=== PATIENT | male | born 1935 | race Caucasian/White ===

== ENCOUNTER → 2017-01-12 | Outpatient (CLI) | payer MEDICARE ==
[~2017-01-12] MED LIST: ALN10T; ASP81TEC PO; AZIT-21 PO; CEFD300C3 PO; CEPH250T; CFP200T PO; DCS100C PO; ENXP80I.8 SC; LNS30CCR PO; MTP50T PO; MTX2.5T; PANT20TA2 PO; PANT40TA PO; PNT40TEC PO; PRD10T; PRD1T PO; VITAMIN D PO; WARF10TA PO; WARF1TAB PO; WARF3TAB PO; WARF5TAB PO; WARF6TAB PO; WARF7.5T PO; WRF5T PO
--- OUTSIDE RECORDS SUMMARY | 2017-01-12 11:38 | XMS REPORT | Continuity of Care Document ---
Author Author [facility] Organization [facility] Address Unknown Phone Unavailable Care Team Providers Care Associate Professor Of Musicology Name Role Phone Unverified, Unverified PCP Unavailable Source Comments Some departments are not documenting in the electronic medical record. If you do not see the information that you expected, contact Release of Information in the Health Information Management department at [phone] for further assistance in locating additional records.[facility] Active Allergies and Adverse Reactions Not on File Current Medications Prescription Sig. Disp. Refills Start End Date Status Date lansoprazole DR Take 30 mg by mouth Active (PREVACID) 30 mg PO daily. capsule Aspirin 81 mg PO Tab Take 1 Tab by mouth Active daily. predniSONE (DELTASONE) 1 Take 1 mg by mouth daily. Active mg PO tablet warfarin (COUMADIN) 7.5 Take 7.5 mg by mouth Active mg PO tablet daily. Cholecalciferol (Vitamin Take 1 Tab by mouth Active D3) (VITAMIN D-3) 1,000 daily. unit PO Chew docusate (STOOL SOFTENER) Take 100 mg by mouth Active 100 mg PO capsule three times daily. Active Problems Problem Noted Date Ascending aortic aneurysm (HCC) 01/25/2011 Overview: 01/21 [facility]ters [facility] for [facility] opinion with history of Ascendiong aortic span 4.[address]s of March 2008, June 2010 and December 2010 and a recent recommendation from Dr. Rosenbaum surgeon at [facility] to have aortic repair L ast Assessment & Plan: CT from December 2010 [address] Alexis. The reported maximum aortic span of 4.8 cm is confirmed. In absence of evidence of dissection or significant expansion, this patient should be managed with CT scans annually. A recent recommendation for a followup scan in [address] Hammonds, the patient's principle career development specialist may have been influenced by the recommendation to proceed with aortic repair. I would defer to Dr. Hammonds regarding the necessity for a scan is 6 months but I suspect that it will be found to be stable in 6 months. No change in medications were recommended. Symptoms to watch for were outlined to the patient and his family. Mechanical heart valve 01/25/2011 Overview: 1984 placement of Kelly Shiley Valve at [facility] as treatment for stenotic bicuspid aortic valve 04/07/09 JENNA to evaluate TIA Dr. Nuno [facility]: EF 55% normal appearance Mechanical AO Valve, no abscess or clot, normal seating LA appendage without clot , No shunt with Agitated saline 04/02/09 TTE: similar to JENNA, trivial AI Aortic root 2.1 12/1010 Echo-Doppler EF 55% normal LV dimensionas Normal MV andTV, Mecnacial aoartic valve mean gradient 8, peak 16, Transient ischemic attack (TIA) 01/25/2011 Overview: Symptoms attributes to emboli from mechanical valve, as of 01/21 evaluation MAC increase in anticoagulant effect with INR targe range 3.5 to 4.5 has been adopted with baseline antiplatelet therapy continued with aspirin 81 mg/day alone L ast Assessment & Plan: If patient has further TIAS with INR in 3.5 to 4.5 range, reduction in INR range and additon of Plavis to aspirirn may be best approach but acute heparinaztion may be required. Patient instsurcted to reprot any further TIAs immediately due to treatment issues related to managing futher TIAs. Syncope 01/25/2011 Overview: Episode when at a social event without alcohol involvement 2010 L ast Assessment & Plan: Caution with antihypertensives and diuretics seems advisable with this history. Carotid artery disease (HCC) 01/25/2011 Overview: 04/08/09,study after TIA: mild to moderate disease JENNA: 12/30/10 After Syncope: Milt to moderate disease. 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 Carcinoma of colon (HCC) 01/25/2011 Overview: August 2009 Sigmoid colectomy for carcinoma Social History Tobacco Use Types Packs/Day Years Used Date Never Assessed Last Filed Vital Signs Vital Sign Reading Time Taken Blood Pressure 160/80 01/24/2011 12:43 PM CDT Pulse - - Temperature - - Respiratory Rate - - Height 1.753 m (5' 9") 01/24/2011 12:43 PM CDT Weight 72.938 kg (160 lb 12.8 01/24/2011 12:43 PM CDT oz) Body Mass Index 23.74 01/24/2011 12:43 PM CDT Oxygen Saturation - - Plan of Care Health Maintenance Due Date Last Done Comments Physical (Comprehensive) 1943 Exam Pertussis Vaccine 1947 Tetanus Vaccine 1953 Shingles Vaccine 1996 Prevnar/Pneumovax (#1) 2001 Influenza Vaccine 07/14/2015 Results from Last 3 Months Not on file
--- NOTE | 2017-01-12 16:14 | Diagnostic Imaging Report ---
EXAMINATION: PA and lateral views of the chest. INDICATION: Cough and fever. FINDINGS: The lungs are clear of focal consolidation. There is hyperinflation and slight thickening in the interstitium lung bases. The heart size is normal. No effusion or pneumothorax. The mediastinum and mejia appear unremarkable. There is an aortic valve replacement and sternotomy wires are seen. IMPRESSION: No acute process. Dictated by: Dictated on workstation # [id number]
== END ==
LOC: RAD 10:50
PROVIDERS: ATTEND Internal Medicine
DX: R05 Cough (principal); R50.9 Fever, unspecified
CPT/HCPCS: 71020

== ENCOUNTER 2017-01-14 02:44 | Emergency (ER) | payer MEDICARE ==
[~2017-01-14] VITALS: Ht 175.3 cm; Wt 69.9 kg
[~2017-01-14 02:44] MED LIST changes: -CEFD300C3 PO
--- OUTSIDE RECORDS SUMMARY | 2017-01-14 02:51 | XMS REPORT | Continuity of Care Document ---
Author Author [facility] Organization [facility] Address Unknown Phone Unavailable Care Team Providers Care Hydrodynamicist Name Role Phone Unverified, Unverified PCP Unavailable Source Comments Some departments are not documenting in the electronic medical record. If you do not see the information that you expected, contact Release of Information in the Health Information Management department at [phone] for further assistance in locating additional records.[facility] Active Allergies and Adverse Reactions Not [...] recent recommendation from Dr. Rosenbaum surgeon at [facility] to have aortic repair L ast Assessment [...] made by Dr. Hammonds, the patient's principle technology engineer may have been influenced by the recommendation [...] 1984 placement of Kelly Shiley Valve at [facility] as treatment for stenotic bicuspid aortic valve 04/07/09 JENNA to evaluate TIA Dr. Nuno [facility]: EF 55% normal appearance Mechanical AO [...]
[2017-01-14] MEDS ORDERED: RT-ALBUTEROL/IPRATROPIUM 3 ML (DUONEB) VIAL INH ONE (03:45)
[2017-01-14] MEDS ORDERED: RT-ALBUTEROL SULF 2.5 MG/3 ML PRE-MIX VIAL INH STA (04:22)
[2017-01-14] MEDS ORDERED: DEXAMETHASONE PF 10 MG/ML (DECADRON) VIAL IM STA (04:22)
[2017-01-14] MEDS ORDERED: RX-ALBUTEROL INHALER (PROAIR) 8 GM IH PRN (04:30)
[2017-01-14] MEDS ORDERED: CEFDINIR 300 MG (OMNICEF) CAP PO ONE (04:30)
--- NOTE | 2017-01-14 04:34 | ED Respiratory ---
General Chief Complaint: Cough/Cold/Flu Symptoms Stated Complaint: SOB Nursing Triage Note: PT TO ED 4 W/ C/O COUGH X3-4 DAYS, WORSE TONIGHT. REPORTS COUGH WAS PRODUCTIVE UNTIL THIS EVENING. NO OTHER C/O VOICED Source: patient Exam Limitations: no limitations History of Present Illness Time seen by provider: 03:35 Initial Comments Here with report of cough over the last 3-4 days. He had chest x-ray 2 days ago with his doctor which did not show anything significant. Tonight he comes in feeling like he has a crackling sensation in his chest and/or wheezing and feels tight as well as short of breath. His is in the hospital currently with pneumonia. Patient has a long-term heart valve replacement and is on Coumadin for that. Denies fever or chills. Denies nausea or vomiting. Does report upper respiratory congestion. Timing/Duration: getting worse, other (several days) Severity: moderate Prior Episodes/Possible Cause: no prior episodes Modifying Factors: Worse With Coughing, Improves With Rest Associated Symptoms: coughNo fever/chills (social), nasal congestion shortness of breath wheezing Allergies and Home Medications Allergies Coded Allergies: NSAIDS (Non-Steroidal Anti-Inflamma (Unverified Allergy, Unknown, 06/11/14) Uncoded Allergies: vitamin K (Allergy, Unknown, 06/11/14) Home Medications Aspirin 81 Mg Tabec 81 MG PO DAILY (Reported) Docusate Sodium 100 Mg Cap 200 MG PO DAILY (Reported) TAKES 2 (100MG) CAPSULES Metoprolol Tartrate 50 Mg Tablet 25 MG PO BID (Reported) TAKES 1/2 (50MG) TABLET Pantoprazole Sodium 40 Mg Tablet.dr 40 MG PO DAILY (Reported) Warfarin Sodium 1 Mg Tablet 3 MG PO ODD DAY @ HS (Reported) TAKE 3 (1MG)+ 5MG = 8MG ON ODD DAYS Warfarin Sodium 1 Mg Tablet 2 MG PO EVEN DAY @ HS (Reported) TAKE 2 (1MG) + 5MG = 7MG ON EVEN DAYS Warfarin Sodium 5 Mg Tablet 5 MG PO HS (Reported) TAKES WITH 1MG -2 TAB ON EVEN DAYS - 3 TAB ON ODD DAYS Constitutional: see HPINo chills, No fever EENTM: nose congestion see HPI Respiratory: see HPI short of breath wheezing Cardiovascular: no symptoms reportedNo chest pain, No edema Gastrointestinal: no symptoms reportedNo abdominal pain, No nausea, No vomiting Genitourinary: no symptoms reported Musculoskeletal: no symptoms reported Skin: no symptoms reported All Other Systems Reviewed Negative Unless Noted: Yes Past Kodzwtg-Grrgqe-Fblqgm Hx Patient Social History Alcohol Use: Occasionally Uses Recreational Drug Use: No Smoking Status: Former Smoker Recent Foreign Travel: No Contact w/Someone Who Travel: No Recent Infectious Disease Expo: No Recent Hopitalizations: Yes (TIA, GI BLEED) Immunizations Up To Date Date of Pneumonia Vaccine: Nov 18, 2010 Date of Influenza Vaccine: Aug 13, 2014 Seasonal Allergies Seasonal Allergies: No Surgeries HX Surgeries: Yes (TONSILECTOMY, GI SURGERY, APPENDECTOMY, HEART SURGERY) Respiratory Hx Respiratory Disorders: No Cardiovascular Hx Cardiac Disorders: Yes (AORTIC VALVE REPLACEMENT) Neurological Hx Neurological Disorders: Yes (BELLS PALSY, RIGHT FACIAL DROOP) Reproductive System Hx Reproductive Disorders: No Genitourinary Hx Genitourinary Disorders: No Gastrointestinal Hx Gastrointestinal Disorders: Yes (Colon CA) Musculoskeletal Hx Musculoskeletal Disorders: Yes Endocrine Hx Endocrine Disorders: No HEENT HX ENT Disorders: Yes (cataract surgery) HEENT Disorders: Cataract Loss of Vision: Denies Hearing Impairment: Denies Cancer Hx Cancer: Yes Cancer: Colon Psychosocial Hx Psychiatric Problems: No Integumentary HX Skin/Integumentary Disorder: No Blood Transfusions Hx Blood Disorders: No Reviewed Nursing Assessment Reviewed/Agree w Nursing PMH: Yes Family Medical History Significant Family History: No Pertinent Family Hx Physical Exam Vital Signs Vital Sign - Last 12Hours 01/14/17 02:48 Temp 97.8 Pulse 89 Resp 20 B/P 171/107 Pulse Ox 94 O2 Delivery Room Air Capillary Refill : Less Than 3 Seconds General Appearance: WD/WN no apparent distress HEENT: PERRL/EOMI pharynx normal Neck: full range of motion supple Respiratory: no accessory muscle use wheezing expiration Cardiovascular: regular rate, rhythm no murmur Gastrointestinal: non tender soft Extremities: non-tender normal inspection Neurologic/Psychiatric: alert oriented x 3 Skin: normal color warm/dry Progress/Results/Core Measures Results/Orders My Orders Orders-DENI SOW MD Chest Pa/Lat (2 View) (01/14/17 02:54) Albuterol/Ipra Inhalation Soln (Duoneb I (01/14/17 03:45) Rt Request For Service (01/14/17 03:32) Svn Sm Volume Nebulizer Rt-Rfs (01/14/17 03:32) Dexamethasone Pf Injection (Decadron Pf (01/14/17 04:22) Albuterol Pre-Mix Nebs (Rt) (Proventil P (01/14/17 04:22) Svn Sm Volume Nebulizer Rt-Rfs (01/14/17 04:22) Rx-Albuterol Inhaler (Rx-Proair) (01/14/17 04:30) Cefdinir Capsule (Omnicef Capsule) (01/14/17 04:30) Medications Given in ED Current Medications Medications Dose Ordered Sig/Italia Route Start Time Stop Time Status Last Admin Dose Admin Albuterol/ Ipratropium 3 ml ONCE ONCE INH 01/14/17 03:45 01/14/17 03:46 DC 01/14/17 03:41 3 ML Vital Signs/I&O Vital Sign - Last 12Hours 01/14/17 01/14/17 01/14/17 01/14/17 02:48 02:48 03:41 04:37 Temp 97.8 Pulse 89 Resp 20 B/P 171/107 Pulse Ox 94 95 90 O2 Delivery Room Air Blood Pressure Mean: 128 Progress Note : Progress Note Seen and evaluated. Chest x-ray ordered. No acute findings. Duo neb ordered and this did improve his breathing. Decadron 10 mg IM ordered. Repeat albuterol now. Omnicef 300 mg by mouth given. Albuterol MDI teaching done and albuterol MDI given. Discharged home with return precautions. Patient's verbalize understanding of instructions and agreement with plan. Departure Impression Impression: Primary Impression: Bronchitis Disposition: 01 HOME, SELF-CARE Condition: Improved Departure-Patient Inst. Decision time for Depature: 04:41 Referrals: SHASHI CURRAN MD (PCP/Family) Primary Care Physician Patient Instructions: Acute Bronchitis, Adult (DC) Add. Discharge Instructions: All discharge instructions reviewed with patient and/or family. Voiced understanding. Take medications as directed. Follow-up with your DrErnesto on Monday for recheck and further evaluation. Return for worse pain, fever, vomiting, weakness, rhythm problems other concerns as needed. Scripts Cefdinir 300 Mg [id number] Mg PO BID #14 CAP Prov:DENI SOW MD 01/14/17 DENI SOW MD Jan 14, 2017 04:34
[2017-01-14] MEDS ORDERED: CEFD300C3 PO (04:45)
[2017-01-14 05:19] VITALS: BP 148/78
--- NOTE | 2017-01-14 07:10 | Diagnostic Imaging Report ---
EXAMINATION: CHEST (PA AND LATERAL) CLINICAL INDICATION: 81-year-old male, shortness of breath and cough. COMPARISON: January 12, 2017. FINDINGS: There are median sternotomy wires. There is valvular hardware. Stable overall appearance of the cardiomediastinal silhouette. There is no identified pneumothorax. There is no pleural effusion. There is no identified interval focal airspace consolidation. Radiographic appearance is essentially unchanged dating back to November 09, 2014. IMPRESSION: No identified acute cardiopulmonary abnormality. Dictated by: Dictated on workstation # [id number]
== END 2017-01-14 05:19 | disposition home or self-care (01) ==
LOC: EDUNIT# 02:44 → ER 02:46
DX: J40 Bronchitis, not specified as acute or chronic (principal); Z79.01 Long term (current) use of anticoagulants; Z79.82 Long term (current) use of aspirin; Z79.899 Other long term (current) drug therapy; Z95.2 Presence of prosthetic heart valve
CPT/HCPCS: 71020; 94640; 96372; 99282

== ENCOUNTER 2017-01-18 10:58 | Outpatient (RCR) | payer MEDICARE ==
[~2017-01-18 10:58] MED LIST changes: +CEFD300C3 PO
--- OUTSIDE RECORDS SUMMARY | 2017-01-18 11:01 | XMS REPORT | Continuity of Care Document ---
Author Author [facility] Organization [facility] Address Unknown Phone Unavailable Care Team Providers Care Director Dermatology Name Role Phone Unverified, Unverified PCP Unavailable Source Comments Some departments are not documenting in the electronic medical record. If you do not see the information that you expected, contact Release of Information in the Health Information Management department at [phone] for further assistance in locating additional records.[facility] Active Allergies and Adverse Reactions Not [...] recent recommendation from Dr. Rosenbaum surgeon at [facility] to have aortic repair L ast [...] made by Dr. Hammonds, the patient's principle electron beam machine welder setter may have been influenced by the recommendation [...] 1984 placement of Kelly Shiley Valve at [facility] as treatment for stenotic bicuspid aortic valve 04/07/09 JENNA to evaluate TIA Dr. Nuno [facility]: EF 55% normal appearance Mechanical AO [...]
== END 2017-04-18 | disposition home or self-care (01) ==
LOC: ONC 10:58
PROVIDERS: ATTEND Internal Medicine Hematology & Oncology
DX: Z08 Encounter for follow-up examination after completed treatment for malignant neoplasm (principal); Z85.038 Personal history of other malignant neoplasm of large intestine; D50.9 Iron deficiency anemia, unspecified; J44.9 Chronic obstructive pulmonary disease, unspecified; Z95.2 Presence of prosthetic heart valve; Z79.01 Long term (current) use of anticoagulants; Z86.73 Personal history of transient ischemic attack (TIA), and cerebral infarction without residual deficits
CPT/HCPCS: 99213

== ENCOUNTER 2017-05-30 07:55 | Emergency (ER) | payer MEDICARE ==
[~2017-05-30] VITALS: Ht 172.7 cm; Wt 67.1 kg
[2017-05-30 08:14] LABS: BASOPHILS % (AUTO) 0 % (0-10); EOSINOPHILS # (AUTO) 0.2 10^3/uL (0.0-0.3); EOSINOPHILS % (AUTO) 2 % (0-10); LYMPHOCYTES # (AUTO) 2.9 X 10^3 (1.0-4.0); LYMPHOCYTES % (AUTO) 38 % (12-44); MEAN CORPUSCULAR HEMOGLOBIN 31 PG (25-34); MEAN CORPUSCULAR HGB CONC 33 G/DL (32-36); MEAN CORPUSCULAR VOLUME 92 FL (80-99); MEAN PLATELET VOLUME 9.8 FL (7.4-10.4); MONOCYTES # (AUTO) 1.1 X 10^3 (0.0-1.0); MONOCYTES % (AUTO) 15 % (0-12); NEUTROPHILS # (AUTO) 3.5 X 10^3 (1.8-7.8); NEUTROPHILS % (AUTO) 46 % (42-75); PLATELET COUNT 207 10^3/uL (130-400); RED BLOOD COUNT 4.86 10^6/uL (4.35-5.85); RED CELL DISTRIBUTION WIDTH 12.6 % (10.0-14.5); WHITE BLOOD COUNT 7.8 10^3/uL (4.3-11.0)
[2017-05-30 08:24] LABS: INR 2.6 (0.8-1.4); PROTHROMBIN TIME PATIENT 27.6 SEC (12.2-14.7)
--- NOTE | 2017-05-30 08:24 | ED General ---
General Chief Complaint: Respiratory Problems Stated Complaint: DIZZY,SOB Nursing Triage Note: PT STATES HE GOT UP TO USE THE RESTROOM AT APPROX 0300 AND STARTED FEELING SOA AND LIKE HE WAS "BOUNCING OFF THE WALL." FEELS LIKE HIS EQUALIBRIUM WAS OFF. FSBS AT HOME 137. HX: TIA, DENTAL SX LAST MONDAY THEREFORE OFF COUMADIN X 3 DAYS PRIOR. Nursing Sepsis Screen: No Definite Risk Source of Information: Patient (LIMITED HISTORIAN ), Spouse (GIVES MOST INFORMATION) History of Present Illness Time Seen by Provider: 08:05 Initial Comments PT ARRIVES VIA POV FROM HOME PT STATES HE GOT UP TO GO TO THE BATHROOM AT 0300 THIS AM AND HAD A "LACK OF BALANCE" --STATES IT WAS NOT A SPINNING SENSATION, JUST A BALANCE PROBLEM HAD SWEATS AT 0600 WHEN HE GOT UP TO GET READY FOR WORK, AND FELT VERY "OFF- BALANCE"--PT STILL WORKS AT [employer] FEELS SLIGHTLY SHORT OF BREATH NO CHEST PAIN NO PALPITATIONS NO NEW PARESTHESIAS OR MOTOR DEFICITS--PT STATES HIS FEET ALWAYS TINGLE, AND HAS A CHRONIC RIGHT FACIAL DROOP NO NAUSEA/VOMITING NO SWELLING IN LEGS/FEET OR PAIN IN CALVES NO KNOWN FEVER, AND NO RECENT ILLNESS NO VISION CHANGES NO HEADACHE PT HAS A MECHANICAL AORTIC VALVE AND NORMALLY TAKES COUMADIN, BUT HAD A TOOTH EXTRACTED LAST Monday05/25/17 AND WAS OFF COUMADIN FOR 3 DAYS PRIOR TO EXTRACTION. INR WAS 1.4 ON MONDAY PRIOR TO EXTRACTION COUMADIN WAS RESTARTED THAT DAY 05/25/17 NO PROBLEMS WITH EXCESSIVE BLEEDING FROM EXTRACTION SITE. Allergies and Home Medications Allergies Coded Allergies: NSAIDS (Non-Steroidal Anti-Inflamma (Unverified Allergy, Unknown, 06/11/14) Uncoded Allergies: vitamin K (Allergy, Unknown, 06/11/14) Home Medications Aspirin 81 Mg Tabec, 81 MG PO DAILY, (Reported) Cefdinir 300 Mg Capsule, 300 MG PO BID, #14 Prescribed by: DENI SOW on 01/14/17 7879 Docusate Sodium 100 Mg Cap, 200 MG PO DAILY, (Reported) TAKES 2 (100MG) CAPSULES Metoprolol Tartrate 50 Mg Tablet, 25 MG PO BID, (Reported) TAKES 1/2 (50MG) TABLET Pantoprazole Sodium 40 Mg Tablet.dr, 40 MG PO DAILY, (Reported) Warfarin Sodium 1 Mg Tablet, 3 MG PO ODD DAY @ HS, (Reported) TAKE 3 (1MG)+ 5MG = 8MG ON ODD DAYS Warfarin Sodium 1 Mg Tablet, 2 MG PO EVEN DAY @ HS, (Reported) TAKE 2 (1MG) + 5MG = 7MG ON EVEN DAYS Warfarin Sodium 5 Mg Tablet, 5 MG PO HS, (Reported) TAKES WITH 1MG -2 TAB ON EVEN DAYS - 3 TAB ON ODD DAYS Constitutional: see HPI, diaphoresis EENTM: no symptoms reported Respiratory: see HPI, short of breath Cardiovascular: no symptoms reported, No chest pain, No edema, No palpitations , No syncope Gastrointestinal: no symptoms reported, No nausea, No vomiting Genitourinary: no symptoms reported Musculoskeletal: no symptoms reported Skin: no symptoms reported Psychiatric/Neurological: See HPI, Denies Headache Hematologic/Lymphatic: See HPI Immunological/Allergic: no symptoms reported Past Krqvbok-Ygixzw-Hxovqu Hx Patient Social History Alcohol Use: Occasionally Uses Recreational Drug Use: No Smoking Status: Former Smoker (2 PPD, QUIT 1998) Type Used: Cigarettes 2nd Hand Smoke Exposure: No Recent Foreign Travel: No Contact w/Someone Who Travel: No Recent Infectious Disease Expo: No Recent Hopitalizations: No Immunizations Up To Date Tetanus Booster (TDap): More than 5yrs Date of Pneumonia Vaccine: Nov 18, 2010 Date of Influenza Vaccine: Aug 13, 2014 Seasonal Allergies Seasonal Allergies: No Surgeries HX Surgeries: Yes (TONSILECTOMY, WHIPPLE PROCEDURE FOR DUODENAL CA; SIGMOID COLON RESECTION FOR COLON CA; ENDOSCOPIES; HERNIA REPAIR; CARDIAC CATHS; AORTIC VALVE REPLACEMENT; CATARACTS) Surgeries: Abdominal, Appendectomy, Bowel Surgery, Cardiac, Eye Surgery, Valve Replacement Respiratory Hx Respiratory Disorders: Yes Respiratory Disorders: COPD Cardiovascular Hx Cardiac Disorders: Yes (AORTIC VALVE REPLACEMENT; 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) Cardiac Disorders: Aneurysm, Rheumatic Fever, Valvular Heart Disease Neurological Hx Neurological Disorders: Yes (BELLS PALSY-PERMANENT RIGHT FACIAL DROOP 1979' ; MEMORY IMPAIRMENT; TIA'S X 2; NEUROPATHY --FEET) Neurological Disorders: Neuropathy, TIA Reproductive System Hx Reproductive Disorders: No Genitourinary Hx Genitourinary Disorders: Yes Genitourinary Disorders: Kidney Stones Gastrointestinal Hx Gastrointestinal Disorders: Yes (DUODENAL CANCER AND SIGMOID COLON CANCER) Gastrointestinal Disorders: Gastrointestinal Bleed Musculoskeletal Hx Musculoskeletal Disorders: Yes (SJOGREN'S SYNDROME; POLYMYALGIA RHEUMATICA) Endocrine Hx Endocrine Disorders: Yes Endocrine Disorders: Diabetes, Non-Insulin dep HEENT HX ENT Disorders: Yes (cataract surgery) HEENT Disorders: Cataract Loss of Vision: Denies Hearing Impairment: Denies Cancer Hx Cancer: Yes (DUODENAL CA-S/P SURGERY ONLY 1997; 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, Colon Psychosocial Hx Psychiatric Problems: No Integumentary HX Skin/Integumentary Disorder: No Blood Transfusions Hx Blood Disorders: No Physical Exam Vital Signs Vital Sign - Last 12Hours 05/30/17 07:58 Temp 95.3 Pulse 64 Resp 18 B/P (MAP) 173/88 Pulse Ox 96 O2 Delivery Room Air Capillary Refill : Less Than 3 Seconds General Appearance: No Apparent Distress, WD/WN HEENT: PERRL/EOMI, Other (MILD RIGHT FACIAL DROOP--NORMAL FOR PT) Neck: Full Range of Motion, Normal Inspection, Non Tender, Supple Respiratory: Normal Breath Sounds, No Accessory Muscle Use, No Respiratory Distress Cardiovascular: Regular Rate, Rhythm, Other (OCCASIONAL ECTOPY--C/W PVC'S ON MONITOR; MECHANICAL VALVULAR CLICK) Gastrointestinal: Normal Bowel Sounds, No Organomegaly, No Pulsatile Mass, Non Tender, Soft Back: Normal Inspection, No CVA Tenderness, No Vertebral Tenderness Extremity: Normal Capillary Refill, Normal Inspection, Normal Range of Motion, Non Tender, No Calf Tenderness, No Pedal Edema Neurologic/Psychiatric: Alert, Oriented x3 (MILD MEMORY IMPAIRMENT), Normal Mood/Affect, Abnormal Cerebellar Tests (GAIT [id number]), Abnormal Gait, No Aphasia, Facial Droop, Other (MILD RIGHT FACIAL DROOP--NORMAL FOR PT; SUBJECTIVE TINGLING IN FEET, BUT DOES HAVE SENSATION ) Reflexes: 2+ Bicep (R), 2+ Bicep (L), 2+ Knee (R), 2+ Knee (L) Skin: Normal Color, Warm/Dry Focused Exam Lactic Acid Level Laboratory Tests Test 05/30/17 08:30 Lactic Acid Level 1.40 MMOL/L (0.50-2.00) Progress/Results/Core Measures Results/Orders Lab Results Laboratory Tests Test 05/30/17 08:00 05/30/17 08:30 05/30/17 09:29 Range/Units White Blood Count 7.8 4.3-11.0 10^3/uL Red Blood Count 4.86 4.35-5.85 10^6/uL Hemoglobin 14.9 13.3-17.7 G/DL Hematocrit 45 40-54 % Mean Corpuscular Volume 92 80-99 FL Mean Corpuscular Hemoglobin 31 25-34 PG Mean Corpuscular Hemoglobin Concent 33 32-36 G/DL Red Cell Distribution Width 12.6 10.0-14.5 % Platelet Count 207 130-400 10^3/uL Mean Platelet Volume 9.8 7.4-10.4 FL Neutrophils (%) (Auto) 46 42-75 % Lymphocytes (%) (Auto) 38 12-44 % Monocytes (%) (Auto) 15 H 0-12 % Eosinophils (%) (Auto) 2 0-10 % Basophils (%) (Auto) 0 0-10 % Neutrophils # (Auto) 3.5 1.8-7.8 X 10^3 Lymphocytes # (Auto) 2.9 1.0-4.0 X 10^3 Monocytes # (Auto) 1.1 H 0.0-1.0 X 10^3 Eosinophils # (Auto) 0.2 0.0-0.3 10^3/uL Basophils # (Auto) 0.0 0.0-0.1 10^3/uL Prothrombin Time 27.6 H 12.2-14.7 SEC INR Comment 2.6 H 0.8-1.4 Activated Partial Thromboplast Time 32 24-35 SEC Sodium Level 137 135-145 MMOL/L Potassium Level 4.2 3.6-5.0 MMOL/L Chloride Level 101 98-107 MMOL/L Carbon Dioxide Level 28 21-32 MMOL/L Anion Gap 8 5-14 MMOL/L Blood Urea Nitrogen 12 7-18 MG/DL Creatinine 0.82 0.60-1.30 MG/DL Estimat Glomerular Filtration Rate > 60 BUN/Creatinine Ratio 15 Glucose Level 164 H 70-105 MG/DL Calcium Level 9.4 8.5-10.1 MG/DL Magnesium Level 2.0 1.8-2.4 MG/DL Total Bilirubin 0.4 0.1-1.0 MG/DL Aspartate Amino Transf (AST/SGOT) 15 5-34 U/L Alanine Aminotransferase (ALT/SGPT) 17 0-55 U/L Alkaline Phosphatase 75 40-136 U/L Total Creatine Kinase 27 L 30-200 U/L Creatine Kinase MB 1.0 <6.6 NG/ML Troponin I < 0.30 <0.30 NG/ML B-Type Natriuretic Peptide 204.0 H <100.0 PG/ML Total Protein 7.1 6.4-8.2 GM/DL Albumin 4.0 3.2-4.5 GM/DL Lactic Acid Level 1.40 0.50-2.00 MMOL/L Urine Color YELLOW Urine Clarity CLEAR Urine pH 7 5-9 Urine Specific [place] 1.010 L 1.016-1.022 Urine Protein NEGATIVE NEGATIVE Urine Glucose (UA) NEGATIVE NEGATIVE Urine Ketones NEGATIVE NEGATIVE Urine Nitrite NEGATIVE NEGATIVE Urine Bilirubin NEGATIVE NEGATIVE Urine Urobilinogen NORMAL NORMAL MG/DL Urine Leukocyte Esterase NEGATIVE NEGATIVE Urine RBC (Auto) NEGATIVE NEGATIVE Urine RBC NONE /HPF Urine WBC NONE /HPF Urine Squamous Epithelial Cells RARE /HPF Urine Crystals NONE /LPF Urine Bacteria NEGATIVE /HPF Urine Casts NONE /LPF Urine Mucus NEGATIVE /LPF Urine Culture Indicated NO My Orders Orders - BECKY GOULD DO Saline Lock/Iv-Start (05/30/17 08:06) Orthostatic Vital Signs (05/30/17 08:06) Ekg Tracing (05/30/17 08:06) O2 (05/30/17 08:06) Monitor-Rhythm Ecg Trace Only (05/30/17 08:06) Ct Head Wo (05/30/17 08:06) BNP (05/30/17 08:06) Cbc With Automated Diff (05/30/17 08:06) Comprehensive Metabolic Panel (05/30/17 08:06) Creatine Kinase (05/30/17 08:06) Creatine Kinase Mb (05/30/17 08:06) Magnesium (05/30/17 08:06) Protime With Inr (05/30/17 08:06) Partial Thromboplastin Time (05/30/17 08:06) Troponin I (05/30/17 08:06) Ua Culture If Indicated (05/30/17 08:06) Chest 1 View, Ap/Pa Only (05/30/17 08:06) Lactic Acid Analyzer (05/30/17 08:17) Blood Culture (05/30/17 08:17) Scopolamine Patch (Transderm-Scop Patch) (05/30/17 08:45) Meclizine Tablet (Antivert Tablet) (05/30/17 08:45) Ct Angio Chest W (05/30/17 08:57) Iohexol Injection (Omnipaque 350 Mg/Ml 1 (05/30/17 09:15) Ns (Ivpb) (Sodium Chloride 0.9% Ivpb Bag (05/30/17 09:15) Meclizine Tablet (Antivert Tablet) (05/30/17 10:00) Medications Given in ED Current Medications Medications Dose Ordered Sig/[place] Route Start Time Stop Time Status Last Admin Dose Admin Iohexol 125 ml ONCE ONCE IV 05/30/17 09:15 05/30/17 09:16 DC 05/30/17 09:09 125 ML Meclizine HCl 25 mg ONCE ONCE PO 05/30/17 08:45 05/30/17 08:46 DC 05/30/17 08:47 25 MG Scopolamine 1.5 mg ONCE ONCE TD 05/30/17 08:45 05/30/17 08:46 DC 05/30/17 08:47 1.5 MG Sodium Chloride 100 ml ONCE ONCE IV 05/30/17 09:15 05/30/17 09:16 DC 05/30/17 09:09 80 ML Vital Signs/I&O Vital Sign - Last 12Hours 05/30/17 05/30/17 07:58 08:20 Temp 95.3 Pulse 64 64 61 72 Resp 18 B/P (MAP) 173/88 Pulse Ox 96 O2 Delivery Room Air Blood Pressure Mean: 116 ECG Initial ECG Impression Time: 08:03 Initial ECG Rate: 64 Initial ECG Rhythm: Normal Sinus (WITH OCCASIONAL PVC'S) Initial ECG Comparisson: Unchanged (EXCEPT FOR PVC'S) Diagnostic Imaging Comments CT HEAD--NO ACUTE PROCESS, PER RADIOLOGIST REPORT @ 0947 CXR--NO ACUTE PROCESS, PER RADIOLOGIST REPORT @ 0947 CT CHEST ANGIOGRAM--NO ACUTE PROCESS, STABLE THORACIC AORTIC ANEURYSM, COPD CHANGES, HILAR LYMPH NODE--PER RADIOLOGIST REPORT @ 1014 Reviewed: Reviewed by Me Departure Impression Impression: Primary Impression: Vertigo Disposition: 01 HOME, SELF-CARE Condition: Stable Departure-Patient Inst. Referrals: SHASHI CURRAN MD (PCP/Family) Primary Care Physician Patient Instructions: VERTIGO, Vertigo (a Type of Dizziness) (DC) Add. Discharge Instructions: HOME, REST SLOW POSITION CHANGES USE WALKER AT ALL TIMES CONTINUE YOUR REGULAR MEDICATIONS PRESCRIBED FOLLOW UP WITH YOUR DR THIS WEEK FOR FOLLOW UP, RETURN TO ER IF WORSE All discharge instructions reviewed with patient and/or family. Voiced understanding. Scripts Scopolamine (Transderm-Scop) 1 Each Patch.td72 1 EACH TD Q72 HOURS for Dizziness, #3 PATCH Prov: BECKY GOULD DO 05/30/17 Meclizine HCl (Meclizine HCl) 25 Mg Tablet 25-50 MG PO Q6H for Dizziness, #30 TAB Prov: BECKY GOULD DO 05/30/17 BECKY GOULD DO May 30, 2017 08:24
[2017-05-30 08:40] LABS: ALANINE AMINOTRANSFERASE 17 U/L (0-55); ANION GAP 8 MMOL/L (5-14); ASPARTATE AMINO TRANSFERASE 15 U/L (5-34); BILIRUBIN,TOTAL 0.4 MG/DL (0.1-1.0); BLOOD UREA NITROGEN 12 MG/DL (7-18); BUN/CREATININE RATIO 15; CALCIUM 9.4 MG/DL (8.5-10.1); CARBON DIOXIDE 28 MMOL/L (21-32); CHLORIDE 101 MMOL/L (98-107); CREATINE KINASE 27 U/L (30-200); CREATININE SERUM 0.82 MG/DL (0.60-1.30); GFR ESTIMATED > 60; GLUCOSE 164 MG/DL (70-105); POTASSIUM 4.2 MMOL/L (3.6-5.0); SODIUM 137 MMOL/L (135-145); TOTAL PROTEIN 7.1 GM/DL (6.4-8.2)
[2017-05-30] MEDS ORDERED: SCOPOLAMINE 1.5 MG (TRANSDERM-SCOP) PATCH TD ONE (08:45)
[2017-05-30] MEDS ORDERED: MECLIZINE 25 MG (ANTIVERT) TAB PO ONE ×2 (08:45→10:00)
[2017-05-30 08:46] LABS: TROPONIN I < 0.30 NG/ML (<0.30)
--- NOTE | 2017-05-30 08:53 | Diagnostic Imaging Report ---
INDICATION: Dizziness and shortness of breath. TECHNIQUE: A PA chest was obtained at 0842 hours. COMPARISON: 01/14/2017. FINDINGS: There is cardiomegaly and post sternotomy change with a prosthetic aortic valve. There is no focal infiltrate, pneumothorax, or pleural fluid. There is a nodular density overlying the right base which may be a nipple shadow, suggest followup as clinically warranted. IMPRESSION: Cardiomegaly and post sternotomy change with a prosthetic aortic valve. A nodular density is seen overlying the right base which may be a nipple shadow, consider followup with nipple markers as clinically warranted. Dictated by: Dictated on workstation # [id number]
--- NOTE | 2017-05-30 09:08 | Diagnostic Imaging Report ---
PROCEDURE: CT head without contrast. TECHNIQUE: Multiple contiguous axial images were obtained through the brain without the use of intravenous contrast. INDICATION: Dizziness, imbalance. FINDINGS: There is no intracranial hemorrhage. 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 The findings are somewhat similar to 11/09/2014. No ventriculomegaly. No extra-axial fluid collection is seen. The calvarium, the paranasal sinuses, and the orbits appear grossly unremarkable. IMPRESSION: No intracranial hemorrhage. Dictated by: Dictated on workstation # [id number]
[2017-05-30] MEDS ORDERED: IOHEXOL 350 MG/ML 150 ML (OMNIPAQUE 350) VIAL IV ONE (09:15)
[2017-05-30] MEDS ORDERED: NS 100 ML (IVPB) BAG IV ONE (09:15)
[2017-05-30 09:34] LABS: BILIRUBIN,URINE NEGATIVE (NEGATIVE); KETONES,URINE NEGATIVE (NEGATIVE); LEUKOCYTE ESTERASE ,URINE NEGATIVE (NEGATIVE); NITRITE,URINE NEGATIVE (NEGATIVE); PH,URINE 7 (5-9); PROTEIN,URINE NEGATIVE (NEGATIVE); UROBILINOGEN,URINE NORMAL (NORMAL)
[2017-05-30 09:44] LABS: SQUAMOUS EPITHELIAL CELL,UR RARE /HPF
--- NOTE | 2017-05-30 09:48 | Diagnostic Imaging Report ---
PROCEDURE: CT angiography of the chest with contrast. TECHNIQUE: Multiple contiguous axial images were obtained through the chest after uneventful bolus administration of intravenous contrast. Reconstructed CTA MIP acquisitions were also performed. INDICATION: Shortness of breath. History of aortic valve replacement. 125 mL Omnipaque 350 is administered intravenously. FINDINGS: The pulmonary arteries are well opacified with no filling defects to suggest pulmonary embolism. There is an ascending aortic aneurysm measuring 4.8 cm in size similar to comparison exam of 03/26/2015. There is beam hardening artifact from aortic valve replacement seen. The proximal aspect of the aortic arch is ectatic with transition to normal diameter in the distal arch and the descending aorta. The heart size is normal. No pericardial or pleural effusion. There is no mediastinal mass. There is paraseptal emphysema with prominent bullae in the lung apices more on the right side up to 4.2 cm in size. Also centrilobular emphysema in the lungs in general is seen. There are additional bullae also seen in the left lung base. There is no significant consolidation, mass, or suspicious nodule seen. There is a 1.1-cm right hilar nodule, nonspecific. No mediastinal or axillary lymphadenopathy. There is a healed sternotomy with sternotomy wires still in place. There is biliary air seen in the left hepatic lobe slightly more prominent compared to 2014 exam, may relate to prior sphincterotomy. IMPRESSION: 1. Stable mid ascending aortic aneurysm measuring 4.8 cm. 2. Advanced emphysema. 3. Nonspecific 1.1-cm right hilar lymph node. Dictated by: Dictated on workstation # [id number]
[2017-05-30] MEDS ORDERED: MECL-106 PO (10:25)
[2017-05-30] MEDS ORDERED: SCOP1PAT TD (10:25)
[2017-05-30] MEDS ORDERED: WALK1EAC23 MC (10:42)
[2017-05-30 10:44] VITALS: BP 119/67
== END 2017-05-30 10:44 | disposition home or self-care (01) ==
LOC: EDUNIT# 07:55 → ER 07:57
DX: R42 Dizziness and giddiness (principal); J44.9 Chronic obstructive pulmonary disease, unspecified; E11.40 Type 2 diabetes mellitus with diabetic neuropathy, unspecified; Z86.73 Personal history of transient ischemic attack (TIA), and cerebral infarction without residual deficits; Z87.442 Personal history of urinary calculi; Z86.79 Personal history of other diseases of the circulatory system; Z85.038 Personal history of other malignant neoplasm of large intestine; Z90.49 Acquired absence of other specified parts of digestive tract; Z79.82 Long term (current) use of aspirin; Z87.891 Personal history of nicotine dependence; Z95.2 Presence of prosthetic heart valve; Z79.01 Long term (current) use of anticoagulants
CPT/HCPCS: 36415; 70450; 71010; 71275; 80053; 81000; 82550; 82553; 83605; 83735; 83880; 84484; 85025; 85610; 85730; 87040; 93005; 93041

== ENCOUNTER 2018-01-18 12:50 | Outpatient (RCR) | payer MEDICARE ==
[~2018-01-18 12:50] MED LIST changes: +MECL-106 PO; +SCOP1PAT11 TD; +WALK1EAC23 MC
[2018-01-18 13:02] LABS: BASOPHILS % (AUTO) 0 % (0-10); EOSINOPHILS # (AUTO) 0.1 10^3/uL (0.0-0.3); EOSINOPHILS % (AUTO) 1 % (0-10); HEMATOCRIT 44 % (40-54); HEMOGLOBIN 15.1 G/DL (13.3-17.7); LYMPHOCYTES # (AUTO) 2.2 X 10^3 (1.0-4.0); LYMPHOCYTES % (AUTO) 27 % (12-44); MEAN CORPUSCULAR HEMOGLOBIN 30 PG (25-34); MEAN CORPUSCULAR HGB CONC 34 G/DL (32-36); MEAN CORPUSCULAR VOLUME 89 FL (80-99); MEAN PLATELET VOLUME 10.1 FL (7.4-10.4); MONOCYTES % (AUTO) 12 % (0-12); NEUTROPHILS # (AUTO) 4.7 X 10^3 (1.8-7.8); NEUTROPHILS % (AUTO) 59 % (42-75); PLATELET COUNT 232 10^3/uL (130-400); RED BLOOD COUNT 4.97 10^6/uL (4.35-5.85)
[2018-01-18 13:20] LABS: ALANINE AMINOTRANSFERASE 15 U/L (0-55); ALKALINE PHOSPHATASE 79 U/L (40-136); BILIRUBIN,TOTAL 0.9 MG/DL (0.1-1.0); BUN/CREATININE RATIO 13; CARBON DIOXIDE 28 MMOL/L (21-32); CHLORIDE 99 MMOL/L (98-107); GFR ESTIMATED > 60; GLUCOSE 243 MG/DL (70-105); SODIUM 135 MMOL/L (135-145); TOTAL PROTEIN 7.2 GM/DL (6.4-8.2)
== END 2018-04-18 | disposition home or self-care (01) ==
LOC: ONC 12:50
PROVIDERS: ATTEND Internal Medicine Hematology & Oncology
DX: Z08 Encounter for follow-up examination after completed treatment for malignant neoplasm (principal); Z85.038 Personal history of other malignant neoplasm of large intestine; D50.9 Iron deficiency anemia, unspecified; J44.9 Chronic obstructive pulmonary disease, unspecified; Z95.2 Presence of prosthetic heart valve; Z79.01 Long term (current) use of anticoagulants; Z86.73 Personal history of transient ischemic attack (TIA), and cerebral infarction without residual deficits
CPT/HCPCS: 80053; 82378; 82728; 85025; 99213

== ENCOUNTER → 2018-01-26 | Outpatient (CLI) | payer MEDICARE ==
--- NOTE | 2018-01-26 14:06 | Diagnostic Imaging Report ---
CLINICAL INDICATION: Evaluate carotid arteries. Patient with history of carotid artery disease and TIA. COMPARISON: Ultrasound of the carotid arteries dated 12/30/2010. EXAM: Real-time carotid Doppler duplex imaging is performed bilaterally. Peak systolic velocity, ICA/CCA peak systolic ratio, spectral analysis, and vascular morphology are studied. FINDINGS: ARTERY VELOCITY Right Left CCA 0.62 m/s 0.76 m/s ICA 0.73 m/s 0.76 m/s ECA 1.44 m/s 1.03 m/s ICA/CCA 1.2 1.1 VERT.ART Antegrade Antegrade There is mild bilateral carotid artery atherosclerotic disease which is most pronounced in the left cervical ICA bulb. There is less than 50% stenosis seen on grayscale imaging. IMPRESSION: There is no grayscale or Doppler evidence of significant vascular stenosis. Dictated by: Dictated on workstation # [id number]
== END ==
LOC: RAD 11:58
PROVIDERS: ATTEND Internal Medicine
DX: Z86.73 Personal history of transient ischemic attack (TIA), and cerebral infarction without residual deficits (principal); Z86.79 Personal history of other diseases of the circulatory system
CPT/HCPCS: 93880

== ENCOUNTER 2018-06-11 14:18 | Outpatient (RCR) | payer MEDICARE | END 2018-08-06 14:01 | disposition home or self-care (01) | PROVIDERS: ATTEND Internal Medicine | DX: I69.322 Dysarthria following cerebral infarction (principal) ==

== ENCOUNTER → 2018-06-12 | Outpatient (RCR) | payer MEDICARE ==
[2018-06-12 13:48] LABS: BASOPHILS % (AUTO) 0 % (0-10); EOSINOPHILS # (AUTO) 0.2 10^3/uL (0.0-0.3); EOSINOPHILS % (AUTO) 2 % (0-10); HEMATOCRIT 41 % (40-54); HEMOGLOBIN 13.9 G/DL (13.3-17.7); LYMPHOCYTES # (AUTO) 2.3 X 10^3 (1.0-4.0); LYMPHOCYTES % (AUTO) 33 % (12-44); MEAN CORPUSCULAR HEMOGLOBIN 30 PG (25-34); MEAN CORPUSCULAR HGB CONC 34 G/DL (32-36); MEAN CORPUSCULAR VOLUME 90 FL (80-99); MONOCYTES # (AUTO) 0.8 X 10^3 (0.0-1.0); MONOCYTES % (AUTO) 12 % (0-12); NEUTROPHILS # (AUTO) 3.6 X 10^3 (1.8-7.8); NEUTROPHILS % (AUTO) 52 % (42-75); PLATELET COUNT 232 10^3/uL (130-400); RED BLOOD COUNT 4.57 10^6/uL (4.35-5.85); RED CELL DISTRIBUTION WIDTH 13.4 % (10.0-14.5); WHITE BLOOD COUNT 6.9 10^3/uL (4.3-11.0)
[2018-06-12 15:00] LABS: BUN/CREATININE RATIO 13; CALCIUM 9.3 MG/DL (8.5-10.1); CARBON DIOXIDE 26 MMOL/L (21-32); CHLORIDE 103 MMOL/L (98-107); CREATININE SERUM 0.82 MG/DL (0.60-1.30); GFR ESTIMATED > 60; GLUCOSE 197 MG/DL (70-105); POTASSIUM 4.1 MMOL/L (3.6-5.0); SODIUM 137 MMOL/L (135-145)
== END | disposition home or self-care (01) ==
LOC: ONC 13:38
PROVIDERS: ATTEND Internal Medicine Hematology & Oncology
DX: Z08 Encounter for follow-up examination after completed treatment for malignant neoplasm (principal); Z85.038 Personal history of other malignant neoplasm of large intestine; D50.9 Iron deficiency anemia, unspecified; J44.9 Chronic obstructive pulmonary disease, unspecified; Z95.2 Presence of prosthetic heart valve; Z79.01 Long term (current) use of anticoagulants; Z86.73 Personal history of transient ischemic attack (TIA), and cerebral infarction without residual deficits
CPT/HCPCS: 36415; 80048; 82728; 85025; 99213

== ENCOUNTER → 2018-06-18 | Outpatient (CLI) | payer MEDICARE ==
[~2018-06-18] MED LIST changes: +BARIUM SUSPENSION 2.1% (VANILLA SILQ) 450 ML PO ONE; +CATHETER FLUSH 10 ML SYR IV PRN; +IOHEXOL 350 MG/ML 100 ML (OMNIPAQUE 350) VIAL IV ONE; +NS 100 ML (IVPB) BAG IV ONE
--- NOTE | 2018-06-18 12:38 | Diagnostic Imaging Report ---
PROCEDURE: CT chest, abdomen, and pelvis with contrast. TECHNIQUE: Multiple contiguous axial images were obtained through the chest, abdomen, and pelvis after the administration of intravenous contrast. INDICATION: Colon carcinoma. COMPARISON: Comparison is made with prior CT of the chest from 05/30/[address] abdomen and pelvis from 07/05/2010. CT CHEST: No axillary lymphadenopathy is detected. No definite hilar or mediastinal lymphadenopathy is seen. Ascending thoracic aorta remains prominent at 5.0 cm in AP diameter compared with 4.9 cm on prior study. The aortic arch and descending thoracic aorta are normal in caliber. No dissection is seen. No pericardial or pleural fluid is identified. Emphysematous changes in both lungs are again noted. No parenchymal mass, nodule, or infiltrate is identified. IMPRESSION: Stable CT of the chest when compared with exam from one year earlier. There is mild aneurysmal dilatation of the ascending thoracic aorta. No thoracic lymphadenopathy or evidence of metastatic disease is identified. CT ABDOMEN AND PELVIS: No discrete liver mass is identified. The gallbladder is not well visualized. There does appear to be a small amount of pneumobilia present in the left lobe of the liver, which was present on the study from 2009 and not significantly changed. This is likely owing to biliary-enteric anastomosis from prior surgery. The visualized pancreatic body and tail are unremarkable. The spleen is unremarkable. No adrenal mass is detected. Kidneys are unremarkable. Aorta is nonaneurysmal. No central retroperitoneal or mesenteric lymphadenopathy is seen. There is moderate stool throughout the colon. No bowel obstruction is seen. There is no free air. There is artifact in the pelvis from patient's right hip prosthesis. Bony structures are not acute. There are pars defects at the L5-S1 level. No pelvic lymphadenopathy is seen. IMPRESSION: Overall stable CT of the abdomen and pelvis when compared with prior CT from 07/05/2010. No abdominal or pelvic lymphadenopathy or evidence of metastatic disease is identified. Dictated by: Dictated on workstation # [id number]
== END ==
LOC: RAD 11:24
PROVIDERS: ATTEND Internal Medicine Hematology & Oncology
DX: C18.7 Malignant neoplasm of sigmoid colon (principal); I71.2 Thoracic aortic aneurysm, without rupture
CPT/HCPCS: 71260; 74177

== ENCOUNTER → 2019-01-17 | Outpatient (CLI) | payer MEDICARE ==
[~2019-01-17] MED LIST changes: -BARIUM SUSPENSION 2.1% (VANILLA SILQ) 450 ML PO ONE; -CATHETER FLUSH 10 ML SYR IV PRN; -IOHEXOL 350 MG/ML 100 ML (OMNIPAQUE 350) VIAL IV ONE; -NS 100 ML (IVPB) BAG IV ONE
== END ==
LOC: ONC 12:34 → EDSTATUS 15:43
PROVIDERS: ATTEND Internal Medicine Hematology & Oncology
DX: Z08 Encounter for follow-up examination after completed treatment for malignant neoplasm (principal); Z85.038 Personal history of other malignant neoplasm of large intestine; J44.9 Chronic obstructive pulmonary disease, unspecified; Z95.2 Presence of prosthetic heart valve; Z79.01 Long term (current) use of anticoagulants; Z86.73 Personal history of transient ischemic attack (TIA), and cerebral infarction without residual deficits
CPT/HCPCS: 99213

== ENCOUNTER → 2020-01-14 | Outpatient (CLI) | payer MEDICARE ==
[~2020-01-14] MED LIST changes: +FERRIC CARBOXYMALTOSE (CANCER) 750 MG in NS (IVPB) CANCER CENTER 250 ML IV SCH; -MECL-106 PO; +MECL-149 PO
== END ==
LOC: ONC 13:14
PROVIDERS: ATTEND Internal Medicine Hematology & Oncology
DX: Z51.11 Encounter for antineoplastic chemotherapy (principal); C18.7 Malignant neoplasm of sigmoid colon; D50.9 Iron deficiency anemia, unspecified; I69.828 Other speech and language deficits following other cerebrovascular disease; Z90.49 Acquired absence of other specified parts of digestive tract; Z79.899 Other long term (current) drug therapy; Z95.2 Presence of prosthetic heart valve; Z86.79 Personal history of other diseases of the circulatory system
CPT/HCPCS: 96365; 99213

== ENCOUNTER 2020-01-21 13:33 | Outpatient (RCR) | payer MEDICARE ==
[~2020-01-21 13:33] MED LIST changes: -FERRIC CARBOXYMALTOSE (CANCER) 750 MG in NS (IVPB) CANCER CENTER 250 ML IV SCH
[2020-01-21] MEDS ORDERED: FERRIC CARBOXYMALTOSE (CANCER) 750 MG in NS (IVPB) CANCER CENTER 250 ML IV SCH (14:30)
== END 2020-04-20 | disposition home or self-care (01) ==
LOC: ONC 13:33
PROVIDERS: ATTEND Internal Medicine Hematology & Oncology
DX: E61.1 Iron deficiency (principal); K90.9 Intestinal malabsorption, unspecified; C80.1 Malignant (primary) neoplasm, unspecified; Z85.038 Personal history of other malignant neoplasm of large intestine
CPT/HCPCS: 96365

== ENCOUNTER → 2020-04-17 | Outpatient (CLI) | payer MEDICARE ==
--- NOTE | 2020-04-17 10:55 | Diagnostic Imaging Report ---
INDICATION: Back pain. COMPARISON: Exam interpreted in correlation with abdominal pelvic CT 06/18/2018. That study includes sagittal and coronal reconstructions. FINDINGS: Chronic L5 spondylolysis defects are again noted with mild increased grade 1 anterolisthesis of L5 on S1. Now the posterior cortices are off about 12 mm, previously about 7 mm. Remaining levels are aligned normally. There is very slight anterior wedging with superior endplate stature loss at the L2 level about 10% down. This is new from the prior but is of uncertain acuity. Correlate with any new injury or new upper lumbar back pain. There is hypertrophic facet arthrosis throughout the lumbar spine most severe at the L4-L5 and L5-S1 levels. The malalignment and degenerative hypertrophy with likely resultant substantial degrees of canal and foraminal stenoses at those levels. If there is radiculopathy, lumbar MRI would be recommended. IMPRESSION: Increased anterolisthesis of L5 on S1 in a patient with chronic bilateral L5 spondylolysis defects, progressive severe lower lumbar spondylosis and facet arthrosis, likely resulting in underlying stenoses. Mild superior endplate stature loss at L2 as a new finding from the comparison study; however, is of uncertain precise acuity. If MRI is performed, that would also be useful to see if there is marrow edema in this vertebral body to more confidently stage its acuity. Dictated by: Dictated on workstation # [id number]
== END ==
LOC: RAD 08:11
PROVIDERS: ATTEND Internal Medicine
DX: M43.17 Spondylolisthesis, lumbosacral region (principal); M47.816 Spondylosis without myelopathy or radiculopathy, lumbar region; M53.86 Other specified dorsopathies, lumbar region
CPT/HCPCS: 72100

== ENCOUNTER → 2020-04-28 | Outpatient (CLI) | payer MEDICARE ==
--- NOTE | 2020-04-28 14:55 | Diagnostic Imaging Report ---
PROCEDURE: CT lumbar spine without contrast. TECHNIQUE: Multiple contiguous axial images were obtained through the lumbar spine without the use of intravenous contrast. Sagittal and coronal reformations were then performed. Auto Exposure Controls were utilized during the CT exam to meet ALARA standards for radiation dose reduction. INDICATION: Low back pain. COMPARISON: Lumbar spine radiographs from 04/17/2020. FINDINGS: There are five lumbar-type vertebral bodies. Grade 2 anterolisthesis of L5 on S1 with chronic L5 pars defects. Fgzhjxuw-qw-svsiip degenerative endplate changes at L5-S1 greater than L4-L5. Superior endplate compression deformity of L2 results in approximately 10% height loss, spares the posterior elements, and results in no retropulsion. There are acute-appearing fracture lines within this fracture. Vertebral body heights are otherwise preserved. No high-grade spinal canal stenosis is evident on soft tissue windows. There is uoqsswis-mz-fjlhyb bilateral neuroforaminal narrowing at L5-S1, moderate at L4-L5. Moderate atherosclerotic calcifications including a normal-caliber abdominal aorta. Pneumobilia is partially visualized. No acute findings in the visualized pelvis. IMPRESSION: 1. Compression fracture of L2 resulting in approximately 10% height loss is likely acute. No retropulsion or involvement of the posterior elements. 2. Grade 2 anterolisthesis of L5 on S1 with bilateral L5 pars defects. 3. Spondylotic changes also contribute to bistlvjl-dt-olpmav bilateral neuroforaminal narrowing at L5-S1, moderate at L4-L5. No high-grade spinal canal stenosis is evident. 4. Pneumobilia is partially visualized. Please correlate with history. Dictated by: Dictated on workstation # [id number]
== END ==
LOC: RAD 13:50
PROVIDERS: ATTEND Nurse Practitioner Family
DX: M48.56XA Collapsed vertebra, not elsewhere classified, lumbar region, initial encounter for fracture (principal); M47.897 Other spondylosis, lumbosacral region
CPT/HCPCS: 72131

== ENCOUNTER → 2020-05-19 | Outpatient (CLI) | payer MEDICARE ==
--- NOTE | 2020-05-19 14:25 | Diagnostic Imaging Report ---
INDICATION: 84-year-old male, fracture history concerning for osteoporosis. COMPARISON: None. FINDINGS: AP Spine L1-L4: [BMD (g/cm2): 1.061] [T-Score: -1.5] [Z-Score: -0.4] [BMD Previous: na] [BMD % Change: na] LT Hip Neck: [BMD (g/cm2): 0.786] [T-Score: -2.2] [Z-Score: -0.3] LT Hip Total: [BMD (g/cm2):0.980] [T-Score:-0.8] [Z-Score: 0.6] [BMD Previous: na] [BMD % Change: na] RT Hip Neck: [BMD (g/cm2):na] [T-Score:na] [Z-Score:na] RT Hip Total: [BMD (g/cm2):na] [T-score:na] [Z-Score:na] [BMD Previous:na] [BMD % Change:na] *Indicates significant change from prior examination based on 95% confidence level. World Health Organization criteria for BMD interpretation classify patients as Normal (T-score at or above -1.0), Osteopenic (T-score between -1.0 and -2.5) or Osteoporotic (T-score at or below -2.5). LIMITATIONS AND MODIFICATION: None. FRACTURE RISK (FRAX SCORE): The ten year probability of (%): Major Osteoporotic Fracture: [11.6] Hip Fracture: [5.7] IMPRESSION: 1. Osteopenia (Low bone mass). 2. Baseline examination. 3. See below National Osteoporosis Foundation guidelines on when to potentially initiate pharmacologic therapy. Based on the National Osteoporosis Foundation Guidelines, pharmacologic treatment should be initiated in any of the following, unless clinical conditions suggest otherwise: * Any patient with prior fragility fracture of the hip or vertebrae. A spine fracture indicates 5X risk for subsequent spine fracture and 2X risk for subsequent hip fracture. * Osteoporosis (T-score <-2.5). * Postmenopausal women and men age 50 and older with low bone mass/osteopenia (T-score between -1.0 and -2.5) by DXA and 10-year major osteoporotic fracture greater than 20% or a 10-year probability of hip fracture greater than 3%. These fracture risks are supplied above in the FRAX score, if applicable. * Clinician judgement and/or patient preferences may indicate treatment for people with 10-year fracture probabilities above or below these levels. Dictated by: Dictated on workstation # [id number]
== END ==
LOC: RAD 08:43
PROVIDERS: ATTEND Internal Medicine
DX: M80.08XA Age-related osteoporosis with current pathological fracture, vertebra(e), initial encounter for fracture (principal); M85.89 Other specified disorders of bone density and structure, multiple sites
CPT/HCPCS: 77080

== ENCOUNTER 2020-08-19 09:42 | Inpatient (IN) | payer MEDICARE ==
[~2020-08-19] VITALS: Ht 172 cm; Wt 63.5 kg
[2020-08-19 11:24] LABS: BASOPHILS % (AUTO) 0 % (0-10); EOSINOPHILS % (AUTO) 0 % (0-10); HEMATOCRIT 48 % (40-54); HEMOGLOBIN 16.1 g/dL (13.3-17.7); LYMPHOCYTES # (AUTO) 0.9 10^3/uL (1.0-4.0); LYMPHOCYTES % (AUTO) 13 % (12-44); MEAN CORPUSCULAR HEMOGLOBIN 31 pg (25-34); MEAN CORPUSCULAR HGB CONC 33 g/dL (32-36); MEAN CORPUSCULAR VOLUME 94 fL (80-99); MEAN PLATELET VOLUME 10.4 fL (9.0-12.2); MONOCYTES # (AUTO) 0.8 10^3/uL (0.0-1.0); MONOCYTES % (AUTO) 11 % (0-12); NEUTROPHILS # (AUTO) 5.2 10^3/uL (1.8-7.8); NEUTROPHILS % (AUTO) 75 % (42-75); PLATELET COUNT 148 10^3/uL (130-400)
[2020-08-19 11:26] LABS: ALBUMIN 3.9 GM/DL (3.2-4.5); CHLORIDE 99 MMOL/L (98-107); POTASSIUM 4.2 MMOL/L (3.6-5.0); SODIUM 134 MMOL/L (135-145)
[2020-08-19 11:27] LABS: CALCIUM 8.7 MG/DL (8.5-10.1)
[2020-08-19 11:28] LABS: GLUCOSE 112 MG/DL (70-105); TOTAL PROTEIN 7.3 GM/DL (6.4-8.2)
[2020-08-19 11:29] LABS: CARBON DIOXIDE 24 MMOL/L (21-32)
[2020-08-19 11:30] LABS: BILIRUBIN,TOTAL 0.6 MG/DL (0.1-1.0)
[2020-08-19 11:32] LABS: ALKALINE PHOSPHATASE 90 U/L (40-136); CREATININE SERUM 0.95 MG/DL (0.60-1.30); GFR ESTIMATED > 60
[2020-08-19 11:33] LABS: BUN/CREATININE RATIO 20
[2020-08-19 11:35] LABS: ALANINE AMINOTRANSFERASE 17 U/L (0-55)
[2020-08-19 11:57] LABS: INR 6.2 (0.8-1.4); PROTHROMBIN TIME PATIENT 54.8 SEC (12.2-14.7)
--- NOTE | 2020-08-19 12:14 | Diagnostic Imaging Report ---
INDICATION: Not feeling well. COMPARISON: Exam compared to 05/30/2017. FINDINGS: Lungs are clear. The heart size is within normal limits. No vascular congestion. No edema, pneumonia, effusion, or pneumothorax. IMPRESSION: No acute-appearing abnormality. Dictated by: Dictated on workstation # [id number]
--- NOTE | 2020-08-19 13:00 | NUR ---
pt udated about admission status at this time. pt denies any current needs at this time.
--- NOTE | 2020-08-19 13:04 | ED General ---
General Chief Complaint: Fever-Adult/Adol Stated Complaint: FEVER Nursing Triage Note: PT PRESENTS TO ED VIA POV ACCOMPANIED BY DAUGHTER FROM HOME WITH COMPLAINTS OF NOT FEELING WELL X 1 WEEK. PT REPORTS HE HAS NO APPETITE, GENERALIZED WEAKNESS, LETHARGY, COUGH, FEVER, AND CHILLS. PT DAUGHTER REPORTS PT HAS BEEN TESTED FOR COVID 08/13 AND IT CAME BACK NEGATIVE. Nursing Sepsis Screen: No Definite Risk Source of Information: Patient, Family Exam Limitations: No Limitations History of Present Illness Date Seen by Provider: Aug 19, 2020 Time Seen by Provider: 11:00 Initial Comments This 84-year-old gentleman is brought to the emergency room by private vehicle with concerns about weakness, cough, fever, and chills. He has not felt well for about a week. He was tested one week ago for henderson virus and the results were negative. Patient lives alone and has some support from his family in town. Oxygen saturation is running about 92 percent on room air. Allergies and Home Medications Allergies Coded Allergies: NSAIDS (Non-Steroidal Anti-Inflamma (Unverified Allergy, Unknown, 06/11/14) Uncoded Allergies: vitamin K (Allergy, Unknown, 06/11/14) Home Medications Aspirin 81 Mg Tabec, 81 MG PO DAILY, (Reported) Cefdinir 300 Mg Capsule, 300 MG PO BID Prescribed by: DENI SOW on 01/14/17 0445 Docusate Sodium 100 Mg Cap, 200 MG PO DAILY, (Reported) TAKES 2 (100MG) CAPSULES Meclizine HCl 25 Mg Tablet, 25-50 MG PO Q6H Prescribed by: BECKY GOULD on 05/30/17 1025 Metoprolol Tartrate 50 Mg Tablet, 25 MG PO BID, (Reported) TAKES 1/2 (50MG) TABLET Pantoprazole Sodium 40 Mg Tablet.dr, 40 MG PO DAILY, (Reported) Scopolamine 1 Each Patch.td72, 1 EACH TD Q72 HOURS Prescribed by: BECKY GOULD on 05/30/17 1025 Warfarin Sodium 1 Mg Tablet, 3 MG PO ODD DAY @ HS, (Reported) TAKE 3 (1MG)+ 5MG = 8MG ON ODD DAYS Warfarin Sodium 1 Mg Tablet, 2 MG PO EVEN DAY @ HS, (Reported) TAKE 2 (1MG) + 5MG = 7MG ON EVEN DAYS Warfarin Sodium 5 Mg Tablet, 5 MG PO HS, (Reported) TAKES WITH 1MG -2 TAB ON EVEN DAYS - 3 TAB ON ODD DAYS Patient Home Medication List Home Medication List Reviewed: Yes Review of Systems Review of Systems Constitutional: see HPI, fever, weakness EENTM: no symptoms reported Respiratory: see HPI Cardiovascular: no symptoms reported Gastrointestinal: no symptoms reported Genitourinary: no symptoms reported Musculoskeletal: no symptoms reported Skin: no symptoms reported Psychiatric/Neurological: No Symptoms Reported Hematologic/Lymphatic: No Symptoms Reported Immunological/Allergic: no symptoms reported Past Yzfwpyj-Kuyfip-Tlpquz Hx Past Med/Social Hx: Reviewed Nursing Past Med/Soc Hx Patient Social History Alcohol Use: Denies Use Recreational Drug Use: No Smoking Status: Former Smoker Type Used: Cigarettes Former Smoker, Quit: Jan 13, 1987 2nd Hand Smoke Exposure: No Recent Foreign Travel: No Contact w/Someone Who Travel: No Recent Infectious Disease Expo: No Recent Hopitalizations: No Physical Abuse: No Sexual Abuse: No Mistreated: No Fear: No Immunizations Up To Date Tetanus Booster (TDap): More than 5yrs Date of Pneumonia Vaccine: Nov 18, 2010 Date of Influenza Vaccine: Aug 13, 2014 Seasonal Allergies Seasonal Allergies: No Past Medical History Surgeries: Yes (TONSILECTOMY, GI SURGERY, APPENDECTOMY, HEART SURGERY) Abdominal, Appendectomy, Bowel Surgery, Cardiac, Eye Surgery, Valve Replacement Respiratory: Yes COPD Cardiac: Yes (AORTIC VALVE REPLACEMENT) Aneurysm, Rheumatic Fever, 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, RIGHT FACIAL DROOP, 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) Neuropathy, Stroke, TIA Reproductive Disorders: No Genitourinary: Yes Kidney Stones Gastrointestinal: Yes (Colon CA) Gastrointestinal Bleed Musculoskeletal: Yes Endocrine: Yes Diabetes, Non-Insulin dep Cataract Loss of Vision: Denies Hearing Impairment: Denies Cancer: Yes Small Bowel, Colon Psychosocial: No Integumentary: No Blood Disorders: No Physical Exam Vital Signs Vital Signs - First Documented 08/19/20 08/19/20 10:10 10:20 Temp 37.3 Pulse 80 Resp 20 B/P (MAP) 134/71 (92) Pulse Ox 93 O2 Delivery Room Air O2 Flow Rate 2.00 Capillary Refill : Less Than 3 Seconds Height, Weight, BMI Height: 5'8.00" Weight: 148lbs. oz. 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) Neck: Normal Inspection; No JVD Respiratory: Lungs Clear, Normal Breath Sounds, No Accessory Muscle Use, No Respiratory Distress Cardiovascular: Regular Rate, Rhythm, No Edema, No Murmur Gastrointestinal: Normal Bowel Sounds, Non Tender, Soft Extremity: Normal Inspection, No Pedal Edema Neurologic/Psychiatric: Alert, Oriented x3, No Motor/Sensory Deficits, Normal Mood/Affect, Other (facial droop on the right from prior Felipe's palsy/stroke) Skin: Normal Color, Warm/Dry Focused Exam Lactate Level 08/19/20 10:50: Lactic Acid Level 1.60 Lactic Acid Level Progress/Results/Core Measures Suspected Sepsis Recent Fever Within 48 Hours: Yes Infection Criteria Present: Suspected New Infection New/Unexplained Altered Menta: No Sepsis Screen: No Definite Risk SIRS Temperature: Pulse: 80 Respiratory Rate: 20 Laboratory Tests 08/19/20 10:50: White Blood Count 7.0 Blood Pressure 134 /71 Mean: 92 08/19/20 10:50: Lactic Acid Level 1.60 Laboratory Tests 08/19/20 10:50: Creatinine 0.95, INR Comment 6.2*H, Platelet Count 148, Total Bilirubin 0.6 Results/Orders Lab Results Laboratory Tests Test 08/19/20 10:50 08/19/20 11:13 Range/Units White Blood Count 7.0 4.3-11.0 10^3/uL Red Blood Count 5.17 4.30-5.52 10^6/uL Hemoglobin 16.1 13.3-17.7 g/dL Hematocrit 48 40-54 % Mean Corpuscular Volume 94 80-99 fL Mean Corpuscular Hemoglobin 31 25-34 pg Mean Corpuscular Hemoglobin Concent 33 32-36 g/dL Red Cell Distribution Width 12.0 10.0-14.5 % Platelet Count 148 130-400 10^3/uL Mean Platelet Volume 10.4 9.0-12.2 fL Immature Granulocyte % (Auto) 1 % Neutrophils (%) (Auto) 75 42-75 % Lymphocytes (%) (Auto) 13 12-44 % Monocytes (%) (Auto) 11 0-12 % Eosinophils (%) (Auto) 0 0-10 % Basophils (%) (Auto) 0 0-10 % Neutrophils # (Auto) 5.2 1.8-7.8 10^3/uL Lymphocytes # (Auto) 0.9 L 1.0-4.0 10^3/uL Monocytes # (Auto) 0.8 0.0-1.0 10^3/uL Eosinophils # (Auto) 0.0 0.0-0.3 10^3/uL Basophils # (Auto) 0.0 0.0-0.1 10^3/uL Immature Granulocyte # (Auto) 0.1 0.0-0.1 10^3/uL Prothrombin Time 54.8 *H 12.2-14.7 SEC INR Comment 6.2 *H 0.8-1.4 Activated Partial Thromboplast Time 89 H 24-35 SEC Sodium Level 134 L 135-145 MMOL/L Potassium Level 4.2 3.6-5.0 MMOL/L Chloride Level 99 98-107 MMOL/L Carbon Dioxide Level 24 21-32 MMOL/L Anion Gap 11 5-14 MMOL/L Blood Urea Nitrogen 19 H 7-18 MG/DL Creatinine 0.95 0.60-1.30 MG/DL Estimat Glomerular Filtration Rate > 60 BUN/Creatinine Ratio 20 Glucose Level 112 H 70-105 MG/DL Lactic Acid Level 1.60 0.50-2.00 MMOL/L Calcium Level 8.7 8.5-10.1 MG/DL Corrected Calcium 8.8 8.5-10.1 MG/DL Total Bilirubin 0.6 0.1-1.0 MG/DL Aspartate Amino Transf (AST/SGOT) 29 5-34 U/L Alanine Aminotransferase (ALT/SGPT) 17 0-55 U/L Alkaline Phosphatase 90 40-136 U/L Lactate Dehydrogenase 348 H 125-220 U/L C-Reactive Protein High Sensitivity 7.89 H 0.00-0.50 MG/DL Total Protein 7.3 6.4-8.2 GM/DL Albumin 3.9 3.2-4.5 GM/DL Procalcitonin 0.08 <0.10 NG/ML Coronavirus 2019 (LEONARDA) Positive H Negative Micro Results Microbiology 08/19/20 Influenza Types A,B Antigen (KELVIN) - Final, Complete My Orders Orders - EKTA MAIER MD Cbc With Automated Diff (08/19/20 11:09) Comprehensive Metabolic Panel (08/19/20 11:09) Blood Culture (08/19/20 11:09) Sputum Culture (08/19/20 11:09) Urinalysis (08/19/20 11:09) Urine Culture (08/19/20 11:09) Protime With Inr (08/19/20 11:09) Partial Thromboplastin Time (08/19/20 11:09) Chest 1 View, Ap/Pa Only (08/19/20 11:09) Ed Iv/Invasive Line Start (08/19/20 11:09) Ed Iv/Invasive Line Start (08/19/20 11:09) Vital Signs Adult Sepsis Patie Q15M (08/19/20 11:09) O2 (08/19/20 11:09) Remove Rings In Anticipation O (08/19/20 11:09) Lactic Acid Analyzer (08/19/20 11:09) Hs C Reactive Protein (08/19/20 11:09) Influenza A And B Antigens (08/19/20 11:09) Procalcitonin (Pct) (08/19/20 11:09) LDH (08/19/20 11:09) Covid 19 Inhouse Test (08/19/20 11:09) Dexamethasone Injection (Decadron Inje (08/19/20 12:45) Medications Given in ED Current Medications Medications Dose Ordered Sig/Italia Route Start Time Stop Time Status Last Admin Dose Admin Dexamethasone Sodium Phosphate 6 mg ONCE ONCE IV 08/19/20 12:45 08/19/20 12:46 DC 08/19/20 12:50 6 MG Vital Signs/I&O 08/19/20 08/19/20 08/19/20 08/19/20 10:10 10:20 14:28 14:41 Temp 37.3 36.1 Pulse 80 76 89 Resp 20 18 18 B/P (MAP) 134/71 (92) 119/87 134/79 Pulse Ox 93 93 93 93 O2 Delivery Room Air Nasal Cannula Nasal Cannula Nasal Cannula O2 Flow Rate 2.00 2.00 1.00 08/19/20 08/19/20 08/19/20 15:35 16:03 19:13 Temp 37.1 36.9 Pulse 77 78 Resp 20 20 B/P (MAP) 116/58 (77) 125/58 (80) Pulse Ox 93 92 O2 Delivery Room Air Nasal Cannula Nasal Cannula O2 Flow Rate 1.00 1.00 1.00 Capillary Refill : Less Than 3 Seconds Blood Pressure Mean: 92 Progress Note : Time: 12:58 Progress Note Patient is stable at this time. His rapid COVID-19 test was positive. There is some serious concern about his ability to function at home. He lives alone in a two-story house where his bedroom is upstairs. Family could not support him full-time. He is generally weak and also supratherapeutic with his INR. INR cannot be reversed due to his artificial heart valve. His weakness and supratherapeutic INR place him at high risk for trauma in his home. He is therefore being admitted for observation and COVID treatment. He does wish to be a full code at this time. Case was reviewed with Dr. Jackson. I discussed experimental treatments of Remdesivir and convalescent plasma. He consents to both of these. He would like us to do whatever is in our best judgment to improve his condition. Diagnostic Imaging Diagonstic Imaging: Xray Plain Films/CT/US/NM/MRI: chest Comments NAME: CASS BAPTISTE [facility] REC#: [id number] PT STATUS: ADM [place] : 1935 PHYSICIAN: EKTA MAIER MD ADMIT DATE: 08/19/20 Signed Date of Exam:08/19/20 CHEST 1 VIEW, AP/PA ONLY INDICATION: Not feeling well. COMPARISON: Exam compared to 05/30/2017. FINDINGS: Lungs are clear. The heart size is within normal limits. No vascular congestion. No edema, pneumonia, effusion, or pneumothorax. IMPRESSION: No acute-appearing abnormality. Dictated by: Dictated on workstation # [id number] Dict: 08/19/20 1211 Trans: 08/19/20 1633 AS6 [id number] Interpreted by: LEOBARDO DA SILVA Electronically signed by: LEOBARDO DA SILVA 08/19/20 1635 Departure Communication (Admissions) Time/Spoke to Admitting Phy: 12:40 Dr. Jackson Impression Primary Impression: COVID-19 Additional Impressions: Generalized weakness Supratherapeutic INR Disposition: ADMITTED INPATIENT Condition: Stable Admissions Decision to Admit Reason: Admit from ER (General) Decision to Admit/Date: Aug 19, 2020 Time/Decision to Admit Time: 12:30 Departure-Patient Inst. Referrals: SHASHI CURRAN MD (PCP/Family) Primary Care Physician EKTA MAIER MD Aug 19, 2020 13:03
[2020-08-19 14:41] VITALS: BP 134/79
--- NOTE | 2020-08-19 14:50 | NUR ---
CASS BAPTISTE admitted to room 428-1, with an admitting diagnosis of HYPOXIA, on 08/19/20 from [place] via ED, accompanied by .CASS BAPTISTE introduced to surroundings, call light, bed controls, phone, TV, temperature control, lights, meal times, smoking policy, visitor policy, side rail policy, bathrooms and showers. Patient Rights given to patient in the handbook.CASS BAPTISTE verbalizes understanding that [facility] is not responsible for the loss or damage to any personal effects or valuables that are kept in the patients posession during their hospitalization. CASS BAPTISTE verbalizes understanding of Interdisciplinary Patient Education. Patient and/or family were informed about the Rapid Response Team and its purpose.
[2020-08-19] MEDS ORDERED: CATHETER FLUSH 10 ML SYR IV PRN (15:30)
[2020-08-19] MEDS ORDERED: ACETAMINOPHEN 500 MG TAB (TYLENOL) PO PRN (15:30)
[2020-08-19] MEDS ORDERED: ONDANSETRON 4 MG/2 ML (SDV) Z0FRAN IV PRN (15:30)
[2020-08-19] MEDS ORDERED: FLU QUAD HIGH DOSE 240 MCG/0.7 ML 2020-21 (FLUZONE) IM ONE (15:45)
--- NOTE | 2020-08-19 15:51 | NUR ---
Pt is Rastafarian. spoke with his Dtr Dawn. She has been visiting with him by phone. She also knows Fr Grider who has been designated ANUPAM nealest and will come if pt requires it..
[2020-08-19 16:03] VITALS: BP 116/58
[2020-08-19] MEDS: LACTATED RINGERS 1,000 ML IV SCH (16:15)
[2020-08-19] MEDS ORDERED: NS IV 500 ML 500 ML IV SCH (16:17)
--- NOTE | 2020-08-19 16:32 | History & Physical-Hospitalist ---
History of Present Illness HPI/Chief Complaint patient is an 84-year-old male with a past medical history of CVA, hypertension, aortic valve replacement who presented to the emergency department due to weakness. he reports he has been sick for 9 days. He was tested for COVID on August 13 and was negative. Since that time he has continued to have no appetite with generalized weakness, cough, fever. rapid COVID testing was done in the emergency room and found to be positive. He was admitted due to worsening status at home. Source: patient Date Seen 08/19/20 Time Seen by a Provider: 16:15 Attending Physician Rona Jackson MD PCP Juan Antonio Cruz MD Referring Physician Date of Admission Aug 19, 2020 at 13:31 Home Medications & Allergies Home Medications Reviewed patient Home Medication Reconciliation performed by pharmacy medication reconciliations oil refinery process technician and/or nursing. Patients Allergies have been reviewed. Allergies Allergies Coded Allergies NSAIDS (Non-Steroidal Anti-Inflamma (Unverified Allergy, Unknown, 06/11/14) Uncoded Allergies vitamin K ( Allergy, Unknown, 06/11/14) Past Ryclera-Uwmsfr-Dncpjo Hx Past Med/Social Hx: Reviewed Nursing Past Med/Soc Hx Patient Social History Marrital Status: Employed/Student: retired Alcohol Use: Denies Use Recreational Drug Use: No Smoking Status: Former Smoker Former Smoker, Quit: Jan 13, 1987 Type Used: Cigarettes 2nd Hand Smoke Exposure: No Recent Foreign Travel: No Contact w/other who traveled: No Recent Hopitalizations: No Recent Infectious Disease Expo: No Immunizations Up To Date Tetanus Booster (TDap): More than 5yrs Date of Pneumonia Vaccine: Nov 18, 2010 Date of Influenza Vaccine: Aug 13, 2014 Seasonal Allergies Seasonal Allergies: No Past Medical History Surgeries: Abdominal, Appendectomy, Bowel Surgery, Cardiac, Eye Surgery, Valve Replacement Cardiac: Aneurysm, Rheumatic Fever, Valvular Heart Disease Neurological: Neuropathy, TIA Reproductive: No Genitourinary: Kidney Stones Gastrointestinal: Gastrointestinal Bleed Endocrine: Diabetes, Non-Insulin dep HEENT: Cataract Loss of Vision: Denies Hearing Impairment: Denies Cancer: Small Bowel, Colon History of Blood Disorders: No Family History Reviewed Nursing Family Hx No Pertinent Family Hx Review of Systems Constitutional: chills, fever, malaise, weakness EENTM: no symptoms reported Respiratory: cough, phlegm Gastrointestinal: No abdominal pain, No constipation, No diarrhea; nausea Genitourinary: no symptoms reported Musculoskeletal: muscle weakness Skin: no symptoms reported Psychiatric/Neurological: Weakness Physical Exam Physical Exam Vital Signs Vital Signs - First Documented 08/19/20 08/19/20 10:10 10:20 Temp 37.3 Pulse 80 Resp 20 B/P (MAP) 134/71 (92) Pulse Ox 93 O2 Delivery Room Air O2 Flow Rate 2.00 Capillary Refill : Less Than 3 Seconds Height, Weight, BMI Height: 5'8.00" Weight: 148lbs. oz. 67.315212sj; 21.46 BMI Method:Stated General Appearance: No Apparent Distress, WD/WN HEENT: PERRL/EOMI, Moist Mucous Membranes Neck: Normal Inspection, Supple Respiratory: Lungs Clear, No Accessory Muscle Use; No Crackles, No Rhonci Cardiovascular: Regular Rate, Rhythm, No JVD, No Murmur Gastrointestinal: Normal Bowel Sounds, Non Tender, Soft Extremity: Normal Capillary Refill, No Calf Tenderness, No Pedal Edema Neurologic/Psychiatric: Alert, Oriented x3, Normal Mood/Affect Skin: Normal Color, Warm/Dry Results Results/Procedures Labs Laboratory Tests 08/19/20 10:50 Patient resulted labs reviewed. Imaging: Reviewed Imaging Report Imaging [facility] [place] [place] NAME: CASS BAPTISTE [facility] REC#: [id number] PT STATUS: REG ER : 1935 PHYSICIAN: EKTA MAIER MD ADMIT DATE: 08/19/20/ER Draft Date of Exam:08/19/20 CHEST 1 VIEW, AP/PA ONLY INDICATION: Not feeling well. COMPARISON: Exam compared to 05/30/2017. FINDINGS: Lungs are clear. The heart size is within normal limits. No vascular congestion. No edema, pneumonia, effusion, or pneumothorax. IMPRESSION: No acute-appearing abnormality. Dictated on workstation # [id number] Dict: 08/19/20 1211 Trans: 08/19/20 1214 AS6 [id number] Interpreted by: LEOBARDO DA SILVA Electronically signed by: Assessment/Plan Admission Diagnosis COVID19 Admission Status: Observation Assessment and Plan COVID19 Debility Decadron ordered Convalescent plasma ordered, Discussed EUA status with patient and he is agreeable Not truly hypoxic so will defer Remdesivir today but monitor as still within window for treatment tomorrow IS Mat protocol PT/OT Aortic valve replacement Supratherapeutic INR Monitor INR daily Hold warfarin for now Anticipate it will improve with convalescent plasma so will watch closely and if overcorrects will bridge with Lovenox HTN Continue home meds DVT ppx: Warfarin and INR of 6.2 Clinical Quality Measures DVT/VTE Risk/Contraindication: Risk Factor Score Per Nursin RFS Level Per Nursing on Admit: 4+=Very High RONA JACKSON MD Aug 19, 2020 16:32
[2020-08-19 19:13] VITALS: BP 125/58
[2020-08-20] VITALS (9 sets, daily range): BP systolic 131–177; BP diastolic 63–86
[2020-08-20] MEDS: LACTATED RINGERS 1,000 ML IV SCH ×2 (04:32→12:04)
[2020-08-20] MEDS ORDERED: DOCU100C37 PO (10:31)
[2020-08-20] MEDS ORDERED: PRD1T PO (10:31)
[2020-08-20] MEDS ORDERED: METF-865 PO (10:31)
[2020-08-20] MEDS ORDERED: METO50TA15 PO (10:31)
[2020-08-20] MEDS ORDERED: WRF1T PO (10:31)
[2020-08-20] MEDS ORDERED: ASPI-1238 PO (10:31)
[2020-08-20] MEDS ORDERED: WRF5T PO (10:31)
[2020-08-20] MEDS ORDERED: GLIM2TAB4 PO (10:31)
[2020-08-20] MEDS ORDERED: PANT40TA52 PO (10:31)
--- NOTE | 2020-08-20 10:32 | NUR ---
SPOKE WITH THE PT (I CALLED HIS ROOM PHONE) HE WAS UNSURE OF HIS MEDICATIONS AND WANTED ME TO CONTACT HIS DAUGHTER BECKY. I CALLED BECKY AND WENT THRU THE EXT MED HISTORY TO COMPLETE THE MED REC METOPROLOL TART 50MG- DIRECTIONS SHOW 1 TAB BID HOWEVER ACCORDING TO BECKY PT IS TAKING 25MG (1/2 OF A 50MG) TAB BID PT MENTIONED HE WAS TAPERING OFF PREDNISONE 1MG BUT WHEN I SPOKE WITH HIS DAUGHTER SHE LET ME KNOW HE HAS FINISHED THAT THERAPY AND IS NO LONGER TAKING WARFARIN- PT IS TAKING A 5MG AND TWO 1 MG TABS TO EQUAL 7MG HS OTC MEDS: ASPIRIN 81 DOCUSATE
[2020-08-20] MEDS ORDERED: FLU QUAD HIGH DOSE 240 MCG/0.7 ML 2020-21 (FLUZONE) IM ONE (12:00)
--- NOTE | 2020-08-20 12:45 | Progress Note - Hospitalist ---
Subjective HPI/CC On Admission Date Seen by Provider: Aug 20, 2020 Time Seen by Provider: 12:39 patient is an 84-year-old male with a past medical history of CVA, hypertension, aortic valve replacement who presented to the emergency department due to weakness. he reports he has been sick for 9 days. He was tested for COVID on August 13 and was negative. Since that time he has continued to have no appetite with generalized weakness, cough, fever. rapid COVID testing was done in the emergency room and found to be positive. He was admitted due to worsening status at home. Subjective/Events-last exam Pt reports doing well today. Did well with PT. Would like to get up to chair for lunch but otherwise not complaints. Focused Exam Lactate Level 08/19/20 10:50: Lactic Acid Level 1.60 Objective Exam Vital Signs Vital Signs Date Time Temp Pulse Resp B/P (MAP) Pulse Ox O2 Delivery O2 Flow Rate FiO2 08/20/20 08:00 96 Nasal Cannula 1.00 08/20/20 08:00 36.6 83 18 177/86 (116) Capillary Refill : Less Than 3 Seconds General Appearance: No Apparent Distress, Chronically ill Cardiovascular: Regular Rate, Rhythm, Systolic Murmur Neurologic/Psychiatric: Alert, Oriented x3 Results/Procedures Lab Patient resulted labs reviewed. Imaging: Reviewed Imaging Report Assessment/Plan Assessment and Plan Assess & Plan/Chief Complaint COVID19 Debility Decadron ordered Convalescent plasma ordered, Discussed EUA status with patient and he is agreeable Not truly hypoxic (96% on 1 lpm) still so will defer Remdesivir today but monitor as still within window for treatment tomorrow - Asked nurse to wean off oxygen to assess whether he is truly hypoxia IS MAT protocol PT/OT Aortic valve replacement Supratherapeutic INR Monitor INR daily Hold warfarin for now Anticipate it will improve with convalescent plasma so will watch closely and if overcorrects will bridge with Lovenox Awaiting plasma HTN Continue home meds DVT ppx: Warfarin and INR of 6.2 Clinical Quality Measures DVT/VTE Risk/Contraindication: Risk Factor Score Per Nursin RFS Level Per Nursing on Admit: 4+=Very High RONA INIGUEZ MD Aug 20, 2020 12:45
[2020-08-20 12:58] LABS: HEMOGLOBIN 14.6 g/dL (13.3-17.7); MEAN PLATELET VOLUME 10.2 fL (9.0-12.2); WHITE BLOOD COUNT 9.9 10^3/uL (4.3-11.0)
[2020-08-20 13:16] LABS: ALANINE AMINOTRANSFERASE 22 U/L (0-55); ALBUMIN 3.5 GM/DL (3.2-4.5); ALKALINE PHOSPHATASE 76 U/L (40-136); BILIRUBIN,TOTAL 0.5 MG/DL (0.1-1.0); BUN/CREATININE RATIO 22; CALCIUM 8.4 MG/DL (8.5-10.1); CARBON DIOXIDE 21 MMOL/L (21-32); CHLORIDE 98 MMOL/L (98-107); CREATININE SERUM 0.72 MG/DL (0.60-1.30); GFR ESTIMATED > 60; GLUCOSE 198 MG/DL (70-105); POTASSIUM 4.6 MMOL/L (3.6-5.0); SODIUM 131 MMOL/L (135-145); TOTAL PROTEIN 6.3 GM/DL (6.4-8.2)
[2020-08-20 13:25] LABS: INR 7.5 (0.8-1.4); PROTHROMBIN TIME PATIENT 63.4 SEC (12.2-14.7)
--- NOTE | 2020-08-20 14:07 | NUR ---
PATIENT CHANGED TO ROOM AIR AT THIS TIME. THIS RN WILL RECHECK OXYGEN SATURATIONS TO MAKE SURE HE CONTINUES TO MAINTAIN OXYGEN LEVELS OFF THE OXYGEN. THIS RN WILL CONTINUE TO MONITOR THIS PATIENT THROUGHOUT THE REMAINDER OF THIS SHIFT.
[2020-08-20] MEDS ORDERED: NS IV 500 ML 500 ML IV SCH (16:15)
[2020-08-20 16:22] LABS: BILIRUBIN,URINE NEGATIVE (NEGATIVE); CLARITY,URINE CLEAR; COLOR,URINE YELLOW; GLUCOSE, URINE (UA) 3+ (NEGATIVE); KETONES,URINE TRACE (NEGATIVE); LEUKOCYTE ESTERASE ,URINE NEGATIVE (NEGATIVE); NITRITE,URINE NEGATIVE (NEGATIVE); PROTEIN,URINE NEGATIVE (NEGATIVE)
[2020-08-20 16:35] LABS: BACTERIA,URINE NEGATIVE /HPF; RBC,URINE 0-2 /HPF
--- NOTE | 2020-08-20 22:05 | NUR ---
This RN called Dr. Mayers ( Hospitalist ) at 2142, who is on for Dr. Jackson, in regards to restarting some of the pt's home medications. This Pt's daughter, Sally, called this RN at 2138 in regards to her wanting her dad to be restarted on Glimeperide 2mg PO daily, Metformin 500mg PO daily, Pantoprazole 40mg PO daily, and Metoprolol [address] Mayers verified via telephone to order Glimeperide 2mg PO daily, Pantoprazole 40mg PO daily, and Metoprolol [address] Mayers wanted to hold off/not restart on the metformin just in case this pt has any CT with contrast, as the contrast slows the kidneys down, which could increase the effect of metformin, as it is excreted by the kidneys. PT's blood sugar this afternoon was 198, and is receiving dexamethasone daily at 0900. PT's blood pressure has been running 140-150's systolic. Patients daughter Sally was notified after contacting Dr. Mayers that these medications were restarted, and why metformin was being held. Will continue to assess pt and provide care as ordered.
[2020-08-21] VITALS: BP 160/69
[2020-08-21 04:00] VITALS: BP 117/58
[2020-08-21] MEDS: LACTATED RINGERS 1,000 ML IV SCH ×2 (04:20→08:34)
[2020-08-21] MEDS: GLIMEPIRIDE 1 MG (AMARYL) TAB PO SCH (06:26)
[2020-08-21 06:27] LABS: HEMOGLOBIN 13.2 g/dL (13.3-17.7); MEAN PLATELET VOLUME 10.5 fL (9.0-12.2)
[2020-08-21 06:43] LABS: PROTHROMBIN TIME PATIENT 38.9 SEC (12.2-14.7)
[2020-08-21 06:57] LABS: ALBUMIN 3.3 GM/DL (3.2-4.5)
[2020-08-21 06:58] LABS: CHLORIDE 101 MMOL/L (98-107); POTASSIUM 4.1 MMOL/L (3.6-5.0); SODIUM 134 MMOL/L (135-145)
[2020-08-21 06:59] LABS: CALCIUM 8.2 MG/DL (8.5-10.1)
[2020-08-21 07:00] LABS: GLUCOSE 167 MG/DL (70-105)
[2020-08-21 07:01] LABS: CARBON DIOXIDE 25 MMOL/L (21-32)
[2020-08-21 07:02] LABS: BILIRUBIN,TOTAL 0.6 MG/DL (0.1-1.0)
[2020-08-21 07:03] LABS: ALKALINE PHOSPHATASE 66 U/L (40-136)
[2020-08-21 07:04] LABS: CREATININE SERUM 0.71 MG/DL (0.60-1.30); GFR ESTIMATED > 60
[2020-08-21 07:05] LABS: BUN/CREATININE RATIO 21
[2020-08-21 07:07] LABS: ALANINE AMINOTRANSFERASE 25 U/L (0-55)
[2020-08-21 08:00] VITALS: BP 132/65
[2020-08-21] MEDS: meTOprolol TARTRATE 25 MG (LOPRESSOR) TABLET PO SCH ×2 (08:49→21:02)
[2020-08-21] MEDS: PANTOPRAZOLE 40 MG (PROTONIX) TAB PO SCH (08:49)
[2020-08-21 12:00] VITALS: BP 108/51
--- NOTE | 2020-08-21 12:00 | Progress Note - Hospitalist ---
Subjective HPI/CC On Admission Date Seen by Provider: Aug 21, 2020 Time Seen by Provider: 11:57 patient is an 84-year-old male with a past medical history of CVA, hypertension, aortic valve replacement who presented to the emergency department due to weakness. he reports he has been sick for 9 days. He was tested for COVI D on August 13 and was negative. Since that time he has continued to have no appetite with generalized weakness, cough, fever. rapid COVID testing was done in the emergency room and found to be positive. He was admitted due to worsening status at home. Subjective/Events-last exam Pt reports doing better today but still weak. Focused Exam Lactate Level 08/19/20 10:50: Lactic Acid Level 1.60 Objective Exam Vital Signs Vital Signs Date Time Temp Pulse Resp B/P (MAP) Pulse Ox O2 Delivery O2 Flow Rate FiO2 08/21/20 19:29 36.4 51 20 150/67 (94) 95 Nasal Cannula 5.00 Capillary Refill : Less Than 3 Seconds General Appearance: No Apparent Distress, Chronically ill Respiratory: Lungs Clear, No Accessory Muscle Use, Other (on 4lpm NC) Cardiovascular: Regular Rate, Rhythm, Systolic Murmur Gastrointestinal: Normal Bowel Sounds, Non Tender, Soft Neurologic/Psychiatric: Alert, Oriented x3 Results/Procedures Lab Laboratory Tests 08/21/20 05:55 Patient resulted labs reviewed. Imaging: Reviewed Imaging Report Assessment/Plan Assessment and Plan Assess & Plan/Chief Complaint COVID19 Debility Decadron Convalescent plasma ordered, Discussed EUA status with patient and he is agreeable, s/p 1 unit Now has developed true hypoxia, will discuss Remdesivir treatment with him IS MAT protocol PT/OT Aortic valve replacement Supratherapeutic INR Monitor INR daily, INR 4.0 Resume warfarin today HTN Continue home meds DVT ppx: Warfarin and INR of 4.0 Diagnosis/Problems Diagnosis/Problems (1) COVID-19 Status: Acute (2) Supratherapeutic INR Status: Acute (3) Generalized weakness Status: Acute Clinical Quality Measures DVT/VTE Risk/Contraindication: Risk Factor Score Per Nursin RFS Level Per Nursing on Admit: 4+=Very High RONA INIGUEZ MD Aug 21, 2020 12:00
--- NOTE | 2020-08-21 13:12 | NUR ---
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 He is a and lives alone in the two story family home.Two of his five children Dawn and Mariah live locally and are actively involved his his care intermittently.Will be glad to follow for any continued care needs.
--- NOTE | 2020-08-21 13:40 | NUR ---
"RD ASSESSMENT PMHx: DM; TIA; CVA; HTN PT INTERACTION: Note pt is COVID-19 positive, per chart review. Note all information for nutrition assessment is per chart review. Note avg PO intake 95% x1d. Note last BM was 08/20, and pt not currently on bowel regimen. Note unable to determine recent wt hx. Note unable to current level of DM management, and note unable to determine recent HbA1c. ABNORMAL NUTRITION-RELATED LAB VALUES LOW: Na 134; Ca 8.3; Pro 6.0 HIGH: glu 163 Est. kcal needs: 1600 kcal | 25 kcal/kg Est. Pro needs: 76 g Pro | 1.2 g Pro/kg PES STATEMENT: Given current PO intake, no nutrition diagnosis at this time (NO-1.1) INTERVENTION: Continue with current diet order of CHO 60g/m 3snack diet. Did not offer diet education on DM management at this time, due to COVID-19 isolation restrictions. Will continue to follow and reassess as pt needs, intake, and status change. Dayanna Monterroso, MS RD LD"
--- NOTE | 2020-08-21 14:11 | Physical Therapy Evaluation ---
PT Evaluation-General Medical Diagnosis Admission Date Aug 19, 2020 at 13:31 Medical Diagnosis: covid 19, weakness Onset Date: Aug 19, 2020 Therapy Diagnosis Therapy Diagnosis: impaired mobility, strength, endurance Height/Weight Height (Feet): 5 Height (Inches): 8.00 Weight (Pounds): 148 Precautions Precautions/Isolations: Airborne Isolation, Contact Isolation, Droplet Isolation Referral Physician: Renetta Reason for Referral: Evaluation/Treatment Medical History Additional Medical History Past Medical History Surgeries: Abdominal, Appendectomy, Bowel Surgery, Cardiac, Eye Surgery, Valve Replacement Cardiac: Aneurysm, Rheumatic Fever, Valvular Heart Disease Neurological: Neuropathy, TIA Reproductive: No Genitourinary: Kidney Stones Gastrointestinal: Gastrointestinal Bleed Endocrine: Diabetes, Non-Insulin dep HEENT: Cataract Loss of Vision: Denies Hearing Impairment: Denies Cancer: Small Bowel, Colon Reviewed History: Yes Social History Home: Multilevel Entry Into Home: Stairs With Railing PT Steps Into Home: 5 Patient states he lives upstairs, unclear if he lives along or with somebody. Prior Prior Level of Function SCALE: Activities may be completed with or without assistive devices. 8-Zngfbgxnyz-qoqcqej completes the activity by him/herself with no assistance from a helper. 5-Set-up or Clean-up Assistance-helper sets up or cleans up; patient completes activity. [place] assists only prior to or following the activity. 4-Supervision or Touching Assistance-helper provides verbal cues and/or touching/steadying and/or contact guard assistance as patient completes acti vity. Assistance may be provided throughout the activity or intermittently. 3-Partial/Moderate Assistance-helper does LESS THAN HALF the effort. [place] lifts, holds or supports trunk or limbs, but provides less than half the effort. 2-Substantial/Maximal Assistance-helper does MORE THAN HALF the effort. [place] lifts or holds trunk or limbs and provides more than half the effort. 0-Apncnbupe-wkzuie does ALL the effort. Patient does none of the effort to complete the activity. Or, the assistance of 2 or more helpers is required for the patient to complete the activity. If activity was not attempted, code reason: 7-Patient Refused. 9-Not Applicable-not attempted and the patient did not perform the activity before the current illness, exacerbation or injury. 10-Not Attempted due to Environmental Limitations-(lack of equipment, weather restraints, etc.). 88-Not Attempted due to Medical Conditions or Safety Concerns. Bed Mobility: 6 Transfers (B,C,W/C): 6 Gait: 6 Stairs: 6 Indoor Mobility (Ambulation): Independent Stairs: Independent PT Evaluation-Current Subjective Patient in recliner pre tx, agrees to PT, has no complaints of pain. Proper PPE donned before entering room. Pt/Family Goals to be independent at home Objective Patient Orientation: Person, Confused, Situation, Mumbles ROM/Strength ROM Lower Extremities WNL Strength Lower Extremities 5/5 gross BLE except for hip flexion which is 3+5 bilaterally Sensory Hearing: Functional Sensation Right Lower Extremit: Intact Sensation Left Lower Extremity: Intact Transfers Sit to Stand (QC): 6 Patient is able to stand for about 5 min and perform marching, no LOB Balance Sitting Static: Normal Sitting Dynamic: Normal Standing Static: Normal Standing Dynamic: Normal Treatment standing marching x20, seated LAQ and ankle pumps x20 Assessment/Needs Patient has impaired mobility, strength, endurance. He gets a little SOB with activity but recovers quickly with rest. Rehab Potential: Fair PT Electromedical Equipment Repairer Goals Fdc Goals PT Electromedical Equipment Repairer Goals Time Frame: Aug 28, 2020 Roll Left & Right (QC): 6 Sit to Lying (QC): 6 Lying-Sitting on Side/Bed(QC): 6 Sit to Stand (QC): 6 Chair/Kig-lx-Rroef Xfer(QC): 6 Walk 10 feet (QC): 6 Walk 50ft with 2 Turns (QC): 6 PT Plan Problem List Problem List: Activity Tolerance, Functional Strength, Safety, Balance, Gait, Transfer, Bed Mobility Treatment/Plan Treatment Plan: Continue Plan of Care Treatment Plan: Bed Mobility, Education, Functional Activity Anali, Functional Strength, Gait, Safety, Therapeutic Exercise, Transfers Treatment Duration: Aug 28, 2020 Frequency: 6 times per week Estimated Hrs Per Day: .25 hour per day Patient and/or Family Agrees t: Yes Safety Risks/Education Patient Education: Transfer Techniques, Correct Positioning, Safety Issues Teaching Recipient: Patient Teaching Methods: Demonstration, Discussion Response to Teaching: Reinforcement Needed Discharge Recommendations Plan Patient will perform bed mobility and transfer training, balance and endurance training, functional strengthening, stair training, gait training, and education, to improve functional mobility and independence at home. Therapy Discharge Recommendati: Scheduled Assistance, Home & Family Time/GCodes Time In: 1345 Time Out: 1356 Total Billed Treatment Time: 11 Total Billed Treatment 1 visit QUE BERNABE PT Aug 21, 2020 14:11
--- NOTE | 2020-08-21 14:19 | Occupational Therapy Eval ---
OT Evaluation-General/PLF Medical Diagnosis Admission Date Aug 19, 2020 at 13:31 Medical Diagnosis: covid 19, weakness Onset Date: Aug 19, 2020 Therapy Diagnosis Therapy Diagnosis: Decreased ADL status Height/Weight Height (Feet): 5 Height (Inches): 8.00 Weight (Pounds): 148 Precautions Precautions/Isolations: Airborne Isolation, Contact Isolation, Droplet Isolation Referral Physician: Renetta Referral Reason: Activity Tolerance, Self Care, Evaluation/Treatment, Strengthening/ROM Medical History Current History COVID + admission Reviewed History: Yes Social History Home: [facility] Current Living Status: Alone Entry Into Home: Stairs With Railing Steps Into Home: 5 ADL-Prior Level of Function SCALE: Activities may be completed with or without assistive devices. 2-Zebpwqgfuf-qswalgn completes the activity by him/herself with no assistance from a helper. 5-Set-up or Clean-up Assistance-helper sets up or cleans up; patient completes activity. [place] assists only prior to or following the activity. 4-Supervision or Touching Assistance-helper provides verbal cues and/or touching/steadying and/or contact guard assistance as patient completes activity. Assistance may be provided throughout the activity or intermittently. 3-Partial/Moderate Assistance-helper does LESS THAN HALF the effort. [place] lifts, holds or supports trunk or limbs, but provides less than half the effort. 2-Substantial/Maximal Assistance-helper does MORE THAN HALF the effort. [place] lifts or holds trunk or limbs and provides more than half the effort. 7-Legqyzufa-qgwauq does ALL the effort. Patient does none of the effort to complete the activity. Or, the assistance of 2 or more helpers is required for the patient to complete the activity. If activity was not attempted, code reason: 7-Patient Refused. 9-Not Applicable-not attempted and the patient did not perform the activity before the current illness, exacerbation or injury. 10-Not Attempted due to Environmental Limitations-(lack of equipment, weather restraints, etc.). 88-Not Attempted due to Medical Conditions or Safety Concerns. ADL PLOF Comments Pt IND with I/ADL tasks wihtout AD, pt has daughters who live in the area. 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 Pt states food unappetizing. Pt agrees to tx. Pt denies pain/ SOB. Mental Status/Objective Patient Orientation: Normal For Age Current Dentures/Partials: Yes Hand Dominance: Right Upper Extremity ROM WFL BUE slight R side weakness (prior CVA) Upper Extremity Coordination WFL BUE Upper Extremity Sensation WFL BUE Upper Extremity Strength WFL BUE ADL-Treatment Eating (QC): 6 Oral Hygiene (QC): 6 Upper Body Dressing (QC): 6 Other Treatments Pt completes supine-sit with SBA, sit to stand CGA and ambulates to chair with CGA with assist with lines. Pt sits in chair, completes MMT/ ROM with noted slurring / weakness R side of mouth. Pt states previous CVA. Pt requests sponge bath, completes with s/u and SBA in stance. Pt completes oral care in sit with IND. Pt able to complete with IND. Pt states desire to continue strengthening. OT to brain picker pt for 1-2 days/ week to address strengthening tasks. Pt left in recliner with all needs met, call light in reach. Education OT Patient Education: Correct positioning, Purpose of tx/functional activities, Safety issues Teaching Recipient: Patient Teaching Methods: Demonstration, Discussion Response to Teaching: Verbalize Understanding, Return Demonstration OT Intermediate Goals Plasma Table Operator Goals Time Frame: Aug 28, 2020 Shower/Bathe Self (QC): 6 Lower Body Dressing (QC): 6 On/Off Footwear (QC): 6 Pt is SBA-IND with all tasks that were observed on evaluation; pt to increase fx strength and confidence of UE/ balance during stay. OT to address these issues 1-2x per week. Additional Goals: 2-Verbalize Understanding, 3-ImproveStrength/Anali 1=Demonstrate adherence to instructed precautions during ADL tasks. 2=Patient will verbalize/demonstrate understanding of assistive devices/modifications for ADL. 3=Patient will improve strength/tolerance for activity to enable patient to perform ADL's. OT Education/Plan Problem List/Assessment Assessment: Decreased Activ Tolerance, Decreased UE Strength, Dependent Transfers, Impaired Funct Balance, Impaired I ADL's, Impaired Self-Care Skills Discharge Recommendations Plan/Recommendations: Continue POC Therapy Discharge Recommendati: Home & Family Treatment Plan/Plan of Care Treatment,Training & Education: Yes Patient would benefit from OT for education, treatment and training to promote independence in ADL's, mobility, safety and/or upper extremity function for ADL's. Plan of Care: ADL Retraining, UE Funct Exercise/Act Treatment Duration: Aug 28, 2020 Frequency: 2 times per week Estimated Hrs Per Day: .25 hour per day Agreement: Yes Rehab Potential: Fair Time/GCodes Start Time: 13:00 Stop Time: 13:23 Total Time Billed (hr/min): 23 Billed Treatment Time 1, EVM (10), ADL (13)= 26 SERA CAT OTR Aug 21, 2020 14:19
[2020-08-21 16:34] VITALS: BP 143/67
[2020-08-21 19:29] VITALS: BP 150/67
[2020-08-21] MEDS: warFARin 2 MG (COUMADIN) TAB PO SCH (21:02)
[2020-08-21] MEDS: warFARin 5 MG (COUMADIN) TAB PO SCH (21:02)
[2020-08-22] VITALS (7 sets, daily range): BP systolic 125–148; BP diastolic 61–70
[2020-08-22] MEDS: GLIMEPIRIDE 1 MG (AMARYL) TAB PO SCH (06:00)
[2020-08-22 06:29] LABS: HEMOGLOBIN 13.6 g/dL (13.3-17.7); MEAN PLATELET VOLUME 10.7 fL (9.0-12.2)
[2020-08-22 06:46] LABS: ALBUMIN 3.5 GM/DL (3.2-4.5); CHLORIDE 101 MMOL/L (98-107); POTASSIUM 4.1 MMOL/L (3.6-5.0); SODIUM 136 MMOL/L (135-145)
[2020-08-22 06:47] LABS: CALCIUM 8.5 MG/DL (8.5-10.1)
[2020-08-22 06:48] LABS: GLUCOSE 190 MG/DL (70-105)
[2020-08-22 06:49] LABS: PROTHROMBIN TIME PATIENT 46.2 SEC (12.2-14.7); TOTAL PROTEIN 6.5 GM/DL (6.4-8.2)
[2020-08-22 06:50] LABS: BILIRUBIN,TOTAL 0.7 MG/DL (0.1-1.0); CARBON DIOXIDE 24 MMOL/L (21-32)
[2020-08-22 06:52] LABS: ALKALINE PHOSPHATASE 77 U/L (40-136); CREATININE SERUM 0.74 MG/DL (0.60-1.30); GFR ESTIMATED > 60
[2020-08-22 06:53] LABS: BUN/CREATININE RATIO 19
[2020-08-22 06:55] LABS: ALANINE AMINOTRANSFERASE 30 U/L (0-55)
--- NOTE | 2020-08-22 07:05 | NUR ---
NOTIFIED DR INIGUEZ OF CRITICAL PT VALUE 46.2. NEW ORDER RECEIVED TO HOLD HS COUMADIN.
[2020-08-22] MEDS: warFARin 2 MG (COUMADIN) TAB PO SCH (07:10)
[2020-08-22] MEDS: warFARin 5 MG (COUMADIN) TAB PO SCH (07:10)
[2020-08-22] MEDS: meTOprolol TARTRATE 25 MG (LOPRESSOR) TABLET PO SCH ×2 (08:08→20:50)
[2020-08-22] MEDS: PANTOPRAZOLE 40 MG (PROTONIX) TAB PO SCH (08:37)
[2020-08-22] MEDS ORDERED: REMDESIVIR INJ (NON-FORMULARY) 200 MG in NS (IVPB) 210 ML IV NR (12:30)
--- NOTE | 2020-08-22 12:37 | Physical Therapy Daily Note ---
PT Daily Note-Current Subjective Agrees to PT. Reports he feels "fine." Transfers SCALE: Activities may be completed with or without assistive devices. 9-Iwdywejcpu-rxkainc completes the activity by him/herself with no assistance from a helper. 5-Set-up or Clean-up Assistance-helper sets up or cleans up; patient completes activity. [place] assists only prior to or following the activity. 4-Supervision or Touching Assistance-helper provides verbal cues and/or touching/steadying and/or contact guard assistance as patient completes activity. Assistance may be provided throughout the activity or intermittently. 3-Partial/Moderate Assistance-helper does LESS THAN HALF the effort. [place] lifts, holds or supports trunk or limbs, but provides less than half the effort. 2-Substantial/Maximal Assistance-helper does MORE THAN HALF the effort. [place] lifts or holds trunk or limbs and provides more than half the effort. 4-Oxguoamtm-ryjyfw does ALL the effort. Patient does none of the effort to complete the activity. Or, the assistance of 2 or more helpers is required for the patient to complete the activity. If activity was not attempted, code reason: 7-Patient Refused. 9-Not Applicable-not attempted and the patient did not perform the activity before the current illness, exacerbation or injury. 10-Not Attempted due to Environmental Limitations-(lack of equipment, weather restraints, etc.). 88-Not Attempted due to Medical Conditions or Safety Concerns. Sit to Stand (QC): 5 Gait Training Pt walked in room 150 ft x 2 with FWW with supervision and assist to manage with oxygen tubing with supervision only for gait. Safe turns and use of FWW. Exercises Standing ther ex x 15 reps for calf raises, mini squats, marching; seated for AP, LAQ and hip flexion. Treatments pt in chair with needs met and oxygen in situ post treatment. Assessment Current Status: Good Progress Progressing well. Functional mobility progressing as is functional activity tolerance. Pt is motivated and compliant. PT Penitentiary Goals Substation Operator Conversion Goals PT Penitentiary Goals Time Frame: Aug 28, 2020 Roll Left & Right (QC): 6 Sit to Lying (QC): 6 Lying-Sitting on Side/Bed(QC): 6 Sit to Stand (QC): 6 Chair/Aen-lp-Ormjk Xfer(QC): 6 Walk 10 feet (QC): 6 Walk 50ft with 2 Turns (QC): 6 PT Plan Problem List Problem List: Activity Tolerance, Functional Strength, Safety, Balance, Gait, Transfer Treatment/Plan Treatment Plan: Continue Plan of Care Treatment Plan: Bed Mobility, Education, Functional Activity Anali, Functional Strength, Gait, Safety, Therapeutic Exercise, Transfers Treatment Duration: Aug 28, 2020 Frequency: 6 times per week Estimated Hrs Per Day: .25 hour per day Patient and/or Family Agrees t: Yes Safety Risks/Education Patient Education: Safety Issues Teaching Recipient: Patient Teaching Methods: Discussion Response to Teaching: Verbalize Understanding Time/GCodes Time In: 1100 Time Out: 1125 Total Billed Treatment Time: 25 Total Billed Treatment visit GT 15 EX 10 DURGA OLIVA PT Aug 22, 2020 12:37
--- NOTE | 2020-08-22 13:22 | Progress Note - Hospitalist ---
Subjective HPI/CC On Admission Date Seen by Provider: Aug 22, 2020 Time Seen by Provider: 13:19 patient is an 84-year-old male with a past medical history of CVA, hypertension, aortic valve replacement who presented to the emergency department due to weakness. he reports he has been sick for 9 days. He was tested for COV ID on August 13 and was negative. Since that time he has continued to have no appetite with generalized weakness, cough, fever. rapid COVID testing was done in the emergency room and found to be positive. He was admitted due to worsening status at home. Subjective/Events-last exam Pt reports feeling well today. Had increasing oxygen requirement yesterday. Discussed use of IS with him and also remdesivir. He agrees. Called and spoke with his daughter as well. She requests SSI, and albuterol prn too. Objective Exam Vital Signs Vital Signs Date Time Temp Pulse Resp B/P (MAP) Pulse Ox O2 Delivery O2 Flow Rate FiO2 08/22/20 12:00 35.9 54 24 140/61 (87) 95 Nasal Cannula 2.00 Capillary Refill : Less Than 3 SecondsLess Than 3 Seconds General Appearance: No Apparent Distress, Chronically ill Respiratory: Lungs Clear; No Rhonci, No Wheezing; Other (on 3lpm NC) Cardiovascular: Regular Rate, Rhythm, No Murmur Gastrointestinal: Normal Bowel Sounds, Non Tender, Soft Neurologic/Psychiatric: Alert, Oriented x3, Normal Mood/Affect Results/Procedures Lab Laboratory Tests 08/22/20 05:55 Patient resulted labs reviewed. Imaging: Reviewed Imaging Report Assessment/Plan Assessment and Plan Assess & Plan/Chief Complaint COVID19 Debility Decadron Convalescent plasma ordered, Discussed EUA status with patient and he is agreeable, s/p 1 unit Discussed Remdesivir with pt and daughter and EUA status, they expressed understanding and agree, ordered IS MAT protocol PT/OT albuterol prn Aortic valve replacement Supratherapeutic INR Monitor INR daily, INR up to 5 this morning Hold Warfarin tonight HTN Continue home meds hyperglycemia SSI DVT ppx: Warfarin and INR of 4.0 Diagnosis/Problems Diagnosis/Problems (1) COVID-19 Status: Acute (2) Supratherapeutic INR Status: Acute (3) Generalized weakness Status: Acute (4) Hypoxia Clinical Quality Measures DVT/VTE Risk/Contraindication: Risk Factor Score Per Nursin RFS Level Per Nursing on Admit: 4+=Very High RONA INIGUEZ MD Aug 22, 2020 13:22
--- NOTE | 2020-08-22 16:33 | NUR ---
Dr Jackson notified of BS of 402 per protocol, awaiting orders.
[2020-08-22] MEDS: inSUlin ASPART (NovoLOG) 1 UNIT/0.01 ML (CHARGE PER UNIT) SC SCH ×2 (16:43→20:51)
[2020-08-23 04:31] VITALS: BP 144/62
[2020-08-23 05:10] LABS: HEMOGLOBIN 12.9 g/dL (13.3-17.7); MEAN PLATELET VOLUME 10.8 fL (9.0-12.2); WHITE BLOOD COUNT 10.7 10^3/uL (4.3-11.0)
[2020-08-23 05:20] LABS: ALBUMIN 3.4 GM/DL (3.2-4.5); CHLORIDE 101 MMOL/L (98-107); POTASSIUM 3.7 MMOL/L (3.6-5.0); SODIUM 135 MMOL/L (135-145)
[2020-08-23 05:21] LABS: CALCIUM 8.5 MG/DL (8.5-10.1)
[2020-08-23 05:22] LABS: GLUCOSE 133 MG/DL (70-105); TOTAL PROTEIN 6.2 GM/DL (6.4-8.2)
[2020-08-23 05:23] LABS: CARBON DIOXIDE 24 MMOL/L (21-32)
[2020-08-23 05:24] LABS: BILIRUBIN,TOTAL 0.5 MG/DL (0.1-1.0)
[2020-08-23] MEDS: inSUlin ASPART (NovoLOG) 1 UNIT/0.01 ML (CHARGE PER UNIT) SC SCH ×4 (05:24→21:09)
[2020-08-23 05:26] LABS: ALKALINE PHOSPHATASE 71 U/L (40-136); CREATININE SERUM 0.67 MG/DL (0.60-1.30); GFR ESTIMATED > 60
[2020-08-23 05:27] LABS: BUN/CREATININE RATIO 25
[2020-08-23 05:29] LABS: ALANINE AMINOTRANSFERASE 35 U/L (0-55)
[2020-08-23 05:33] LABS: PROTHROMBIN TIME PATIENT 58.4 SEC (12.2-14.7)
[2020-08-23 05:37] LABS: INR 6.8 (0.8-1.4)
[2020-08-23] MEDS: GLIMEPIRIDE 1 MG (AMARYL) TAB PO SCH (06:59)
[2020-08-23 08:00] VITALS: BP 142/65
[2020-08-23] MEDS: PANTOPRAZOLE 40 MG (PROTONIX) TAB PO SCH (08:45)
[2020-08-23] MEDS: meTOprolol TARTRATE 25 MG (LOPRESSOR) TABLET PO SCH ×2 (08:49→19:42)
[2020-08-23] MEDS: RT-ALBUTEROL INHALER HFA (VENTOLIN HFA) 18 GM IH PRN ×2 (09:45→15:14)
--- NOTE | 2020-08-23 10:19 | Progress Note - Hospitalist ---
Subjective HPI/CC On Admission Date Seen by Provider: Aug 23, 2020 Time Seen by Provider: 10:17 patient is an 84-year-old male with a past medical history of CVA, hypertension, aortic valve replacement who presented to the emergency department due to weakness. he reports he has been sick for 9 days. He was tested for COV ID on August 13 and was negative. Since that time he has continued to have no appetite with generalized weakness, cough, fever. rapid COVID testing was done in the emergency room and found to be positive. He was admitted due to worsening status at home. Subjective/Events-last exam Pt reports doing well. Has cough but otherwise no complaints. Plans to get out of the bed to the chair soon. Objective Exam Vital Signs Vital Signs Date Time Temp Pulse Resp B/P (MAP) Pulse Ox O2 Delivery O2 Flow Rate FiO2 08/23/20 09:43 93 High Flow N/C 3.00 08/23/20 08:00 36.5 52 16 142/65 (90) Capillary Refill : Less Than 3 SecondsLess Than 3 Seconds General Appearance: No Apparent Distress, Chronically ill Respiratory: No Rhonci, No Wheezing; Other (on 3lpm) Cardiovascular: Regular Rate, Rhythm, Systolic Murmur Gastrointestinal: Normal Bowel Sounds, Non Tender, Soft Neurologic/Psychiatric: Alert, Oriented x3 Results/Procedures Lab Laboratory Tests 08/23/20 04:35 Patient resulted labs reviewed. Imaging: Reviewed Imaging Report Assessment/Plan Assessment and Plan Assess & Plan/Chief Complaint COVID19 Debility Decadron s/p convalescent plasma Continue Remdesivir IS MAT protocol PT/OT albuterol prn Aortic valve replacement Supratherapeutic INR Monitor INR daily, INR up further to 6.8 this morning, trend Continue to hold warfarin, no correction needs yet as not over 10 and no e vidence of bleeding Discussed with patient plan to monitor closely HTN Continue home meds hyperglycemia SSI DVT ppx: supratherapeutic INR Diagnosis/Problems Diagnosis/Problems (1) COVID-19 Status: Acute (2) Supratherapeutic INR Status: Acute (3) Generalized weakness Status: Acute (4) Hypoxia Clinical Quality Measures DVT/VTE Risk/Contraindication: Risk Factor Score Per Nursin RFS Level Per Nursing on Admit: 4+=Very High RONA INIGUEZ MD Aug 23, 2020 10:19 am
[2020-08-23] MEDS: REMDESIVIR INJ (NON-FORMULARY) 100 MG in NS (IVPB) 230 ML IV SCH (11:45)
[2020-08-23 12:00] VITALS: BP 114/57
[2020-08-23 15:30] VITALS: BP 114/55
--- NOTE | 2020-08-23 19:38 | NUR ---
NOTIFIED DR INIGUEZ OF CONSISTENT PATTERN OF PT PULSE DROPPING TO 45 AT HS AND SBP REMAINING IN THE 140S. NEW ORDER TO HOLD LOPRESSOR.
[2020-08-23 20:23] VITALS: BP 165/74
[2020-08-23 23:40] VITALS: BP 155/72
[2020-08-24 04:06] VITALS: BP 172/81
[2020-08-24 06:25] LABS: HEMOGLOBIN 13.3 g/dL (13.3-17.7); MEAN PLATELET VOLUME 10.5 fL (9.0-12.2); WHITE BLOOD COUNT 10.5 10^3/uL (4.3-11.0)
[2020-08-24 06:34] LABS: ALBUMIN 3.4 GM/DL (3.2-4.5)
[2020-08-24 06:35] LABS: CHLORIDE 101 MMOL/L (98-107); POTASSIUM 4.1 MMOL/L (3.6-5.0); SODIUM 136 MMOL/L (135-145)
[2020-08-24 06:36] LABS: CALCIUM 8.7 MG/DL (8.5-10.1)
[2020-08-24 06:37] LABS: GLUCOSE 153 MG/DL (70-105); TOTAL PROTEIN 6.4 GM/DL (6.4-8.2)
[2020-08-24 06:38] LABS: CARBON DIOXIDE 25 MMOL/L (21-32)
[2020-08-24 06:39] LABS: BILIRUBIN,TOTAL 0.8 MG/DL (0.1-1.0)
[2020-08-24 06:40] LABS: ALKALINE PHOSPHATASE 76 U/L (40-136)
[2020-08-24 06:41] LABS: CREATININE SERUM 0.71 MG/DL (0.60-1.30); GFR ESTIMATED > 60
[2020-08-24 06:42] LABS: BUN/CREATININE RATIO 18
[2020-08-24 06:44] LABS: ALANINE AMINOTRANSFERASE 32 U/L (0-55)
[2020-08-24] MEDS: GLIMEPIRIDE 1 MG (AMARYL) TAB PO SCH (07:12)
[2020-08-24] MEDS: inSUlin ASPART (NovoLOG) 1 UNIT/0.01 ML (CHARGE PER UNIT) SC SCH ×4 (07:28→20:33)
[2020-08-24 07:37] LABS: INR 5.4 (0.8-1.4); PROTHROMBIN TIME PATIENT 49.4 SEC (12.2-14.7)
[2020-08-24] MEDS: PANTOPRAZOLE 40 MG (PROTONIX) TAB PO SCH (08:42)
[2020-08-24] MEDS: meTOprolol TARTRATE 25 MG (LOPRESSOR) TABLET PO SCH ×2 (08:42→20:33)
[2020-08-24 08:44] VITALS: BP 147/67
--- NOTE | 2020-08-24 10:29 | Progress Note - Hospitalist ---
Subjective HPI/CC On Admission Date Seen by Provider: Aug 24, 2020 Time Seen by Provider: 09:55 patient is an 84-year-old male with a past medical history of CVA, hypertension, aortic valve replacement who presented to the emergency department due to weakness. he reports he has been sick for 9 days. He was tested for COV ID on August 13 and was negative. Since that time he has continued to have no appetite with generalized weakness, cough, fever. rapid COVID testing was done in the emergency room and found to be positive. He was admitted due to worsening status at home. Subjective/Events-last exam He says he feels about the same. He is still short of breath. He still has a cough. He has been eating and drinking. He has been up moving around. Objective Exam Vital Signs Vital Signs Date Time Temp Pulse Resp B/P (MAP) Pulse Ox O2 Delivery O2 Flow Rate FiO2 08/24/20 08:48 93 Nasal Cannula 4.00 08/24/20 08:44 36.6 83 18 147/67 (93) Capillary Refill : Less Than 3 SecondsLess Than 3 Seconds General Appearance: No Apparent Distress, Chronically ill Respiratory: Lungs Clear, Normal Breath Sounds, No Respiratory Distress Cardiovascular: Regular Rate, Rhythm, No Edema, Other (mechanical heart sounds) Gastrointestinal: Normal Bowel Sounds, Non Tender, Soft Extremity: Normal Inspection, Non Tender, No Pedal Edema Neurologic/Psychiatric: Alert, Oriented x3, No Motor/Sensory Deficits, Normal Mood/Affect Skin: Normal Color, Warm/Dry Results/Procedures Lab Laboratory Tests 08/24/20 04:56 Patient resulted labs reviewed. Imaging: Reviewed Imaging Report Assessment/Plan Assessment and Plan Assess & Plan/Chief Complaint COVID19 Debility Decadron s/p convalescent plasma Remdesivir day 3 IS MAT protocol PT/OT albuterol prn Aortic valve replacement, mechanical Supratherapeutic INR Monitor INR daily, INR improving 5.4 this morning, trend Continue to hold warfarin, no correction needs yet as not over 10 and no evidence of bleeding Discussed with patient plan to monitor closely HTN Continue home meds Hydralazine as needed Steroid induced hyperglycemia SSI DVT ppx: supratherapeutic INR Diagnosis/Problems Diagnosis/Problems (1) Acute respiratory failure due to COVID-19 Status: Acute (2) Steroid-induced hyperglycemia Status: Acute (3) Supratherapeutic INR Status: Acute (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
[2020-08-24] MEDS: REMDESIVIR INJ (NON-FORMULARY) 100 MG in NS (IVPB) 230 ML IV SCH (12:33)
[2020-08-24 12:37] VITALS: BP 123/63
--- NOTE | 2020-08-24 13:09 | Physical Therapy Daily Note ---
PT Daily Note-Current Subjective Reports he has not been out of bed today. Agrees to PT. Reports he does not like the food here. Reports he feels he is progressing. Pain Numeric Pain Scale: 0-No Pain Location: No Pain Reported Mental Status Patient Orientation: Person, Place, Time, Situation Attachments: Oxygen (in situ during and post treatment) Transfers SCALE: Activities may be completed with or without assistive devices. 5-Apddudvqwx-jueklqk completes the activity by him/herself with no assistance from a helper. 5-Set-up or Clean-up Assistance-helper sets up or cleans up; patient completes activity. [place] assists only prior to or following the activity. 4-Supervision or Touching Assistance-helper provides verbal cues and/or touching/steadying and/or contact guard assistance as patient completes activity . Assistance may be provided throughout the activity or intermittently. 3-Partial/Moderate Assistance-helper does LESS THAN HALF the effort. [place] lifts, holds or supports trunk or limbs, but provides less than half the effort. 2-Substantial/Maximal Assistance-helper does MORE THAN HALF the effort. [place] lifts or holds trunk or limbs and provides more than half the effort. 8-Winmggovt-yhhaym does ALL the effort. Patient does none of the effort to complete the activity. Or, the assistance of 2 or more helpers is required for the patient to complete the activity. If activity was not attempted, code reason: 7-Patient Refused. 9-Not Applicable-not attempted and the patient did not perform the activity before the current illness, exacerbation or injury. 10-Not Attempted due to Environmental Limitations-(lack of equipment, weather restraints, etc.). 88-Not Attempted due to Medical Conditions or Safety Concerns. Roll Left & Right (QC): 5 Sit to Lying (QC): 5 Lying to Sitting/Side of Bed(Q: 5 Sit to Stand (QC): 4 (CGA initially secondary to being unsteady with initial standing; SBA subsequent transfers. ) Chair/Adl-ag-Dgxmm Xfer(QC): 4 Gait Training Walk 150 ft (QC): 4 (SBA for safety and oxygen managment; several turns as this was done in his room only.) Gait Assistive Device: FWW Gait in his room with multiple turns; into the bathroom. Exercises Seated Therapy Exercises: Ankle pumps, Sit to stand, Long arc quads, Hip flexion Seated Reps: 15 Standing: Heel/toe raises, Marching, Mini squats Standing Reps: 15 Treatments Pt stood at toilet to urinate; stood at sink to wash his hands, all with SBA for safety. Pt stood for 5 minutes without sitting. Assessment Current Status: Good Progress Steady initially today. But once he began moving, balance and mobility improved. Pt is motivated. Improved standing tolerance this date. Progressing. 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 Home Furnishings Sales Representative Goals PT [facility] Goals Time Frame: Aug 28, 2020 Roll Left & Right (QC): 6 Sit to Lying (QC): 6 Lying-Sitting on Side/Bed(QC): 6 Sit to Stand (QC): 6 Chair/Jec-nu-Fiomn Xfer(QC): 6 Walk 10 feet (QC): 6 Walk 50ft with 2 Turns (QC): 6 PT Plan Problem List Problem List: Activity Tolerance, Functional Strength, Safety Treatment/Plan Treatment Plan: Continue Plan of Care Treatment Plan: Bed Mobility, Education, Functional Activity Anali, Functional Strength, Gait, Safety, Therapeutic Exercise, Transfers Treatment Duration: Aug 28, 2020 Frequency: 6 times per week Estimated Hrs Per Day: .25 hour per day Patient and/or Family Agrees t: Yes Safety Risks/Education Patient Education: Safety Issues Teaching Recipient: Patient Teaching Methods: Discussion Response to Teaching: Verbalize Understanding Discharge Recommendations Therapy Discharge Recommendati: Post Acute PT Time/GCodes Time In: 1100 Time Out: 1130 Total Billed Treatment Time: 30 Total Billed Treatment visit EX 15 GT 15 DURGA OLIVA PT Aug 24, 2020 13:09
--- NOTE | 2020-08-24 13:28 | Occupational Ther Daily Note ---
OT Current Status-Daily Note Subjective Pt seen upright in chair, denies pain. Alert/ oriented. Pt agrees to OT tx session, food in front of pt/ eating with IND. Mental Status/Objective Patient Orientation: Normal For Age Attachments: IV, Oxygen ADL-Treatment Therapy Code Descriptions/Definitions Functional [place] Measure: 0=Not Assessed/NA 4=Minimal Assistance 1=Total Assistance 5=Supervision or Setup 2=Maximal Assistance 6=Modified [place] 3=Moderate Assistance 7=Complete IndependenceSCALE: Activities may be completed with or without assistive devices. 9-Nrnrtwnshj-wijygut completes the activity by him/herself with no assistance from a helper. 5-Set-up or Clean-up Assistance-helper sets up or cleans up; patient completes activity. [place] assists only prior to or following the activity. 4-Supervision or Touching Assistance-helper provides verbal cues and/or touching/steadying and/or contact guard assistance as patient completes activity. Assistance may be provided throughout the activity or intermittently. 3-Partial/Moderate Assistance-helper does LESS THAN HALF the effort. [place] lifts, holds or supports trunk or limbs, but provides less than half the effort. 2-Substantial/Maximal Assistance-helper does MORE THAN HALF the effort. [place] lifts or holds trunk or limbs and provides more than half the effort. 9-Rtkjhowen-aycwbj does ALL the effort. Patient does none of the effort to complete the activity. Or, the assistance of 2 or more helpers is required for the patient to complete the activity. If activity was not attempted, code reason: 7-Patient Refused. 9-Not Applicable-not attempted and the patient did not perform the activity before the current illness, exacerbation or injury. 10-Not Attempted due to Environmental Limitations-(lack of equipment, weather restraints, etc.). 88-Not Attempted due to Medical Conditions or Safety Concerns. Eating (QC): 6 Shower/Bathe Self (QC): 4 (SUP: pt completes bottom/ clarence hygiene with SUP, all other tasks with IND.) Upper Body Dressing (QC): 5 (s/u due to tubing.) Toileting Hygiene (QC): 4 (SUP) Other Treatment Pt in recliner. Completes sponge bath in recliner with IND-SUP. Pt stands to complete UE theraband ex. Pt completes 15 reps bilaterally of 2/2 exercises in stance: shoulder flexion, bicep curls. Pt states, "That's pointless." Pt questioned reasoning, then given cues to increase tension of theraband through doubling up. Pt completes 5 reps bilaterally of tricep extensions. Pt states be tter. No SOB/ LOB in stance during BUE ex. Pt educated on 3 additional exercises: triceps, scaption, back flies. Pt educated to complete multiple times a day in recliner. Pt laughs, stating he will not complete on own. Pt educated on ability to complete ADLs with SUP/ IND and that OT to continue strengthening only if pt will benefit/ continue to complete on own. Pt states, "No, I will do them. " Continued OT. Pt educated to complete 10-15 for strengthening (doubled up) and 20-30 for endurance training (single strand). Pt's IV bleeding from sides (moderately), nursing immediately notified. Pt nods, left in recliner with all needs met, call light in reach. 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 OT to address these issues 1-2x per week. Additional Goals: 2-Verbalize Understanding, 3-ImproveStrength/Anali 1=Demonstrate adherence to instructed precautions during ADL tasks. 2=Patient will verbalize/demonstrate understanding of assistive devices/modifications for ADL. 3=Patient will improve strength/tolerance for activity to enable patient to perform ADL's. OT Education/Plan Problem List/Assessment Assessment: Decreased Activ Tolerance, Decreased UE Strength, Dependent Transf ers, Impaired I ADL's, Impaired Self-Care Skills Discharge Recommendations Plan/Recommendations: Continue POC Therapy Discharge Recommendati: Home & Family Treatment Plan/Plan of Care Treatment,Training & Education: Yes Patient would benefit from OT for education, treatment and training to promote independence in ADL's, mobility, safety and/or upper extremity function for ADL's. Plan of Care: ADL Retraining, UE Funct Exercise/Act Treatment Duration: Aug 28, 2020 Frequency: 2 times per week Estimated Hrs Per Day: .25 hour per day Agreement: Yes Rehab Potential: Fair Time/GCodes Start Time: 12:55 Stop Time: 13:15 Total Time Billed (hr/min): 20 Billed Treatment Time 1, EX (20) SERA CAT OTR Aug 24, 2020 13:28
[2020-08-24 16:33] VITALS: BP 147/71
[2020-08-24 20:01] VITALS: BP 118/68
[2020-08-24 23:58] VITALS: BP 157/74
[2020-08-25 03:23] VITALS: BP 162/72
[2020-08-25 06:36] LABS: HEMOGLOBIN 13.8 g/dL (13.3-17.7); MEAN PLATELET VOLUME 10.3 fL (9.0-12.2); WHITE BLOOD COUNT 11.9 10^3/uL (4.3-11.0)
[2020-08-25 06:41] LABS: INR 4.1 (0.8-1.4)
[2020-08-25] MEDS: GLIMEPIRIDE 1 MG (AMARYL) TAB PO SCH (06:47)
[2020-08-25] MEDS: inSUlin ASPART (NovoLOG) 1 UNIT/0.01 ML (CHARGE PER UNIT) SC SCH ×4 (06:47→21:48)
[2020-08-25 06:48] LABS: ALBUMIN 3.3 GM/DL (3.2-4.5); CHLORIDE 100 MMOL/L (98-107); POTASSIUM 4.5 MMOL/L (3.6-5.0); SODIUM 136 MMOL/L (135-145)
[2020-08-25 06:49] LABS: CALCIUM 8.5 MG/DL (8.5-10.1)
[2020-08-25 06:50] LABS: GLUCOSE 129 MG/DL (70-105); TOTAL PROTEIN 6.3 GM/DL (6.4-8.2)
[2020-08-25 06:51] LABS: CARBON DIOXIDE 27 MMOL/L (21-32)
[2020-08-25 06:54] LABS: ALKALINE PHOSPHATASE 76 U/L (40-136); CREATININE SERUM 0.71 MG/DL (0.60-1.30); GFR ESTIMATED > 60
[2020-08-25 06:55] LABS: BUN/CREATININE RATIO 24
[2020-08-25 06:57] LABS: ALANINE AMINOTRANSFERASE 29 U/L (0-55)
[2020-08-25 08:10] VITALS: BP 153/75
[2020-08-25] MEDS: PANTOPRAZOLE 40 MG (PROTONIX) TAB PO SCH (08:12)
[2020-08-25] MEDS: meTOprolol TARTRATE 25 MG (LOPRESSOR) TABLET PO SCH ×2 (08:13→21:48)
[2020-08-25] MEDS: lisINopril 20 MG (PRINIVIL) TABLET PO SCH (08:15)
[2020-08-25] MEDS ORDERED: lisINopril 40 MG (PRINIVIL) TABLET PO SCH (09:00)
--- NOTE | 2020-08-25 10:15 | Progress Note - Hospitalist ---
Subjective HPI/CC On Admission Date Seen by Provider: Aug 25, 2020 Time Seen by Provider: 09:50 patient is an 84-year-old male with a past medical history of CVA, hypertension, aortic valve replacement who presented to the emergency department due to weakness. he reports he has been sick for 9 days. He was tested for COV ID on August 13 and was negative. Since that time he has continued to have no appetite with generalized weakness, cough, fever. rapid COVID testing was done in the emergency room and found to be positive. He was admitted due to worsening status at home. Subjective/Events-last exam He is feeling well. He denies shortness of breath. He still has a cough. He has been eating and drinking but his taste buds are off. He wants to get out of the hospital. Objective Exam Vital Signs Vital Signs Date Time Temp Pulse Resp B/P (MAP) Pulse Ox O2 Delivery O2 Flow Rate FiO2 08/25/20 08:10 36.3 68 20 153/75 (101) High Flow N/C 3.50 08/25/20 03:23 92 Capillary Refill : Less Than 3 SecondsLess Than 3 Seconds General Appearance: No Apparent Distress, WD/WN Respiratory: Lungs Clear, Normal Breath Sounds, No Respiratory Distress Cardiovascular: Regular Rate, Rhythm, Other (mechanical heart sounds) Gastrointestinal: Normal Bowel Sounds, Non Tender, Soft Extremity: Normal Inspection, Non Tender, No Pedal Edema Neurologic/Psychiatric: Alert, Oriented x3, No Motor/Sensory Deficits, Normal Mood/Affect Skin: Normal Color, Warm/Dry Results/Procedures Lab Laboratory Tests 08/25/20 06:20 Patient resulted labs reviewed. Imaging: Reviewed Imaging Report Assessment/Plan Assessment and Plan Assess & Plan/Chief Complaint COVID19 Debility Decadron s/p convalescent plasma Remdesivir day 4/ IS MAT protocol PT/OT albuterol prn Aortic valve replacement, mechanical Supratherapeutic INR Monitor INR daily, INR improving 4.1 this morning, trend Resume warfarin HTN Continue home meds Hydralazine as needed Steroid induced hyperglycemia SSI DVT ppx: supratherapeutic INR Diagnosis/Problems Diagnosis/Problems (1) Acute respiratory failure due to COVID-19 Status: Acute (2) Steroid-induced hyperglycemia Status: Acute (3) Supratherapeutic INR Status: Acute (4) Mechanical heart valve present Status: Chronic Clinical Quality Measures DVT/VTE Risk/Contraindication: Risk Factor Score Per Nursin RFS Level Per Nursing on Admit: 4+=Very High JANY MAXWELL MD Aug 25, 2020 10:15
--- NOTE | 2020-08-25 12:11 | Physical Therapy Daily Note ---
PT Daily Note-Current Subjective Patient agrees to therapy . OT cotreat Mental Status Patient Orientation: Normal For Age Attachments: Oxygen Transfers SCALE: Activities may be completed with or without assistive devices. 8-Qtjobpqxjz-ndkfcof completes the activity by him/herself with no assistance from a helper. 5-Set-up or Clean-up Assistance-helper sets up or cleans up; patient completes activity. [place] assists only prior to or following the activity. 4-Supervision or Touching Assistance-helper provides verbal cues and/or touching/steadying and/or contact guard assistance as patient completes activity. Assistance may be provided throughout the activity or intermittently. 3-Partial/Moderate Assistance-helper does LESS THAN HALF the effort. [place] lifts, holds or supports trunk or limbs, but provides less than half the effort. 2-Substantial/Maximal Assistance-helper does MORE THAN HALF the effort. [place] lifts or holds trunk or limbs and provides more than half the effort. 0-Rooldxzvy-nsozre does ALL the effort. Patient does none of the effort to complete the activity. Or, the assistance of 2 or more helpers is required for the patient to complete the activity. If activity was not attempted, code reason: 7-Patient Refused. 9-Not Applicable-not attempted and the patient did not perform the activity before the current illness, exacerbation or injury. 10-Not Attempted due to Environmental Limitations-(lack of equipment, weather restraints, etc.). 88-Not Attempted due to Medical Conditions or Safety Concerns. Lying to Sitting/Side of Bed(Q: 6 Sit to Stand (QC): 6 Gait Training Does the Patient Walk?: Yes Distance: 200' Walk 10 feet (QC): 6 Walk 50 ft with 2 Turns(QC): 6 Walk 150 ft (QC): 6 Gait Assistive Device: FWW In room ambulation with FWW due to airborne precautions Assessment OT remained in room to assist with ADL's. Patient much improved and plans dismissal this week. 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 Time Frame: Aug 28, 2020 Roll Left & Right (QC): 6 Sit to Lying (QC): 6 Lying-Sitting on Side/Bed(QC): 6 Sit to Stand (QC): 6 Chair/Fns-mw-Tkjuo Xfer(QC): 6 Walk 10 feet (QC): 6 Walk 50ft with 2 Turns (QC): 6 PT Plan Treatment/Plan Treatment Plan: Continue Plan of Care Treatment Plan: Bed Mobility, Education, Functional Activity Anali, Functional Strength, Gait, Safety, Therapeutic Exercise, Transfers Treatment Duration: Aug 28, 2020 Frequency: 6 times per week Estimated Hrs Per Day: .25 hour per day Patient and/or Family Agrees t: Yes Time/GCodes Time In: 1115 Time Out: 1124 Total Billed Treatment Time: 9 Total Billed Treatment 1 visit FA 9 min RAMY SALAZAR PT Aug 25, 2020 12:11
[2020-08-25 12:33] VITALS: BP 93/52
[2020-08-25] MEDS: REMDESIVIR INJ (NON-FORMULARY) 100 MG in NS (IVPB) 230 ML IV SCH (12:33)
--- NOTE | 2020-08-25 12:45 | Occupational Ther Daily Note ---
OT Current Status-Daily Note Subjective Pt alert, lying in bed. Pt agrees to therapy. No c/o pain at this time. Mental Status/Objective Patient Orientation: Person, Place, Time, Situation Attachments: IV, Oxygen ADL-Treatment Pt able to go from supine to EOB by self, assist to manipulate tubing. Pt ambulated with PT throughout room with FWW. Pt then ambulated to bathroom and complete oral care with supervision while standing at sink. Co-treat with PT due to pt's respiratory issues and low activity tolerance. After therapy, pt sitting in recliner with call light/phone in reach. All needs met in room. Therapy Code Descriptions/Definitions Functional [place] Measure: 0=Not Assessed/NA 4=Minimal Assistance 1=Total Assistance 5=Supervision or Setup 2=Maximal Assistance 6=Modified [place] 3=Moderate Assistance 7=Complete IndependenceSCALE: Activities may be completed with or without assistive devices. 2-Sbycsnmnda-nqmhlkx completes the activity by him/herself with no assistance from a helper. 5-Set-up or Clean-up Assistance-helper sets up or cleans up; patient completes activity. [place] assists only prior to or following the activity. 4-Supervision or Touching Assistance-helper provides verbal cues and/or touching/steadying and/or contact guard assistance as patient completes activity. Assistance may be provided throughout the activity or intermittently. 3-Partial/Moderate Assistance-helper does LESS THAN HALF the effort. [place] lifts, holds or supports trunk or limbs, but provides less than half the effort. 2-Substantial/Maximal Assistance-helper does MORE THAN HALF the effort. [place] lifts or holds trunk or limbs and provides more than half the effort. 3-Yembnplps-owhvbc does ALL the effort. Patient does none of the effort to complete the activity. Or, the assistance of 2 or more helpers is required for the patient to complete the activity. If activity was not attempted, code reason: 7-Patient Refused. 9-Not Applicable-not attempted and the patient did not perform the activity before the current illness, exacerbation or injury. 10-Not Attempted due to Environmental Limitations-(lack of equipment, weather restraints, etc.). 88-Not Attempted due to Medical Conditions or Safety Concerns. Oral Hygiene (QC): 4 Co-treat with PT for part of session. OT Staffing Executive Goals Detention Goals Time Frame: Aug 28, 2020 Shower/Bathe Self (QC): 6 Lower Body Dressing (QC): 6 On/Off Footwear (QC): 6 Pt is SBA-IND with all tasks that were observed on evaluation; pt to increase fx strength and confidence of UE/ balance during stay. OT to address these issues 1-2x per week. Additional Goals: 2-Verbalize Understanding, 3-ImproveStrength/Anali 1=Demonstrate adherence to instructed precautions during ADL tasks. 2=Patient will verbalize/demonstrate understanding of assistive isabel lexie/modifications for ADL. 3=Patient will improve strength/tolerance for activity to enable patient to perform ADL's. OT Education/Plan Problem List/Assessment Assessment: Decreased Activ Tolerance, Impaired Self-Care Skills Discharge Recommendations Plan/Recommendations: Continue POC Treatment Plan/Plan of Care Patient would benefit from OT for education, treatment and training to promote independence in ADL's, mobility, safety and/or upper extremity function for ADL's. Plan of Care: ADL Retraining, UE Funct Exercise/Act Treatment Duration: Aug 28, 2020 Frequency: 2 times per week Estimated Hrs Per Day: .25 hour per day Agreement: Yes Rehab Potential: Fair Time/GCodes Start Time: 11:15 Stop Time: 11:30 Total Time Billed (hr/min): 15 Billed Treatment Time 1 visit-FA 1 (15 min) DURGA NUNES Aug 25, 2020 12:45
--- NOTE | 2020-08-25 13:12 | NUR ---
Pt has uncoded allergy to Vitamin K. Spoke with Jose MCKEON about allergy. This RD stated it was odd to be allergic to an essential nutrient. RN stated they put it as an allergy to limit their Vitamin K intake, as the pt is currently on Coumadin. Discussed with RN about removal of allergy as it is not an allergy. This RD suggested that in the future if they have a pt on an anti-coagulant, then to note that in the comments of the diet order. SErnesto Monterroso, MS RD LD
[2020-08-25] MEDS ORDERED: hydrALAZINE (APRESOLINE) 25 MG TAB PO PRN (14:30)
--- NOTE | 2020-08-25 14:33 | NUR ---
Pt anointed by Fr. Grider 08/24.
[2020-08-25 16:36] VITALS: BP 108/64
[2020-08-25 20:40] VITALS: BP 128/74
[2020-08-25] MEDS: warFARin 2 MG (COUMADIN) TAB PO SCH (21:48)
[2020-08-25] MEDS: warFARin 5 MG (COUMADIN) TAB PO SCH (21:48)
[2020-08-25 23:35] VITALS: BP 118/70
[2020-08-26 05:59] LABS: HEMOGLOBIN 13.3 g/dL (13.3-17.7); MEAN PLATELET VOLUME 10.5 fL (9.0-12.2); WHITE BLOOD COUNT 15.5 10^3/uL (4.3-11.0)
[2020-08-26] MEDS: GLIMEPIRIDE 1 MG (AMARYL) TAB PO SCH (06:19)
[2020-08-26 06:20] LABS: INR 3.2 (0.8-1.4); PROTHROMBIN TIME PATIENT 33.1 SEC (12.2-14.7)
[2020-08-26 06:31] LABS: ALANINE AMINOTRANSFERASE 25 U/L (0-55); ALBUMIN 3.1 GM/DL (3.2-4.5); ALKALINE PHOSPHATASE 75 U/L (40-136); BILIRUBIN,TOTAL 0.8 MG/DL (0.1-1.0); BUN/CREATININE RATIO 26; CALCIUM 8.4 MG/DL (8.5-10.1); CARBON DIOXIDE 26 MMOL/L (21-32); CHLORIDE 101 MMOL/L (98-107); GFR ESTIMATED > 60; GLUCOSE 109 MG/DL (70-105); SODIUM 134 MMOL/L (135-145); TOTAL PROTEIN 6.1 GM/DL (6.4-8.2)
[2020-08-26] MEDS: inSUlin ASPART (NovoLOG) 1 UNIT/0.01 ML (CHARGE PER UNIT) SC SCH ×2 (06:32→11:41)
[2020-08-26 08:00] VITALS: BP 159/74
[2020-08-26] MEDS: meTOprolol TARTRATE 25 MG (LOPRESSOR) TABLET PO SCH (09:38)
[2020-08-26] MEDS: lisINopril 20 MG (PRINIVIL) TABLET PO SCH (09:38)
[2020-08-26] MEDS: PANTOPRAZOLE 40 MG (PROTONIX) TAB PO SCH (09:38)
--- NOTE | 2020-08-26 11:27 | Physical Therapy Daily Note ---
PT Daily Note-Current Subjective Agrees to PT. Hopes to go home later today. Would like to shower today. Mental Status Patient Orientation: Person, Place, Time, Situation Nurse removed oxygen during treatment session for an oxygen study. Transfers SCALE: Activities may be completed with or without assistive devices. 9-Etdybibvbi-dwlipni completes the activity by him/herself with no assistance from a helper. 5-Set-up or Clean-up Assistance-helper sets up or cleans up; patient completes activity. [place] assists only prior to or following the activity. 4-Supervision or Touching Assistance-helper provides verbal cues and/or touching/steadying and/or contact guard assistance as patient completes activity. Assistance may be provided throughout the activity or intermittently. 3-Partial/Moderate Assistance-helper does LESS THAN HALF the effort. [place] lifts, holds or supports trunk or limbs, but provides less than half the effort. 2-Substantial/Maximal Assistance-helper does MORE THAN HALF the effort. [place] lifts or holds trunk or limbs and provides more than half the effort. 8-Qphvpmbko-tkryck does ALL the effort. Patient does none of the effort to com plete the activity. Or, the assistance of 2 or more helpers is required for the patient to complete the activity. If activity was not attempted, code reason: 7-Patient Refused. 9-Not Applicable-not attempted and the patient did not perform the activity before the current illness, exacerbation or injury. 10-Not Attempted due to Environmental Limitations-(lack of equipment, weather restraints, etc.). 88-Not Attempted due to Medical Conditions or Safety Concerns. Roll Left & Right (QC): 6 Sit to Lying (QC): 6 Lying to Sitting/Side of Bed(Q: 6 Sit to Stand (QC): 6 Chair/Rcr-bv-Xubgk Xfer(QC): 6 Gait Training Does the Patient Walk?: Yes Walk 50 ft with 2 Turns(QC): 5 Gait Assistive Device: FWW Gait in room with Supervision; unsteady at times but no malaika LOB episodes. Treatments Co treat with OT; pt wanted to shower. OT addressed showering tasks and skills as PT addressed mobility to/from the bathroom standing static and dynamic balance as he completed the shower and dressing. Skill of 2 clinicians indicated to monitor safety and assist pt effectively with all needs. Pt completed a full shower that included sit to stand transfers, balance and gait. Pt in chair with needs met post treatment. Assessment Current Status: Excellent Progress Tolerated treatment well. Progressing with mobility and activity tolerance. 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 Dust Control Engineer Goals PT [facility] Goals Time Frame: Aug 28, 2020 Roll Left & Right (QC): 6 Sit to Lying (QC): 6 Lying-Sitting on Side/Bed(QC): 6 Sit to Stand (QC): 6 Chair/Vjy-if-Nsvly Xfer(QC): 6 Walk 10 feet (QC): 6 Walk 50ft with 2 Turns (QC): 6 PT Plan Problem List Problem List: Activity Tolerance, Functional Strength, Safety Treatment/Plan Treatment Plan: Continue Plan of Care (vs dc) Treatment Plan: Bed Mobility, Education, Functional Activity Anali, Functional Strength, Gait, Safety, Therapeutic Exercise, Transfers Treatment Duration: Aug 28, 2020 Frequency: 6 times per week Estimated Hrs Per Day: .25 hour per day Patient and/or Family Agrees t: Yes Safety Risks/Education Patient Education: Safety Issues Teaching Recipient: Patient Teaching Methods: Discussion Response to Teaching: Verbalize Understanding Time/GCodes Time In: 940 Time Out: 1010 Total Billed Treatment Time: 30 Total Billed Treatment visit FA 30 DURGA OLIVA PT Aug 26, 2020 11:27
[2020-08-26 12:12] VITALS: BP 118/60
--- NOTE | 2020-08-26 13:55 | NUR ---
SPO2 89% ON ROOM AIR @ REST. PT WALKED FOR 4 MINUTES IN ROOM SPO2 DROPPED TO 87%. PLACED PT ON O2 @ 3 LPM TO KEEP ABOVE 90% Addendum: 08/26/20 at 1403 by DEZ MACK RT Amended: Links added.
--- NOTE | 2020-08-26 13:58 | Occupational Ther Daily Note ---
OT Current Status-Daily Note Subjective No pain reported. Appearance Pt. in bed. Agrees to work with therapy. Mental Status/Objective Patient Orientation: Person, Place Attachments: Oxygen ADL-Treatment Therapy Code Descriptions/Definitions Functional [place] Measure: 0=Not Assessed/NA 4=Minimal Assistance 1=Total Assistance 5=Supervision or Setup 2=Maximal Assistance 6=Modified Hunt 3=Moderate Assistance 7=Complete IndependenceSCALE: Activities may be completed with or without assistive devices. 8-Zcxrdaokcn-ooifabe completes the activity by him/herself with no assistance from a helper. 5-Set-up or Clean-up Assistance-helper sets up or cleans up; patient completes activity. [place] assists only prior to or following the activity. 4-Supervision or Touching Assistance-helper provides verbal cues and/or touching/steadying and/or contact guard assistance as patient completes activity. Assistance may be provided throughout the activity or intermittently. 3-Partial/Moderate Assistance-helper does LESS THAN HALF the effort. [place] lifts, holds or supports trunk or limbs, but provides less than half the effort. 2-Substantial/Maximal Assistance-helper does MORE THAN HALF the effort. [place] lifts or holds trunk or limbs and provides more than half the effort. 2-Fqdjpilcz-gwmezd does ALL the effort. Patient does none of the effort to complete the activity. Or, the assistance of 2 or more helpers is required for the patient to complete the activity. If activity was not attempted, code reason: 7-Patient Refused. 9-Not Applicable-not attempted and the patient did not perform the activity before the current illness, exacerbation or injury. 10-Not Attempted due to Environmental Limitations-(lack of equipment, weather restraints, etc.). 88-Not Attempted due to Medical Conditions or Safety Concerns. Shower/Bathe Self (QC): 4 (SBA in shower.) Lower Body Dressing (QC): 4 (SBA to don boxer shorts.) On/Off Footwear: 2 (Pt. attempts to don slipper socks after shower, but is fatigued. Requests for therapy to do so.) Pt. agrees to shower. OT/PT co-treated due to level of skilled care needed for safe ADL task. OT facilitated the shower and dressing while PT focused on pt's transfers and mobility. Pt. stood with CGA and walker and ambulated to shower with slow pace. Pt. able to transfer into shower and shower self with SBA for safety. Pt. donned boxer shorts and clean gown, but requests for therapy to don fresh slipper socks, as he is too fatigued to do so. Pt. ambulates to chair in room with CGA and walker. All needs met. Warm blanket placed. Education OT Patient Education: Correct positioning, Modified ADL techniques, Progress toward Goal/Update tx plan, Purpose of tx/functional activities, Reviewed precautions, Rehab process, Transfer techniques Teaching Recipient: Patient Teaching Methods: Demonstration, Discussion Response to Teaching: Verbalize Understanding, Return Demonstration OT Sales Promoter Goals Sales Promoter Goals Time Frame: Aug 28, 2020 Shower/Bathe Self (QC): 6 Lower Body Dressing (QC): 6 On/Off Footwear (QC): 6 Pt is SBA-IND with all tasks that were observed on evaluation; pt to increase fx strength and confidence of UE/ balance during stay. OT to address these issues 1-2x per week. Additional Goals: 2-Verbalize Understanding, 3-ImproveStrength/Anali 1=Demonstrate adherence to instructed precautions during ADL tasks. 2=Patient will verbalize/demonstrate understanding of assistive devices/modifications for ADL. 3=Patient will improve strength/tolerance for activity to enable patient to perform ADL's. OT Education/Plan Problem List/Assessment Assessment: Decreased Activ Tolerance, Impaired I ADL's, Impaired Self-Care Skills Discharge Recommendations Plan/Recommendations: Continue POC Therapy Discharge Recommendati: Home & Family, Post Acute OT Treatment Plan/Plan of Care Treatment,Training & Education: Yes Patient would benefit from OT for education, treatment and training to promote independence in ADL's, mobility, safety and/or upper extremity function for ADL's. Plan of Care: ADL Retraining, Functional Mobility, UE Funct Exercise/Act Treatment Duration: Aug 28, 2020 Frequency: 5 times per week Estimated Hrs Per Day: .25 hour per day Agreement: Yes Rehab Potential: Good Time/GCodes Start Time: 09:40 Stop Time: 10:10 Total Time Billed (hr/min): 30 Billed Treatment Time 1, ADL x 30minutes Co-treatment with PT. Please see above note for designated roles. MYLES GIRON OT Aug 26, 2020 13:58
--- NOTE | 2020-08-26 15:09 | NUR ---
Pt chose [facility] for home oxygen provider. Faxed Dr. Boyer's home oxygen order and Home oxygen study to DME and pt awaiting delivery of Portable Oxygen.will follow
--- NOTE | 2020-08-28 10:23 | Discharge Summary ---
Discharge Summary Hospital Course Was the Problem List Reviewed?: Yes Problems/Dx: (1) Acute respiratory failure due to COVID-19 Status: Acute (2) Steroid-induced hyperglycemia Status: Acute (3) Supratherapeutic INR Status: Resolved (4) Mechanical heart valve present Status: Chronic Hospital Course Date of Admission: Aug 21, 2020 at 16:13 Admission Diagnosis : Acute respiratory failure due to COVID-19 Family Physician/Provider: Shashi Curran MD Date of Discharge: 08/28/20 Discharge Diagnosis: Acute respiratory failure due to COVID-19 Hospital Course: Jose Carlos Cadena is an 84-year-old male who was admitted with acute respiratory failure due to COVID-19. He was treated with IV Decadron and Remdesivir. He received 1 unit of the convalescent plasma. He had been requiring significant amounts of supplemental oxygen but this improved to 3 L at discharge. His course was complicated by a supratherapeutic INR. He takes Coumadin chronically for a mechanical valve replacement. His INR improved and his Coumadin was resumed. He should get a repeat INR on Monday. He should follow-up with his PCP, Dr. Curarn, in 1-2 weeks. He was discharged home in stable condition. 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 81 Mg PO DAILY Glimepiride 2 Mg Tablet 2 Mg PO DAILY Metformin HCl ER (Metformin HCl) 500 Mg Tab.er.24h 500 Mg PO DAILY Pantoprazole Sodium 40 Mg Tablet. 40 Mg PO DAILY Jantoven (Warfarin Sodium) 5 Mg Tablet 5 Mg PO HS TAKES 2 (1MG) TABS AND A 5MG TAB TO EQUAL 7MG Warfarin Sodium 1 Mg Tablet 2 Mg PO HS TAKES 2 (1MG) TABS AND A 5MG TAB TO EQUAL 7MG Metoprolol Tartrate 50 Mg Tablet 25 Mg PO BID TAKES 1/2 OF A 50MG TAB Assessment/Pt Instructions Take medications as prescribed. He will need to get an INR check on Monday. Follow-up with your primary care physician. Return with worsening shortness of breath or if you feel like you're getting worse. Discharge Planning: <30 minutes discharge planning Discharge Instructions Discharge Diet: No Restrictions Activity as Tolerated: Yes Discharge Physical Examination Vital Signs Vital Signs Date Time Temp Pulse Resp B/P (MAP) Pulse Ox O2 Delivery O2 Flow Rate FiO2 08/26/20 17:32 92 Room Air 08/26/20 13:55 3.00 08/26/20 13:55 70 08/26/20 12:12 35.9 20 General Appearance: No Apparent Distress, WD/WN Respiratory: Lungs Clear, Normal Breath Sounds, No Respiratory Distress Cardiovascular: Regular Rate, Rhythm, No Edema, No Murmur Gastrointestinal: Normal Bowel Sounds, Non Tender, Soft Extremity: Normal Inspection, Non Tender, No Pedal Edema Skin: Normal Color, Warm/Dry Neurologic/Psychiatric: Alert, Oriented x3, No Motor/Sensory Deficits, Normal Mood/Affect Allergies: Coded Allergies: NSAIDS (Non-Steroidal Anti-Inflamma (Unverified Allergy, Unknown, 06/11/14) Uncoded Allergies: vitamin K (Allergy, Unknown, 06/11/14) Copy Copies To 1: SHASHI CURRAN MD Discharge Summary Date of Admission Aug 21, 2020 at 16:13 Date of Discharge Aug 26, 2020 at 17:00 Discharge Date: Aug 26, 2020 Discharge Time: 17:00 Admission Diagnosis COVID19 Discharge Diagnosis acute respiratory failure due to COVID-19 (1) Acute respiratory failure due to COVID-19 Status: Acute (2) Steroid-induced hyperglycemia Status: Acute (3) Supratherapeutic INR Status: Resolved (4) Mechanical heart valve present Status: Chronic Clinical Quality Measures DVT/VTE Risk/Contraindication: Risk Factor Score Per Nursin RFS Level Per Nursing on Admit: 4+=Very High JANY MAXWELL MD Aug 28, 2020 10:23
== END 2020-08-26 17:00 | disposition home or self-care (01) | DRG 177 ==
LOC: EDUNIT# 09:42 → ER 09:44 → UNDOADMOB 13:31 → 4TH 13:31 → OBSVTOIN 08-21 16:13
PROVIDERS: ADMIT Family Medicine; ATTEND Internal Medicine
PROC: XW13325 Transfusion of Convalescent Plasma (Nonautologous) into Peripheral Vein, Percutaneous Approach, New Technology Group 5 (ICD-10-PCS; principal; 2020-08-20)
PROC: XW033E5 Introduction of Remdesivir Anti-infective into Peripheral Vein, Percutaneous Approach, New Technology Group 5 (ICD-10-PCS; 2020-08-22)
DX: U07.1 COVID-19 (principal); J96.01 Acute respiratory failure with hypoxia; E11.65 Type 2 diabetes mellitus with hyperglycemia; E11.40 Type 2 diabetes mellitus with diabetic neuropathy, unspecified; T38.0X5A Adverse effect of glucocorticoids and synthetic analogues, initial encounter; J44.9 Chronic obstructive pulmonary disease, unspecified; R41.0 Disorientation, unspecified; G51.0 Bell's palsy; I10 Essential (primary) hypertension; Z79.01 Long term (current) use of anticoagulants; Z95.2 Presence of prosthetic heart valve; Z87.891 Personal history of nicotine dependence; Z85.038 Personal history of other malignant neoplasm of large intestine; Z86.73 Personal history of transient ischemic attack (TIA), and cerebral infarction without residual deficits; Z90.49 Acquired absence of other specified parts of digestive tract; Z90.89 Acquired absence of other organs
CPT/HCPCS: 36415; 71045; 80053; 81000; 82962; 83605; 83615; 84145; 85025; 85027; 85610; 85730; 86141; 86900; 86901; 87040; 87635; 87804; 90662; 94640; 94760; 94761; G0378

== ENCOUNTER → 2020-08-28 | Outpatient (CLI) | payer MEDICARE ==
[~2020-08-28] MED LIST changes: +ASPI-1238 PO; +DOCU100C37 PO; +GLIM2TAB4 PO; +METF-865 PO; +METO50TA15 PO; +PANT40TA52 PO; +WRF1T PO
[2020-08-28 12:06] LABS: INR 4.9 (0.8-1.4)
[2020-08-28 12:16] LABS: PROTHROMBIN TIME PATIENT 45.5 SEC (12.2-14.7)
== END ==
LOC: LAB 11:27
PROVIDERS: ATTEND Internal Medicine
DX: Z95.2 Presence of prosthetic heart valve (principal); Z79.01 Long term (current) use of anticoagulants
CPT/HCPCS: 36415; 85610

== ENCOUNTER → 2021-01-14 | Outpatient (CLI) | payer MEDICARE ==
[2021-01-14 13:33] LABS: BASOPHILS % (AUTO) 0 % (0-10); EOSINOPHILS # (AUTO) 0.3 10^3/uL (0.0-0.3); EOSINOPHILS % (AUTO) 4 % (0-10); HEMATOCRIT 44 % (40-54); HEMOGLOBIN 14.3 g/dL (13.3-17.7); LYMPHOCYTES # (AUTO) 2.4 10^3/uL (1.0-4.0); LYMPHOCYTES % (AUTO) 32 % (12-44); MEAN CORPUSCULAR HEMOGLOBIN 30 pg (25-34); MEAN CORPUSCULAR HGB CONC 33 g/dL (32-36); MEAN CORPUSCULAR VOLUME 91 fL (80-99); MONOCYTES # (AUTO) 0.8 10^3/uL (0.0-1.0); MONOCYTES % (AUTO) 11 % (0-12); NEUTROPHILS # (AUTO) 3.9 10^3/uL (1.8-7.8); NEUTROPHILS % (AUTO) 53 % (42-75); PLATELET COUNT 247 10^3/uL (130-400); WHITE BLOOD COUNT 7.4 10^3/uL (4.3-11.0)
[2021-01-14 14:08] LABS: ALANINE AMINOTRANSFERASE 14 U/L (0-55); ALBUMIN 3.9 GM/DL (3.2-4.5); ALKALINE PHOSPHATASE 96 U/L (40-136); BILIRUBIN,TOTAL 0.3 MG/DL (0.1-1.0); BUN/CREATININE RATIO 19; CARBON DIOXIDE 25 MMOL/L (21-32); CHLORIDE 106 MMOL/L (98-107); CREATININE SERUM 0.89 MG/DL (0.60-1.30); GFR ESTIMATED > 60; GLUCOSE 160 MG/DL (70-105); POTASSIUM 4.2 MMOL/L (3.6-5.0); SODIUM 141 MMOL/L (135-145); TOTAL PROTEIN 7.2 GM/DL (6.4-8.2)
== END ==
LOC: ONC 13:38
PROVIDERS: ATTEND Internal Medicine Hematology & Oncology
DX: C18.7 Malignant neoplasm of sigmoid colon (principal); C24.1 Malignant neoplasm of ampulla of Vater; D64.9 Anemia, unspecified; J43.9 Emphysema, unspecified; I25.10 Atherosclerotic heart disease of native coronary artery without angina pectoris; Z90.49 Acquired absence of other specified parts of digestive tract; Z98.890 Other specified postprocedural states; Z79.01 Long term (current) use of anticoagulants; Z95.2 Presence of prosthetic heart valve; Z86.73 Personal history of transient ischemic attack (TIA), and cerebral infarction without residual deficits; Z86.79 Personal history of other diseases of the circulatory system
CPT/HCPCS: 80053; 82378; 82728; 85025; G0463; 99213

== ENCOUNTER → 2021-02-19 | Outpatient (CLI) | payer MEDICARE ==
[~2021-02-19] MED LIST changes: +CATHETER FLUSH 10 ML SYR IV PRN; +HOLD METFORMIN - RECEIVED CONTRAST 20 ML VIAL IV SCH; +IOHEXOL 350 MG/ML 100 ML (OMNIPAQUE 350) VIAL IV ONE; +NS 100 ML (IVPB) BAG IV ONE
[2021-02-19 11:36] LABS: BASOPHILS % (AUTO) 0 % (0-10); EOSINOPHILS # (AUTO) 0.2 10^3/uL (0.0-0.3); EOSINOPHILS % (AUTO) 2 % (0-10); HEMATOCRIT 44 % (40-54); HEMOGLOBIN 14.4 g/dL (13.3-17.7); LYMPHOCYTES # (AUTO) 1.8 10^3/uL (1.0-4.0); LYMPHOCYTES % (AUTO) 26 % (12-44); MEAN CORPUSCULAR HEMOGLOBIN 30 pg (25-34); MEAN CORPUSCULAR HGB CONC 33 g/dL (32-36); MEAN CORPUSCULAR VOLUME 93 fL (80-99); MONOCYTES # (AUTO) 0.7 10^3/uL (0.0-1.0); MONOCYTES % (AUTO) 11 % (0-12); NEUTROPHILS # (AUTO) 4.2 10^3/uL (1.8-7.8); NEUTROPHILS % (AUTO) 61 % (42-75); PLATELET COUNT 198 10^3/uL (130-400)
[2021-02-19 11:48] LABS: CHLORIDE 104 MMOL/L (98-107); POTASSIUM 4.5 MMOL/L (3.6-5.0)
[2021-02-19 11:49] LABS: SODIUM 136 MMOL/L (135-145)
[2021-02-19 11:50] LABS: CALCIUM 9.2 MG/DL (8.5-10.1)
[2021-02-19 11:51] LABS: GLUCOSE 132 MG/DL (70-105); TOTAL PROTEIN 6.9 GM/DL (6.4-8.2)
[2021-02-19 11:52] LABS: CARBON DIOXIDE 27 MMOL/L (21-32)
[2021-02-19 11:53] LABS: BILIRUBIN,TOTAL 0.6 MG/DL (0.1-1.0)
[2021-02-19 11:54] LABS: ALKALINE PHOSPHATASE 98 U/L (40-136)
[2021-02-19 11:55] LABS: CREATININE SERUM 0.82 MG/DL (0.60-1.30); GFR ESTIMATED > 60
[2021-02-19 11:56] LABS: BUN/CREATININE RATIO 13
[2021-02-19 11:57] LABS: ALANINE AMINOTRANSFERASE 14 U/L (0-55)
--- NOTE | 2021-02-19 13:00 | Diagnostic Imaging Report ---
PROCEDURE: CT angiography of the head and CT angiography of the neck with and without contrast. TECHNIQUE: Contiguous noncontrast images were obtained from the skull base through the vertex. After intravenous contrast administration, helical CT angiography of the neck was performed. Source data was reformatted into 3D MIP projections. Delayed post contrast acquisition was also obtained. Auto Exposure Controls were utilized during the CT exam to meet ALARA standards for radiation dose reduction. INDICATION: Difficulty swallowing. Weakness. History of stroke. Comparison: CT head on 05/30/2017. FINDINGS: CTA Neck: The visualized portions of the aortic arch demonstrate no evidence of aneurysm or dissection. There is conventional branching pattern of the great vessels of the aorta. The brachiocephalic artery is normal in course and caliber. The right and left common carotid origins are unremarkable. The origin of the left subclavian artery is patent. The common carotid arteries and internal carotid arteries demonstrate a tortuous course. There is calcified atherosclerotic plaque in the bilateral carotid bulbs and proximal internal carotid arteries without flow-limiting stenosis. No evidence of dissection in the carotid systems. The external carotid arteries are patent and unremarkable. The vertebral arteries are codominant. The origin of the right vertebral artery is seen and is unremarkable. The origin of the left vertebral artery is seen and is unremarkable. There is no focal stenosis seen within the neck. There is no dissection. The vertebral arteries are well visualized to up to the level of the basilar artery. The osseous structures of the cervical spine are unremarkable. Included views through the lung apices demonstrate centrilobular emphysema. CTA brain: Atherosclerotic plaque is seen in the [place] of the bilateral terminal internal carotid arteries without significant stenosis. No stenosis is seen in the bilateral anterior, middle, and posterior cerebral arteries. No evidence of aneurysm the [place]. In the posterior circulation, both of the vertebral arteries demonstrate normal opacification. The vertebral arteries are codominant. Both the right and left PICA arteries are identified. The basilar artery is normal in course and caliber. The terminal branch vessels including the superior cerebellar arteries unremarkable. CT head: No large acute territorial ischemia, mass, or hemorrhage. No midline shift or mass effect. Old infarcts are again noted in the bilateral anterior frontal lobes and lateral aspect of the left frontoparietal region. Decreased attenuation is seen in the periventricular and subcortical white matter. The ventricles and cortical sulci are prominent. The basilar cisterns are patent and unremarkable. The calvarium is intact. The visualized paranasal sinuses are clear. IMPRESSION: 1. No stenosis or aneurysm in the [place]. No evidence of large vessel occlusion. 2. No stenosis or dissection the bilateral carotid and vertebral arteries. 3. No acute territorial ischemia, mass, or hemorrhage. 4. Reinitiation of older infarcts in the bilateral anterior frontal lobes and lateral aspect of the left frontoparietal region. 5. Generalized parenchymal volume loss with chronic microvascular disease. Dictated by: Dictated on workstation # [id number]
== END ==
LOC: RAD 11:19
PROVIDERS: ATTEND Nurse Practitioner Family
DX: G31.9 Degenerative disease of nervous system, unspecified (principal); R53.1 Weakness; R13.10 Dysphagia, unspecified
CPT/HCPCS: 36415; 70496; 70498; 80053; 85025

== ENCOUNTER 2021-02-25 09:00 | Outpatient (RCR) | payer MEDICARE ==
[~2021-02-25 09:00] MED LIST changes: -CATHETER FLUSH 10 ML SYR IV PRN; -HOLD METFORMIN - RECEIVED CONTRAST 20 ML VIAL IV SCH; -IOHEXOL 350 MG/ML 100 ML (OMNIPAQUE 350) VIAL IV ONE; -NS 100 ML (IVPB) BAG IV ONE
== END 2021-05-26 ==
LOC: CARD 09:00
PROVIDERS: ATTEND Internal Medicine
DX: R53.1 Weakness (principal)

== ENCOUNTER 2021-12-29 18:12 | Observation (INO) | payer MEDICARE ==
[~2021-12-29] VITALS: Ht 172 cm; Wt 66.5 kg
[~2021-12-29 18:12] MED LIST changes: +SCOP1PAT10 TD; -SCOP1PAT11 TD
[2021-12-29] MEDS ORDERED: fentaNYL INJ 100 MCG/2 ML AMP IVP ONE (20:15)
--- NOTE | 2021-12-29 20:15 | ED Lower Extremity ---
General Chief Complaint: Trauma-Non Activation Stated Complaint: FALL Nursing Triage Note: AMB TO ROOM WITH WALKER REPORTS TRIPPED OVER PARKING BLOCK C/O R LEG PAIN Source: patient, family Exam Limitations: no limitations (ROXANE WHITE APRN) History of Present Illness Date Seen by Provider: Dec 29, 2021 Time Seen by Provider: 20:10 Initial Comments to ER by private vehicle accompanied by daughter with reports of right thigh pain. This occurred this morning after he tripped over his walker. His right thigh landed on a pair of earphones. He was initially able to bear weight but as the day progressed had significant pain with bearing weight on the right leg. He is on warfarin for mechanical heart valve. Has a history of a right hip replacement about 25 years ago at [facility]. Primary care is Dr. Cruz. Onset: just prior to arrival Severity: moderate Pain/Injury Location: right thigh Method of Injury: direct blow Modifying Factors: Worse With Movement (ROXANE WHITE APRN) Allergies and Home Medications Allergies Coded Allergies: NSAIDS (Non-Steroidal Anti-Inflamma (Unverified Allergy, Unknown, 06/11/14) Uncoded Allergies: vitamin K (Allergy, Unknown, 06/11/14) Patient Home Medication List Home Medication List Reviewed: Yes (ROXANE WHITE APRN) Aspirin (Aspirin EC) 81 Mg Tablet., 81 MG PO DAILY, (Reported) Entered as Reported by: DEISY DOMINGUEZ on 08/20/20 103 Docusate Sodium (Docusate Sodium) 100 Mg Capsule, 200 MG PO DAILY, (Reported) Entered as Reported by: DEISY DOMINGUEZ on 08/20/20 103 Glimepiride (Glimepiride) 2 Mg Tablet, 2 MG PO DAILY, (Reported) Entered as Reported by: DEISY DOMINGUEZ on 08/20/20 103 Metformin HCl (Metformin HCl ER) 500 Mg Tab.er.24h, 500 MG PO DAILY, (Reported) Entered as Reported by: DEISY DOMINGUEZ on 08/20/20 103 Metoprolol Tartrate (Metoprolol Tartrate) 50 Mg Tablet, 25 MG PO BID, (Reported) Entered as Reported by: DEISY DOMINGUEZ on 08/20/20 103 Pantoprazole Sodium (Pantoprazole Sodium) 40 Mg Tablet., 40 MG PO DAILY, (Reported) Entered as Reported by: DEISY DOMINGUEZ on 08/20/20 1031 Warfarin Sodium (Warfarin Sodium) 1 Mg Tablet, 2 MG PO HS, (Reported) Entered as Reported by: DEISY DOMINGUEZ on 08/20/20 1031 Warfarin Sodium (Jantoven) 5 Mg Tablet, 5 MG PO HS, (Reported) Entered as Reported by: DEISY DOMINGUEZ on 08/20/20 1031 Review of Systems Constitutional: see HPI EENTM: see HPI Respiratory: no symptoms reported Cardiovascular: no symptoms reported Genitourinary: no symptoms reported Musculoskeletal: see HPI Skin: no symptoms reported Psychiatric/Neurological: No Symptoms Reported (ROXANE WHITE APRN) Past Ojdexhb-Tmnvyt-Rmadit Hx Patient Social History Tobacco Use?: No Substance use?: No Alcohol Use?: No (ROXANE WHITE APRN) Immunizations Up To Date Tetanus Booster (TDap): More than 5yrs First/Initial COVID19 Vaccinat: YES UNKNOW DATE. Second COVID19 Vaccination Kalyan: YES UNKNOW DATE COVID19 Vaccine Crust Sorter: TIGRE (ROXANE WHITE APRN) Seasonal Allergies Seasonal Allergies: No (ROXANE WHITE APRN) Past Medical History Surgeries: Yes (TONSILECTOMY, GI SURGERY, APPENDECTOMY, HEART SURGERY) Abdominal, Appendectomy, Bowel Surgery, Cardiac, Eye Surgery, Valve Replacement Respiratory: Yes COPD Cardiac: Yes (AORTIC VALVE REPLACEMENT) Aneurysm, Rheumatic Fever, 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, RIGHT FACIAL DROOP, 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) Neuropathy, Stroke, TIA Reproductive Disorders: No Genitourinary: Yes Kidney Stones Gastrointestinal: Yes (Colon CA) Gastrointestinal Bleed Musculoskeletal: Yes Endocrine: Yes Diabetes, Non-Insulin dep Cataract Loss of Vision: Denies Hearing Impairment: Denies Cancer: Yes Small Bowel, Colon Psychosocial: No Integumentary: No Blood Disorders: No (ROXANE WHITE APRN) Family Medical History No Pertinent Family Hx (ROXANE WHITE APRN) Physical Exam Vital Signs Vital Signs - First Documented 12/29/21 18:17 Temp 35.8 Pulse 73 Resp 18 B/P (MAP) 113/71 (85) Pulse Ox 96 (EKTA MAIER MD) Vital Signs Capillary Refill : Less Than 3 Seconds (ROXANE WHITE APRN) Height, Weight, BMI Height: 5'8.00" Weight: 148lbs. oz. 67.003587hj; 24.00 BMI Method:Stated General Appearance: WD/WN, no apparent distress, other (Alert and oriented very pleasant no distress. Recalls all events did not hit his head) HEENT: PERRL/EOMI Respiratory: no respiratory distress, no accessory muscle use Gastrointestinal: normal bowel sounds, non tender, soft Hips: bilateral hip non-tender, bilateral hip normal inspection, bilateral hip normal range of motion Legs: right leg other (The right thigh is firm no ecchymosis or abrasion.) Knees: bilateral knee non-tender, bilateral knee normal inspection, bilateral knee normal range of motion Ankles: bilateral ankle non-tender, bilateral ankle normal inspection, bilateral ankle normal range of motion Feet: bilateral foot non-tender, bilateral foot normal inspection, bilateral foot normal range of motion Neurologic/Psychiatric: alert, normal mood/affect, oriented x 3 Skin: normal color, warm/dry (ROXANE WHITE APRN) Progress/Results/Core Measures Results/Orders Lab Results Laboratory Tests Test 12/29/21 20:10 Range/Units White Blood Count 11.5 H 4.3-11.0 10^3/uL Red Blood Count 4.37 4.30-5.52 10^6/uL Hemoglobin 13.0 L 13.3-17.7 g/dL Hematocrit 41 40-54 % Mean Corpuscular Volume 93 80-99 fL Mean Corpuscular Hemoglobin 30 25-34 pg Mean Corpuscular Hemoglobin Concent 32 32-36 g/dL Red Cell Distribution Width 12.6 10.0-14.5 % Platelet Count 268 130-400 10^3/uL Mean Platelet Volume 9.9 9.0-12.2 fL Immature Granulocyte % (Auto) 1 % Neutrophils (%) (Auto) 73 42-75 % Lymphocytes (%) (Auto) 17 12-44 % Monocytes (%) (Auto) 9 0-12 % Eosinophils (%) (Auto) 0 0-10 % Basophils (%) (Auto) 0 0-10 % Neutrophils # (Auto) 8.4 H 1.8-7.8 10^3/uL Lymphocytes # (Auto) 2.0 1.0-4.0 10^3/uL Monocytes # (Auto) 1.0 0.0-1.0 10^3/uL Eosinophils # (Auto) 0.1 0.0-0.3 10^3/uL Basophils # (Auto) 0.1 0.0-0.1 10^3/uL Immature Granulocyte # (Auto) 0.1 0.0-0.1 10^3/uL Prothrombin Time 34.8 H 12.2-14.7 SEC INR Comment 3.4 H 0.8-1.4 Sodium Level 137 135-145 MMOL/L Potassium Level 4.0 3.6-5.0 MMOL/L Chloride Level 104 98-107 MMOL/L Carbon Dioxide Level 24 21-32 MMOL/L Anion Gap 9 5-14 MMOL/L Blood Urea Nitrogen 14 7-18 MG/DL Creatinine 0.84 0.60-1.30 MG/DL Estimat Glomerular Filtration Rate 85 BUN/Creatinine Ratio 17 Glucose Level 155 H 70-105 MG/DL Calcium Level 8.8 8.5-10.1 MG/DL Corrected Calcium 9.0 8.5-10.1 MG/DL Total Bilirubin 0.4 0.1-1.0 MG/DL Aspartate Amino Transf (AST/SGOT) 17 5-34 U/L Alanine Aminotransferase (ALT/SGPT) 15 0-55 U/L Alkaline Phosphatase 84 40-136 U/L Total Protein 6.7 6.4-8.2 GM/DL Albumin 3.7 3.2-4.5 GM/DL (EKTA MAIER MD) Medications Given in ED Current Medications Medications Dose Ordered Sig/[place] Route Start Time Stop Time Status Last Admin Dose Admin Fentanyl Citrate 25 mcg ONCE ONCE IVP 12/29/21 20:15 12/29/21 20:16 DC 12/29/21 20:34 25 MCG (EKTA MAIER MD) Vital Signs/I&O 12/29/21 18:17 Temp 35.8 Pulse 73 Resp 18 B/P (MAP) 113/71 (85) Pulse Ox 96 (EKTA MAIER MD) Blood Pressure Mean: 85 Departure Communication (Admissions) 2109-he did have an apparent vasovagal episode with a drop in heart rate down to 48 and blood pressure down to 50s over 30s. He was lethargic and diaphoretic. He was placed in Trendelenburg position with a resultant slow increase in his he art rate back up into the 60s and 70s and then a blood pressure rise back to his baseline. 2142-I did assess the compartment pressures of the right thigh. The anterior compartment I measured twice. The first reading was 34 mmHg the second 1 was 40 mmHg. The posterior compartment measured 15 mmHg and the medial compartment measured 10 mmHg. The leg was elevated at the knee, the Alexey wrap was applied starting at the knee and wrapped proximally. Applied an ice pack as well. His blood pressure at this time is 97/50. Heart rate 61. He rates his pain at 3 out of 10. Denies any numbness or tingling in his legs. He has only had 25 mcg of fentanyl. Spoke with GARY, will admit overnight observation status reevaluation in the morning. I did discuss CODE STATUS with him since he is being admitted. I posed the question if his heart should stop or he should stop breathing unexpectedly should we try to resuscitate him and bring him back or "let you go". He states "let me go". As such we will make him DO NOT RE SUSCITATE status. (ROXANE WHITE APRN) Impression Primary Impression: Contusion of thigh Additional Impression: Anticoagulated on Coumadin Disposition: ADMITTED INPATIENT Condition: Stable Admissions Decision to Admit Reason: Admit from ER (Trauma) Decision to Admit/Date: Dec 29, 2021 Time/Decision to Admit Time: 21:43 (ROXANE WHITE APRN) Departure-Patient Inst. Referrals: SHASHI CRUZ MD (PCP/Family) Primary Care Physician ATTENDING PHYSICIAN NOTE: I was physically present as attending physician in the emergency department during the care of this patient, but I was not directly involved in the decision making or delivery of care for this patient. (EKTA MAIER MD) ROXANE WHITE APRN Dec 29, 2021 20:14 EKTA MAIER MD Dec 30, 2021 01:56
[2021-12-29 20:27] LABS: BASOPHILS # (AUTO) 0.1 10^3/uL (0.0-0.1); BASOPHILS % (AUTO) 0 % (0-10); EOSINOPHILS # (AUTO) 0.1 10^3/uL (0.0-0.3); EOSINOPHILS % (AUTO) 0 % (0-10); HEMATOCRIT 41 % (40-54); LYMPHOCYTES % (AUTO) 17 % (12-44); MEAN CORPUSCULAR HEMOGLOBIN 30 pg (25-34); MEAN CORPUSCULAR HGB CONC 32 g/dL (32-36); MEAN CORPUSCULAR VOLUME 93 fL (80-99); MEAN PLATELET VOLUME 9.9 fL (9.0-12.2); MONOCYTES % (AUTO) 9 % (0-12); NEUTROPHILS # (AUTO) 8.4 10^3/uL (1.8-7.8); NEUTROPHILS % (AUTO) 73 % (42-75); PLATELET COUNT 268 10^3/uL (130-400); WHITE BLOOD COUNT 11.5 10^3/uL (4.3-11.0)
[2021-12-29 20:28] LABS: ALBUMIN 3.7 GM/DL (3.2-4.5)
[2021-12-29 20:29] LABS: CALCIUM 8.8 MG/DL (8.5-10.1)
[2021-12-29 20:30] LABS: TOTAL PROTEIN 6.7 GM/DL (6.4-8.2)
[2021-12-29 20:32] LABS: BILIRUBIN,TOTAL 0.4 MG/DL (0.1-1.0); INR 3.4 (0.8-1.4); PROTHROMBIN TIME PATIENT 34.8 SEC (12.2-14.7)
--- NOTE | 2021-12-29 20:33 | Diagnostic Imaging Report ---
EXAMINATION: Right femur radiograph EXAM DATE: 12/29/2021 COMPARISON: None available. 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 No evidence of prosthetic loosening or adjacent cortical fracture. No other acute fracture, dislocation, or destructive osseous process is seen. The joint spaces are normal. The soft tissues are normal. IMPRESSION: 1. No acute osseous abnormality of the right femur. Dictated by: Dictated on workstation # [id number]
[2021-12-29 20:34] LABS: CREATININE SERUM 0.84 MG/DL (0.60-1.30)
--- NOTE | 2021-12-29 20:34 | Diagnostic Imaging Report ---
EXAMINATION: Pelvis radiograph EXAM DATE: 12/29/2021 COMPARISON: 06/18/2018 HISTORY: Pelvic pain after fall TECHNIQUE: Single views of the pelvis FINDINGS: There is no acute fracture, dislocation, or destructive osseous process. 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 The joint spaces are normal. The soft tissues are normal. IMPRESSION: 1. No acute osseous abnormality of the pelvis. Dictated by: Dictated on workstation # [id number]
[2021-12-29 22:56] VITALS: BP 154/68
[2021-12-29] MEDS ORDERED: fentaNYL INJ 100 MCG/2 ML AMP IV PRN (23:15)
[2021-12-29] MEDS ORDERED: CATHETER FLUSH 10 ML SYR IV PRN (23:15)
[2021-12-29] MEDS ORDERED: ONDANSETRON 4 MG/2 ML (SDV) Z0FRAN IV PRN (23:15)
[2021-12-30] VITALS (7 sets, daily range): BP systolic 109–154; BP diastolic 62–73
[2021-12-30] MEDS: CATHETER FLUSH 10 ML SYR IV SCH ×3 (05:36→23:13)
[2021-12-30 06:24] LABS: BASOPHILS % (AUTO) 0 % (0-10); EOSINOPHILS # (AUTO) 0.1 10^3/uL (0.0-0.3); EOSINOPHILS % (AUTO) 1 % (0-10); HEMATOCRIT 37 % (40-54); HEMOGLOBIN 12.1 g/dL (13.3-17.7); LYMPHOCYTES # (AUTO) 2.7 10^3/uL (1.0-4.0); LYMPHOCYTES % (AUTO) 27 % (12-44); MEAN CORPUSCULAR HEMOGLOBIN 30 pg (25-34); MEAN CORPUSCULAR HGB CONC 33 g/dL (32-36); MEAN CORPUSCULAR VOLUME 91 fL (80-99); MEAN PLATELET VOLUME 10.1 fL (9.0-12.2); MONOCYTES # (AUTO) 0.9 10^3/uL (0.0-1.0); MONOCYTES % (AUTO) 10 % (0-12); NEUTROPHILS % (AUTO) 62 % (42-75); PLATELET COUNT 242 10^3/uL (130-400); WHITE BLOOD COUNT 9.7 10^3/uL (4.3-11.0)
[2021-12-30] MEDS ORDERED: NFIPRATRNS NSEACH (08:58)
--- NOTE | 2021-12-30 15:41 | Discharge Inst-Surgical ---
D/C Lap Instructions-KIDO Reconcile Patient Problems Problems Reviewed?: Yes New, Converted, or Re-Newed RX: RX on Chart Follow Up Appt as needed Activity as tolerated No driving while on pain medications Ambulate Regular Diet Symptoms to Report: Fever over 101 degree F, Nausea/Vomiting Infection Signs and Symptoms to report: Increased redness, Foul odor of wound, Increased drainage Bathing instructions: May shower Operative Area Clean/Dry; Keep incision clean/dry If any problems/questions: Contact your physician or go to Emergency Room RONEL CAROLINA APRN Dec 30, 2021 15:24
[2021-12-30] MEDS ORDERED: NON-FORMULARY MEDICATION 1 EA EA (Ipratropium Bromide 2 SPRAYS) NSEACH PRN (16:15)
--- NOTE | 2021-12-30 16:42 | HISTORY AND PHYSICAL ---
DATE OF SERVICE: ATTENDING PRIMARY CARE PHYSICIAN: Juan Antonio Cruz MD. HISTORY OF PRESENT ILLNESS: The patient is an 86-year-old male, who reports that he was going to help out at a local business, when he reports that he was walking in and tripped over a downspout. He reports that he was initially able to bear weight, but; however, as the day progressed that he did develop significant pain with weightbearing on the right thigh and reports this is where he landed on the downspout when he fell. He is on Coumadin for mechanical heart valve as well as aspirin. He does have a history of a right hip replacement 25 years ago at [facility] in [place]. He reports today that he is doing well. He does report that the right thigh is still really sore; however, denies any numbness or tingling. He does report that he is able to flex and extend his hip; however, he does report that with movement it does hurt. He does have full range of motion of his knee as well as right foot. He also reports a history of a stroke in the past. PAST MEDICAL HISTORY: Stroke, type 2 diabetes, gastroesophageal reflux disease, rheumatic fever, valvular heart disease, Felipe's palsy, neuropathy, renal calculi, history of colon cancer, and GI bleed. PAST SURGICAL HISTORY: Tonsillectomy, appendectomy, aortic valve replacement and what sounds to be some form of colon surgery and eye surgery. ALLERGIES: NSAIDS and HYDROCODONE. SOCIAL HISTORY: Previous for tobacco smoke for 30 pack years and quit 35 years ago. Negative for alcohol. FAMILY HISTORY: Noncontributory. MEDICATIONS: Aspirin 81 mg daily, docusate 200 mg daily, glimepiride 2 mg daily, ipratropium bromide two sprays q.8 hours p.r.n., metformin 500 mg daily, metoprolol half tablet b.i.d., Protonix 40 mg daily, and warfarin 5 mg at bedtime along with the 2 mg. REVIEW OF SYSTEMS: This is a well-nourished male in no acute distress. He is not experiencing any shortness of breath or difficulty breathing. No chest pain, palpitations or diaphoresis. No nausea, vomiting or abdominal pain. No diarrhea or constipation. No red blood per rectum. No dark tarry stools. No fever or chills. No recent inadvertent weight loss. He does report right thigh soreness. All other review of systems negative. PHYSICAL EXAMINATION: VITAL SIGNS: Blood pressure is 114/70, pulse 73, respirations 18, temperature 36.9 degrees Celsius, and pulse ox 95% on room air. CHEST: Clear. Good breath sounds bilaterally. HEART: Regular and no murmurs. EXTREMITIES: Full range of motion of the left lower extremity. He does have full range of motion of the right lower extremity; however, he does report right thigh discomfort with movements. The right thigh is mildly firm to palpation and is sore, but no signs of ecchymosis or abrasions. HEENT: No scleral icterus. NECK: No cervical lymphadenopathy. ABDOMEN: Soft, nontender, and nondistended. SKIN: Warm, dry, and pink. NEUROLOGIC: Awake, alert, and oriented x3. ASSESSMENT AND PLAN: An 86-year-old male, who is status post same level fall one day ago and did suffer a contusion of the right thigh. He is on anticoagulation with Coumadin as well as aspirin for mechanical heart valve. He was admitted for observation to rule out any development of any compartment syndrome of the right thigh. At this time, there is no compartment syndrome identified of the right thigh. We will have him continue to proceed with medical management with Alexey wrap to the right thigh as well as ice packs. Once his pain is under control and he is able to ambulate, he may be discharged home. Job ID: [id number] DocumentID: [id number] Dictated Date: 12/30/2021 15:17:52 Candle Molder Date: 12/30/2021 16:41:55 Dictated By: RONEL CAROLINA APRN
[2021-12-30] MEDS: warFARin 1 MG (COUMADIN) TAB PO SCH (20:00)
[2021-12-30] MEDS: warFARin 5 MG (COUMADIN) TAB PO SCH (20:00)
[2021-12-30] MEDS: meTOprolol TARTRATE 50 MG (LOPRESSOR) TAB PO SCH (20:00)
[2021-12-31 04:00] VITALS: BP 127/72
[2021-12-31] MEDS: GLIMEPIRIDE 2 MG (AMARYL) TAB PO SCH (06:04)
[2021-12-31] MEDS: CATHETER FLUSH 10 ML SYR IV SCH ×3 (06:04→20:46)
[2021-12-31] MEDS: metFORMIN XR 500 MG (GLUCOPHAGE XR) TAB PO SCH (06:04)
[2021-12-31 08:00] VITALS: BP 124/60
[2021-12-31] MEDS ORDERED: HYDROcodone/APAP 7.5 MG/325 MG (LORTAB, LORCET PLUS) TABLET PO PRN (08:45)
[2021-12-31] MEDS ORDERED: APAP 300 MG/CODEINE 30 MG (TYLENOL #3) TAB PO PRN (09:15)
[2021-12-31] MEDS ORDERED: NS IV 1000 ML 1,000 ML IV STA (09:47)
[2021-12-31] MEDS: ASPIRIN E.C. 81 MG (ECOTRIN) TAB PO SCH (10:01)
[2021-12-31] MEDS: PANTOPRAZOLE 40 MG (PROTONIX) TAB PO SCH (10:01)
[2021-12-31] MEDS: meTOprolol TARTRATE 50 MG (LOPRESSOR) TAB PO SCH (10:03)
[2021-12-31] MEDS: DOCUSATE SODIUM 100 MG (COLACE) CAP PO SCH ×2 (10:03→13:13)
[2021-12-31 10:23] LABS: BASOPHILS % (AUTO) 0 % (0-10); EOSINOPHILS % (AUTO) 0 % (0-10); HEMATOCRIT 32 % (40-54); HEMOGLOBIN 10.6 g/dL (13.3-17.7); LYMPHOCYTES # (AUTO) 1.8 10^3/uL (1.0-4.0); LYMPHOCYTES % (AUTO) 15 % (12-44); MEAN CORPUSCULAR HEMOGLOBIN 31 pg (25-34); MEAN CORPUSCULAR HGB CONC 33 g/dL (32-36); MEAN CORPUSCULAR VOLUME 93 fL (80-99); MEAN PLATELET VOLUME 9.7 fL (9.0-12.2); MONOCYTES # (AUTO) 1.2 10^3/uL (0.0-1.0); MONOCYTES % (AUTO) 10 % (0-12); NEUTROPHILS # (AUTO) 8.9 10^3/uL (1.8-7.8); NEUTROPHILS % (AUTO) 74 % (42-75); PLATELET COUNT 250 10^3/uL (130-400)
[2021-12-31 10:27] LABS: POTASSIUM 4.4 MMOL/L (3.6-5.0)
[2021-12-31 10:28] LABS: CALCIUM 8.1 MG/DL (8.5-10.1); INR 3.2 (0.8-1.4); PROTHROMBIN TIME PATIENT 33.3 SEC (12.2-14.7)
[2021-12-31 10:32] LABS: CREATININE SERUM 0.81 MG/DL (0.60-1.30)
--- NOTE | 2021-12-31 11:10 | Progress Note ---
Subjective Date Seen by a Provider: Dec 31, 2021 Time Seen by a Provider: 10:00 Subjective/Events-last exam had vasovagal episode this am while trying to get up. given 1 liter crytalloid and feels much better. no hip/leg pain. hb stable. Objective Exam Vital Signs Date Time Temp Pulse Resp B/P (MAP) Pulse Ox O2 Delivery O2 Flow Rate FiO2 12/31/21 08:00 36.6 73 18 124/60 (81) 93 Room Air 12/31/21 07:48 Room Air 12/31/21 07:00 74 12/31/21 04:00 37.2 67 20 127/72 (90) 95 Room Air 12/31/21 01:00 60 12/30/21 23:55 37.0 61 19 130/71 (90) 95 Room Air 12/30/21 21:49 97 Room Air 12/30/21 20:45 Room Air 12/30/21 20:08 36.0 94 18 123/72 (89) 96 Room Air 12/30/21 19:00 92 12/30/21 16:00 36.6 75 20 119/62 (81) 98 Room Air 12/30/21 12:27 80 12/30/21 11:11 36.9 73 18 114/70 (85) 95 Room Air I & O 12/31/21 06:59 Intake Total 700 ml Output Total 750 ml Balance -50 ml Capillary Refill : Less Than 3 Seconds General Appearance: No Apparent Distress HEENT: PERRL/EOMI Neck: Full Range of Motion Respiratory: Chest Non Tender, Decreased Breath Sounds Cardiovascular: Regular Rate, Rhythm Gastrointestinal: normal bowel sounds, non tender, soft Extremity: Slow Capillary Refill Neurologic/Psychiatric: Alert, Oriented x3 Skin: Normal Color Lymphatic: No Adenopathy Results Lab Laboratory Tests 12/31/21 10:12: White Blood Count 12.0H, Red Blood Count 3.47L, Hemoglobin 10.6L, Hematocrit 32L , Mean Corpuscular Volume 93, Mean Corpuscular Hemoglobin 31, Mean Corpuscular Hemoglobin Concent 33, Red Cell Distribution Width 12.7, Platelet Count 250, Mean Platelet Volume 9.7, Immature Granulocyte % (Auto) 1, Neutrophils (%) (Auto) 74, Lymphocytes (%) (Auto) 15, Monocytes (%) (Auto) 10, Eosinophils (%) (Auto) 0, Basophils (%) (Auto) 0, Neutrophils # (Auto) 8.9H, Lymphocytes # (Auto) 1.8, Monocytes # (Auto) 1.2H, Eosinophils # (Auto) 0.0, Basophils # (Auto) 0.0, Immature Granulocyte # (Auto) 0.1, Prothrombin Time 33.3H, INR Comment 3.2H, Sodium Level 134L, Potassium Level 4.4, Chloride Level 104, Carbon Dioxide Level 21, Anion Gap 9, Blood Urea Nitrogen 18, Creatinine 0.81, Estimat Glomerular Filtration Rate 86, BUN/Creatinine Ratio 22, Glucose Level 198H, Calcium Level 8.1L Assessment/Plan Assessment/Plan Assess & Plan/Chief Complaint s/p same level fall with right lateral thigh hematoma and on coumadin for me chanical aortic valve. cont PT and ambulation. diet as tolerated. resume all home meds. NICOLETTE VEGA MD Dec 31, 2021 11:10
--- NOTE | 2021-12-31 11:19 | Physical Therapy Evaluation ---
PT Evaluation-General Medical Diagnosis Admission Date Dec 29, 2021 at 21:38 Medical Diagnosis: R leg contusion Onset Date: Dec 29, 2021 Therapy Diagnosis Therapy Diagnosis: weakness, debility Height/Weight Height (Feet): 5 Height (Inches): 8.00 Weight (Pounds): 148 Precautions Precautions/Isolations: Fall Prevention, Standard Precautions Referral Physician: Ying Medical History Pertinent Medical History: COPD, DM Additional Medical History Valvular heart disease History of stroke Current History Patient fell in a parking lot and came to the ER via private vehicle. Patient has contusion on R thigh Reviewed History: Yes Social History Home: Single Level Current Living Status: Alone Prior Prior Level of Function SCALE: Activities may be completed with or without assistive devices. 7-Gqxijqklkc-sivnhrc completes the activity by him/herself with no assistance from a helper. 5-Set-up or Clean-up Assistance-helper sets up or cleans up; patient completes activity. [place] assists only prior to or following the activity. 4-Supervision or Touching Assistance-helper provides verbal cues and/or touching/steadying and/or contact guard assistance as patient completes activity. Assistance may be provided throughout the activity or intermittently. 3-Partial/Moderate Assistance-helper does LESS THAN HALF the effort. [place] lifts, holds or supports trunk or limbs, but provides less than half the effort. 2-Substantial/Maximal Assistance-helper does MORE THAN HALF the effort. [place] lifts or holds trunk or limbs and provides more than half the effort. 3-Dvncdixam-ckfivv does ALL the effort. Patient does none of the effort to complete the activity. Or, the assistance of 2 or more helpers is required for the patient to complete the activity. If activity was not attempted, code reason: 7-Patient Refused. 9-Not Applicable-not attempted and the patient did not perform the activity before the current illness, exacerbation or injury. 10-Not Attempted due to Environmental Limitations-(lack of equipment, weather restraints, etc.). 88-Not Attempted due to Medical Conditions or Safety Concerns. Bed Mobility: 6 Transfers (B,C,W/C): 6 Gait: 6 Prior Devices Use: Walker PT Evaluation-Current Subjective Patient presented laying in bed. Patient reports his thigh hurts pretty bad. Objective Patient Orientation: Person, Situation ROM/Strength ROM Lower Extremities WFL Integumentary/Posture Bowel Incontinence: No Bladder Incontinence: No Neuromuscular (Tone, Coordination, Reflexes) grossly intact Sensory Vision: Functional Hearing: Functional Transfers Sit to Lying (QC): 2 Lying to Sitting/Side of Bed(Q: 3 Sit to Stand (QC): 3 Patient required min assist to move from supine to EOB. Gait Does the Patient Walk?: Yes Mode of Locomotion: Walk Anticipated Mode of Locomotion: Walk Walk 10 feet (QC): 88 Walk 50 ft with 2 Turns(QC): 88 Walk 150 ft (QC): 88 Gait Assistive Device: FWW Balance Sitting Static: Normal Sitting Dynamic: Fair Standing Static: Fair Treatment Evaluation started but patient was unable to tolerate therapy. PT will attempt again this afternoon after patient receives fluids and medications. Time spent in patient room this morning [id number], 19 min Assessment/Needs Therapy session was attempted in the a.m. but patient reported that when he was sitting EOB he felt dizzy and was going to pass out. Patient returned to bed and BP was taken in supine as 104/59, patient then returned to sitting and patient BP was 86/54. A second BP was not able to be obtained 2 minutes after sitting due to patient having feeling of dizziness and reporting he might pass out. Patient was returned to bed and BP was 98/52 after he recovered and in trendelenburg position. Therapy was attempted in afternoon and patient orthostatic hypotension was measured. Patient BP was 101/68 in supine, 90/62 in sitting, and 78/51 in standing. Patient was returned to supine position and put in trendelenburg position and BP returned to 121/65. Dr. Cruz was present in the room as therapy occurred and advised no further treatment should be conducted today. T herapy will be attempted again tomorrow if patient's BP is more stable. Rehab Potential: Guarded PT Cell Changer Goals Cell Changer Goals PT Cell Changer Goals Time Frame: Jan 08, 2022 Roll Left & Right (QC): 6 Sit to Lying (QC): 6 Lying-Sitting on Side/Bed(QC): 6 Sit to Stand (QC): 6 Chair/Nwj-fi-Ammoj Xfer(QC): 6 Toilet Transfer (QC): 6 Does the Patient Walk: Yes Walk 10 feet (QC): 6 Walk 50ft with 2 Turns (QC): 6 Walk 150 ft (QC): 6 PT Plan Problem List Problem List: Activity Tolerance, Functional Strength, Safety, Balance, Gait, Transfer, Bed Mobility, ROM Treatment/Plan Treatment Plan: Continue Plan of Care Treatment Plan: Bed Mobility, Education, Functional Activity Anali, Functional Strength, Gait, Safety, Therapeutic Exercise, Transfers Treatment Duration: Jan 08, 2022 Frequency: 6 times per week Estimated Hrs Per Day: .25 hour per day Time/GCodes Time In: 1310 Time Out: 1328 Total Billed Treatment Time: 18 Total Billed Treatment 1 Visit 9:30-9:49 EVMod 19 min Afternoon 1 Visit FA 18 min RAMY SALAZAR PT Dec 31, 2021 11:19
[2021-12-31 12:00] VITALS: BP 140/62
[2021-12-31] MEDS: oxyCODONE/APAP 5/325MG (PERCOCET 5) TABLET PO PRN ×2 (13:13→20:45)
[2021-12-31] MEDS ORDERED: LACTATED RINGERS 1,000 ML IV ONE ×2 (13:30→13:37)
[2021-12-31 16:00] VITALS: BP 118/59
--- NOTE | 2021-12-31 18:12 | Consultation - Hospitalist ---
HPI History of Present Illness: HPI/Chief Complaint Jose Carlos Cadena is an 86 year old male with PMH HTN, T2DM, GERD, mechanical valve replacement on coumadin, history of stroke, who presented after a ground level fall. He was found to have a right thigh hematoma. He was admitted to surgery. The hospitalist service has been consulted for medical comanagement. This morning he was getting up with physical therapy and became lightheaded and dizzy. He nearly passed out. He was found to be orthostatic at that time. He denies chest pain. He denies shortness of breath. He has not been able to eat much. Source: patient, family Exam Limitations: no limitations Date Seen 12/31/21 Attending Physician Lorenzo He MD PCP Juan Antonio Cruz MD Referring Physician Date of Admission Dec 29, 2021 at 21:38 Home Medications & Allergies Home Medications Reviewed patient Home Medication Reconciliation performed by pharmacy medication reconciliations quality lab technician and/or nursing. Patients Allergies have been reviewed. Allergies Allergies Coded Allergies NSAIDS (Non-Steroidal Anti-Inflamma (Unverified Allergy, Unknown, 06/11/14) hydrocodone (Unverified Allergy, Unknown, 12/30/21) LISTED ON HIS MED LIST FROM HOME BUT PT DIDNT KNOW WHAT KIND OF REACTION HE HAD Past Uzuhknl-Tucqjb-Gzlewo Hx Patient Social History Tobacco Use?: No Tobacco type used: Cigarettes Smoking Status: Former Smoker Smokeless Tobacco Frequency: Never a User Use of E-Cig and/or Vaping dev: No Substance use?: No Alcohol Use?: No Pt feels they are or have been: No Immunizations Up To Date Date of Influenza Vaccine: Aug 13, 2014 First/Initial COVID19 Vaccinat: YES UNKNOW DATE. Second COVID19 Vaccination Kalyan: YES UNKNOW DATE Tetanus Booster (TDap): Less Than 5 Years Date of Pneumonia Vaccine: Nov 18, 2010 Seasonal Allergies Seasonal Allergies: No Current Status Advance Directives: No Communicates: Verbally Primary Language: Ivorian Preferred Spoken Language: Ivorian Is interpretation needed?: No Sensory deficits: Vision impairment Implanted or Applied Medical D: None Past Medical History Surgeries: Abdominal, Appendectomy, Bowel Surgery, Cardiac, Eye Surgery, Valve Replacement COPD Aneurysm, Rheumatic Fever, Valvular Heart Disease Neuropathy, Stroke, TIA Kidney Stones Gastrointestinal Bleed Diabetes, Non-Insulin dep Cataract Loss of Vision: Denies Hearing Impairment: Denies Small Bowel, Colon Blood Disorders: No Family Medical History No Pertinent Family Hx Review of Systems Constitutional: dizziness EENTM: no symptoms reported Respiratory: no symptoms reported Cardiovascular: no symptoms reported Gastrointestinal: no symptoms reported Genitourinary: no symptoms reported Musculoskeletal: no symptoms reported Skin: no symptoms reported Psychiatric/Neurological: No Symptoms Reported Physical Exam Physical Exam Vital Signs Vital Signs - First Documented 12/29/21 12/29/21 18:17 22:35 Temp 35.8 Pulse 73 Resp 18 B/P (MAP) 113/71 (85) Pulse Ox 96 O2 Delivery Room Air Capillary Refill : Less Than 3 Seconds Height, Weight, BMI Height: 5'8.00" Weight: 148lbs. oz. 67.599224zt; 22.47 BMI Method:Stated General Appearance: No Apparent Distress, WD/WN HEENT: PERRL/EOMI, Pharynx Normal Neck: Normal Inspection, Supple Respiratory: Lungs Clear, No Respiratory Distress Cardiovascular: Regular Rate, Rhythm, No Edema, No Murmur Gastrointestinal: Normal Bowel Sounds, Non Tender, Soft Extremity: Swelling, Other (right thigh tenderness) Neurologic/Psychiatric: Alert, Oriented x3, Normal Mood/Affect Skin: Normal Color, Warm/Dry Lymphatic: No Adenopathy Results Results/Procedures Labs Laboratory Tests 12/29/21 20:10 12/30/21 05:00 12/31/21 10:12 Patient resulted labs reviewed. Imaging: Reviewed Imaging Report Assessment/Plan Assessment and Plan Assess & Plan/Chief Complaint Right thigh hematoma Surgery primary No surgical intervention required at this time PT/OT Mechanical aortic valve replacement Continue warfarin INR 3.2 Orthostatic hypotenson HTN IV fluids Hold metoprolol Fall precautions Repeat orthostatic vitals tomorrow morning T2DM GERD Continue home meds DVT prophylaxis: already receiving therapeutic anticoagulation Diagnosis/Problems Diagnosis/Problems (1) Traumatic hematoma of right thigh Status: Acute Qualifiers: Encounter type: initial encounter Qualified Codes: S70.11XA - Contusion of right thigh, initial encounter (2) Mechanical heart valve present Status: Chronic (3) Anticoagulated on Coumadin Status: Chronic (4) Orthostatic hypotension Status: Acute JANY MAXWELL MD Dec 31, 2021 18:12
[2021-12-31 20:00] VITALS: BP 115/54
[2021-12-31] MEDS: warFARin 1 MG (COUMADIN) TAB PO SCH (20:44)
[2021-12-31] MEDS: warFARin 5 MG (COUMADIN) TAB PO SCH (20:44)
[2021-12-31] MEDS ORDERED: meTOprolol TARTRATE 50 MG (LOPRESSOR) TAB PO SCH (21:00)
[2021-12-31] MEDS ORDERED: meTOprolol TARTRATE 25 MG (LOPRESSOR) TABLET PO SCH (21:00)
[2022-01-01] VITALS: BP 128/62
[2022-01-01 04:00] VITALS: BP 112/59
[2022-01-01] MEDS: CATHETER FLUSH 10 ML SYR IV SCH ×3 (06:14→21:49)
[2022-01-01] MEDS: metFORMIN XR 500 MG (GLUCOPHAGE XR) TAB PO SCH (06:15)
[2022-01-01] MEDS: GLIMEPIRIDE 2 MG (AMARYL) TAB PO SCH (06:15)
[2022-01-01 07:53] VITALS: BP 124/58
[2022-01-01 08:38] LABS: HEMOGLOBIN 8.9 g/dL (13.3-17.7)
[2022-01-01 08:50] LABS: INR 3.8 (0.8-1.4); PROTHROMBIN TIME PATIENT 37.9 SEC (12.2-14.7)
[2022-01-01] MEDS: ASPIRIN E.C. 81 MG (ECOTRIN) TAB PO SCH (09:40)
[2022-01-01] MEDS: PANTOPRAZOLE 40 MG (PROTONIX) TAB PO SCH (09:41)
[2022-01-01] MEDS: DOCUSATE SODIUM 100 MG (COLACE) CAP PO SCH (09:41)
[2022-01-01 11:04] VITALS: BP 112/58
--- NOTE | 2022-01-01 12:42 | Progress Note ---
Subjective Date Seen by a Provider: Jan 01, 2022 Time Seen by a Provider: 10:30 Subjective/Events-last exam Patient seen with Dr. He. Patient reports doing well. Reports right leg pain is much improved. Denies any other issues. Family at bedside. Objective Exam Vital Signs Date Time Temp Pulse Resp B/P (MAP) Pulse Ox O2 Delivery O2 Flow Rate FiO2 01/01/22 11:04 36.8 84 20 112/58 (76) 94 Room Air 01/01/22 07:53 37.2 77 20 124/58 (80) 94 Room Air 01/01/22 07:50 Room Air 01/01/22 07:00 71 01/01/22 04:00 37.0 75 18 112/59 (76) 95 Room Air 01/01/22 01:00 84 01/01/22 00:00 37.0 76 18 128/62 (84) 95 Room Air 12/31/21 20:25 Room Air 12/31/21 20:00 37.2 82 18 115/54 (74) 95 Room Air 12/31/21 19:00 80 12/31/21 16:00 37.5 73 20 118/59 (78) 93 Room Air 12/31/21 12:46 83 I & O 01/01/22 06:59 Intake Total 3070 ml Output Total 1150 ml Balance 1920 ml Capillary Refill : Less Than 3 Seconds General Appearance: No Apparent Distress, WD/WN Neck: Normal Inspection, Supple Respiratory: No Accessory Muscle Use, No Respiratory Distress Cardiovascular: Regular Rate, Rhythm, No Edema Gastrointestinal: normal bowel sounds, non tender, soft Extremity: Normal Range of Motion, Other (Right leg tenderness and mild swelling of right lower extremity. Right thigh is soft to palpation.) Neurologic/Psychiatric: Alert, Oriented x3 Skin: Normal Color, Warm/Dry Results Lab Laboratory Tests 01/01/22 08:29: Hemoglobin 8.9L, Hematocrit 27L, Prothrombin Time 37.9H, INR Comment 3.8H Assessment/Plan Assessment/Plan Assess & Plan/Chief Complaint s/p same level fall with right lateral thigh hematoma and on coumadin for me chanical aortic valve. cont PT and ambulation. diet as tolerated. resume all home meds. RONEL CAROLINA APRN Jan 01, 2022 12:42
--- NOTE | 2022-01-01 14:08 | Physical Therapy Daily Note ---
PT Daily Note-Current Subjective Patient in bed pre tx, agrees to PT, has no complaints of pain at rest but does have severe pain with mobility. Patient's daughter is in room and says that earlier patient ambulated to the restroom and then to his recliner where he sat for a significant amount of time. When he needed to get back to bed he stood and started ambulating back to the bed but his right leg buckled but daughter was able to prevent a fall and get him back to bed. Daughter states this was just a few minutes ago. Will perform exercises in bed. Appearance Patient in bed post tx with nurse call, phone, tray, all needs met, daughter in room. Mental Status Patient Orientation: Person, Confused Transfers SCALE: Activities may be completed with or without assistive devices. 0-Zoxftnwpgr-xakcxgn completes the activity by him/herself with no assistance from a helper. 5-Set-up or Clean-up Assistance-helper sets up or cleans up; patient completes activity. [place] assists only prior to or following the activity. 4-Supervision or Touching Assistance-helper provides verbal cues and/or touching/steadying and/or contact guard assistance as patient completes activity. Assistance may be provided throughout the activity or intermittently. 3-Partial/Moderate Assistance-helper does LESS THAN HALF the effort. [place] lifts, holds or supports trunk or limbs, but provides less than half the effort. 2-Substantial/Maximal Assistance-helper does MORE THAN HALF the effort. [place] lifts or holds trunk or limbs and provides more than half the effort. 4-Tvhlycrje-zoltwt does ALL the effort. Patient does none of the effort to complete the activity. Or, the assistance of 2 or more helpers is required for the patient to complete the activity. If activity was not attempted, code reason: 7-Patient Refused. 9-Not Applicable-not attempted and the patient did not perform the activity before the current illness, exacerbation or injury. 10-Not Attempted due to Environmental Limitations-(lack of equipment, weather restraints, etc.). 88-Not Attempted due to Medical Conditions or Safety Concerns. Exercises Supine Ex: Ankle pumps, Quad Set, Glut sets, Heel Slides (AAROM), Short Arc Quads (AAROM), Straight leg raise (AAROM), Hip abd/add (AAROM) Supine Reps: 15 Treatments LE strengthening Assessment Current Status: Fair Progress no OOB activity with therapy today but daughter reports he did ambulate to the restroom and back to his chair which is an improvement PT Penitentiary Goals Variety Lathe Operator Goals PT Penitentiary Goals Time Frame: Jan 08, 2022 Roll Left & Right (QC): 6 Sit to Lying (QC): 6 Lying-Sitting on Side/Bed(QC): 6 Sit to Stand (QC): 6 Chair/Nkx-nz-Kiojz Xfer(QC): 6 Toilet Transfer (QC): 6 Does the Patient Walk: Yes Walk 10 feet (QC): 6 Walk 50ft with 2 Turns (QC): 6 Walk 150 ft (QC): 6 PT Plan Problem List Problem List: Activity Tolerance, Functional Strength, Safety, Balance, Gait, Transfer, Bed Mobility, ROM Treatment/Plan Treatment Plan: Continue Plan of Care Treatment Plan: Bed Mobility, Education, Functional Activity Anali, Functional Strength, Gait, Safety, Therapeutic Exercise, Transfers Treatment Duration: Jan 08, 2022 Frequency: 6 times per week Estimated Hrs Per Day: .25 hour per day Safety Risks/Education Patient Education: Correct Positioning, Safety Issues Teaching Recipient: Patient Teaching Methods: Demonstration, Discussion Response to Teaching: Reinforcement Needed Time/GCodes Time In: 1350 Time Out: 1358 Total Billed Treatment Time: 8 Total Billed Treatment 1 visit EX QUE BARRY PT Jan 01, 2022 14:08
[2022-01-01 14:49] LABS: BILIRUBIN,URINE NEGATIVE (NEGATIVE); CLARITY,URINE CLEAR; COLOR,URINE YELLOW; GLUCOSE, URINE (UA) NEGATIVE (NEGATIVE); KETONES,URINE NEGATIVE (NEGATIVE); LEUKOCYTE ESTERASE ,URINE NEGATIVE (NEGATIVE); NITRITE,URINE NEGATIVE (NEGATIVE); PROTEIN,URINE NEGATIVE (NEGATIVE)
[2022-01-01 14:59] LABS: BACTERIA,URINE NEGATIVE /HPF; SQUAMOUS EPITHELIAL CELL,UR RARE /HPF; WBC,URINE RARE /HPF
[2022-01-01 16:00] VITALS: BP 131/63
--- NOTE | 2022-01-01 17:08 | Progress Note - Hospitalist ---
Subjective HPI/CC On Admission Date Seen by Provider: Jan 01, 2022 Time Seen by Provider: 11:05 Jose Carlos Cadena is an 86 year old male with PMH HTN, T2DM, GERD, mechanical valve replacement on coumadin, history of stroke, who presented after a ground level fall. He was found to have a right thigh hematoma. He was admitted to surgery. The hospitalist service has been consulted for medical comanagement. This morning he was getting up with physical therapy and became lightheaded and dizzy. He nearly passed out. He was found to be orthostatic at that time. He denies chest pain. He denies shortness of breath. He has not been able to eat much. Subjective/Events-last exam He is feeling better today. He took a shower this morning. His leg pain is better. Objective Exam Vital Signs Vital Signs Date Time Temp Pulse Resp B/P (MAP) Pulse Ox O2 Delivery O2 Flow Rate FiO2 01/01/22 16:00 37.5 74 20 131/63 (85) 95 Room Air Capillary Refill : Less Than 3 Seconds General Appearance: No Apparent Distress, WD/WN Respiratory: Lungs Clear, No Respiratory Distress Cardiovascular: Regular Rate, Rhythm, No Murmur, Other (mechanical heart sounds) Gastrointestinal: Normal Bowel Sounds, Soft Extremity: Normal Inspection, Non Tender, No Pedal Edema Neurologic/Psychiatric: Alert, Normal Mood/Affect Skin: Normal Color, Warm/Dry Results/Procedures Lab Laboratory Tests 01/01/22 08:29 Patient resulted labs reviewed. Imaging: Reviewed Imaging Report Assessment/Plan Assessment and Plan Assess & Plan/Chief Complaint Right thigh hematoma Surgery primary No surgical intervention required at this time Hgb slightly worsened today Continue to monitor PT/OT Mechanical aortic valve replacement Continue warfarin INR 3.8 (goal 3.5-4) Orthostatic hypotenson HTN IV fluids Hold metoprolol Fall precautions T2DM GERD Continue home meds DVT prophylaxis: already receiving therapeutic anticoagulation Diagnosis/Problems Diagnosis/Problems (1) Traumatic hematoma of right thigh Status: Acute Qualifiers: Encounter type: initial encounter Qualified Codes: S70.11XA - Contusion of right thigh, initial encounter (2) Mechanical heart valve present Status: Chronic (3) Anticoagulated on Coumadin Status: Chronic (4) Orthostatic hypotension Status: Acute JANY MAXWELL MD Jan 01, 2022 17:08
[2022-01-01 19:20] VITALS: BP 118/56
[2022-01-01] MEDS: warFARin 1 MG (COUMADIN) TAB PO SCH (21:49)
[2022-01-01] MEDS: warFARin 5 MG (COUMADIN) TAB PO SCH (21:49)
[2022-01-02] VITALS: BP 120/55
[2022-01-02 04:00] VITALS: BP 109/58
[2022-01-02] MEDS: GLIMEPIRIDE 2 MG (AMARYL) TAB PO SCH (05:34)
[2022-01-02] MEDS: metFORMIN XR 500 MG (GLUCOPHAGE XR) TAB PO SCH (05:34)
[2022-01-02] MEDS: CATHETER FLUSH 10 ML SYR IV SCH ×3 (05:34→21:18)
[2022-01-02 05:42] LABS: BASOPHILS % (AUTO) 1 % (0-10); EOSINOPHILS # (AUTO) 0.2 10^3/uL (0.0-0.3); EOSINOPHILS % (AUTO) 3 % (0-10); HEMATOCRIT 26 % (40-54); HEMOGLOBIN 8.5 g/dL (13.3-17.7); LYMPHOCYTES % (AUTO) 27 % (12-44); MEAN CORPUSCULAR HEMOGLOBIN 30 pg (25-34); MEAN CORPUSCULAR HGB CONC 33 g/dL (32-36); MEAN CORPUSCULAR VOLUME 92 fL (80-99); MEAN PLATELET VOLUME 9.9 fL (9.0-12.2); MONOCYTES % (AUTO) 12 % (0-12); NEUTROPHILS # (AUTO) 4.4 10^3/uL (1.8-7.8); NEUTROPHILS % (AUTO) 57 % (42-75); PLATELET COUNT 204 10^3/uL (130-400); WHITE BLOOD COUNT 7.7 10^3/uL (4.3-11.0)
[2022-01-02 05:49] LABS: ALBUMIN 3.2 GM/DL (3.2-4.5); POTASSIUM 3.8 MMOL/L (3.6-5.0)
[2022-01-02 05:50] LABS: CALCIUM 8.3 MG/DL (8.5-10.1)
[2022-01-02 05:53] LABS: BILIRUBIN,TOTAL 0.8 MG/DL (0.1-1.0)
[2022-01-02 05:55] LABS: CREATININE SERUM 0.7 MG/DL (0.60-1.30)
[2022-01-02 06:28] LABS: INR 3.6 (0.8-1.4); PROTHROMBIN TIME PATIENT 36.6 SEC (12.2-14.7)
[2022-01-02 07:44] VITALS: BP 116/67
[2022-01-02] MEDS: ASPIRIN E.C. 81 MG (ECOTRIN) TAB PO SCH (09:18)
[2022-01-02] MEDS: PANTOPRAZOLE 40 MG (PROTONIX) TAB PO SCH (09:18)
--- NOTE | 2022-01-02 09:59 | Progress Note ---
Subjective Date Seen by a Provider: Jan 02, 2022 Time Seen by a Provider: 09:00 Subjective/Events-last exam doing ok. still has some orthostatic weakness/lightheadedness. no change thigh hematoma. Objective Exam Vital Signs Date Time Temp Pulse Resp B/P (MAP) Pulse Ox O2 Delivery O2 Flow Rate FiO2 01/02/22 07:44 37.2 79 18 116/67 (83) 93 Room Air 01/02/22 07:00 72 01/02/22 04:00 37.3 80 18 109/58 (75) 93 Room Air 01/02/22 01:00 80 01/02/22 00:00 36.6 76 18 120/55 (76) 95 Room Air 01/01/22 20:59 Room Air 01/01/22 19:20 37.4 84 18 118/56 (76) 94 Room Air 01/01/22 19:00 85 01/01/22 16:00 37.5 74 20 131/63 (85) 95 Room Air 01/01/22 13:00 83 01/01/22 11:04 36.8 84 20 112/58 (76) 94 Room Air I & O 01/02/22 07:00 Intake Total 1000 ml Output Total 250 ml Balance 750 ml Capillary Refill : Less Than 3 Seconds General Appearance: No Apparent Distress HEENT: PERRL/EOMI Neck: Full Range of Motion Respiratory: Chest Non Tender, Lungs Clear Cardiovascular: Regular Rate, Rhythm Gastrointestinal: normal bowel sounds, non tender, soft Extremity: Normal Capillary Refill Neurologic/Psychiatric: Alert, Oriented x3 Skin: Normal Color Lymphatic: No Adenopathy Results Lab Laboratory Tests 01/01/22 14:40: Urine Color YELLOW, Urine Clarity CLEAR, Urine pH 6.0, Urine Specific [place] 1 .015L, Urine Protein NEGATIVE, Urine Glucose (UA) NEGATIVE, Urine Ketones NEGATIVE, Urine Nitrite NEGATIVE, Urine Bilirubin NEGATIVE, Urine Urobilinogen 1.0, Urine Leukocyte Esterase NEGATIVE, Urine RBC (Auto) NEGATIVE, Urine RBC NONE, Urine WBC RARE, Urine Squamous Epithelial Cells RARE, Urine Renal Epithelial Cells NONE, Urine Crystals NONE, Urine Bacteria NEGATIVE, Urine Casts NONE, Urine Mucus NEGATIVE, Urine Culture Indicated NO 01/02/22 05:31: White Blood Count 7.7, Red Blood Count 2.81L, Hemoglobin 8.5L, Hematocrit 26L, Mean Corpuscular Volume 92, Mean Corpuscular Hemoglobin 30, Mean Corpuscular Hemoglobin Concent 33, Red Cell Distribution Width 12.9, Platelet Count 204, Mean Platelet Volume 9.9, Immature Granulocyte % (Auto) 1, Neutrophils (%) (Auto) 57, Lymphocytes (%) (Auto) 27, Monocytes (%) (Auto) 12, Eosinophils (%) (Auto) 3, Basophils (%) (Auto) 1, Neutrophils # (Auto) 4.4, Lymphocytes # (Auto) 2.0, Monocytes # (Auto) 1.0, Eosinophils # (Auto) 0.2, Basophils # (Auto) 0.0, Immature Granulocyte # (Auto) 0.1, Prothrombin Time 36.6H, INR Comment 3.6H, Sodium Level 136, Potassium Level 3.8, Chloride Level 105, Carbon Dioxide Level 22, Anion Gap 9, Blood Urea Nitrogen 11, Creatinine 0.70, Estimat Glomerular Filtration Rate 90, BUN/Creatinine Ratio 16, Glucose Level 95, Calcium Level 8.3L, Corrected Calcium 8.9, Total Bilirubin 0.8, Aspartate Amino Transf (AST/SGOT) 22, Alanine Aminotransferase (ALT/SGPT) 12, Alkaline Phosphatase 73, Total Protein 6.0L, Albumin 3.2 Assessment/Plan Assessment/Plan Assess & Plan/Chief Complaint s/p same level fall with right lateral thigh hematoma and on coumadin for mechanical aortic valve. cont PT/OT and ambulation. diet as tolerated. resume all home meds. ARU evaluation NICOLETTE VEGA MD Jan 02, 2022 09:59
[2022-01-02 11:59] VITALS: BP 135/61
[2022-01-02 16:00] VITALS: BP 124/72
[2022-01-02 20:00] VITALS: BP 112/57
[2022-01-02] MEDS: DOCUSATE SODIUM 100 MG (COLACE) CAP PO SCH (20:04)
[2022-01-02] MEDS: warFARin 5 MG (COUMADIN) TAB PO SCH (20:05)
[2022-01-02] MEDS: warFARin 1 MG (COUMADIN) TAB PO SCH (20:05)
[2022-01-03] VITALS (7 sets, daily range): BP systolic 110–140; BP diastolic 55–76
[2022-01-03] MEDS: CATHETER FLUSH 10 ML SYR IV SCH ×3 (05:42→20:14)
[2022-01-03] MEDS: metFORMIN XR 500 MG (GLUCOPHAGE XR) TAB PO SCH (05:43)
[2022-01-03] MEDS: GLIMEPIRIDE 2 MG (AMARYL) TAB PO SCH (05:43)
[2022-01-03 08:46] LABS: HEMOGLOBIN 8.7 g/dL (13.3-17.7)
[2022-01-03] MEDS: DOCUSATE SODIUM 100 MG (COLACE) CAP PO SCH (08:49)
[2022-01-03] MEDS: ASPIRIN E.C. 81 MG (ECOTRIN) TAB PO SCH (08:49)
[2022-01-03] MEDS: PANTOPRAZOLE 40 MG (PROTONIX) TAB PO SCH (08:49)
--- NOTE | 2022-01-03 09:54 | Physical Therapy Daily Note ---
PT Daily Note-Current Subjective Patient presented sitting up in bed and agreed to participate in physical therapy. Mental Status Patient Orientation: Person, Place, Situation Transfers SCALE: Activities may be completed with or without assistive devices. 7-Ltyllkkbkb-qrpkdkx completes the activity by him/herself with no assistance from a helper. 5-Set-up or Clean-up Assistance-helper sets up or cleans up; patient completes activity. [place] assists only prior to or following the activity. 4-Supervision or Touching Assistance-helper provides verbal cues and/or touching/steadying and/or contact guard assistance as patient completes activity. Assistance may be provided throughout the activity or intermittently. 3-Partial/Moderate Assistance-helper does LESS THAN HALF the effort. [place] lifts, holds or supports trunk or limbs, but provides less than half the effort. 2-Substantial/Maximal Assistance-helper does MORE THAN HALF the effort. [place] lifts or holds trunk or limbs and provides more than half the effort. 5-Nnzksjohc-wxomyn does ALL the effort. Patient does none of the effort to complete the activity. Or, the assistance of 2 or more helpers is required for the patient to complete the activity. If activity was not attempted, code reason: 7-Patient Refused. 9-Not Applicable-not attempted and the patient did not perform the activity before the current illness, exacerbation or injury. 10-Not Attempted due to Environmental Limitations-(lack of equipment, weather restraints, etc.). 88-Not Attempted due to Medical Conditions or Safety Concerns. Sit to Lying (QC): 6 Lying to Sitting/Side of Bed(Q: 6 Sit to Stand (QC): 3 Chair/Dvt-nw-Wstjl Xfer(QC): 3 Patient is independent for bed mobility but takes additional time and performs sit to stand and transfers to the bed with min assist for safety due to right leg buckling at times. Gait Training Does the Patient Walk?: Yes Distance: 150' x2 Walk 10 feet (QC): 3 Walk 50 ft with 2 Turns(QC): 3 Walk 150 ft (QC): 3 Gait Assistive Device: FWW Patient ambulated for 150' x2 with FWW and min assist. Stair Training Stair Training: Handrails/: 2 handrails #of Steps: 12 1 Step (curb) (QC): 3 4 Steps (QC): 3 12 Steps (QC): 3 Stairs: Pattern: Step to Patient performed stair training with bilateral hand rails. Patient required min assist for ascending stairs and mod assist for descending stairs. Exercises Supine Ex: Quad Set, Glut sets, Straight leg raise, Hip abd/add Supine Reps: 15 Seated Therapy Exercises: Long arc quads Seated Reps: 15 Assessment Patient ambulated, performed seated and standing exercises and did stair training during therapy session. Patient was independent for bed mobility but requires min assist for all other tasks and mod assist for descending stairs. Patient reports that his bedroom is upstairs and he only has one handrail to get up stairs at home. Patient required rest breaks during therapy session due to fatigue and SOA but patient performed standing rest breaks to catch his breath. PT [employer] Consultant Goals Detention Goals PT [employer] Consultant Goals Time Frame: Jan 08, 2022 Roll Left & Right (QC): 6 Sit to Lying (QC): 6 Lying-Sitting on Side/Bed(QC): 6 Sit to Stand (QC): 6 Chair/Gex-zb-Yvqov Xfer(QC): 6 Toilet Transfer (QC): 6 Does the Patient Walk: Yes Walk 10 feet (QC): 6 Walk 50ft with 2 Turns (QC): 6 Walk 150 ft (QC): 6 PT Plan Problem List Problem List: Activity Tolerance, Functional Strength, Safety, Balance, Gait, Transfer, ROM Treatment/Plan Treatment Plan: Continue Plan of Care Treatment Plan: Bed Mobility, Education, Functional Activity Anali, Functional Strength, Gait, Safety, Therapeutic Exercise, Transfers Treatment Duration: Jan 08, 2022 Frequency: 6 times per week Estimated Hrs Per Day: .25 hour per day Safety Risks/Education Patient Education: Gait Training, Steps, Safety Issues Teaching Recipient: Patient Teaching Methods: Discussion Time/GCodes Time In: 900 Time Out: 919 Total Billed Treatment Time: 19 Total Billed Treatment 1 Visit FA 19 min RAMY SALAZAR PT Jan 03, 2022 09:54
--- NOTE | 2022-01-03 15:20 | Progress Note - Hospitalist ---
Subjective HPI/CC On Admission Date Seen by Provider: Jan 03, 2022 Time Seen by Provider: 09:55 Jose Carlos Cadena is an 86 year old male with PMH HTN, T2DM, GERD, mechanical valve replacement on coumadin, history of stroke, who presented after a ground level fall. He was found to have a right thigh hematoma. He was admitted to surgery. The hospitalist service has been consulted for medical comanagement. This morning he was getting up with physical therapy and became lightheaded and dizzy. He nearly passed out. He was found to be orthostatic at that time. He denies chest pain. He denies shortness of breath. He has not been able to eat much. Subjective/Events-last exam He is feeling better. The pain in his leg is managed with the pain medicine. He has been a bit lightheaded. Objective Exam Vital Signs Vital Signs Date Time Temp Pulse Resp B/P (MAP) Pulse Ox O2 Delivery O2 Flow Rate FiO2 01/03/22 12:19 36.6 87 18 113/61 (78) 96 Room Air Capillary Refill : Less Than 3 Seconds General Appearance: No Apparent Distress, WD/WN Respiratory: Lungs Clear, No Respiratory Distress Cardiovascular: Regular Rate, Rhythm, No Murmur Gastrointestinal: Normal Bowel Sounds, Soft Extremity: Normal Inspection, No Pedal Edema Neurologic/Psychiatric: Alert, Normal Mood/Affect, Motor Weakness Skin: Normal Color, Warm/Dry Results/Procedures Lab Laboratory Tests 01/03/22 08:39 Patient resulted labs reviewed. Imaging: Reviewed Imaging Report Assessment/Plan Assessment and Plan Assess & Plan/Chief Complaint Right thigh hematoma Surgery primary No surgical intervention required at this time Hgb stable Continue to monitor PT/OT Mechanical aortic valve replacement Continue warfarin INR stable (goal 3.5-4) Orthostatic hypotenson HTN Metoprolol held Fall precautions T2DM GERD Continue home meds Debility IRU evaluation DVT prophylaxis: already receiving therapeutic anticoagulation Diagnosis/Problems Diagnosis/Problems (1) Traumatic hematoma of right thigh Status: Acute Qualifiers: Encounter type: initial encounter Qualified Codes: S70.11XA - Contusion of right thigh, initial encounter (2) Mechanical heart valve present Status: Chronic (3) Anticoagulated on Coumadin Status: Chronic (4) Orthostatic hypotension Status: Acute JANY MAXWELL MD Jan 03, 2022 15:20
[2022-01-03] MEDS: warFARin 5 MG (COUMADIN) TAB PO SCH (20:13)
[2022-01-03] MEDS: warFARin 1 MG (COUMADIN) TAB PO SCH (20:13)
[2022-01-04 03:03] VITALS: BP 139/72
[2022-01-04 06:05] LABS: HEMOGLOBIN 8.8 g/dL (13.3-17.7)
[2022-01-04] MEDS: CATHETER FLUSH 10 ML SYR IV SCH (06:06)
[2022-01-04 06:18] LABS: INR 4.1 (0.8-1.4); PROTHROMBIN TIME PATIENT 40.3 SEC (12.2-14.7)
[2022-01-04] MEDS: metFORMIN XR 500 MG (GLUCOPHAGE XR) TAB PO SCH (06:44)
[2022-01-04] MEDS: GLIMEPIRIDE 2 MG (AMARYL) TAB PO SCH (06:44)
[2022-01-04 08:15] VITALS: BP 120/75
[2022-01-04] MEDS: ASPIRIN E.C. 81 MG (ECOTRIN) TAB PO SCH (08:27)
[2022-01-04] MEDS: PANTOPRAZOLE 40 MG (PROTONIX) TAB PO SCH (08:27)
[2022-01-04] MEDS: DOCUSATE SODIUM 100 MG (COLACE) CAP PO SCH (08:27)
--- NOTE | 2022-01-04 10:13 | Progress Note - Hospitalist ---
Subjective HPI/CC On Admission Date Seen by Provider: Jan 04, 2022 Time Seen by Provider: 09:10 Jose Carlos Cadena is an 86 year old male with PMH HTN, T2DM, GERD, mechanical valve replacement on coumadin, history of stroke, who presented after a ground level fall. He was found to have a right thigh hematoma. He was admitted to surgery. The hospitalist service has been consulted for medical comanagement. This morning he was getting up with physical therapy and became lightheaded and dizzy. He nearly passed out. He was found to be orthostatic at that time. He denies chest pain. He denies shortness of breath. He has not been able to eat much. Subjective/Events-last exam He is feeling better. He still has some swelling and pain in his right thigh. He is ready to go to rehab to continue regaining strength. Objective Exam Vital Signs Vital Signs Date Time Temp Pulse Resp B/P (MAP) Pulse Ox O2 Delivery O2 Flow Rate FiO2 01/04/22 08:15 36.4 82 18 120/75 (90) 95 Room Air Capillary Refill : Less Than 3 Seconds General Appearance: No Apparent Distress, WD/WN Respiratory: Lungs Clear, No Respiratory Distress Cardiovascular: Regular Rate, Rhythm, No Murmur, Other (mechanical heart sounds) Gastrointestinal: Normal Bowel Sounds, Soft Extremity: Other (right thigh swelling and tenderness) Neurologic/Psychiatric: Alert, Normal Mood/Affect Skin: Normal Color, Warm/Dry Results/Procedures Lab Laboratory Tests 01/04/22 05:16 Patient resulted labs reviewed. Imaging: Reviewed Imaging Report Assessment/Plan Assessment and Plan Assess & Plan/Chief Complaint Right thigh hematoma Surgery primary No surgical intervention needed Hgb stable PT/OT Mechanical aortic valve replacement Continue warfarin INR 4.1 (goal 3.5-4) Orthostatic hypotenson HTN Metoprolol held Fall precautions T2DM GERD Continue home meds Debility IRU accepted, transferring today DVT prophylaxis: already receiving therapeutic anticoagulation Diagnosis/Problems Diagnosis/Problems (1) Traumatic hematoma of right thigh Status: Acute Qualifiers: Encounter type: initial encounter Qualified Codes: S70.11XA - Contusion of right thigh, initial encounter (2) Mechanical heart valve present Status: Chronic (3) Anticoagulated on Coumadin Status: Chronic (4) Orthostatic hypotension Status: Acute JANY MAXWELL MD Jan 04, 2022 10:13
== END 2022-01-04 10:34 ==
LOC: EDUNIT# 18:12 → ER 18:14 → 4TH 21:38
PROVIDERS: ADMIT Surgery; ATTEND Surgery
DX: S70.11XA Contusion of right thigh, initial encounter (principal); I95.1 Orthostatic hypotension; R53.81 Other malaise; I10 Essential (primary) hypertension; E11.9 Type 2 diabetes mellitus without complications; K21.9 Gastro-esophageal reflux disease without esophagitis; W18.09XA Striking against other object with subsequent fall, initial encounter; Y92.481 Parking lot as the place of occurrence of the external cause; Z79.01 Long term (current) use of anticoagulants; Z96.641 Presence of right artificial hip joint; Z79.82 Long term (current) use of aspirin; Z87.891 Personal history of nicotine dependence; Z95.4 Presence of other heart-valve replacement; Z79.899 Other long term (current) drug therapy; Z79.84 Long term (current) use of oral hypoglycemic drugs
CPT/HCPCS: 36415; 72170; 73552; 80048; 80053; 81000; 85014; 85018; 85025; 85610; 94664; 94760; G0378

== ENCOUNTER 2022-01-04 09:06 | Inpatient (IN) | payer MEDICARE ==
[~2022-01-04] VITALS: Ht 172.7 cm; Wt 66.5 kg
[~2022-01-04 09:06] MED LIST changes: +NFIPRATRNS NSEACH
[2022-01-04] MEDS ORDERED: diphenhydrAMINE 25 MG TAB (BENADRYL) PO PRN (10:15)
[2022-01-04] MEDS ORDERED: FLEET ENEMA ADULT 1 EA BTL PR PRN (10:15)
[2022-01-04] MEDS ORDERED: guaiFENesin/CODEINE (ROBITUSSIN AC) 10ML UDC PO PRN (10:15)
[2022-01-04] MEDS ORDERED: LOPERAMIDE 2 MG (IMODIUM) TABLET PO PRN (10:15)
[2022-01-04] MEDS ORDERED: BISACODYL 10 MG SUPP (DULCOLAX) PR PRN (10:15)
[2022-01-04] MEDS ORDERED: CALCIUM CARBONATE 500 MG (TUMS) TAB.CHEW PO PRN (10:15)
[2022-01-04] MEDS ORDERED: LACTULOSE SYRUP 10GM/15ML (ENULOSE) 30ML UDC PO PRN (10:15)
[2022-01-04] MEDS ORDERED: MELATONIN 3 MG TABLET PO PRN (10:15)
[2022-01-04] MEDS ORDERED: ALPRAZolam 0.25 MG (XANAX) TAB PO PRN (10:15)
[2022-01-04] MEDS ORDERED: ONDANSETRON 4 MG (ZOFRAN) ORAL DISSOLVE TAB PO PRN (10:15)
[2022-01-04] MEDS ORDERED: DOCUSATE SODIUM 100 MG (COLACE) CAP PO PRN (10:15)
--- NOTE | 2022-01-04 11:00 | PM&R Post Admission Assessment ---
PM&R HP Date of Visit: Jan 04, 2022 Time of Visit: 12:00 History of Present Illness CC: Debility following right thigh contusion HPI: This is an 86 yr old clinic pt of Dr. Cruz. Pt has a past medical history of CVA. He was admitted 7 days ago from the ER after suffering a traumatic injury of the right thigh. He was very high on his INR from Coumadin. Surgery was consulted. Pt was deemed stable and did not have to have surgical intervention on the thigh. But his INR remains high at 4.1 so we will be monitoring that closely and will likely hold Coumadin and recheck INR tomorrow. Patient does have a history of stroke and significant residual from that with speech impediment. Patient will be at risk for falls. CC: Ground level fall HPI: Jose Carlos is a 86yo M with a PMH significant for stroke and neuropathy who came to [facility] on 12/29/21. He presented to the ER after falling while using his walker and landing on a downspout. He was diagnosed with a contusion of his right thigh. He developed a hematoma in the right thigh. Was consulted by surgery who determined the hematoma was stable and did not require surgery. Patient had several episodes of orthostatic hypotension in the hospital, specifically when he was trying to work with PT. Patient was weak after the fall and his hospital stay. It was suggested that he be admitted to work with PT more in a rehabilitation program. Reports that his right leg only hurts whenever he is walking on it. He reports no pain at rest. Appears week and is struggling to speak during the interview. Patient has been working with PT to regain strength. Patient's hematoma is stable but he has not returned to his baseline with regards to strength and coordination. He is being discharged to the rehabilitation center at [facility]. PMH: includes stroke, type 2 diabetes, COPD, gastroesophageal reflux disease, rheumatic fever, valvular heart disease, Felipe's palsy, neuropathy, renal calculi, history of colon cancer, and GI bleed Surgical history: hip replacement, tonsillectomy, appendectomy, aortic valve replacement, colon surgery, and eye surgery Allergies: NSAIDS and Hydrocodone Meds: Aspirin 81 mg daily, docusate 200 mg daily, glimepiride 2 mg daily, ip ratropium bromide two sprays q.8 hours p.r.n., metformin 500 mg daily, metoprolol half tablet b.i.d., Protonix 40 mg daily, and warfarin 5 mg at bedtime along with the 2 mg Social history: Previously was a tobacco smoker with a 30 pack year history and quit 35 years ago ROS: Patient denied chest pain, palpitations, shortness of breath, headache, vomiting, nausea, diarrhea, dysuria. Says he has only had one bowel movement since being at the hospital. Admits to feeling weak. Exam: Heart RRR, lung clear to auscultation, bruising seen behind right knee, no pedal edema, patient has full range of motion with extremities, 4/5 muscle strength in upper and lower extremities Vitals: HR-82 RR- 18 BP-120/75 Assessment: Right thigh hematoma Mechanical aortic valve replacement Orthostatic hypotenson HTN T2DM GERD Debility Constipation DVT prophylaxis Plan: Right thigh hematoma - No surgical intervention needed - condition determined to be stable based on Hgb remaining constant - X-ray showed no fractures of femur or pelvis Mechanical aortic valve replacement - Continue warfarin - INR 4.1 (goal 3.5-4.5 due to the patient having a mechanical valve that is older) Orthostatic hypotension - maintain fluid intake - fall precautions in place HTN - continue to hold home medication Metoprolol due to low BP - Fall precautions in place T2DM - restart home medications Glimeperide and Metformin GERD - Continue home medication Pantoprazole Debility - working with PT/OT in rehabilitation center Constipation - senna, docusate, and polyethylene glycol were started DVT prophylaxis - already receiving therapeutic anticoagulation with Warfarin Past Zaxfqwq-Wbpxgy-Eiyyqf Hx Past Med/Social Hx: Reviewed Nursing Past Med/Soc Hx, Reviewed and Corrections made Patient Social History Marrital Status: single Employed/Student: retired Alcohol Use: Denies Use Smoking Status: Former Smoker Former Smoker, Quit: Jan 13, 1987 Type Used: Cigarettes 2nd Hand Smoke Exposure: No Recent Hopitalizations: No Immunizations Up To Date Tetanus Booster (TDap): More than 5yrs Date of Pneumonia Vaccine: Nov 18, 2010 Date of Influenza Vaccine: Aug 13, 2014 Seasonal Allergies Seasonal Allergies: No Past Medical History Surgeries: Abdominal, Appendectomy, Bowel Surgery, Cardiac, Eye Surgery, Valve Replacement Cardiac: Aneurysm, Rheumatic Fever, Valvular Heart Disease Neurological: Neuropathy, Stroke, TIA Reproductive: No Genitourinary: Kidney Stones Gastrointestinal: Gastrointestinal Bleed Endocrine: Diabetes, Non-Insulin dep HEENT: Cataract Loss of Vision: Denies Hearing Impairment: Denies Cancer: Small Bowel, Colon History of Blood Disorders: No Family History No Pertinent Family Hx 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; 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 Allergy/Meds/Data Review Allergies Coded Allergies: NSAIDS (Non-Steroidal Anti-Inflamma (Unverified Allergy, Unknown, 06/11/14) hydrocodone (Unverified Allergy, Unknown, 12/30/21) LISTED ON HIS MED LIST FROM HOME BUT PT DIDNT KNOW WHAT KIND OF REACTION HE HAD Home Medications Scheduled Aspirin (Aspirin EC), 81 MG PO DAILY, (Reported) Docusate Sodium (Docusate Sodium), 200 MG PO DAILY, (Reported) Glimepiride (Glimepiride), 2 MG PO DAILY, (Reported) Metformin HCl (Metformin HCl ER), 500 MG PO DAILY, (Reported) Metoprolol Tartrate (Metoprolol Tartrate), 25 MG PO BID, (Reported) Pantoprazole Sodium (Pantoprazole Sodium), 40 MG PO DAILY, (Reported) Warfarin Sodium (Warfarin Sodium), 2 MG PO HS, (Reported) Warfarin Sodium (Jantoven), 5 MG PO HS, (Reported) Scheduled PRN Ipratropium Waite (Ipratropium Waite), 2 SPRAYS NSEACH Q8H PRN for RUNNY NOSE, (Reported) Current Medications Current Medications Reviewed Review of Systems Constitutional: see HPI, dizziness, weakness EENTM: no symptoms reported Respiratory: dyspnea on exertion Cardiovascular: no symptoms reported Gastrointestinal: constipation Genitourinary: no symptoms reported Musculoskeletal: back pain, joint pain, muscle pain, muscle stiffness, muscle cramps Skin: no symptoms reported Psychiatric/Neurological: Anxiety, Depressed All Other Systems Reviewed Negative Unless Noted: Yes Physical Exam Physical Exam Vital Signs Capillary Refill : Height, Weight, BMI Height: 5'8.00" Weight: 148lbs. oz. [id number]; 22.47 BMI Method:Stated General Appearance: No Apparent Distress, WD/WN, Chronically ill, Thin Eyes: Bilateral Eye Normal Inspection, Bilateral Eye PERRL HEENT: PERRL/EOMI, Normal ENT Inspection, Pharynx Normal Neck: Full Range of Motion, Normal Inspection, Non Tender, Supple, Carotid Bruit Respiratory: Chest Non Tender, Lungs Clear, Normal Breath Sounds, No Accessory Muscle Use, No Respiratory Distress Cardiovascular: Regular Rate, Rhythm, No Edema, No Gallop, No JVD, Normal Peripheral Pulses, Systolic Murmur Gastrointestinal: Normal Bowel Sounds, No Organomegaly, No Pulsatile Mass, Non Tender, Soft Back: Normal Inspection, No CVA Tenderness, No Vertebral Tenderness Extremity: Normal Capillary Refill, Normal Inspection, Normal Range of Motion, Non Tender, No Calf Tenderness, No Pedal Edema Neurologic/Psychiatric: Alert, Oriented x3, 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 and 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 Norm as Tested, Abnormal Gait, Aphasia (Partial), Depressed Affect, Motor Weakness (Generalized) Skin: Normal Color, Warm/Dry Lymphatic: No Adenopathy PM&R Medical Assessment & Plan REHAB/MEDICAL ASSESSMENT AND PLAN: REHAB IMPAIRMENT GROUP: Debility from right thigh contusion ETIOLOGIC DIAGNOSIS: Debility from right thigh contusion The comorbidities that impact the patients function and/or functional outcome by: Previous CVA, fall risk, coagulopathy from warfarin, valvular heart disease REHAB PLAN: The patient is being admitted to our comprehensive inpatient rehabilitation facility and can tolerate the intensity of service consisting of at least: 180 minutes of therapy a day, 5 out of 7 days a week Rehab treatment will consist of: PT and OT will focus on regaining enough function to return back to independent living with the use of assistive devices in addition to monitoring for any other prior stroke residual that could help him maintain his independence The patient/family has a good understanding of our discharge process and will benefit from an interdisciplinary inpatient rehabilitation program. The patient has potential to make improvement and is in need of at least two of the following multidisciplinary therapies including but not limited to physical, occupational, speech, and prosthetics and orthotics. Additionally the patient will need services from respiratory, nutritional services, wound care, psychology, etc. (Customize this to each patient). Given the patients complex condition and risk of further medical complications, rehabilitation services cannot be safely or effectively provided at a lower level of care such as a [facility] facility. BARRIERS TO DISCHARGE: Fall risk lives alone ESTIMATED LOS: 7 days DISPOSITION: Home RELEVANT CHANGES SINCE PREADMISSION SCREENING: I have compared the patients medical and functional status at the time of the preadmission screening and there are: No changes PROGNOSIS: Good REHABILITATION GOALS: 1.PT and OT will focus on regaining enough function to return back to independent living with the use of assistive devices in addition to monitoring for any other prior stroke residual that could help him maintain his independence All the above goals were reviewed with the patient and he/she is in agreement. By signing this document, I acknowledge that I have personally performed a full physical examination on this patient within 24 hours of admission to this inpatient rehabilitation facility and have determined the patient to be able to tolerate the above course of treatment at an intensive level for a reasonable period of time. I will be completing a detailed individualized Plan of Care for this patient by day #4 of the patients stay based upon the Preadmission Screen, the Post-Admission Evaluation, and the therapy evaluations. Admission Dx/Comorbidities: (1) Traumatic hematoma of right thigh Status: Acute ICD Codes: S70.11XA - Contusion of right thigh, initial encounter (2) History of CVA (cerebrovascular accident) ICD Codes: Z86.73 - Personal history of transient ischemic attack (TIA), and cerebral infarction without residual deficits (3) Constipation ICD Codes: K59.00 - Constipation, unspecified (4) Anticoagulated on Coumadin Status: Chronic ICD Codes: Z79.01 - nursing home (current) use of anticoagulants (5) Orthostatic hypotension Status: Acute ICD Codes: I95.1 - Orthostatic hypotension (6) Supratherapeutic INR Status: Resolved ICD Codes: R79.1 - Abnormal coagulation profile (7) Generalized weakness Status: Acute ICD Codes: R53.1 - Weakness (8) Mechanical heart valve present Status: Chronic ICD Codes: Z95.2 - Presence of prosthetic heart valve Assessment/Plan Assessment and Plan Assess & Plan/Chief Complaint Assessment: Debility from right thigh contusion Coagulopathy from warfarin supratherapeutic Valvular heart disease status post aortic valve replacement Prior CVA Dysarthria Hypertension Hyperlipidemia Diabetes Constipation Fall risk Plan: Monitor INR Rehab protocol Checked meds and labs Resolve constipation CLAUDETTE MAHAN DO Jan 04, 2022 11:00
--- NOTE | 2022-01-04 11:06 | Progress Note ---
KEV CARLSON 01/04/22 1106: Progress Note CC: Ground level fall HPI: Jose Carlos is a 86yo M with a PMH significant for stroke and neuropathy who came to [facility] on 12/29/21. He presented to the ER after falling while using his walker and landing on a downspout. He was diagnosed with a contusion of his right thigh. He developed a hematoma in the right thigh. Was consulted by surgery who determined the hematoma was stable and did not require surgery. Patient had several episodes of orthostatic hypotension in the hospital, specifically when he was trying to work with PT. Patient was weak after the fall and his hospital stay. It was suggested that he be admitted to work with PT more in a rehabilitation program. Reports that his right leg only hurts whenever he is walking on it. He reports no pain at rest. Appears week and is struggling to speak during the interview. Patient has been working with PT to regain strength. Patient's hematoma is stable but he has not returned to his baseline with regards to strength and coordination. He is being discharged to the rehabilitation center at [facility]. PMH: includes stroke, type 2 diabetes, COPD, gastroesophageal reflux disease, rheumatic fever, valvular heart disease, Felipe's palsy, neuropathy, renal calculi, history of colon cancer, and GI bleed Surgical history: hip replacement, tonsillectomy, appendectomy, aortic valve replacement, colon surgery, and eye surgery Allergies: NSAIDS and Hydrocodone Meds: Aspirin 81 mg daily, docusate 200 mg daily, glimepiride 2 mg daily, ipratropium bromide two sprays q.8 hours p.r.n., metformin 500 mg daily, metoprolol half tablet b.i.d., Protonix 40 mg daily, and warfarin 5 mg at bedtime along with the 2 mg Social history: Previously was a tobacco smoker with a 30 pack year history and quit 35 years ago ROS: Patient denied chest pain, palpitations, shortness of breath, headache, vomiting, nausea, diarrhea, dysuria. Says he has only had one bowel movement since being at the hospital. Admits to feeling weak. Exam: Heart RRR, lung clear to auscultation, bruising seen behind right knee, no pedal edema, patient has full range of motion with extremities, 4/5 muscle strength in upper and lower extremities Vitals: HR-82 RR- 18 BP-120/75 Assessment: Right thigh hematoma Mechanical aortic valve replacement Orthostatic hypotenson HTN T2DM GERD Debility Constipation DVT prophylaxis Plan: Right thigh hematoma - No surgical intervention needed - condition determined to be stable based on Hgb remaining constant - X-ray showed no fractures of femur or pelvis Mechanical aortic valve replacement - Continue warfarin - INR 4.1 (goal 3.5-4.5 due to the patient having a mechanical valve that is older) Orthostatic hypotension - maintain fluid intake - fall precautions in place HTN - continue to hold home medication Metoprolol due to low BP - Fall precautions in place T2DM - restart home medications Glimeperide and Metformin GERD - Continue home medication Pantoprazole Debility - working with PT/OT in rehabilitation center Constipation - senna, docusate, and polyethylene glycol were started DVT prophylaxis - already receiving therapeutic anticoagulation with Warfarin KITTY MAHAN DO 01/05/22 0547: Supervisory-Addendum Brief Verification & Attestation Participated in pt care: history, MDM, physical Personally performed: exam, history, MDM, supervision of care Care discussed with: Medical Student Procedures: n/a Results interpretation: Verified all documentation Verification and Attestation of Medical Student E/M Service A medical student performed and documented this service in my presence. I reviewed and verified all information documented by the medical student and made modifications to such information, when appropriate. I personally performed the physical exam and medical decision making. Kitty Mahan, Jan 05, 2022,05:47 KEV CARLSON Jan 04, 2022 11:06 KITTY MAHAN DO Jan 05, 2022 05:47
--- NOTE | 2022-01-04 11:19 | Physical Therapy Evaluation ---
PT Evaluation-General Medical Diagnosis Admission Date Jan 04, 2022 at 10:25 Medical Diagnosis: Debility Onset Date: Jan 04, 2022 Therapy Diagnosis Therapy Diagnosis: weakness, debility Height/Weight Height (Feet): 5 Height (Inches): 8.00 Weight (Pounds): 148 Precautions Precautions/Isolations: Fall Prevention, Standard Precautions Weight Bear Status Right Lower Extremity: Right Full Weight Bearing Left Lower Extremity: Left Full Weight Bearing Referral Physician: Brady Reason for Referral: Evaluation/Treatment Medical History Pertinent Medical History: COPD, CVA, DM Additional Medical History Valvular heart disease Current History Patient fell a week ago that caused a right thigh contusion. Reviewed History: Yes Social History Home: Multilevel Current Living Status: Alone Entry Into Home: Stairs With Railing PT Steps Into Home: 5 PT Steps Inside Home: 16 Patient has one handrail going up 16 stairs to his upstairs. His bedroom is upstairs. Prior Prior Level of Function SCALE: Activities may be completed with or without assistive devices. 8-Esiuiuuieg-dsvqxuq completes the activity by him/herself with no assistance from a helper. 5-Set-up or Clean-up Assistance-helper sets up or cleans up; patient completes activity. [place] assists only prior to or following the activity. 4-Supervision or Touching Assistance-helper provides verbal cues and/or touching/steadying and/or contact guard assistance as patient completes activity. Assistance may be provided throughout the activity or intermittently. 3-Partial/Moderate Assistance-helper does LESS THAN HALF the effort. [place] lifts, holds or supports trunk or limbs, but provides less than half the effort. 2-Substantial/Maximal Assistance-helper does MORE THAN HALF the effort. [place] lifts or holds trunk or limbs and provides more than half the effort. 2-Vxgbbxneu-tpotav does ALL the effort. Patient does none of the effort to complete the activity. Or, the assistance of 2 or more helpers is required for the patient to complete the activity. If activity was not attempted, code reason: 7-Patient Refused. 9-Not Applicable-not attempted and the patient did not perform the activity before the current illness, exacerbation or injury. 10-Not Attempted due to Environmental Limitations-(lack of equipment, weather restraints, etc.). 88-Not Attempted due to Medical Conditions or Safety Concerns. Bed Mobility: 6 Transfers (B,C,W/C): 6 Gait: 6 Stairs: 6 Indoor Mobility (Ambulation): Independent Stairs: Independent Prior Devices Use: None Patient has not used an AD before current hospital stay. Patient still drives himself places. PT Evaluation-Current Subjective Patient presented laying in bed and agreed to participate in physical therapy. Objective Patient Orientation: Person, Place, Situation ROM/Strength ROM Lower Extremities WFL Strength Lower Extremities R LE 4/5 strength grossly L LE 3+/5 strength grossly Integumentary/Posture Integumentary Patient R thigh and calf are swollen from his fall Bowel Incontinence: No Bladder Incontinence: No Neuromuscular (Tone, Coordination, Reflexes) grossly intact Sensory Vision: Wears Glasses Hearing: Functional Sensation Right Lower Extremit: Intact Sensation Left Lower Extremity: Intact Transfers Roll Left & Right (QC): 6 Sit to Lying (QC): 6 Lying to Sitting/Side of Bed(Q: 6 Sit to Stand (QC): 4 Chair/Wcy-yg-Ginbh Xfer(QC): 4 Toilet Transfer (QC): 4 Car Transfer (QC): 4 Patient is independent for bed mobility but requires CGA for all other transfers. Gait Does the Patient Walk?: Yes Mode of Locomotion: Walk Anticipated Mode of Locomotion: Walk Walk 10 feet (QC): 4 Walk 50 ft with 2 Turns(QC): 4 Walk 150 ft (QC): 4 Walking 10ft/uneven surface-QC: 4 Distance: 150' x3 Gait Assistive Device: FWW Comments/Gait Description Patient requires CGA for ambulation due to R LE weakness Wheelchair Training Does the Pt Use a Wheelchair?: No Wheel 50 ft with 2 turns (QC): 09 Wheel 150 ft (QC): 09 Stairs #of Steps: 12 1 Step (curb) (QC): 3 4 Steps (QC): 3 12 Steps (QC): 3 Patient climbed 12 steps with 1 hand rail during evaluation. Patient required min assist for safety and stability Balance Sitting Static: Normal Sitting Dynamic: Normal Standing Static: Normal Standing Dynamic: Fair Picking up an Object (QC): 88 (will assess this week) Treatment Ambulation, bed mobility Seated exercises: LAQ and marching x15 ea NuStep 15 min level 3 Assessment/Needs Patient ambulated, performed bed mobility, completed seated exercises, and exercises 15 minutes on the NuStep. Patient reported minimal fatigue with activity. Patient reports that he did not use an AD before this current hospital stay and still drives himself around town. Patient is planning on returning to home after IRF but has 16 stairs he has to climb to get to his bedroom. Patient requires CGA for ambulation and sit to stand transfers, min assist for stair ascent and descent, and is independent for bed mobility. Patient requires s killed therapy services to increase his strength and endurance to return home safely and to return to his PLOF. Rehab Potential: Good PT Foreign Law Consultant Goals Foreign Law Consultant Goals PT Foreign Law Consultant Goals Time Frame: Feb 01, 2022 Roll Left & Right (QC): 6 Sit to Lying (QC): 6 Lying-Sitting on Side/Bed(QC): 6 Sit to Stand (QC): 6 Chair/Pwf-lv-Czhsb Xfer(QC): 6 Toilet Transfer (QC): 6 Car Transfer (QC): 6 Does the Patient Walk: Yes Walk 10 feet (QC): 6 Walk 50ft with 2 Turns (QC): 6 Walk 150 ft (QC): 6 Walking 10ft on Uneven Surface: 6 1 Step (curb) (QC): 6 4 Steps (QC): 6 12 Steps (QC): 6 Picking up an Object (QC): 6 Does the Pt use WC or Scooter?: No Wheel 50 feet with 2 turns (QC: 09 Type: N/A Wheel 150 feet: 09 Type: N/A PT Plan Problem List Problem List: Activity Tolerance, Functional Strength, Safety, Balance, Gait, Transfer, ROM Treatment/Plan Treatment Plan: Continue Plan of Care Treatment Plan: Bed Mobility, Concurrent Therapy, Education, Functional Activity Anali, Functional Strength, Group Therapy, Gait, Safety, Therapeutic Exercise, Transfers Treatment Duration: Feb 01, 2022 Frequency: At least 5 of 7 days/Wk (IRF) Estimated Hrs Per Day: 1.5 hours per day Patient and/or Family Agrees t: Yes Safety Risks/Education Patient Education: Gait Training, Steps, Safety Issues Teaching Recipient: Patient Teaching Methods: Demonstration Time/GCodes Time In: 1025 Time Out: 1115 Total Billed Treatment Time: 50 Total Billed Treatment 1 Visit EVM 20 min FA 10 min EX 20 min RAMY SALAZAR PT Jan 04, 2022 11:19
[2022-01-04] MEDS ORDERED: guaiFENesin SYRUP 100 MG/5 ML 10 ML (ROBITUSSIN SF) PO PRN (12:00)
--- NOTE | 2022-01-04 12:45 | Occupational Therapy Eval ---
OT Evaluation-General/PLF Medical Diagnosis Admission Date Jan 04, 2022 at 10:25 Medical Diagnosis: Debility Onset Date: Jan 04, 2022 Therapy Diagnosis Therapy Diagnosis: decreased ADL status Height/Weight Height (Feet): 5 Height (Inches): 8.00 Weight (Pounds): 148 Precautions Precautions/Isolations: Fall Prevention, Standard Precautions Referral Physician: Brady Referral Reason: Evaluation/Treatment Medical History Pertinent Medical History: COPD, CVA, DM Additional Medical History valvular heart disease, CVA Current History ED via private vehicle due to fall in parking lot, R thigh contusion. Pt transferred to [facility] 01/04/22 Social History Home: Multilevel Current Living Status: Alone Entry Into Home: Stairs With Railing Steps Into Home: 5 Steps Inside Home: 16 ADL-Prior Level of Function SCALE: Activities may be completed with or without assistive devices. 8-Xpmzpnksyf-qrxtile completes the activity by him/herself with no assistance from a helper. 5-Set-up or Clean-up Assistance-helper sets up or cleans up; patient completes activity. [place] assists only prior to or following the activity. 4-Supervision or Touching Assistance-helper provides verbal cues and/or touching/steadying and/or contact guard assistance as patient completes activity. Assistance may be provided throughout the activity or intermittently. 3-Partial/Moderate Assistance-helper does LESS THAN HALF the effort. [place] lifts, holds or supports trunk or limbs, but provides less than half the effort. 2-Substantial/Maximal Assistance-helper does MORE THAN HALF the effort. [place] lifts or holds trunk or limbs and provides more than half the effort. 7-Druyqtdxw-fxcqpl does ALL the effort. Patient does none of the effort to complete the activity. Or, the assistance of 2 or more helpers is required for the patient to complete the activity. If activity was not attempted, code reason: 7-Patient Refused. 9-Not Applicable-not attempted and the patient did not perform the activity before the current illness, exacerbation or injury. 10-Not Attempted due to Environmental Limitations-(lack of equipment, weather restraints, etc.). 88-Not Attempted due to Medical Conditions or Safety Concerns. ADL PLOF Comments Pt reports IND with ADLs and functional mobility without AD. His only bedroom is located upstairs, he does have a bathroom on both the 1st and 2nd floor. On 1st floor, pt has a walk in shower with a SC, on 2nd floor he has a tub/shower upstairs. Pt typically uses the tub/shower and stands while completing his shower, but is open to taking a shower down stairs if needed. 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 Mental Status/Objective Patient Orientation: Person, Place, Time, Situation Current Glasses/Contacts: Yes Hearing Aids: No Dentures/Partials: No Hand Dominance: Right Upper Extremity ROM WFL, BUE shoulder flexion to approx 150 degrees Upper Extremity Coordination slightly decreased fine motor coordination. Upper Extremity Sensation WFL ADL-Treatment Eating (QC): 5 (set up per pt report.) Oral Hygiene (QC): 4 (SBA standing at sink.) Shower/Bathe Self (QC): 4 (SBA. Pt able to wash/dry all parts.) Upper Body Dressing (QC): 5 (set up with button up shirt.) Lower Body Dressing (QC): 3 (Min A threading RLE into pants. Pt able to thread BLEs into underwear and complete pant hike with CGA.) On/Off Footwear (QC): 4 (SBA, pt able to doff/don bilateral gripper socks.) Toileting Hygiene (QC): 4 (CGA) Other Treatments Pt in bed, transferred supine to sit EOB independently, then used FWW to transfer into bathroom and onto SC with CGA. Pt doffed clothes, completed shower, then donned clothes. Pt stood at sink to complete oral care, then transferred to recliner. Post tx, pt in recliner, call light in reach and all needs met. Education OT Patient Education: Correct positioning, Energy conservation, Exercise program, Modified ADL techniques, Progress toward Goal/Update tx plan, Purpose of tx/functional activities, Rehab process Teaching Recipient: Patient Teaching Methods: Discussion Response to Teaching: Verbalize Understanding OT Short Term Goals Short Term Goals Time Frame: Jan 12, 2022 Shower/bathe self: 5 Lower body dressin Putting on/taking off footwear: 5 OT Service Line Layer Goals Service Line Layer Goals Time Frame: Jan 28, 2022 Eating (QC): 6 Oral Hygiene (QC): 6 Toileting Hygiene (QC): 6 Shower/Bathe Self (QC): 6 Upper Body Dressing (QC): 6 Lower Body Dressing (QC): 6 On/Off Footwear (QC): 6 Additional Goals: 1-Demonstrate ADL Tasks, 2-Verbalize Understanding, 3- ImproveStrength/Anali 1=Demonstrate adherence to instructed precautions during ADL tasks. 2=Patient will verbalize/demonstrate understanding of assistive devices/modifications for ADL. 3=Patient will improve strength/tolerance for activity to enable patient to perform ADL's. OT Education/Plan Problem List/Assessment Assessment: Decreased Activ Tolerance, Decreased UE Strength, Impaired Funct Balance, Impaired I ADL's, Impaired Self-Care Skills Discharge Recommendations Plan/Recommendations: Continue POC Treatment Plan/Plan of Care Patient would benefit from OT for education, treatment and training to promote independence in ADL's, mobility, safety and/or upper extremity function for ADL's. Plan of Care: ADL Retraining, Functional Mobility, Group Exercise/Act as Ind, UE Funct Exercise/Act Treatment Duration: Jan 28, 2022 Frequency: At least 5 of 7 days/Wk (IRF) Estimated Hrs Per Day: 1.5 hours per day Agreement: Yes Rehab Potential: Good Time/GCodes Start Time: 11:15 Stop Time: 12:00 Total Time Billed (hr/min): 45 Billed Treatment Time 1, EVM (10'), ADL 2 (35') GO MURRELL OT Jan 04, 2022 12:45
--- NOTE | 2022-01-04 13:25 | ST Cognitive Linguistic Eval ---
Speech Evaluation-General Medical Diagnosis Debility Onset Date: Jan 04, 2022 Therapy Diagnosis Therapy Diagnosis: Cognitive Linguistic Skills WNL; Mild to Moderate Dysarthria (Baseline) Precautions Precautions: Fall, Aspiration Precautions/Isolations: Aspiration, Fall Prevention, Standard Precautions Referral Referring Physician: Dr. Kitty Abreu Reason for Referral: Evaluation/Treatment Medical History Pertinent Medical History: COPD, CVA, DM Current History The patient is an 86 year-old male with a past medical history of stroke, type two diabetes, COPD, GERD, valvular heart disease, neuropathy, colon cancer and GI bleed, who presented to [facility] on 12/[facility]21 after falling and landing on a downspout. He was diagnosed with a contusion of his right thigh and developed a hematoma in the right thigh. Surgery was consulted and determined the hematoma was stable. Additionally, the patient had several episodes of orthostatic hypotension in the hospital, specifically when he was trying to work with PT. Due to the patient's weakness and fall, the physician recommended the patient be admitted to the acute rehabilitation program for strengthening. Reviewed History: Yes Social History Current Living Status: Alone Speech PLF-Current Status Prior Level of Function The speech pathologist is familiar with the patient, as the clinician and patient completed skilled speech pathology therapy (focusing on speech and swallowing) following his prior stroke (approximately three years prior). The patient denied recent changes, challenges or concerns with his speech, language, cognition or swallowing. The patient stated he prefers a softer diet consistency as, "I have problems with chewing sometimes." The patient additionally denied any recent s/s of suspected aspiration with his current diet consistency, unintentional weight loss or a recent diagnosis of pneumonia. Subjective The patient was seated upright in his recliner, awake and alert upon entrance to his room by the clinician. The patient recognized the clinician, greeted the clinician appropriately and was agreeable to participation in the cognitive linguistic evaluation. Due to the patient's past history of dysphagia, the clinician completed a dysphagia screen with single and subsequent drinks of thin liquid via straw. The patient stated he presents the straw to the strong left labial side to aid in suction and to avoid anterior spillage from the right (a strategy taught throughout skilled therapy previously). Overt s/s of suspected aspiration were not demonstrated with the straw drinks. The patient was provided small, disposable straws rather than the large mug straw as he stated the large straw "makes a mess and is harder to take a small drink from." Additionally, the patient stated at home he takes his pills all at once "but here I think I will do them one by one." The information was shared with the RN. The clinician reviewed previously provided safe swallowing strategies with the patient and requested the patient contact the RN if difficulties are experienced throughout his stay. The patient verbalized comprehension of the material. Language Eval: Auditory Comprehends Simple Yes/No Ques: Functional Indent/Objects [place]: Functional Ident/Pics in [place]: Functional Follows 1-Step Commands: Functional Follows Complex Directions: Functional Follows General Conversations: Functional Language Eval: Verbal Language Completes Spontaneous Greeting: Functional Produces Auto, Serial Info: Functional Imitates Simple Words/Phrases: Functional Word Finding: Functional Requests Basic Needs: Functional States Basic Personal Info: Functional Expresses Complex Ideas: Functional Language Evaluation: Reading Follows Simple Written Direct: Functional Language Evaluation: Writing Writes to Simple Dictation: Functional Cognitive Patient Orientation The patient was independently oriented to self, location, city, month, day of the week, date and year. Objective Cognitive Domain Attention: WNL Memory: WNL Problem Solving: Functional Executive Functions: WNL Composite Severity Rating: WNL Clock Drawing Severity Rating: [facility] Objective Formal/Standardized Tests [facility] Status ([facility]) Results The patient demonstrated a result of +27/30 on the UMS correlating to neurocognitive skills within normal limits. Oral Motor/Speech Production Following a prior stroke, the patient displayed right facial and labial weakness resulting in imprecise articulation and mild to moderate dysarthria. Regardless of the baseline dysarthria, the patient remains approximately 70% intelligible in known contexts. Apraxia of speech was not present. Impression The patient demonstrated cognitive linguistic skills within normal limits at this time. 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 The patient displays appropriate cognitive skills for excellent progress in the rehabilitation program. Speech Patient Assess Expression of Ideas/Wants: Exhibits (3) Understanding Verbal Content: Usually Understands (3) Brief Interview-Mental Status: Yes Repetition of Three Words: Three (3) Temporal Orientation: Year: Correct (3) Temporal Orientation: Month: Accurate within 5 days(2) Temporal Orientation: Day: Correct (1) Recall : Wear to say "Sock": Yes, no cue required (2) Recall : Color: Yes, no cue required (2) Recall : Bed: Yes, no cue required (2) Memory/Recall Ability: Current season, Location of own room, Staff names and faces, That he or she is in a hsp/hsp unit Speech-Plan Treatment Plan Speech Therapy Treatment Plan: Discontinue ST Treatment Duration: Jan 04, 2022 Frequency: 1 time per week Estimated Hrs Per Day: .5 hour per day Rehab Potential: Good Pt/Family Agrees to Plan: Yes Safety Risks/Education Teaching Recipient: Patient Teaching Methods: Discussion Response to Teaching: Verbalize Understanding Education Topics Provided: Results of SLUMS, S/s of Suspected Aspiration, Speech Pathology Goals of Care Time Speech Therapy Time In: 12:00 Speech Therapy Time Out: 12:30 Total Billed Time: 30 Billed Treatment Time 1, LUIGI BUTLER [facility] Jan 04, 2022 13:25
--- NOTE | 2022-01-04 13:41 | Occupational Ther Daily Note ---
OT Current Status-Daily Note Subjective Pt in gym following PT session, agreeable to OT Tx. ADL-Treatment Therapy Code Descriptions/Definitions Functional [place] Measure: 0=Not Assessed/NA 4=Minimal Assistance 1=Total Assistance 5=Supervision or Setup 2=Maximal Assistance 6=Modified [place] 3=Moderate Assistance 7=Complete IndependenceSCALE: Activities may be completed with or without assistive devices. 7-Cksezxjjvs-gbfwafv completes the activity by him/herself with no assistance from a helper. 5-Set-up or Clean-up Assistance-helper sets up or cleans up; patient completes activity. [place] assists only prior to or following the activity. 4-Supervision or Touching Assistance-helper provides verbal cues and/or touching/steadying and/or contact guard assistance as patient completes activity. Assistance may be provided throughout the activity or intermittently. 3-Partial/Moderate Assistance-helper does LESS THAN HALF the effort. [place] lifts, holds or supports trunk or limbs, but provides less than half the effort. 2-Substantial/Maximal Assistance-helper does MORE THAN HALF the effort. [place] lifts or holds trunk or limbs and provides more than half the effort. 9-Fmnnbjhyu-wfqwev does ALL the effort. Patient does none of the effort to complete the activity. Or, the assistance of 2 or more helpers is required for the patient to complete the activity. If activity was not attempted, code reason: 7-Patient Refused. 9-Not Applicable-not attempted and the patient did not perform the activity before the current illness, exacerbation or injury. 10-Not Attempted due to Environmental Limitations-(lack of equipment, weather restraints, etc.). 88-Not Attempted due to Medical Conditions or Safety Concerns. Other Treatment OT tx with focus on increasing BUE Strength and activity tolerance. Pt completed arm bike, x15 mins, 20 Watt resistance. Pt then removed beads from moderate resistance theraputty in order to increase fine motor strength and coordination. Pt used FWW to return to his room, CGA. Post tx, pt seated in recliner, call light in reach and all needs met. Education OT Patient Education: Correct positioning, Energy conservation, Exercise program, Modified ADL techniques, Progress toward Goal/Update tx plan, Purpose of tx/functional activities, Rehab process Teaching Recipient: Patient Teaching Methods: Discussion Response to Teaching: Verbalize Understanding OT Short Term Goals Short Term Goals Time Frame: Jan 12, 2022 Shower/bathe self: 5 Lower body dressin Putting on/taking off footwear: 5 OT Intermediate Goals Corrugator Machine Operator Goals Time Frame: Jan 28, 2022 Eating (QC): 6 Oral Hygiene (QC): 6 Toileting Hygiene (QC): 6 Shower/Bathe Self (QC): 6 Upper Body Dressing (QC): 6 Lower Body Dressing (QC): 6 On/Off Footwear (QC): 6 Additional Goals: 1-Demonstrate ADL Tasks, 2-Verbalize Understanding, 3- ImproveStrength/Anali 1=Demonstrate adherence to instructed precautions during ADL tasks. 2=Patient will verbalize/demonstrate understanding of assistive devices/modifications for ADL. 3=Patient will improve strength/tolerance for activity to enable patient to perform ADL's. OT Education/Plan Problem List/Assessment Assessment: Decreased Activ Tolerance, Decreased UE Strength, Impaired Funct Balance, Impaired I ADL's, Impaired Self-Care Skills Discharge Recommendations Plan/Recommendations: Continue POC Treatment Plan/Plan of Care Patient would benefit from OT for education, treatment and training to promote independence in ADL's, mobility, safety and/or upper extremity function for ADL's. Plan of Care: ADL Retraining, Functional Mobility, Group Exercise/Act as Ind, UE Funct Exercise/Act Treatment Duration: Jan 28, 2022 Frequency: At least 5 of 7 days/Wk (IRF) Estimated Hrs Per Day: 1.5 hours per day Agreement: Yes Rehab Potential: Good Time/GCodes Start Time: 13:40 Stop Time: 14:10 Total Time Billed (hr/min): 30 Billed Treatment Time 1, EX (15'), FA (15') GO MURRELL OT Jan 04, 2022 13:41
--- NOTE | 2022-01-04 14:19 | Physical Therapy Daily Note ---
PT Daily Note-Current Subjective Patient presented sitting up in his chair finishing lunch and agreed to participate in physical therapy. Mental Status Patient Orientation: Person, Place, Time, Situation Transfers SCALE: Activities may be completed with or without assistive devices. 4-Xngcclbhbd-ukrpsyu completes the activity by him/herself with no assistance from a helper. 5-Set-up or Clean-up Assistance-helper sets up or cleans up; patient completes activity. [place] assists only prior to or following the activity. 4-Supervision or Touching Assistance-helper provides verbal cues and/or touching/steadying and/or contact guard assistance as patient completes activity. Assistance may be provided throughout the activity or intermittently. 3-Partial/Moderate Assistance-helper does LESS THAN HALF the effort. [place] lifts, holds or supports trunk or limbs, but provides less than half the effort. 2-Substantial/Maximal Assistance-helper does MORE THAN HALF the effort. [place] lifts or holds trunk or limbs and provides more than half the effort. 8-Lhhkapghu-khzjvz does ALL the effort. Patient does none of the effort to complete the activity. Or, the assistance of 2 or more helpers is required for the patient to complete the activity. If activity was not attempted, code reason: 7-Patient Refused. 9-Not Applicable-not attempted and the patient did not perform the activity before the current illness, exacerbation or injury. 10-Not Attempted due to Environmental Limitations-(lack of equipment, weather restraints, etc.). 88-Not Attempted due to Medical Conditions or Safety Concerns. Sit to Stand (QC): 4 Weight Bearing Right Lower Extremity: Right Full Weight Bearing Left Lower Extremity: Left Full Weight Bearing Gait Training Does the Patient Walk?: Yes Distance: 200' Walk 10 feet (QC): 4 Walk 50 ft with 2 Turns(QC): 4 Walk 150 ft (QC): 4 Gait Assistive Device: FWW Patient ambulated 200' with CGA and FWW from his room to therapy gym. Patient l ater ambulated 400' with CGA and FWW. Balance Picking up an Object (QC): 2 Special Test Comments Patient was max assist to help return from standing after bending over to bulk picker object. Exercises Seated Therapy Exercises: Long arc quads, Hip flexion Seated Reps: [address] Ex=Flex, Abd, Ext Standing Reps: 10 Standing exercises were performed while patient was weight bearing on his left side and kicking with his right. Neuromuscular Patient performed narrow stance balance exercises while standing at the // bars. Patient stood with narrow base of support with 2 fingers on the bars for 30 sec with CGA. Assessment Patient performed seated exercises, standing exercises, ambulation, and balance training during therapy session. Patient performed ambulation and transfers with CGA. Patient required max assist to help return to a stand after picking up an object off the floor. Patient required rest breaks between exercises due to fatigue and weakness in his R LE. PT Prison Warden Goals Fpc Goals PT Fpc Goals Time Frame: Feb 01, 2022 Roll Left & Right (QC): 6 Sit to Lying (QC): 6 Lying-Sitting on Side/Bed(QC): 6 Sit to Stand (QC): 6 Chair/Rvo-sw-Yqrak Xfer(QC): 6 Toilet Transfer (QC): 6 Car Transfer (QC): 6 Does the Patient Walk: Yes Walk 10 feet (QC): 6 Walk 50ft with 2 Turns (QC): 6 Walk 150 ft (QC): 6 Walking 10ft on Uneven Surface: 6 1 Step (curb) (QC): 6 4 Steps (QC): 6 12 Steps (QC): 6 Picking up an Object (QC): 6 Does the Pt use WC or Scooter?: No Wheel 50 feet with 2 turns (QC: 09 Type: N/A Wheel 150 feet: 09 Type: N/A PT Plan Problem List Problem List: Activity Tolerance, Functional Strength, Safety, Balance, Gait, Transfer, ROM Treatment/Plan Treatment Plan: Continue Plan of Care Treatment Plan: Bed Mobility, Concurrent Therapy, Education, Functional Activity Anali, Functional Strength, Group Therapy, Gait, Safety, Therapeutic Exercise, Transfers Treatment Duration: Feb 01, 2022 Frequency: At least 5 of 7 days/Wk (IRF) Estimated Hrs Per Day: 1.5 hours per day Patient and/or Family Agrees t: Yes Time/GCodes Time In: 1300 Time Out: 1340 Total Billed Treatment Time: 40 Total Billed Treatment 1 Visit EX x2 30 min FA 10 min RAMY SALAZAR PT Jan 04, 2022 14:19
[2022-01-04] MEDS ORDERED: NON-FORMULARY MEDICATION 1 EA EA (Ipratropium Bromide 2 SPRAYS) NSEACH PRN (20:00)
[2022-01-04 20:55] VITALS: BP 132/56
[2022-01-04] MEDS ORDERED: DOCUSATE SODIUM 100 MG (COLACE) CAP PO SCH (21:00)
[2022-01-04] MEDS: SENNA W/DOCUSATE (SENOKOT S) TABLET PO SCH (21:46)
[2022-01-04] MEDS: polyethylene glycoL POWDER 17 GM (MIRALAX) PACK PO SCH (21:56)
[2022-01-04] MEDS: ACETAMINOPHEN 325 MG TABLET PO PRN (21:59)
[2022-01-05] MEDS: ACETAMINOPHEN 325 MG TABLET PO PRN ×2 (06:06→13:06)
[2022-01-05] MEDS: PANTOPRAZOLE 40 MG (PROTONIX) TAB PO SCH (06:06)
[2022-01-05 06:47] LABS: BASOPHILS % (AUTO) 1 % (0-10); EOSINOPHILS # (AUTO) 0.3 10^3/uL (0.0-0.3); EOSINOPHILS % (AUTO) 4 % (0-10); HEMATOCRIT 29 % (40-54); HEMOGLOBIN 9.5 g/dL (13.3-17.7); LYMPHOCYTES # (AUTO) 2.3 10^3/uL (1.0-4.0); LYMPHOCYTES % (AUTO) 29 % (12-44); MEAN CORPUSCULAR HEMOGLOBIN 30 pg (25-34); MEAN CORPUSCULAR HGB CONC 32 g/dL (32-36); MEAN CORPUSCULAR VOLUME 94 fL (80-99); MEAN PLATELET VOLUME 9.5 fL (9.0-12.2); MONOCYTES # (AUTO) 0.9 10^3/uL (0.0-1.0); MONOCYTES % (AUTO) 12 % (0-12); NEUTROPHILS # (AUTO) 4.2 10^3/uL (1.8-7.8); NEUTROPHILS % (AUTO) 53 % (42-75); PLATELET COUNT 285 10^3/uL (130-400); WHITE BLOOD COUNT 7.9 10^3/uL (4.3-11.0)
[2022-01-05 06:52] LABS: ALBUMIN 3.5 GM/DL (3.2-4.5); INR 3.4 (0.8-1.4); PROTHROMBIN TIME PATIENT 34.5 SEC (12.2-14.7)
[2022-01-05 06:53] LABS: POTASSIUM 4.1 MMOL/L (3.6-5.0)
[2022-01-05 06:54] LABS: CALCIUM 8.9 MG/DL (8.5-10.1)
[2022-01-05 06:55] LABS: TOTAL PROTEIN 6.8 GM/DL (6.4-8.2)
[2022-01-05 06:57] LABS: BILIRUBIN,TOTAL 1.5 MG/DL (0.1-1.0)
[2022-01-05 06:59] LABS: CREATININE SERUM 0.73 MG/DL (0.60-1.30)
--- NOTE | 2022-01-05 07:16 | PM&R Progress Note ---
Subjective HPI/CC On Admission Date Seen by Provider: Jan 05, 2022 Time Seen by Provider: 12:45 Subjective/Events-last exam 01/05/2022: Pt is doing a lot better Diet was changed to accommodate Incontinence x 1 and tried to crawl out of bed last night Right thigh really hurts so I will have Dr. Vega evaluate Oxycodone will be given for pain Review of Systems General: Fatigue, Malaise Musculoskeletal: leg pain Objective Exam Vital Signs Vital Signs Date Time Temp Pulse Resp B/P (MAP) Pulse Ox O2 Delivery O2 Flow Rate FiO2 01/05/22 20:30 Room Air 01/05/22 20:24 36.5 82 20 139/58 (85) 92 Capillary Refill : General Appearance: No Apparent Distress, WD/WN, Chronically ill, Thin HEENT: PERRL/EOMI, Normal ENT Inspection, Pharynx Normal Neck: Full Range of Motion, Normal Inspection, Non Tender, Supple, Carotid Br uit Respiratory: Chest Non Tender, Lungs Clear, Normal Breath Sounds, No Accessory Muscle Use, No Respiratory Distress Cardiovascular: Regular Rate, Rhythm, No Edema, No Gallop, No JVD, Normal Peripheral Pulses, Systolic Murmur Gastrointestinal: Normal Bowel Sounds, No Organomegaly, No Pulsatile Mass, Non Tender, Soft Back: Normal Inspection, No CVA Tenderness, No Vertebral Tenderness Extremity: Normal Capillary Refill, Normal Inspection, Normal Range of Motion, Non Tender, No Calf Tenderness, No Pedal Edema Neurologic/Psychiatric: Alert, Oriented x3, hunting sales leader II-XII Norm as Tested, Abnormal Gait, Aphasia (Partial), Depressed Affect, Motor Weakness (Generalized) Skin: Normal Color, Warm/Dry Lymphatic: No Adenopathy Results/Procedures Lab Laboratory Tests 01/05/22 06:34 Patient resulted labs reviewed. FIM Transfers Therapy Code Descriptions/Definitions Functional [place] Measure: 0=Not Assessed/NA 4=Minimal Assistance 1=Total Assistance 5=Supervision or Setup 2=Maximal Assistance 6=Modified [place] 3=Moderate Assistance 7=Complete IndependenceSCALE: Activities may be completed with or without assistive devices. 6-Uwhvtlptvf-zsvkxgw completes the activity by him/herself with no assistance from a helper. 5-Set-up or Clean-up Assistance-helper sets up or cleans up; patient completes activity. [place] assists only prior to or following the activity. 4-Supervision or Touching Assistance-helper provides verbal cues and/or touching/steadying and/or contact guard assistance as patient completes activity. Assistance may be provided throughout the activity or intermittently. 3-Partial/Moderate Assistance-helper does LESS THAN HALF the effort. [place] lifts, holds or supports trunk or limbs, but provides less than half the effort. 2-Substantial/Maximal Assistance-helper does MORE THAN HALF the effort. [place] lifts or holds trunk or limbs and provides more than half the effort. 7-Amlaoojvz-xhwbyd does ALL the effort. Patient does none of the effort to complete the activity. Or, the assistance of 2 or more helpers is required for the patient to complete the activity. If activity was not attempted, code reason: 7-Patient Refused. 9-Not Applicable-not attempted and the patient did not perform the activity before the current illness, exacerbation or injury. 10-Not Attempted due to Environmental Limitations-(lack of equipment, weather restraints, etc.). 88-Not Attempted due to Medical Conditions or Safety Concerns. Roll Left to Right (QC): 6 Sit to Lying (QC): 6 Sit to Stand (QC): 4 Chair/Rmx-yz-Yihew Xfer(QC): 4 Car Transfer (QC): 4 Gait Training Does the Patient Walk?: Yes Distance: 200' Walk 10 feet (QC): 4 Walk 50 ft with 2 Turns(QC): 4 Walk 150 ft (QC): 4 Walking 10ft/uneven surface-QC: 4 Gait Assistive Device: FWW Wheelchair Training Does the Pt Use a Wheelchair?: No Wheel 50 ft with 2 turns (QC): 09 Wheel 150 ft (QC): 09 Stair Training #of Steps: 12 1 Step (curb) (QC): 3 4 Steps (QC): 3 12 Steps (QC): 3 Balance Picking up an Object (QC): 2 ADL-Treatment Eating (QC): 5 (set up per pt report.) Oral Hygiene (QC): 4 (SBA standing at sink.) Shower/Bathe Self (QC): 4 (SBA. Pt able to wash/dry all parts.) Upper Body Dressing (QC): 5 (set up with button up shirt.) Lower Body Dressing (QC): 3 (Min A threading RLE into pants. Pt able to thread BLEs into underwear and complete pant hike with CGA.) On/Off Footwear (QC): 4 (SBA, pt able to doff/don bilateral gripper socks.) Toileting Hygiene (QC): 4 (CGA) Assessment/Plan Assessment and Plan Assess & Plan/Chief Complaint Assessment: Debility from right thigh contusion Coagulopathy from warfarin supratherapeutic Valvular heart disease status post aortic valve replacement Prior CVA Dysarthria Hypertension Hyperlipidemia Diabetes Constipation Fall risk Plan: Monitor INR Rehab protocol Checked meds and labs Resolve constipation 01/05/2022: Monitor INR Dr. 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
--- NOTE | 2022-01-05 07:16 | Individualized Plan of Care ---
Individualized Plan of Care Rehab Nursing IPOC Order Admission Date Jan 04, 2022 at 10:25 Current Orders Orders Admission Order(Inpt,Obs,Sdc) (01/04/22 10:01) Vital Signs: Per Unit Policy ( 08,16,00 (01/04/22 10:01) Bao Howell (01/04/22 10:01) Sequential Compression Device (01/04/22 10:01) Rn Pediatric-Inpt Rehab Con (01/04/22 10:01) Rehab Nursing Orders-Ipoc (01/04/22 10:01) Physical Therapy Rehab Orders (01/04/22 10:01) Occupational Therapy Rehab Ord (01/04/22 10:01) Speech Therapy Rehab Orders (01/04/22 10:01) Cbc With Automated Diff (01/05/22 06:00) Comprehensive Metabolic Panel (01/05/22 06:00) Precautions (Aru) (01/04/22 10:01) Weekly Weight WEEK (01/04/22 10:01) Rehab-Intensity Of Therapy (01/04/22 10:01) Initiate Admission Nursing Pro .admission (01/04/22 10:01) Alprazolam Tablet (Xanax Tablet) (01/04/22 10:15) Calcium Carbonate Chew Tablet (Antacid C (01/04/22 10:15) Diphenhydramine Tablet (Benadryl Tablet) (01/04/22 10:15) Docusate Sodium Capsule (Colace Capsule) (01/04/22 21:00) Docusate Sodium Capsule (Colace Capsule) (01/04/22 10:15) Bisacodyl Suppository (Dulcolax Supposit (01/04/22 10:15) Lactulose Oral Solution (Enulose Oral So (01/04/22 10:15) Na Phos/Na Biphos Enema (Fleet Enema Naseem (01/04/22 10:15) Guaifenesin/Codeine Syrup (Robitussin Ac (01/04/22 10:15) Loperamide Tablet (Imodium Tablet) (01/04/22 10:15) Melatonin Tablet (Melatonin Tablet) (01/04/22 10:15) Polyethylene Glycol Powder Pkt (Miralax (01/04/22 21:00) Ondansetron Oral Dissolve Tab (Zofran (01/04/22 10:15) Senna S Tablet (Senokot S Tablet) (01/04/22 21:00) Acetaminophen Tablet/Caplet (Tylenol T (01/04/22 10:15) Code/Resuscitation (01/04/22 10:01) Sequential Compression Device ONCE (01/04/22 10:01) Initiate Admission Nursing Pro .admission (01/04/22 10:01) Protime With Inr (01/05/22 06:00) Admission Arrival Bed Request (01/04/22 10:33) Guaifenesin Sf Syrup (Robitussin Sf Syru (01/04/22 12:00) General/Regular (01/04/22 Lunch) Patient Visit (01/04/22 ) Pt Eval Moderate Complexity (01/04/22 ) Functional Activities, Ea 15 (01/04/22 ) Exercise Therap, Ea 15 Min (01/04/22 ) Patient Visit (01/04/22 ) Speech Sound Lang Comp (01/04/22 ) Treat. Speech/Lang/Voice (01/04/22 ) Patient Visit (01/04/22 ) Exercise Therap, Ea 15 Min (01/04/22 ) Functional Activities, Ea 15 (01/04/22 ) Aspirin Enteric Coated Tablet (Ecotrin T (01/05/22 09:00) Docusate Sodium Capsule (Colace Capsule) (01/05/22 09:00) Glimepiride Tablet (Amaryl Tablet) (01/05/22 08:00) Metformin Xr Tablet (Glucophage Xr Table (01/05/22 08:00) Pantoprazole Tablet (Protonix Tablet) (01/05/22 07:00) (Nf) Ipratropium [place] (01/04/22 20:00) Metoprolol Tartrate (Ir) Tab (Lopressor (01/05/22 09:00) Warfarin Tablet (Coumadin Tablet) (01/05/22 18:00) Protime With Inr (01/06/22 06:00) Oxycodone Immediate Rel Tablet (Oxyir Ta (01/05/22 10:00) Patient Visit (01/05/22 ) Exercise Therap, Ea 15 Min (01/05/22 ) Functional Activities, Ea 15 (01/05/22 ) Rehab Nursing Orders: Ongoing Assess. of Cognitive Status, Ongoing Assess. of Function Status, Bladder Management, Bladder Scan, Bladder Training, Bowel Management, Bowel Training, Disease Management & Educaiton, DVT Prophylaxis, Fall Prevention, Fluid/Electrolyte/Nutrition Mgmt, Infection Prevention, Medication Management & Education, Management of Risks & Complications, Management of Skin Intergrity, Nutrition Management, Pain Management, Patient/Family Support, Safety Management Intensity of Therapy to be met Patient to be seen: Min.3h per day/5 of 7d PT IPOC Problem List: Activity Tolerance, Functional Strength, Safety, Balance, Gait, Transfer, ROM Treatment Plan: Continue Plan of Care Bed Mobility, Concurrent Therapy, Education, Functional Activity Anali, Functional Strength, Group Therapy, Gait, Safety, Therapeutic Exercise, Transfers Treatment Duration: Feb 01, 2022 Frequency: At least 5 of 7 days/Wk (IRF) Estimated Hrs Per Day: 1.5 hours per day OT IPOC Problems: Decreased Activ Tolerance, Decreased UE Strength, Impaired Funct Balance, Impaired I ADL's, Impaired Self-Care Skills OT Treatment, Training and Edu: Yes Plan of Care: ADL Retraining, Functional Mobility, Group Exercise/Act as Ind, UE Funct Exercise/Act Treatment Duration: Jan 28, 2022 Frequency: At least 5 of 7 days/Wk (IRF) Estimated Hrs Per Day: 1.[address] IPOC Speech Therapy Treatment Plan: Discontinue ST Treatment Duration: Jan 04, 2022 Frequency: 1 time per week Estimated Hrs Per Day: .5 hour per day Rn Pediatric/Case Mgmt Rn Pediatric/Case Managemen: Discharge Planning Dietitian/Grinder Dietitian/Grinder to monitor nutritional status and make changes and/or recommendations as needed and work with speech pathology on dietary upgrades as the occur. Physician IPOC Medical Issues being managed closely and that require the 24 hour availability of a physician: Recent fall with right thigh contusion with Coumadin for valvular heart disease which tends to be supratherapeutic will need close monitoring for adjustment of medication decrease bleeding risk Medical Issues: Bowel/Bladder Function, DVT Prophylaxis, Falls Precautions, Fluid/Electrolyte/Nutrition Balance, Infection Protection, Pain Management Brief Synthesis of Preadmission Screen, Post-Admission Evaluation, and Therapy Evaluations: PT and OT will focus on use of assistive devices to offload the right thigh and increase independence in ADLs Medical Prognosis: Good Anticipated Length of Stay: 7 days CLAUDETTE MAHAN DO Jan 05, 2022 07:16
[2022-01-05 07:57] VITALS: BP 142/62
--- NOTE | 2022-01-05 08:32 | Occupational Ther Daily Note ---
OT Current Status-Daily Note Subjective Pt agreeable to OT Tx with a little encouragement. Pt states he is tired and hurt his leg a little bit last night when he was trying to get out of bed. Mental Status/Objective Patient Orientation: Person, Place, Time, Situation ADL-Treatment Therapy Code Descriptions/Definitions Functional [place] Measure: 0=Not Assessed/NA 4=Minimal Assistance 1=Total Assistance 5=Supervision or Setup 2=Maximal Assistance 6=Modified [place] 3=Moderate Assistance 7=Complete IndependenceSCALE: Activities may be completed with or without assistive devices. 7-Naqjhsnhvc-cukudyn completes the activity by him/herself with no assistance from a helper. 5-Set-up or Clean-up Assistance-helper sets up or cleans up; patient completes activity. [place] assists only prior to or following the activity. 4-Supervision or Touching Assistance-helper provides verbal cues and/or touching/steadying and/or contact guard assistance as patient completes activity. Assistance may be provided throughout the activity or intermittently. 3-Partial/Moderate Assistance-helper does LESS THAN HALF the effort. [place] lifts, holds or supports trunk or limbs, but provides less than half the effort. 2-Substantial/Maximal Assistance-helper does MORE THAN HALF the effort. [place] lifts or holds trunk or limbs and provides more than half the effort. 7-Typjiafan-rhfiak does ALL the effort. Patient does none of the effort to complete the activity. Or, the assistance of 2 or more helpers is required for the patient to complete the activity. If activity was not attempted, code reason: 7-Patient Refused. 9-Not Applicable-not attempted and the patient did not perform the activity before the current illness, exacerbation or injury. 10-Not Attempted due to Environmental Limitations-(lack of equipment, weather restraints, etc.). 88-Not Attempted due to Medical Conditions or Safety Concerns. Oral Hygiene (QC): 4 (SBA) Upper Body Dressing (QC): 3 (Min A down trunk due to shirt twisting) Lower Body Dressing (QC): 3 (Min A threading RLE due to pain) Toileting Hygiene (QC): 4 (SBA standing at toilet to urinate.) Other Treatment Pt in bed, agreeable to OT Tx with a little encouragement. Pt transferred supine to sit EOB, min A with RLE. Pt sat EOB to don clothes, then used FWW to go into bathroom, CGA. Pt stood at sink, completed oral care with SBA, then stood at toilet to urinate SBA. Pt used FWW to perofrm functional mobility into therapy gym. OT Tx focused on increasing BUE strenght and activity tolerance, and increasing fine motor strength and coordination. Pt completed x15 mins on arm bike, 20 Watt resistance, 2 rest breaks. Pt removed beads from moderate resistance theraputty, able to locate all beads without cues. Pt placed/removed 1" pegs from foam pegboard, 1lb wrist weights BUE, alternating hands. Pt able to answer questions about history throughout task, requiring minimal cues to continue with task as he answered questions. Post tx, pt seated in chair in therapy gym, all needs met. PT present for continued tx. Education OT Patient Education: Correct positioning, Energy conservation, Exercise program, Modified ADL techniques, Progress toward Goal/Update tx plan, Purpose of tx/functional activities, Rehab process Teaching Recipient: Patient Teaching Methods: Discussion Response to Teaching: Verbalize Understanding OT Short Term Goals Short Term Goals Time Frame: Jan 12, 2022 Shower/bathe self: 5 Lower body dressin Putting on/taking off footwear: 5 OT Vulcanizer Goals Usp Goals Time Frame: Jan 28, 2022 Eating (QC): 6 Oral Hygiene (QC): 6 Toileting Hygiene (QC): 6 Shower/Bathe Self (QC): 6 Upper Body Dressing (QC): 6 Lower Body Dressing (QC): 6 On/Off Footwear (QC): 6 Additional Goals: 1-Demonstrate ADL Tasks, 2-Verbalize Understanding, 3- ImproveStrength/Anali 1=Demonstrate adherence to instructed precautions during ADL tasks. 2=Patient will verbalize/demonstrate understanding of assistive devices/modifications for ADL. 3=Patient will improve strength/tolerance for activity to enable patient to perform ADL's. OT Education/Plan Problem List/Assessment Assessment: Decreased Activ Tolerance, Decreased UE Strength, Impaired Bed Mobility, Impaired Coordination, Impaired Funct Balance, Impaired I ADL's, Impaired Self-Care Skills Discharge Recommendations Plan/Recommendations: Continue POC Treatment Plan/Plan of Care Patient would benefit from OT for education, treatment and training to promote independence in ADL's, mobility, safety and/or upper extremity function for ADL's. Plan of Care: ADL Retraining, Functional Mobility, Group Exercise/Act as Ind, UE Funct Exercise/Act Treatment Duration: Jan 28, 2022 Frequency: At least 5 of 7 days/Wk (IRF) Estimated Hrs Per Day: 1.5 hours per day Agreement: Yes Rehab Potential: Good Time/GCodes Start Time: 08:00 Stop Time: 09:30 Total Time Billed (hr/min): 90 Billed Treatment Time 1, ADL 2 (30'), EX (15'), FA 3 (45') GO MURRELL OT Jan 05, 2022 08:32
[2022-01-05] MEDS: ASPIRIN E.C. 81 MG (ECOTRIN) TAB PO SCH (08:55)
[2022-01-05] MEDS: DOCUSATE SODIUM 100 MG (COLACE) CAP PO SCH (08:55)
[2022-01-05] MEDS: meTOprolol TARTRATE 25 MG (LOPRESSOR) TABLET PO SCH ×2 (08:55→20:28)
[2022-01-05] MEDS: metFORMIN XR 500 MG (GLUCOPHAGE XR) TAB PO SCH (08:55)
[2022-01-05] MEDS: GLIMEPIRIDE 2 MG (AMARYL) TAB PO SCH (09:04)
[2022-01-05] MEDS: SENNA W/DOCUSATE (SENOKOT S) TABLET PO SCH ×2 (09:15→20:32)
[2022-01-05] MEDS: polyethylene glycoL POWDER 17 GM (MIRALAX) PACK PO SCH ×2 (09:15→19:39)
--- NOTE | 2022-01-05 09:24 | Speech Therapy Progress Note ---
Therapy Progress Note The clinician discussed the patient's current diet consistency with the assigned RN, as the patient was previously receiving a dysphagia three consistency diet on the acute medical floor and is currently receiving a regular diet consistency on the acute rehabilitation unit. The patient was placed on the dysphagia three diet consistency by his physician, Dr. He. Per patient, he received the dysphagia three consistency diet due to difficulties with mastication. The RN stated the patient received a regular diet consistency the day prior and with her aid to cut the items into small, bite size pieces, the patient consumed the diet consistency without difficulties or s/s of suspected aspiration. As the patient is cognitively intact and aware of his own mastication difficulties (the patient requested the softer diet consistency on the acute medical floor), the clinician recommends the current diet consistency continue. If the patient experiences mastication difficulties, a downgrade of the diet consistency to a dysphagia three would be appropriate. The regular consistency remains appropriate with the following recommendations: - Upright and alert for all PO intake. - Meal set up assistance (small bites and sips). - Present food and liquid to the strong left side (previously discussed with the patient). - Monitor for s/s of suspected aspiration with PO intake. If demonstrated, please contact speech pathology. If swallowing concerns arise, please contact speech pathology for a formal clinical bedside swallowing evaluation. GALINA BARKER Jan 05, 2022 09:24
--- NOTE | 2022-01-05 11:59 | Physical Therapy Daily Note ---
PT Daily Note-Current Subjective Pt sitting in Therapy Gym after just finishing w/OT upon arrival. Pt agrees to PT. Pain Numeric Pain Scale: 10-Worst Possible Pain Location: Right, Upper Location Body Site: Thigh Pain Description: Sharp Comment: Pt reports pain in hip & upper thigh. Mental Status Patient Orientation: Person, Place, Time, Situation Transfers SCALE: Activities may be completed with or without assistive devices. 1-Rbqxywyxyh-ytbwdkc completes the activity by him/herself with no assistance from a helper. 5-Set-up or Clean-up Assistance-helper sets up or cleans up; patient completes activity. [place] assists only prior to or following the activity. 4-Supervision or Touching Assistance-helper provides verbal cues and/or touching/steadying and/or contact guard assistance as patient completes activity. Assistance may be provided throughout the activity or intermittently. 3-Partial/Moderate Assistance-helper does LESS THAN HALF the effort. [place] lifts, holds or supports trunk or limbs, but provides less than half the effort. 2-Substantial/Maximal Assistance-helper does MORE THAN HALF the effort. [place] lifts or holds trunk or limbs and provides more than half the effort. 7-Fltakhfqo-ssdgpk does ALL the effort. Patient does none of the effort to complete the activity. Or, the assistance of 2 or more helpers is required for the patient to complete the activity. If activity was not attempted, code reason: 7-Patient Refused. 9-Not Applicable-not attempted and the patient did not perform the activity before the current illness, exacerbation or injury. 10-Not Attempted due to Environmental Limitations-(lack of equipment, weather restraints, etc.). 88-Not Attempted due to Medical Conditions or Safety Concerns. Sit to Stand (QC): 4 Weight Bearing Right Lower Extremity: Right Full Weight Bearing Left Lower Extremity: Left Full Weight Bearing Gait Training Does the Patient Walk?: Yes Distance: 5' Gait Persons Needed: 1 Gait Assistive Device: FWW Pain with standing and amb. Nurse is aware and pain med & ice applied. Exercises Seated Therapy Exercises: Ankle pumps, Long arc quads, Hip flexion, Hip abd/add, Glut set Seated Reps: 10 (2 sets of 10 reps per leg w/frequent RB for pain and frequent) Treatments Pt attempts to stand from chair and demonstrates difficulty bringing R LE underneath and standing on R LE. Pt attempts to use NuStep but when CHAR PULLER attempts to position pt to comfort, pt demonstrates sharp increase in pain so discontinued use of NuStep. Pt returned to chair and completed Seated EX with several RB due to pain and fatigue. CHAR PULLER suggested possible Supine EX but pt declines as pt reports extreme difficulty and pain getting into laying position. Pt attempts to stand to walk back to room and reports sharp increase in pain and asks for WCH. Pt propels WCH back to room then TF back to recliner. CHAR PULLER assists pt with repositioning to comfort and applying ice to aid with swelling in upper thigh and hip. All needs met, all light in hand. Nurse notified of how session went today and pt had received additional pain med during tx. Assessment Current Status: Fair Progress Pt's pain and fatigue limit participation in tx today. PT Clinical Supervisor Goals Senior Living Goals PT Senior Living Goals Time Frame: Feb 01, 2022 Roll Left & Right (QC): 6 Sit to Lying (QC): 6 Lying-Sitting on Side/Bed(QC): 6 Sit to Stand (QC): 6 Chair/Nbr-vi-Bvqqy Xfer(QC): 6 Toilet Transfer (QC): 6 Car Transfer (QC): 6 Does the Patient Walk: Yes Walk 10 feet (QC): 6 Walk 50ft with 2 Turns (QC): 6 Walk 150 ft (QC): 6 Walking 10ft on Uneven Surface: 6 1 Step (curb) (QC): 6 4 Steps (QC): 6 12 Steps (QC): 6 Picking up an Object (QC): 6 Does the Pt use WC or Scooter?: No Wheel 50 feet with 2 turns (QC: 09 Type: N/A Wheel 150 feet: 09 Type: N/A PT Plan Problem List Problem List: Activity Tolerance, Functional Strength, Gait, Transfer Treatment/Plan Treatment Plan: Continue Plan of Care Treatment Plan: Bed Mobility, Concurrent Therapy, Education, Functional Activity Anali, Functional Strength, Group Therapy, Gait, Safety, Therapeutic Exercise, Transfers Treatment Duration: Feb 01, 2022 Frequency: At least 5 of 7 days/Wk (IRF) Estimated Hrs Per Day: 1.5 hours per day Patient and/or Family Agrees t: Yes Safety Risks/Education Patient Education: Transfer Techniques, Correct Positioning, Safety Issues Teaching Recipient: Patient Teaching Methods: Discussion Response to Teaching: Verbalize Understanding Time/GCodes Time In: 930 Time Out: 1100 Total Billed Treatment Time: 90 Total Billed Treatment 1, EX x3 (50m) & FA x3 (40m) MOLLY WOOD CHAR PULLER Jan 05, 2022 11:59
[2022-01-05] MEDS: warFARin 3 MG (COUMADIN) TAB PO SCH (18:17)
[2022-01-05 20:24] VITALS: BP 139/58
[2022-01-06 05:37] LABS: INR 2.6 (0.8-1.4)
[2022-01-06] MEDS: PANTOPRAZOLE 40 MG (PROTONIX) TAB PO SCH (06:37)
--- NOTE | 2022-01-06 07:24 | PM&R Progress Note ---
Subjective HPI/CC On Admission Date Seen by Provider: Jan 06, 2022 Time Seen by Provider: 12:15 Subjective/Events-last exam 01/06/2022: Patient doing a lot better Right thigh much improved Clarified dosing of Coumadin to keep INR 3.53.8 so we will restart this 7 mg Participating in therapy Checked meds and labs 01/05/2022: Pt is doing a lot better Diet was changed to accommodate Incontinence x 1 and tried to crawl out of bed last night Right thigh really hurts so I will have Dr. Vega evaluate Oxycodone will be given for pain Review of Systems General: Fatigue, Malaise Musculoskeletal: leg pain Objective Exam Vital Signs Vital Signs Date Time Temp Pulse Resp B/P (MAP) Pulse Ox O2 Delivery O2 Flow Rate FiO2 01/06/22 21:15 96 Room Air 01/06/22 19:50 36.4 80 16 113/63 (80) Capillary Refill : General Appearance: No Apparent Distress, WD/WN, Chronically ill, Thin HEENT: PERRL/EOMI, Normal ENT Inspection, Pharynx Normal Neck: Full Range of Motion, Normal Inspection, Non Tender, Supple, Carotid Bruit Respiratory: Chest Non Tender, Lungs Clear, Normal Breath Sounds, No Accessory Muscle Use, No Respiratory Distress Cardiovascular: Regular Rate, Rhythm, No Edema, No Gallop, No JVD, Normal Peripheral Pulses, Systolic Murmur Gastrointestinal: Normal Bowel Sounds, No Organomegaly, No Pulsatile Mass, Non Tender, Soft Back: Normal Inspection, No CVA Tenderness, No Vertebral Tenderness Extremity: Normal Capillary Refill, Normal Inspection, Normal Range of Motion, Non Tender, No Calf Tenderness, No Pedal Edema Neurologic/Psychiatric: Alert, Oriented x3, international affairs vice president II-XII Norm as Tested, Abnormal Gait, Aphasia (Partial), Depressed Affect, Motor Weakness (Generalized) Skin: Normal Color, Warm/Dry Lymphatic: No Adenopathy Results/Procedures Lab Patient resulted labs reviewed. FIM Transfers Therapy Code Descriptions/Definitions Functional [place] Measure: 0=Not Assessed/NA 4=Minimal Assistance 1=Total Assistance 5=Supervision or Setup 2=Maximal Assistance 6=Modified [place] 3=Moderate Assistance 7=Complete IndependenceSCALE: Activities may be completed with or without assistive devices. 2-Rzmtqnefto-givbybz completes the activity by him/herself with no assistance from a helper. 5-Set-up or Clean-up Assistance-helper sets up or cleans up; patient completes activity. [place] assists only prior to or following the activity. 4-Supervision or Touching Assistance-helper provides verbal cues and/or touching/steadying and/or contact guard assistance as patient completes activity. Assistance may be provided throughout the activity or intermittently. 3-Partial/Moderate Assistance-helper does LESS THAN HALF the effort. [place] lifts, holds or supports trunk or limbs, but provides less than half the effort. 2-Substantial/Maximal Assistance-helper does MORE THAN HALF the effort. [place] lifts or holds trunk or limbs and provides more than half the effort. 9-Oomnhurue-smokfn does ALL the effort. Patient does none of the effort to c omplete the activity. Or, the assistance of 2 or more helpers is required for the patient to complete the activity. If activity was not attempted, code reason: 7-Patient Refused. 9-Not Applicable-not attempted and the patient did not perform the activity before the current illness, exacerbation or injury. 10-Not Attempted due to Environmental Limitations-(lack of equipment, weather restraints, etc.). 88-Not Attempted due to Medical Conditions or Safety Concerns. Roll Left to Right (QC): 6 Sit to Lying (QC): 6 Sit to Stand (QC): 4 Chair/Hka-yg-Xlelw Xfer(QC): 4 Car Transfer (QC): 4 Gait Training Does the Patient Walk?: Yes Distance: 5' Walk 10 feet (QC): 4 Walk 50 ft with 2 Turns(QC): 4 Walk 150 ft (QC): 4 Walking 10ft/uneven surface-QC: 4 Gait Persons Needed: 1 Gait Assistive Device: FWW Wheelchair Training Does the Pt Use a Wheelchair?: No Wheel 50 ft with 2 turns (QC): 09 Wheel 150 ft (QC): 09 Stair Training #of Steps: 12 1 Step (curb) (QC): 3 4 Steps (QC): 3 12 Steps (QC): 3 Balance Picking up an Object (QC): 2 ADL-Treatment Eating (QC): 5 (set up per pt report.) Oral Hygiene (QC): 4 (SBA) Shower/Bathe Self (QC): 4 (SBA. Pt able to wash/dry all parts.) Upper Body Dressing (QC): 3 (Min A down trunk due to shirt twisting) Lower Body Dressing (QC): 3 (Min A threading RLE due to pain) On/Off Footwear (QC): 4 (SBA, pt able to doff/don bilateral gripper socks.) Toileting Hygiene (QC): 4 (SBA standing at toilet to urinate.) Assessment/Plan Assessment and Plan Assess & Plan/Chief Complaint Assessment: Debility from right thigh contusion Coagulopathy from warfarin supratherapeutic Valvular heart disease status post aortic valve replacement Prior CVA Dysarthria Hypertension Hyperlipidemia Diabetes Constipation Fall risk Plan: Monitor INR Rehab protocol Checked meds and labs Resolve constipation 01/05/2022: Monitor INR Dr. 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
[2022-01-06 07:36] VITALS: BP 122/58
--- NOTE | 2022-01-06 08:36 | Occupational Ther Daily Note ---
OT Current Status-Daily Note Subjective Pt in bed finishing breakfast. Rates pain 8-9/10 in R hip when he is getting up, 0 at rest. Mental Status/Objective Patient Orientation: Person, Place, Time, Situation ADL-Treatment Therapy Code Descriptions/Definitions Functional [place] Measure: 0=Not Assessed/NA 4=Minimal Assistance 1=Total Assistance 5=Supervision or Setup 2=Maximal Assistance 6=Modified [place] 3=Moderate Assistance 7=Complete IndependenceSCALE: Activities may be completed with or without assistive devices. 2-Svpgowngcg-hgiwzvz completes the activity by him/herself with no assistance from a helper. 5-Set-up or Clean-up Assistance-helper sets up or cleans up; patient completes activity. [place] assists only prior to or following the activity. 4-Supervision or Touching Assistance-helper provides verbal cues and/or touching/steadying and/or contact guard assistance as patient completes activity. Assistance may be provided throughout the activity or intermittently. 3-Partial/Moderate Assistance-helper does LESS THAN HALF the effort. [place] lifts, holds or supports trunk or limbs, but provides less than half the effort. 2-Substantial/Maximal Assistance-helper does MORE THAN HALF the effort. [place] lifts or holds trunk or limbs and provides more than half the effort. 0-Bvmxmwcvl-qsjuao does ALL the effort. Patient does none of the effort to complete the activity. Or, the assistance of 2 or more helpers is required for the patient to complete the activity. If activity was not attempted, code reason: 7-Patient Refused. 9-Not Applicable-not attempted and the patient did not perform the activity before the current illness, exacerbation or injury. 10-Not Attempted due to Environmental Limitations-(lack of equipment, weather restraints, etc.). 88-Not Attempted due to Medical Conditions or Safety Concerns. Eating (QC): 6 (IND with breakfast) Upper Body Dressing (QC): 5 (set up with button up shirt.) Lower Body Dressing (QC): 4 (SBA, pt required cues to sit down to thread LEs into pants for safety.) Other Treatment Pt in bed, agreeable to OT tx. Pt finished breakfast, then transferred supine to sit EOB. Pt donned clothes, requiring minimal safety cues in order to sit down while threading LEs into pants. Pt then used FWW to perform functional mobility into therapy gym, SBA. OT Tx focused on increasing BUE strength and activity tolerance, and increasing fine motor strength and coordination. Pt completed x15 mins on arm bike, 20 Watt resistance, 2 rest breaks. Pt then removed beads from moderate resistance theraputty, able to locate all beads without cues. Post tx, pt seated in chair in therapy gym, all needs met. PT present for tx. Education OT Patient Education: Correct positioning, Modified ADL techniques, Progress toward Goal/Update tx plan, Purpose of tx/functional activities, Rehab process Teaching Recipient: Patient Teaching Methods: Discussion Response to Teaching: Verbalize Understanding OT Short Term Goals Short Term Goals Time Frame: Jan 12, 2022 Shower/bathe self: 5 Lower body dressin Putting on/taking off footwear: 5 OT Group Home Goals Finance Associate Goals Time Frame: Jan 28, 2022 Eating (QC): 6 Oral Hygiene (QC): 6 Toileting Hygiene (QC): 6 Shower/Bathe Self (QC): 6 Upper Body Dressing (QC): 6 Lower Body Dressing (QC): 6 On/Off Footwear (QC): 6 Additional Goals: 1-Demonstrate ADL Tasks, 2-Verbalize Understanding, 3- ImproveStrength/Anali 1=Demonstrate adherence to instructed precautions during ADL tasks. 2=Patient will verbalize/demonstrate understanding of assistive devices/modifications for ADL. 3=Patient will improve strength/tolerance for activity to enable patient to perform ADL's. OT Education/Plan Problem List/Assessment Assessment: Decreased Activ Tolerance, Decreased Safety Aware, Decreased UE Strength, Impaired Funct Balance, Impaired I ADL's, Impaired Self-Care Skills Discharge Recommendations Plan/Recommendations: Continue POC Treatment Plan/Plan of Care Patient would benefit from OT for education, treatment and training to promote independence in ADL's, mobility, safety and/or upper extremity function for ADL's. Plan of Care: ADL Retraining, Functional Mobility, Group Exercise/Act as Ind, UE Funct Exercise/Act Treatment Duration: Jan 28, 2022 Frequency: At least 5 of 7 days/Wk (IRF) Estimated Hrs Per Day: 1.5 hours per day Agreement: Yes Rehab Potential: Good Time/GCodes Start Time: 08:00 Stop Time: 09:00 Total Time Billed (hr/min): 60 Billed Treatment Time 1, ADL 2 (30'), EX (15'), FA (15') GO MURRELL OT Jan 06, 2022 08:36
[2022-01-06] MEDS: SENNA W/DOCUSATE (SENOKOT S) TABLET PO SCH ×2 (08:39→20:52)
[2022-01-06] MEDS: polyethylene glycoL POWDER 17 GM (MIRALAX) PACK PO SCH ×2 (08:39→20:52)
[2022-01-06] MEDS: DOCUSATE SODIUM 100 MG (COLACE) CAP PO SCH (08:39)
[2022-01-06] MEDS: GLIMEPIRIDE 2 MG (AMARYL) TAB PO SCH (08:39)
[2022-01-06] MEDS: ASPIRIN E.C. 81 MG (ECOTRIN) TAB PO SCH (08:39)
[2022-01-06] MEDS: meTOprolol TARTRATE 25 MG (LOPRESSOR) TABLET PO SCH ×2 (08:39→20:52)
[2022-01-06] MEDS: metFORMIN XR 500 MG (GLUCOPHAGE XR) TAB PO SCH (08:39)
--- NOTE | 2022-01-06 10:59 | Physical Therapy Daily Note ---
PT Daily Note-Current Subjective Pt sitting in Therapy Gym after just finishing with OT. Pt agrees to PT. Pain Numeric Pain Scale: 5-Moderate Pain Location: Right Location Body Site: Hip Pain Description: [place] Comment: Reports increased pain w/movement Mental Status Patient Orientation: Person, Place, Time, Situation, [place] Transfers SCALE: Activities may be completed with or without assistive devices. 5-Hjtfnjqrzz-vlfrohw completes the activity by him/herself with no assistance from a helper. 5-Set-up or Clean-up Assistance-helper sets up or cleans up; patient completes activity. [place] assists only prior to or following the activity. 4-Supervision or Touching Assistance-helper provides verbal cues and/or touching/steadying and/or contact guard assistance as patient completes activity. Assistance may be provided throughout the activity or intermittently. 3-Partial/Moderate Assistance-helper does LESS THAN HALF the effort. [place] lifts, holds or supports trunk or limbs, but provides less than half the effort. 2-Substantial/Maximal Assistance-helper does MORE THAN HALF the effort. [place] lifts or holds trunk or limbs and provides more than half the effort. 1-Ctzhloczn-pxxvaj does ALL the effort. Patient does none of the effort to complete the activity. Or, the assistance of 2 or more helpers is required for the patient to complete the activity. If activity was not attempted, code reason: 7-Patient Refused. 9-Not Applicable-not attempted and the patient did not perform the activity before the current illness, exacerbation or injury. 10-Not Attempted due to Environmental Limitations-(lack of equipment, weather restraints, etc.). 88-Not Attempted due to Medical Conditions or Safety Concerns. Sit to Stand (QC): 5 Weight Bearing Right Lower Extremity: Right Full Weight Bearing Left Lower Extremity: Left Full Weight Bearing Gait Training Does the Patient Walk?: Yes Distance: 500', 175' Walk 10 feet (QC): 5 Walk 50 ft with 2 Turns(QC): 5 Walk 150 ft (QC): 5 Gait Assistive Device: FWW Stair Training Stair Training: Handrails/: 1 handrail #of Steps: 4 1 Step (curb) (QC): 5 4 Steps (QC): 5 Stairs: Pattern: Step to Exercises Seated Therapy Exercises: Ankle pumps, Long arc quads, Hip flexion, Hip abd/add, Glut set Seated Reps: 15 Treatments Pt completes Seated EX then stands and amb. in hallway. Pt takes short standing RB ~ half way through amb. Pt returns to Therapy Gym and completes 1 set of 4 steps. SENIOR MARKETING DATA ANALYST issues written HEP for Supine & Seated EX. After short RB, Pt again amb. in hallway before returning to room. Pt declines need for BR and rests in recliner. All needs met, call light in hand. Assessment Current Status: Good Progress Pt reports pain with movement although pt moves much more pain free today, decrease need for assistance. Pt's activity tolerance is also improved. PT Interventional Radiology Rn Goals Shelter Goals PT Interventional Radiology Rn Goals Time Frame: Feb 01, 2022 Roll Left & Right (QC): 6 Sit to Lying (QC): 6 Lying-Sitting on Side/Bed(QC): 6 Sit to Stand (QC): 6 Chair/Cgl-tn-Vulmt Xfer(QC): 6 Toilet Transfer (QC): 6 Car Transfer (QC): 6 Does the Patient Walk: Yes Walk 10 feet (QC): 6 Walk 50ft with 2 Turns (QC): 6 Walk 150 ft (QC): 6 Walking 10ft on Uneven Surface: 6 1 Step (curb) (QC): 6 4 Steps (QC): 6 12 Steps (QC): 6 Picking up an Object (QC): 6 Does the Pt use WC or Scooter?: No Wheel 50 feet with 2 turns (QC: 09 Type: N/A Wheel 150 feet: 09 Type: N/A PT Plan Problem List Problem List: Activity Tolerance Treatment/Plan Treatment Plan: Continue Plan of Care Treatment Plan: Bed Mobility, Concurrent Therapy, Education, Functional Activity Anali, Functional Strength, Group Therapy, Gait, Safety, Therapeutic Exercise, Transfers Treatment Duration: Feb 01, 2022 Frequency: At least 5 of 7 days/Wk (IRF) Estimated Hrs Per Day: 1.5 hours per day Patient and/or Family Agrees t: Yes Safety Risks/Education Patient Education: Gait Training, Steps, Issued Written HEP, Correct Positioning, Safety Issues Teaching Recipient: Patient Teaching Methods: Discussion Response to Teaching: Verbalize Understanding Time/GCodes Time In: 900 Time Out: 1000 Total Billed Treatment Time: 60 Total Billed Treatment 1, EX x2 (25m), FA (15m) & GT (20m) MOLLY WOOD SENIOR MARKETING DATA ANALYST Jan 06, 2022 10:59
--- NOTE | 2022-01-06 13:11 | Occupational Ther Daily Note ---
OT Current Status-Daily Note Subjective Pt in recliner, agreeable to OT Tx Mental Status/Objective Patient Orientation: M[place], Normal For Age ADL-Treatment Therapy Code Descriptions/Definitions Functional [place] Measure: 0=Not Assessed/NA 4=Minimal Assistance 1=Total Assistance 5=Supervision or Setup 2=Maximal Assistance 6=Modified [place] 3=Moderate Assistance 7=Complete IndependenceSCALE: Activities may be completed with or without assistive devices. 0-Wiwlvowwjj-vaulfrj completes the activity by him/herself with no assistance from a helper. 5-Set-up or Clean-up Assistance-helper sets up or cleans up; patient completes activity. [place] assists only prior to or following the activity. 4-Supervision or Touching Assistance-helper provides verbal cues and/or touching/steadying and/or contact guard assistance as patient completes activity. Assistance may be provided throughout the activity or intermittently. 3-Partial/Moderate Assistance-helper does LESS THAN HALF the effort. [place] lifts, holds or supports trunk or limbs, but provides less than half the effort. 2-Substantial/Maximal Assistance-helper does MORE THAN HALF the effort. [place] lifts or holds trunk or limbs and provides more than half the effort. 5-Onnjhaohe-bziqye does ALL the effort. Patient does none of the effort to complete the activity. Or, the assistance of 2 or more helpers is required for the patient to complete the activity. If activity was not attempted, code reason: 7-Patient Refused. 9-Not Applicable-not attempted and the patient did not perform the activity before the current illness, exacerbation or injury. 10-Not Attempted due to Environmental Limitations-(lack of equipment, weather restraints, etc.). 88-Not Attempted due to Medical Conditions or Safety Concerns. Other Treatment Pt seated in recliner, used FWW to perform functional mobility to therapy gym with set up assistance. In order to increase fine motor strength and coordination, and to increase activity tolerance, pt completed nut/bolt block, removing nuts/bolts, then placing them back on the block with the bolt on the opposite side of the block. Pt able to complete x8, min verbal cues for correct orientation. Pt has 2 visitors during session, pt had difficulty remaining on task while talking, requiring some redirection. Pt returned to his room using FWW, set up assistance. Post tx, pt in recliner, call light in reach and all needs met. Education OT Patient Education: Correct positioning, Energy conservation, Modified ADL techniques, Progress toward Goal/Update tx plan, Purpose of tx/functional activities, Rehab process Teaching Recipient: Patient Teaching Methods: Discussion Response to Teaching: Verbalize Understanding OT Short Term Goals Short Term Goals Time Frame: Jan 12, 2022 Shower/bathe self: 5 Lower body dressin Putting on/taking off footwear: 5 OT Message Broker Developer Goals Message Broker Developer Goals Time Frame: Jan 28, 2022 Eating (QC): 6 Oral Hygiene (QC): 6 Toileting Hygiene (QC): 6 Shower/Bathe Self (QC): 6 Upper Body Dressing (QC): 6 Lower Body Dressing (QC): 6 On/Off Footwear (QC): 6 Additional Goals: 1-Demonstrate ADL Tasks, 2-Verbalize Understanding, 3- ImproveStrength/Anali 1=Demonstrate adherence to instructed precautions during ADL tasks. 2=Patient will verbalize/demonstrate understanding of assistive device s/modifications for ADL. 3=Patient will improve strength/tolerance for activity to enable patient to perform ADL's. OT Education/Plan Problem List/Assessment Assessment: Decreased Activ Tolerance, Decreased UE Strength, Impaired Coordination, Impaired I ADL's, Impaired Self-Care Skills Discharge Recommendations Plan/Recommendations: Continue POC Treatment Plan/Plan of Care Patient would benefit from OT for education, treatment and training to promote independence in ADL's, mobility, safety and/or upper extremity function for ADL's. Plan of Care: ADL Retraining, Functional Mobility, Group Exercise/Act as Ind, UE Funct Exercise/Act Treatment Duration: Jan 28, 2022 Frequency: At least 5 of 7 days/Wk (IRF) Estimated Hrs Per Day: 1.5 hours per day Agreement: Yes Rehab Potential: Good Time/GCodes Start Time: 13:00 Stop Time: 13:30 Total Time Billed (hr/min): 30 Billed Treatment Time 1, FA 2 GO MURRELL OT Jan 06, 2022 13:11
--- NOTE | 2022-01-06 14:58 | Physical Therapy Daily Note ---
PT Daily Note-Current Subjective Pt sitting in recliner upon arrival. Pt agrees to PT. Mental Status Patient Orientation: Person, Place, Situation Transfers SCALE: Activities may be completed with or without assistive devices. 1-Ndkyvcbsxs-lmxywep completes the activity by him/herself with no assistance from a helper. 5-Set-up or Clean-up Assistance-helper sets up or cleans up; patient completes activity. [place] assists only prior to or following the activity. 4-Supervision or Touching Assistance-helper provides verbal cues and/or touching/steadying and/or contact guard assistance as patient completes activity. Assistance may be provided throughout the activity or intermittently. 3-Partial/Moderate Assistance-helper does LESS THAN HALF the effort. [place] lifts, holds or supports trunk or limbs, but provides less than half the effort. 2-Substantial/Maximal Assistance-helper does MORE THAN HALF the effort. [place] lifts or holds trunk or limbs and provides more than half the effort. 9-Odzazbuto-lyuzdq does ALL the effort. Patient does none of the effort to complete the activity. Or, the assistance of 2 or more helpers is required for the patient to complete the activity. If activity was not attempted, code reason: 7-Patient Refused. 9-Not Applicable-not attempted and the patient did not perform the activity before the current illness, exacerbation or injury. 10-Not Attempted due to Environmental Limitations-(lack of equipment, weather restraints, etc.). 88-Not Attempted due to Medical Conditions or Safety Concerns. Sit to Stand (QC): 5 Weight Bearing Right Lower Extremity: Right Full Weight Bearing Left Lower Extremity: Left Full Weight Bearing Gait Training Does the Patient Walk?: Yes Distance: 250' Walk 10 feet (QC): 5 Walk 50 ft with 2 Turns(QC): 5 Walk 150 ft (QC): 5 Gait Persons Needed: 1 Gait Assistive Device: FWW slow but steady weston, no LOB Exercises Supine Ex: Quad Set, Heel Slides, Hip abd/add Supine Reps: 15 Seated Therapy Exercises: Ankle pumps, Long arc quads, Hip flexion, Hip abd/add, Glut set Seated Reps: 15 Treatments TF to standing, declines need for BR, amb. in hallway before returning to room. Pt sits in recliner and completes Supine & Seated Ex with a couple RB as needed. Pt resting at end of tx, all needs met, call light in hand. Assessment Current Status: Good Progress Pt is improving with independence of transfers and mobility as well as strength. PT Usp Goals Passenger [place] Goals PT Passenger Flagman Goals Time Frame: Feb 01, 2022 Roll Left & Right (QC): 6 Sit to Lying (QC): 6 Lying-Sitting on Side/Bed(QC): 6 Sit to Stand (QC): 6 Chair/Yqs-ko-Pkxwz Xfer(QC): 6 Toilet Transfer (QC): 6 Car Transfer (QC): 6 Does the Patient Walk: Yes Walk 10 feet (QC): 6 Walk 50ft with 2 Turns (QC): 6 Walk 150 ft (QC): 6 Walking 10ft on Uneven Surface: 6 1 Step (curb) (QC): 6 4 Steps (QC): 6 12 Steps (QC): 6 Picking up an Object (QC): 6 Does the Pt use WC or Scooter?: No Wheel 50 feet with 2 turns (QC: 09 Type: N/A Wheel 150 feet: 09 Type: N/A PT Plan Problem List Problem List: Activity Tolerance Treatment/Plan Treatment Plan: Continue Plan of Care Treatment Plan: Bed Mobility, Concurrent Therapy, Education, Functional Activity Anali, Functional Strength, Group Therapy, Gait, Safety, Therapeutic Exercise, Transfers Treatment Duration: Feb 01, 2022 Frequency: At least 5 of 7 days/Wk (IRF) Estimated Hrs Per Day: 1.5 hours per day Patient and/or Family Agrees t: Yes Safety Risks/Education Patient Education: Correct Positioning Teaching Recipient: Patient Teaching Methods: Discussion Response to Teaching: Verbalize Understanding Time/GCodes Time In: 1400 Time Out: 1430 Total Billed Treatment Time: 30 Total Billed Treatment 1, GT (10m) & EX (20m) MOLLY WOOD JACKET CHANGER Jan 06, 2022 14:58
[2022-01-06] MEDS ORDERED: warFARin 4 MG (COUMADIN) TAB PO SCH (18:00)
[2022-01-06] MEDS: warFARin 3 MG (COUMADIN) TAB PO SCH (18:07)
[2022-01-06] MEDS: warFARin 2 MG (COUMADIN) TAB PO SCH (18:52)
[2022-01-06] MEDS: warFARin 5 MG (COUMADIN) TAB PO SCH (18:52)
[2022-01-06 19:50] VITALS: BP 113/63
[2022-01-07 05:54] LABS: INR 2.1 (0.8-1.4); PROTHROMBIN TIME PATIENT 23.9 SEC (12.2-14.7)
[2022-01-07] MEDS: PANTOPRAZOLE 40 MG (PROTONIX) TAB PO SCH (06:23)
--- NOTE | 2022-01-07 06:32 | PM&R Progress Note ---
Subjective HPI/CC On Admission Date Seen by Provider: Jan 07, 2022 Time Seen by Provider: 11:00 Subjective/Events-last exam 01/07/2022: Patient doing well Check meds and labs INR noted covering with Lovenox for bridge Updated patient on the plan Right leg improved 01/06/2022: Patient doing a lot better Right thigh much improved Clarified dosing of Coumadin to keep INR 3.53.8 so we will restart this 7 mg Participating in therapy Checked meds and labs 01/05/2022: Pt is doing a lot better Diet was changed to accommodate Incontinence x 1 and tried to crawl out of bed last night Right thigh really hurts so I will have Dr. Vega evaluate Oxycodone will be given for pain Review of Systems General: Fatigue, Malaise Musculoskeletal: leg pain Objective Exam Vital Signs Vital Signs Date Time Temp Pulse Resp B/P (MAP) Pulse Ox O2 Delivery O2 Flow Rate FiO2 01/07/22 20:30 Room Air 01/07/22 20:00 36.6 75 20 131/61 (84) 95 Capillary Refill : General Appearance: No Apparent Distress, WD/WN, Chronically ill, Thin HEENT: PERRL/EOMI, Normal ENT Inspection, Pharynx Normal Neck: Full Range of Motion, Normal Inspection, Non Tender, Supple, Carotid Bruit Respiratory: Chest Non Tender, Lungs Clear, Normal Breath Sounds, No Accessory Muscle Use, No Respiratory Distress Cardiovascular: Regular Rate, Rhythm, No Edema, No Gallop, No JVD, Normal Peripheral Pulses, Systolic Murmur Gastrointestinal: Normal Bowel Sounds, No Organomegaly, No Pulsatile Mass, Non Tender, Soft Back: Normal Inspection, No CVA Tenderness, No Vertebral Tenderness Extremity: Normal Capillary Refill, Normal Inspection, Normal Range of Motion, Non Tender, No Calf Tenderness, No Pedal Edema Neurologic/Psychiatric: Alert, Oriented x3, senior linux administrator II-XII Norm as Tested, Abnormal Gait, Aphasia (Partial), Depressed Affect, Motor Weakness (Generalized) Skin: Normal Color, Warm/Dry Lymphatic: No Adenopathy Results/Procedures Lab Patient resulted labs reviewed. FIM Transfers Therapy Code Descriptions/Definitions Functional [place] Measure: 0=Not Assessed/NA 4=Minimal Assistance 1=Total Assistance 5=Supervision or Setup 2=Maximal Assistance 6=Modified [place] 3=Moderate Assistance 7=Complete IndependenceSCALE: Activities may be completed with or without assistive devices. 5-Iofgxsnfkd-wsvrnhk completes the activity by him/herself with no assistance from a helper. 5-Set-up or Clean-up Assistance-helper sets up or cleans up; patient completes activity. [place] assists only prior to or following the activity. 4-Supervision or Touching Assistance-helper provides verbal cues and/or touching/steadying and/or contact guard assistance as patient completes activity. Assistance may be provided throughout the activity or intermittently. 3-Partial/Moderate Assistance-helper does LESS THAN HALF the effort. [place] lifts, holds or supports trunk or limbs, but provides less than half the effort. 2-Substantial/Maximal Assistance-helper does MORE THAN HALF the effort. [place] lifts or holds trunk or limbs and provides more than half the effort. 7-Sawzxeplc-qucsfh does ALL the effort. Patient does none of the effort to complete the activity. Or, the assistance of 2 or more helpers is required for the patient to complete the activity. If activity was not attempted, code reason: 7-Patient Refused. 9-Not Applicable-not attempted and the patient did not perform the activity before the current illness, exacerbation or injury. 10-Not Attempted due to Environmental Limitations-(lack of equipment, weather restraints, etc.). 88-Not Attempted due to Medical Conditions or Safety Concerns. Roll Left to Right (QC): 6 Sit to Lying (QC): 6 Sit to Stand (QC): 5 Chair/Whj-pn-Xnytd Xfer(QC): 4 Car Transfer (QC): 4 Gait Training Does the Patient Walk?: Yes Distance: 250' Walk 10 feet (QC): 5 Walk 50 ft with 2 Turns(QC): 5 Walk 150 ft (QC): 5 Walking 10ft/uneven surface-QC: 4 Gait Persons Needed: 1 Gait Assistive Device: FWW Wheelchair Training Does the Pt Use a Wheelchair?: No Wheel 50 ft with 2 turns (QC): 09 Wheel 150 ft (QC): 09 Stair Training Stair Training: Handrails/: 1 handrail #of Steps: 4 1 Step (curb) (QC): 5 4 Steps (QC): 5 12 Steps (QC): 3 Stairs: Pattern: Step to Balance Picking up an Object (QC): 2 ADL-Treatment Eating (QC): 6 (IND with breakfast) Oral Hygiene (QC): 4 (SBA) Shower/Bathe Self (QC): 4 (SBA. Pt able to wash/dry all parts.) Upper Body Dressing (QC): 5 (set up with button up shirt.) Lower Body Dressing (QC): 4 (SBA, pt required cues to sit down to thread LEs into pants for safety.) On/Off Footwear (QC): 4 (SBA, pt able to doff/don bilateral gripper socks.) Toileting Hygiene (QC): 4 (SBA standing at toilet to urinate.) Assessment/Plan Assessment and Plan Assess & Plan/Chief Complaint Assessment: Debility from right thigh contusion Coagulopathy from warfarin supratherapeutic Valvular heart disease status post aortic valve replacement Prior CVA Dysarthria Hypertension Hyperlipidemia Diabetes Constipation Fall risk Plan: Monitor INR Rehab protocol Checked meds and labs Resolve constipation 01/05/2022: Monitor INR Dr. 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
[2022-01-07] MEDS: polyethylene glycoL POWDER 17 GM (MIRALAX) PACK PO SCH ×2 (07:23→19:56)
[2022-01-07 07:41] VITALS: BP 108/52
[2022-01-07] MEDS: DOCUSATE SODIUM 100 MG (COLACE) CAP PO SCH (08:22)
[2022-01-07] MEDS: SENNA W/DOCUSATE (SENOKOT S) TABLET PO SCH ×2 (08:22→21:30)
[2022-01-07] MEDS: meTOprolol TARTRATE 25 MG (LOPRESSOR) TABLET PO SCH ×2 (08:22→21:30)
[2022-01-07] MEDS: metFORMIN XR 500 MG (GLUCOPHAGE XR) TAB PO SCH (08:22)
[2022-01-07] MEDS: ASPIRIN E.C. 81 MG (ECOTRIN) TAB PO SCH (08:22)
[2022-01-07] MEDS: GLIMEPIRIDE 2 MG (AMARYL) TAB PO SCH (08:22)
[2022-01-07] MEDS: ENOXAPARIN 60 MG/0.6 ML (LOVENOX) SYR SC SCH ×2 (08:22→18:17)
--- NOTE | 2022-01-07 09:12 | Occupational Ther Daily Note ---
OT Current Status-Daily Note Subjective Pt in bed, agreeable to OT tx with focus on ADLs. Mental Status/Objective Patient Orientation: Person, Place, Time, Situation, [place] ADL-Treatment Therapy Code Descriptions/Definitions Functional [place] Measure: 0=Not Assessed/NA 4=Minimal Assistance 1=Total Assistance 5=Supervision or Setup 2=Maximal Assistance 6=Modified [place] 3=Moderate Assistance 7=Complete IndependenceSCALE: Activities may be completed with or without assistive devices. 8-Uawqdxjjff-gpamtss completes the activity by him/herself with no assistance from a helper. 5-Set-up or Clean-up Assistance-helper sets up or cleans up; patient completes activity. [place] assists only prior to or following the activity. 4-Supervision or Touching Assistance-helper provides verbal cues and/or touching/steadying and/or contact guard assistance as patient completes activity. Assistance may be provided throughout the activity or intermittently. 3-Partial/Moderate Assistance-helper does LESS THAN HALF the effort. [place] lifts, holds or supports trunk or limbs, but provides less than half the effort. 2-Substantial/Maximal Assistance-helper does MORE THAN HALF the effort. [place] lifts or holds trunk or limbs and provides more than half the effort. 6-Jsdsszjjq-lblypy does ALL the effort. Patient does none of the effort to complete the activity. Or, the assistance of 2 or more helpers is required for the patient to complete the activity. If activity was not attempted, code reason: 7-Patient Refused. 9-Not Applicable-not attempted and the patient did not perform the activity before the current illness, exacerbation or injury. 10-Not Attempted due to Environmental Limitations-(lack of equipment, weather restraints, etc.). 88-Not Attempted due to Medical Conditions or Safety Concerns. Eating (QC): 6 (IND with breakfast) Oral Hygiene (QC): 6 (IND standing at sink) Shower/Bathe Self (QC): 6 (IND) Upper Body Dressing (QC): 6 (IND with button up shirt.) Lower Body Dressing (QC): 4 (Supervision) On/Off Footwear: 5 (set up) Other Treatment Pt in bed, transferred supine to sit EOB, then used FWW to gather clothes from closet. Pt transferred into bathroom and onto ID where he doffed clothes. Pt completed shower, then donned clothes. Pt requests OT to get house shoes out of his bag, instead of the gripper socks he has. OT provided pt with his shoes, he was able to don after set up. Pt required supervision in stand for LE clothing, due to pt doffing pants off of feet in standing, no LOB noted. After getting dressed, pt stood at sink, completed oral care and shaving independently. Pt transferred to recliner. In order to increase BUE Strength and activity tolerance, pt completed BUE exercises with moderate resistance theraband. Pt completed 5/5 exercises. Theraband and HEP left with pt, pt instructed to continue with exercises throughout the weekend, increasing reps as tolerated. Post tx, pt in recliner, call light in reach and all needs met. Chair alarm activated Education OT Patient Education: Correct positioning, Energy conservation, Exercise program, Home exercise program, Modified ADL techniques, Progress toward Goal/Update tx plan, Purpose of tx/functional activities, Rehab process Teaching Recipient: Patient Teaching Methods: Discussion Response to Teaching: Verbalize Understanding OT Short Term Goals Short Term Goals Time Frame: Jan 12, 2022 Shower/bathe self: 5 Lower body dressin Putting on/taking off footwear: 5 OT Erisa Attorney Goals Erisa Attorney Goals Time Frame: Jan 28, 2022 Eating (QC): 6 Oral Hygiene (QC): 6 Toileting Hygiene (QC): 6 Shower/Bathe Self (QC): 6 Upper Body Dressing (QC): 6 Lower Body Dressing (QC): 6 On/Off Footwear (QC): 6 Additional Goals: 1-Demonstrate ADL Tasks, 2-Verbalize Understanding, 3- ImproveStrength/Anali 1=Demonstrate adherence to instructed precautions during ADL tasks. 2=Patient will verbalize/demonstrate understanding of assistive devices/modifications for ADL. 3=Patient will improve strength/tolerance for activity to enable patient to perform ADL's. OT Education/Plan Problem List/Assessment Assessment: Decreased Activ Tolerance, Decreased UE Strength, Impaired Funct Balance, Impaired I ADL's, Impaired Self-Care Skills Discharge Recommendations Plan/Recommendations: Continue POC Treatment Plan/Plan of Care Patient would benefit from OT for education, treatment and training to promote independence in ADL's, mobility, safety and/or upper extremity function for ADL's. Plan of Care: ADL Retraining, Functional Mobility, Group Exercise/Act as Ind, UE Funct Exercise/Act Treatment Duration: Jan 28, 2022 Frequency: At least 5 of 7 days/Wk (IRF) Estimated Hrs Per Day: 1.5 hours per day Agreement: Yes Rehab Potential: Good Time/GCodes Start Time: 08:00 Stop Time: 09:00 Total Time Billed (hr/min): 60 Billed Treatment Time 1, ADL 4 GO MURRELL OT Jan 07, 2022 09:12
--- NOTE | 2022-01-07 10:10 | Physical Therapy Daily Note ---
PT Daily Note-Current Subjective Pt. agreeable to Rx. Shares that he is having some discomfort in R thigh today. Pt. shares that he did have a smidge of residual weakness in his right LE after his CVA yrs ago. Pt. states he really wants to work at getting back to his own home at some point not long after DC. Pain Numeric Pain Scale: 5-Moderate Pain Location: Right Location Body Site: Thigh Pain Description: Ache Mental Status Patient Orientation: Normal For Age difficulty with speech and at times difficult to understand but expresses clear thoughts Transfers SCALE: Activities may be completed with or without assistive devices. 1-Kbxufmfdkl-hffrsef completes the activity by him/herself with no assistance from a helper. 5-Set-up or Clean-up Assistance-helper sets up or cleans up; patient completes activity. [place] assists only prior to or following the activity. 4-Supervision or Touching Assistance-helper provides verbal cues and/or touching/steadying and/or contact guard assistance as patient completes activity. Assistance may be provided throughout the activity or intermittently. 3-Partial/Moderate Assistance-helper does LESS THAN HALF the effort. [place] lifts, holds or supports trunk or limbs, but provides less than half the effort. 2-Substantial/Maximal Assistance-helper does MORE THAN HALF the effort. [place] lifts or holds trunk or limbs and provides more than half the effort. 2-Fdblyijal-jjdctq does ALL the effort. Patient does none of the effort to complete the activity. Or, the assistance of 2 or more helpers is required for the patient to complete the activity. If activity was not attempted, code reason: 7-Patient Refused. 9-Not Applicable-not attempted and the patient did not perform the activity before the current illness, exacerbation or injury. 10-Not Attempted due to Environmental Limitations-(lack of equipment, weather restraints, etc.). 88-Not Attempted due to Medical Conditions or Safety Concerns. Roll Left & Right (QC): 6 Sit to Lying (QC): 6 Lying to Sitting/Side of Bed(Q: 6 Sit to Stand (QC): 6 Chair/Mjl-nu-Cqhtm Xfer(QC): 6 Weight Bearing Right Lower Extremity: Right Full Weight Bearing Left Lower Extremity: Left Full Weight Bearing Gait Training Does the Patient Walk?: Yes Walk 10 feet (QC): 4 Walk 50 ft with 2 Turns(QC): 4 Walk 150 ft (QC): 4 Gait Persons Needed: 1 Gait Assistive Device: FWW Pt. ambulated 160 ft x 2, equal step length , head down, pt. wt bearing fairly heavy on FWW to the point that several times pt. let go of FWW while walking to point or gesture and the walker tipped or veered off path. Pt. seemed to have no awareness of the vulnerability of this. Balance Special Test Comments ZEPEDA tested at 36/56 Exercises Supine Ex: Bridging, Rolling, Short Arc Quads, Scooting, Straight leg raise, Hip abd/add Supine Reps: 20 Seated Therapy Exercises: Ankle pumps, Sit to stand, Long arc quads, Hip flexion, Hip abd/add Seated Reps: 20 Neuromuscular balance challenges per ZEPEDA, see details scanned in chart Assessment Current Status: Good Progress needs reminded of safety issues, pain inhibits strength and coordination RLE . Pt. is safer with FWW at this time PT Snf Goals Snf Goals PT Golf Cart Assembler Goals Time Frame: Feb 01, 2022 Roll Left & Right (QC): 6 Sit to Lying (QC): 6 Lying-Sitting on Side/Bed(QC): 6 Sit to Stand (QC): 6 Chair/Reh-tr-Ojjsz Xfer(QC): 6 Toilet Transfer (QC): 6 Car Transfer (QC): 6 Does the Patient Walk: Yes Walk 10 feet (QC): 6 Walk 50ft with 2 Turns (QC): 6 Walk 150 ft (QC): 6 Walking 10ft on Uneven Surface: 6 1 Step (curb) (QC): 6 4 Steps (QC): 6 12 Steps (QC): 6 Picking up an Object (QC): 6 Does the Pt use WC or Scooter?: No Wheel 50 feet with 2 turns (QC: 09 Type: N/A Wheel 150 feet: 09 Type: N/A PT Plan Treatment/Plan Treatment Plan: Continue Plan of Care Treatment Plan: Bed Mobility, Concurrent Therapy, Education, Functional Activity Anali, Functional Strength, Group Therapy, Gait, Safety, Therapeutic Exercise, Transfers Treatment Duration: Feb 01, 2022 Frequency: At least 5 of 7 days/Wk (IRF) Estimated Hrs Per Day: 1.5 hours per day Patient and/or Family Agrees t: Yes Safety Risks/Education Patient Education: Gait Training, Transfer Techniques, Correct Positioning, Disease Process, Safety Issues Teaching Recipient: Patient Teaching Methods: Demonstration, Discussion Response to Teaching: Verbalize Understanding, Return Demonstration, Reinforc ement Needed Time/GCodes Time In: 900 Time Out: 1000 Total Billed Treatment Time: 60 Total Billed Treatment 1,NM25m,GT15m,EX20m RAMONA HUIZAR TAXATION AGENT Jan 07, 2022 10:10
--- NOTE | 2022-01-07 11:49 | Occupational Ther Daily Note ---
OT Current Status-Daily Note Subjective Pt in recliner, agreeable to OT tx. Mental Status/Objective Patient Orientation: [place], Normal For Age ADL-Treatment Therapy Code Descriptions/Definitions Functional [place] Measure: 0=Not Assessed/NA 4=Minimal Assistance 1=Total Assistance 5=Supervision or Setup 2=Maximal Assistance 6=Modified [place] 3=Moderate Assistance 7=Complete IndependenceSCALE: Activities may be completed with or without assistive devices. 6-Klertddduf-ukzbous completes the activity by him/herself with no assistance from a helper. 5-Set-up or Clean-up Assistance-helper sets up or cleans up; patient completes activity. [place] assists only prior to or following the activity. 4-Supervision or Touching Assistance-helper provides verbal cues and/or touching/steadying and/or contact guard assistance as patient completes activity. Assistance may be provided throughout the activity or intermittently. 3-Partial/Moderate Assistance-helper does LESS THAN HALF the effort. [place] lifts, holds or supports trunk or limbs, but provides less than half the effort. 2-Substantial/Maximal Assistance-helper does MORE THAN HALF the effort. [place] lifts or holds trunk or limbs and provides more than half the effort. 4-Gzlauecxl-rlsvuv does ALL the effort. Patient does none of the effort to complete the activity. Or, the assistance of 2 or more helpers is required for the patient to complete the activity. If activity was not attempted, code reason: 7-Patient Refused. 9-Not Applicable-not attempted and the patient did not perform the activity before the current illness, exacerbation or injury. 10-Not Attempted due to Environmental Limitations-(lack of equipment, weather restraints, etc.). 88-Not Attempted due to Medical Conditions or Safety Concerns. Toileting Hygiene (QC): 6 Other Treatment Pt in recliner, agreeable to OT Tx. Pt denied need to toilet at this time, used FWW to perform functional mobility to therapy gym with set up assistance. OT tx focused on increasing activity tolerance and fine motor coordination. Pt compl eted x6 nut/bolts on block, then requests to use bathroom. Pt returned to his room, stood at toilet to urinate independently, then washed hands at sink. Pt returned to therapy gym using FWW, completing x6 more nuts/bolts. Pt returned to his room, transferring to recliner. Post tx, pt in recliner, call light in reach and all needs met, chair alarm activated. Education OT Patient Education: Correct positioning, Modified ADL techniques, Progress toward Goal/Update tx plan, Purpose of tx/functional activities, Rehab process Teaching Recipient: Patient Teaching Methods: Discussion Response to Teaching: Verbalize Understanding OT Short Term Goals Short Term Goals Time Frame: Jan 12, 2022 Shower/bathe self: 5 Lower body dressin Putting on/taking off footwear: 5 OT Chcf Goals Chcf Goals Time Frame: Jan 28, 2022 Eating (QC): 6 Oral Hygiene (QC): 6 Toileting Hygiene (QC): 6 Shower/Bathe Self (QC): 6 Upper Body Dressing (QC): 6 Lower Body Dressing (QC): 6 On/Off Footwear (QC): 6 Additional Goals: 1-Demonstrate ADL Tasks, 2-Verbalize Understanding, 3- ImproveStrength/Anali 1=Demonstrate adherence to instructed precautions during ADL tasks. 2=Patient will verbalize/demonstrate understanding of assistive devices/ modifications for ADL. 3=Patient will improve strength/tolerance for activity to enable patient to perform ADL's. OT Education/Plan Problem List/Assessment Assessment: Decreased Activ Tolerance, Decreased UE Strength, Impaired I ADL's Discharge Recommendations Plan/Recommendations: Continue POC Treatment Plan/Plan of Care Patient would benefit from OT for education, treatment and training to promote independence in ADL's, mobility, safety and/or upper extremity function for ADL's. Plan of Care: ADL Retraining, Functional Mobility, Group Exercise/Act as Ind, UE Funct Exercise/Act Treatment Duration: Jan 28, 2022 Frequency: At least 5 of 7 days/Wk (IRF) Estimated Hrs Per Day: 1.5 hours per day Agreement: Yes Rehab Potential: Good Time/GCodes Start Time: 11:20 Stop Time: 11:50 Total Time Billed (hr/min): 30 Billed Treatment Time 1, ADL (10'), FA (20') GO MURRELL OT Jan 07, 2022 11:49
--- NOTE | 2022-01-07 14:01 | Physical Therapy Daily Note ---
PT Daily Note-Current Subjective Pts daughter present and shares some details of his home and his DC plans. Pain Numeric Pain Scale: 4 Location: Right Location Body Site: Hip (thigh) Pain Description: Pressure Mental Status Patient Orientation: Normal For Age Transfers SCALE: Activities may be completed with or without assistive devices. 7-Xrchhphysi-uhepmxi completes the activity by him/herself with no assistance from a helper. 5-Set-up or Clean-up Assistance-helper sets up or cleans up; patient completes activity. [place] assists only prior to or following the activity. 4-Supervision or Touching Assistance-helper provides verbal cues and/or touching/steadying and/or contact guard assistance as patient completes activity. Assistance may be provided throughout the activity or intermittently. 3-Partial/Moderate Assistance-helper does LESS THAN HALF the effort. [place] lifts, holds or supports trunk or limbs, but provides less than half the effort. 2-Substantial/Maximal Assistance-helper does MORE THAN HALF the effort. [place] lifts or holds trunk or limbs and provides more than half the effort. 1-Uzwcgskkx-peoali does ALL the effort. Patient does none of the effort to complete the activity. Or, the assistance of 2 or more helpers is required for the patient to complete the activity. If activity was not attempted, code reason: 7-Patient Refused. 9-Not Applicable-not attempted and the patient did not perform the activity before the current illness, exacerbation or injury. 10-Not Attempted due to Environmental Limitations-(lack of equipment, weather restraints, etc.). 88-Not Attempted due to Medical Conditions or Safety Concerns. all TRFs SBA to CGA Weight Bearing Right Lower Extremity: Right Full Weight Bearing Left Lower Extremity: Left Full Weight Bearing Gait Training Does the Patient Walk?: Yes Walk 10 feet (QC): 4 Walk 50 ft with 2 Turns(QC): 4 Walk 150 ft (QC): 4 Gait Persons Needed: 1 Gait Assistive Device: FWW emphasis on control and balance and safe use of AD Stair Training Stair Training: Handrails/: 2 handrails #of Steps: 4 4 Steps (QC): 4 Stairs: Pattern: Step to Exercises Supine Ex: Ankle pumps, Quad Set, Glut sets, Heel Slides, Scooting, Hip abd/add Supine Reps: 15 Treatments pain limits pts wt bearing and ROM as pt guards in hip flexion and extension . AROM right hip 80-90 degrees, Assessment Current Status: Good Progress pt. gives full effort PT Pot Filler Goals Correction Goals PT Correction Goals Time Frame: Feb 01, 2022 Roll Left & Right (QC): 6 Sit to Lying (QC): 6 Lying-Sitting on Side/Bed(QC): 6 Sit to Stand (QC): 6 Chair/Gso-av-Tvdey Xfer(QC): 6 Toilet Transfer (QC): 6 Car Transfer (QC): 6 Does the Patient Walk: Yes Walk 10 feet (QC): 6 Walk 50ft with 2 Turns (QC): 6 Walk 150 ft (QC): 6 Walking 10ft on Uneven Surface: 6 1 Step (curb) (QC): 6 4 Steps (QC): 6 12 Steps (QC): 6 Picking up an Object (QC): 6 Does the Pt use WC or Scooter?: No Wheel 50 feet with 2 turns (QC: 09 Type: N/A Wheel 150 feet: 09 Type: N/A PT Plan Treatment/Plan Treatment Plan: Continue Plan of Care Treatment Plan: Bed Mobility, Concurrent Therapy, Education, Functional Activity Anali, Functional Strength, Group Therapy, Gait, Safety, Therapeutic Exercise, Transfers Treatment Duration: Feb 01, 2022 Frequency: At least 5 of 7 days/Wk (IRF) Estimated Hrs Per Day: 1.5 hours per day Patient and/or Family Agrees t: Yes Safety Risks/Education Patient Education: Gait Training, Transfer Techniques, Steps, Correct Positioning, Disease Process, Safety Issues Teaching Recipient: Patient, Primary Caregiver Teaching Methods: Discussion Response to Teaching: Verbalize Understanding, Return Demonstration, Reinforcement Needed Time/GCodes Time In: 1330 Time Out: 1400 Total Billed Treatment Time: 30 Total Billed Treatment 1,EX15m,FA15m RAMONA HUIZAR FLOTATION OPERATOR Jan 07, 2022 14:01
[2022-01-07] MEDS ORDERED: warFARin 4 MG (COUMADIN) TAB PO ONE (18:00)
[2022-01-07] MEDS: warFARin 2 MG (COUMADIN) TAB PO SCH (18:17)
[2022-01-07] MEDS: warFARin 5 MG (COUMADIN) TAB PO SCH (18:17)
[2022-01-07 20:00] VITALS: BP 131/61
[2022-01-08 06:18] LABS: INR 2.2 (0.8-1.4); PROTHROMBIN TIME PATIENT 25.3 SEC (12.2-14.7)
[2022-01-08] MEDS: PANTOPRAZOLE 40 MG (PROTONIX) TAB PO SCH (06:52)
[2022-01-08] MEDS: ENOXAPARIN 60 MG/0.6 ML (LOVENOX) SYR SC SCH ×2 (06:52→18:25)
[2022-01-08 07:17] VITALS: BP 144/67
--- NOTE | 2022-01-08 07:40 | PM&R Progress Note ---
Subjective HPI/CC On Admission Date Seen by Provider: Jan 08, 2022 Time Seen by Provider: 12:00 Subjective/Events-last exam 01/08/2022: Patient doing better INR 2.2 Lovenox bridge on board Balance is better Taking Tylenol and Percocet 01/07/2022: Patient doing well Check meds and labs INR noted covering with Lovenox for bridge Updated patient on the plan Right leg improved 01/06/2022: Patient doing a lot better Right thigh much improved Clarified dosing of Coumadin to keep INR 3.53.8 so we will restart this 7 mg Participating in therapy Checked meds and labs 01/05/2022: Pt is doing a lot better Diet was changed to accommodate Incontinence x 1 and tried to crawl out of bed last night Right thigh really hurts so I will have Dr. Vega evaluate Oxycodone will be given for pain Review of Systems General: Fatigue, Malaise Musculoskeletal: leg pain Objective Exam Vital Signs Vital Signs Date Time Temp Pulse Resp B/P (MAP) Pulse Ox O2 Delivery O2 Flow Rate FiO2 01/08/22 20:30 Room Air 01/08/22 20:00 36.7 70 18 141/65 (90) 97 Capillary Refill : General Appearance: No Apparent Distress, WD/WN, Chronically ill, Thin HEENT: PERRL/EOMI, Normal ENT Inspection, Pharynx Normal Neck: Full Range of Motion, Normal Inspection, Non Tender, Supple, Carotid Bruit Respiratory: Chest Non Tender, Lungs Clear, Normal Breath Sounds, No Accessory Muscle Use, No Respiratory Distress Cardiovascular: Regular Rate, Rhythm, No Edema, No Gallop, No JVD, Normal Peripheral Pulses, Systolic Murmur Gastrointestinal: Normal Bowel Sounds, No Organomegaly, No Pulsatile Mass, Non Tender, Soft Back: Normal Inspection, No CVA Tenderness, No Vertebral Tenderness Extremity: Normal Capillary Refill, Normal Inspection, Normal Range of Motion, Non Tender, No Calf Tenderness, No Pedal Edema Neurologic/Psychiatric: Alert, Oriented x3, class c driver II-XII Norm as Tested, Abnormal Gait, Aphasia (Partial), Depressed Affect, Motor Weakness (Generalized) Skin: Normal Color, Warm/Dry Lymphatic: No Adenopathy Results/Procedures Lab Patient resulted labs reviewed. FIM Transfers Therapy Code Descriptions/Definitions Functional [place] Measure: 0=Not Assessed/NA 4=Minimal Assistance 1=Total Assistance 5=Supervision or Setup 2=Maximal Assistance 6=Modified [place] 3=Moderate Assistance 7=Complete IndependenceSCALE: Activities may be completed with or without assistive devices. 7-Eiucyzvcmp-okbknwt completes the activity by him/herself with no assistance from a helper. 5-Set-up or Clean-up Assistance-helper sets up or cleans up; patient completes activity. [place] assists only prior to or following the activity. 4-Supervision or Touching Assistance-helper provides verbal cues and/or touching/steadying and/or contact guard assistance as patient completes activity. Assistance may be provided throughout the activity or intermittently. 3-Partial/Moderate Assistance-helper does LESS THAN HALF the effort. [place] lifts, holds or supports trunk or limbs, but provides less than half the effort. 2-Substantial/Maximal Assistance-helper does MORE THAN HALF the effort. [place] lifts or holds trunk or limbs and provides more than half the effort. 2-Faxozndon-aaupyr does ALL the effort. Patient does none of the effort to com plete the activity. Or, the assistance of 2 or more helpers is required for the patient to complete the activity. If activity was not attempted, code reason: 7-Patient Refused. 9-Not Applicable-not attempted and the patient did not perform the activity before the current illness, exacerbation or injury. 10-Not Attempted due to Environmental Limitations-(lack of equipment, weather restraints, etc.). 88-Not Attempted due to Medical Conditions or Safety Concerns. Roll Left to Right (QC): 6 Sit to Lying (QC): 6 Sit to Stand (QC): 6 Chair/Gcv-bm-Cytcr Xfer(QC): 6 Car Transfer (QC): 4 Gait Training Does the Patient Walk?: Yes Distance: 250' Walk 10 feet (QC): 4 Walk 50 ft with 2 Turns(QC): 4 Walk 150 ft (QC): 4 Walking 10ft/uneven surface-QC: 4 Gait Persons Needed: 1 Gait Assistive Device: FWW Wheelchair Training Does the Pt Use a Wheelchair?: No Wheel 50 ft with 2 turns (QC): 09 Wheel 150 ft (QC): 09 Stair Training Stair Training: Handrails/: 2 handrails #of Steps: 4 1 Step (curb) (QC): 5 4 Steps (QC): 4 12 Steps (QC): 3 Stairs: Pattern: Step to Balance Picking up an Object (QC): 2 ADL-Treatment Eating (QC): 6 (IND with breakfast) Oral Hygiene (QC): 6 (IND standing at sink) Shower/Bathe Self (QC): 6 (IND) Upper Body Dressing (QC): 6 (IND with button up shirt.) Lower Body Dressing (QC): 4 (Supervision) On/Off Footwear (QC): 5 (set up) Toileting Hygiene (QC): 6 Assessment/Plan Assessment and Plan Assess & Plan/Chief Complaint Assessment: Debility from right thigh contusion Coagulopathy from warfarin supratherapeutic Valvular heart disease status post aortic valve replacement Prior CVA with dysarthria chronic Dysarthria Hypertension Hyperlipidemia Diabetes Constipation Fall risk Plan: Monitor INR Rehab protocol Checked meds and labs Resolve constipation 01/05/2022: Monitor INR Dr. 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
[2022-01-08] MEDS: metFORMIN XR 500 MG (GLUCOPHAGE XR) TAB PO SCH (08:28)
[2022-01-08] MEDS: ASPIRIN E.C. 81 MG (ECOTRIN) TAB PO SCH (08:28)
[2022-01-08] MEDS: GLIMEPIRIDE 2 MG (AMARYL) TAB PO SCH (08:28)
[2022-01-08] MEDS: meTOprolol TARTRATE 25 MG (LOPRESSOR) TABLET PO SCH ×2 (08:28→21:09)
[2022-01-08] MEDS: ACETAMINOPHEN 325 MG TABLET PO PRN (08:28)
[2022-01-08] MEDS: DOCUSATE SODIUM 100 MG (COLACE) CAP PO SCH (08:29)
[2022-01-08] MEDS: polyethylene glycoL POWDER 17 GM (MIRALAX) PACK PO SCH ×2 (09:17→19:33)
[2022-01-08] MEDS: SENNA W/DOCUSATE (SENOKOT S) TABLET PO SCH ×2 (09:17→19:33)
--- NOTE | 2022-01-08 11:10 | Physical Therapy Daily Note ---
PT Daily Note-Current Subjective Pt agreeable. Pt rates pain 4-5/10 (R) hip upon arrival and states "It is a little better" after walking. Mental Status Patient Orientation: Person, Place, Situation Transfers SCALE: Activities may be completed with or without assistive devices. 8-Dcwhybzdky-qogribg completes the activity by him/herself with no assistance from a helper. 5-Set-up or Clean-up Assistance-helper sets up or cleans up; patient completes activity. [place] assists only prior to or following the activity. 4-Supervision or Touching Assistance-helper provides verbal cues and/or touching/steadying and/or contact guard assistance as patient completes activity. Assistance may be provided throughout the activity or intermittently. 3-Partial/Moderate Assistance-helper does LESS THAN HALF the effort. [place] lifts, holds or supports trunk or limbs, but provides less than half the effort. 2-Substantial/Maximal Assistance-helper does MORE THAN HALF the effort. [place] lifts or holds trunk or limbs and provides more than half the effort. 0-Ruwqyfjup-soujsn does ALL the effort. Patient does none of the effort to complete the activity. Or, the assistance of 2 or more helpers is required for the patient to complete the activity. If activity was not attempted, code reason: 7-Patient Refused. 9-Not Applicable-not attempted and the patient did not perform the activity before the current illness, exacerbation or injury. 10-Not Attempted due to Environmental Limitations-(lack of equipment, weather restraints, etc.). 88-Not Attempted due to Medical Conditions or Safety Concerns. Pt SBA for all transfers Weight Bearing Right Lower Extremity: Right Full Weight Bearing Left Lower Extremity: Left Full Weight Bearing Gait Training Gait Assistive Device: FWW Pt amb with FWW x 250ft with CGA- SBA at slow steady speed. Exercises Seated Therapy Exercises: Ankle pumps, Long arc quads, Hip abd/add Seated Reps: 20 Assessment Current Status: Good Progress Pt albino very well. Pt ambu alarm activated. Pt seated in recliner with call light in lap and all needs met. PT Senior Bioinformatics Specialist Goals Senior Bioinformatics Specialist Goals PT Longterm Goals Time Frame: Feb 01, 2022 Roll Left & Right (QC): 6 Sit to Lying (QC): 6 Lying-Sitting on Side/Bed(QC): 6 Sit to Stand (QC): 6 Chair/Svj-zw-Yzyym Xfer(QC): 6 Toilet Transfer (QC): 6 Car Transfer (QC): 6 Does the Patient Walk: Yes Walk 10 feet (QC): 6 Walk 50ft with 2 Turns (QC): 6 Walk 150 ft (QC): 6 Walking 10ft on Uneven Surface: 6 1 Step (curb) (QC): 6 4 Steps (QC): 6 12 Steps (QC): 6 Picking up an Object (QC): 6 Does the Pt use WC or Scooter?: No Wheel 50 feet with 2 turns (QC: 09 Type: N/A Wheel 150 feet: 09 Type: N/A PT Plan Treatment/Plan Treatment Plan: Continue Plan of Care Treatment Plan: Bed Mobility, Concurrent Therapy, Education, Functional Activity Anali, Functional Strength, Group Therapy, Gait, Safety, Therapeutic Exercise, Transfers Treatment Duration: Feb 01, 2022 Frequency: At least 5 of 7 days/Wk (IRF) Estimated Hrs Per Day: 1.5 hours per day Patient and/or Family Agrees t: Yes Time/GCodes Time In: 935 Time Out: 950 Total Billed Treatment Time: 15 Total Billed Treatment 1, gait 10', ther ex 5' NATIVIDAD BERTRAND CPTA Jan 08, 2022 11:10
[2022-01-08] MEDS ORDERED: warFARin 3 MG (COUMADIN) TAB PO SCH (18:00)
[2022-01-08] MEDS ORDERED: warFARin 2 MG (COUMADIN) TAB PO SCH (18:00)
[2022-01-08] MEDS: warFARin 5 MG (COUMADIN) TAB PO SCH (18:25)
[2022-01-08 20:00] VITALS: BP 141/65
[2022-01-09 05:45] LABS: INR 2.8 (0.8-1.4)
[2022-01-09] MEDS: PANTOPRAZOLE 40 MG (PROTONIX) TAB PO SCH (06:53)
[2022-01-09] MEDS: ENOXAPARIN 60 MG/0.6 ML (LOVENOX) SYR SC SCH ×2 (06:53→18:21)
[2022-01-09 07:18] VITALS: BP 129/63
[2022-01-09] MEDS: DOCUSATE SODIUM 100 MG (COLACE) CAP PO SCH (08:12)
[2022-01-09] MEDS: GLIMEPIRIDE 2 MG (AMARYL) TAB PO SCH (08:12)
[2022-01-09] MEDS: ACETAMINOPHEN 325 MG TABLET PO PRN ×2 (08:12→15:53)
[2022-01-09] MEDS: meTOprolol TARTRATE 25 MG (LOPRESSOR) TABLET PO SCH ×2 (08:12→20:04)
[2022-01-09] MEDS: metFORMIN XR 500 MG (GLUCOPHAGE XR) TAB PO SCH (08:12)
[2022-01-09] MEDS: ASPIRIN E.C. 81 MG (ECOTRIN) TAB PO SCH (08:12)
--- NOTE | 2022-01-09 08:35 | PM&R Progress Note ---
Subjective HPI/CC On Admission Date Seen by Provider: Jan 09, 2022 Time Seen by Provider: 12:30 Subjective/Events-last exam 01/09/2022: Patient doing well Walking with his daughter who is a PT INR making progress Increasing Coumadin to 9 mg and maintaining bridge of Lovenox 01/08/2022: Patient doing better INR 2.2 Lovenox bridge on board Balance is better Taking Tylenol and Percocet 01/07/2022: Patient doing well Check meds and labs INR noted covering with Lovenox for bridge Updated patient on the plan Right leg improved 01/06/2022: Patient doing a lot better Right thigh much improved Clarified dosing of Coumadin to keep INR 3.53.8 so we will restart this 7 mg Participating in therapy Checked meds and labs 01/05/2022: Pt is doing a lot better Diet was changed to accommodate Incontinence x 1 and tried to crawl out of bed last night Right thigh really hurts so I will have Dr. Vega evaluate Oxycodone will be given for pain Review of Systems General: Fatigue, Malaise Musculoskeletal: leg pain Objective Exam Vital Signs Vital Signs Date Time Temp Pulse Resp B/P (MAP) Pulse Ox O2 Delivery O2 Flow Rate FiO2 01/09/22 20:30 Room Air 01/09/22 20:00 36.5 72 16 131/62 (85) 97 Capillary Refill : General Appearance: No Apparent Distress, WD/WN, Chronically ill, Thin HEENT: PERRL/EOMI, Normal ENT Inspection, Pharynx Normal Neck: Full Range of Motion, Normal Inspection, Non Tender, Supple, Carotid Bruit Respiratory: Chest Non Tender, Lungs Clear, Normal Breath Sounds, No Accessory Muscle Use, No Respiratory Distress Cardiovascular: Regular Rate, Rhythm, No Edema, No Gallop, No JVD, Normal Peripheral Pulses, Systolic Murmur Gastrointestinal: Normal Bowel Sounds, No Organomegaly, No Pulsatile Mass, Non Tender, Soft Back: Normal Inspection, No CVA Tenderness, No Vertebral Tenderness Extremity: Normal Capillary Refill, Normal Inspection, Normal Range of Motion, Non Tender, No Calf Tenderness, No Pedal Edema Neurologic/Psychiatric: Alert, Oriented x3, media monitor II-XII Norm as Tested, Abnormal Gait, Aphasia (Partial), Depressed Affect, Motor Weakness (Generalized) Skin: Normal Color, Warm/Dry Lymphatic: No Adenopathy Results/Procedures Lab Patient resulted labs reviewed. FIM Transfers Therapy Code Descriptions/Definitions Functional [place] Measure: 0=Not Assessed/NA 4=Minimal Assistance 1=Total Assistance 5=Supervision or Setup 2=Maximal Assistance 6=Modified [place] 3=Moderate Assistance 7=Complete IndependenceSCALE: Activities may be completed with or without assistive devices. 4-Mwoawrnsje-afbnzga completes the activity by him/herself with no assistance from a helper. 5-Set-up or Clean-up Assistance-helper sets up or cleans up; patient completes activity. [place] assists only prior to or following the activity. 4-Supervision or Touching Assistance-helper provides verbal cues and/or touchin g/steadying and/or contact guard assistance as patient completes activity. Assistance may be provided throughout the activity or intermittently. 3-Partial/Moderate Assistance-helper does LESS THAN HALF the effort. [place] lifts, holds or supports trunk or limbs, but provides less than half the effort. 2-Substantial/Maximal Assistance-helper does MORE THAN HALF the effort. [place] lifts or holds trunk or limbs and provides more than half the effort. 1-Hfbclegmm-ixikry does ALL the effort. Patient does none of the effort to complete the activity. Or, the assistance of 2 or more helpers is required for the patient to complete the activity. If activity was not attempted, code reason: 7-Patient Refused. 9-Not Applicable-not attempted and the patient did not perform the activity before the current illness, exacerbation or injury. 10-Not Attempted due to Environmental Limitations-(lack of equipment, weather restraints, etc.). 88-Not Attempted due to Medical Conditions or Safety Concerns. Roll Left to Right (QC): 6 Sit to Lying (QC): 6 Sit to Stand (QC): 6 Chair/Amk-mt-Cybhp Xfer(QC): 6 Car Transfer (QC): 4 Gait Training Does the Patient Walk?: Yes Distance: 250' Walk 10 feet (QC): 4 Walk 50 ft with 2 Turns(QC): 4 Walk 150 ft (QC): 4 Walking 10ft/uneven surface-QC: 4 Gait Persons Needed: 1 Gait Assistive Device: FWW Wheelchair Training Does the Pt Use a Wheelchair?: No Wheel 50 ft with 2 turns (QC): 09 Wheel 150 ft (QC): 09 Stair Training Stair Training: Handrails/: 2 handrails #of Steps: 4 1 Step (curb) (QC): 5 4 Steps (QC): 4 12 Steps (QC): 3 Stairs: Pattern: Step to Balance Picking up an Object (QC): 2 ADL-Treatment Eating (QC): 6 (IND with breakfast) Oral Hygiene (QC): 6 (IND standing at sink) Shower/Bathe Self (QC): 6 (IND) Upper Body Dressing (QC): 6 (IND with button up shirt.) Lower Body Dressing (QC): 4 (Supervision) On/Off Footwear (QC): 5 (set up) Toileting Hygiene (QC): 6 Assessment/Plan Assessment and Plan Assess & Plan/Chief Complaint Assessment: Debility from right thigh contusion Coagulopathy from warfarin supratherapeutic Valvular heart disease status post aortic valve replacement Prior CVA with dysarthria chronic Dysarthria Hypertension Hyperlipidemia Diabetes Constipation Fall risk Plan: Monitor INR Rehab protocol Checked meds and labs Resolve constipation 01/05/2022: Monitor INR Dr. 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
[2022-01-09] MEDS: SENNA W/DOCUSATE (SENOKOT S) TABLET PO SCH ×2 (09:08→20:02)
[2022-01-09] MEDS: polyethylene glycoL POWDER 17 GM (MIRALAX) PACK PO SCH ×2 (09:08→20:02)
[2022-01-09] MEDS ORDERED: warFARin 4 MG (COUMADIN) TAB PO SCH (18:00)
[2022-01-09] MEDS ORDERED: warFARin 3 MG (COUMADIN) TAB PO SCH (18:00)
[2022-01-09] MEDS: warFARin 5 MG (COUMADIN) TAB PO SCH (18:21)
[2022-01-09 20:00] VITALS: BP 131/62
[2022-01-10] MEDS: PANTOPRAZOLE 40 MG (PROTONIX) TAB PO SCH (06:40)
[2022-01-10] MEDS: ENOXAPARIN 60 MG/0.6 ML (LOVENOX) SYR SC SCH (06:40)
--- NOTE | 2022-01-10 06:54 | PM&R Progress Note ---
Subjective HPI/CC On Admission Date Seen by Provider: Jan 10, 2022 Time Seen by Provider: 09:30 Subjective/Events-last exam 01/10/2022: Pt is doing well Up ad juan pablo now Ready for discharge now INR is 3.2 Discontinue Lovenox Decrease Coumadin from 9 mg to 8 mg and he will go home on 7 mg Checked meds and labs 01/09/2022: Patient doing well Walking with his daughter who is a PT INR making progress Increasing Coumadin to 9 mg and maintaining bridge of Lovenox 01/08/2022: Patient doing better INR 2.2 Lovenox bridge on board Balance is better Taking Tylenol and Percocet 01/07/2022: Patient doing well Check meds and labs INR noted covering with Lovenox for bridge Updated patient on the plan Right leg improved 01/06/2022: Patient doing a lot better Right thigh much improved Clarified dosing of Coumadin to keep INR 3.53.8 so we will restart this 7 mg Participating in therapy Checked meds and labs 01/05/2022: Pt is doing a lot better Diet was changed to accommodate Incontinence x 1 and tried to crawl out of bed last night Right thigh really hurts so I will have Dr. Vega evaluate Oxycodone will be given for pain Review of Systems General: Fatigue, Malaise Objective Exam Vital Signs Vital Signs Date Time Temp Pulse Resp B/P (MAP) Pulse Ox O2 Delivery O2 Flow Rate FiO2 01/10/22 21:35 94 Room Air 01/10/22 20:00 36.8 62 16 134/61 (85) Capillary Refill : General Appearance: No Apparent Distress, WD/WN, Chronically ill, Thin HEENT: PERRL/EOMI, Normal ENT Inspection, Pharynx Normal Neck: Full Range of Motion, Normal Inspection, Non Tender, Supple, Carotid Bruit Respiratory: Chest Non Tender, Lungs Clear, Normal Breath Sounds, No Accessory Muscle Use, No Respiratory Distress Cardiovascular: Regular Rate, Rhythm, No Edema, No Gallop, No JVD, Normal Peripheral Pulses, Systolic Murmur Gastrointestinal: Normal Bowel Sounds, No Organomegaly, No Pulsatile Mass, Non Tender, Soft Back: Normal Inspection, No CVA Tenderness, No Vertebral Tenderness Extremity: Normal Capillary Refill, Normal Inspection, Normal Range of Motion, Non Tender, No Calf Tenderness, No Pedal Edema Neurologic/Psychiatric: Alert, Oriented x3, auriculotherapist II-XII Norm as Tested, Abnormal Gait, Aphasia (Partial), Depressed Affect, Motor Weakness (Generalized) Skin: Normal Color, Warm/Dry Lymphatic: No Adenopathy Results/Procedures Lab Laboratory Tests 01/10/22 06:34 Patient resulted labs reviewed. FIM Transfers Therapy Code Descriptions/Definitions Functional [place] Measure: 0=Not Assessed/NA 4=Minimal Assistance 1=Total Assistance 5=Supervision or Setup 2=Maximal Assistance 6=Modified [place] 3=Moderate Assistance 7=Complete IndependenceSCALE: Activities may be completed with or without assistive devices. 2-Vuzotohvrw-qcdptxp completes the activity by him/herself with no assistance from a helper. 5-Set-up or Clean-up Assistance-helper sets up or cleans up; patient completes activity. [place] assists only prior to or following the activity. 4-Supervision or Touching Assistance-helper provides verbal cues and/or touching/steadying and/or contact guard assistance as patient completes activity. Assistance may be provided throughout the activity or intermittently. 3-Partial/Moderate Assistance-helper does LESS THAN HALF the effort. Leon lifts, holds or supports trunk or limbs, but provides less than half the effort. 2-Substantial/Maximal Assistance-helper does MORE THAN HALF the effort. Leon lifts or holds trunk or limbs and provides more than half the effort. 1-Blumtinab-kscjrk does ALL the effort. Patient does none of the effort to complete the activity. Or, the assistance of 2 or more helpers is required for the patient to complete the activity. If activity was not attempted, code reason: 7-Patient Refused. 9-Not Applicable-not attempted and the patient did not perform the activity before the current illness, exacerbation or injury. 10-Not Attempted due to Environmental Limitations-(lack of equipment, weather restraints, etc.). 88-Not Attempted due to Medical Conditions or Safety Concerns. Roll Left to Right (QC): 6 Sit to Lying (QC): 6 Sit to Stand (QC): 6 Chair/Lyv-mh-Qhfpo Xfer(QC): 6 Car Transfer (QC): 4 Gait Training Does the Patient Walk?: Yes Distance: 250' Walk 10 feet (QC): 4 Walk 50 ft with 2 Turns(QC): 4 Walk 150 ft (QC): 4 Walking 10ft/uneven surface-QC: 4 Gait Persons Needed: 1 Gait Assistive Device: FWW Wheelchair Training Does the Pt Use a Wheelchair?: No Wheel 50 ft with 2 turns (QC): 09 Wheel 150 ft (QC): 09 Stair Training Stair Training: Handrails/: 2 handrails #of Steps: 4 1 Step (curb) (QC): 5 4 Steps (QC): 4 12 Steps (QC): 3 Stairs: Pattern: Step to Balance Picking up an Object (QC): 2 ADL-Treatment Eating (QC): 6 (IND with breakfast) Oral Hygiene (QC): 6 (IND standing at sink) Shower/Bathe Self (QC): 6 (IND) Upper Body Dressing (QC): 6 (IND with button up shirt.) Lower Body Dressing (QC): 4 (Supervision) On/Off Footwear (QC): 5 (set up) Toileting Hygiene (QC): 6 Assessment/Plan Assessment and Plan Assess & Plan/Chief Complaint Assessment: Debility from right thigh contusion Coagulopathy from warfarin supratherapeutic Valvular heart disease status post aortic valve replacement Prior CVA with dysarthria chronic Dysarthria Hypertension Hyperlipidemia Diabetes Constipation Fall risk Plan: Monitor INR Rehab protocol Checked meds and labs Resolve constipation 01/05/2022: Monitor INR Dr. VEGA to check leg 01/06/2022: Increase Coumadin to 7 mg for goal of INR 3.53.8 01/07/2022: Lovenox bridge Continue therapy 01/08/2022: Rehab protocol Lovenox bridge 01/09/2022: Continue aggressive therapy Increase Coumadin dose 01/10/2022: DC Lovenox Change Coumadin to 8 mg daily (1) Traumatic hematoma of right thigh Status: Acute (2) History of CVA (cerebrovascular accident) (3) Constipation (4) Anticoagulated on Coumadin Status: Chronic (5) Orthostatic hypotension Status: Acute (6) Supratherapeutic INR Status: Resolved Resolution Date/Time: 08/26/20 @ 10:19 (7) Generalized weakness Status: Acute (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
[2022-01-10 07:14] LABS: BASOPHILS # (AUTO) 0.1 10^3/uL (0.0-0.1); BASOPHILS % (AUTO) 1 % (0-10); EOSINOPHILS # (AUTO) 0.3 10^3/uL (0.0-0.3); EOSINOPHILS % (AUTO) 4 % (0-10); HEMATOCRIT 28 % (40-54); HEMOGLOBIN 8.7 g/dL (13.3-17.7); LYMPHOCYTES # (AUTO) 2.3 10^3/uL (1.0-4.0); LYMPHOCYTES % (AUTO) 32 % (12-44); MEAN CORPUSCULAR HEMOGLOBIN 30 pg (25-34); MEAN CORPUSCULAR HGB CONC 32 g/dL (32-36); MEAN CORPUSCULAR VOLUME 96 fL (80-99); MEAN PLATELET VOLUME 9.6 fL (9.0-12.2); MONOCYTES # (AUTO) 0.8 10^3/uL (0.0-1.0); MONOCYTES % (AUTO) 11 % (0-12); NEUTROPHILS # (AUTO) 3.8 10^3/uL (1.8-7.8); NEUTROPHILS % (AUTO) 52 % (42-75); PLATELET COUNT 364 10^3/uL (130-400); WHITE BLOOD COUNT 7.3 10^3/uL (4.3-11.0)
[2022-01-10 07:29] LABS: ALBUMIN 3.5 GM/DL (3.2-4.5)
[2022-01-10 07:30] LABS: POTASSIUM 4.1 MMOL/L (3.6-5.0)
[2022-01-10 07:31] LABS: CALCIUM 8.9 MG/DL (8.5-10.1)
[2022-01-10 07:32] LABS: TOTAL PROTEIN 6.6 GM/DL (6.4-8.2)
[2022-01-10 07:34] LABS: BILIRUBIN,TOTAL 1.2 MG/DL (0.1-1.0)
[2022-01-10 07:36] LABS: CREATININE SERUM 0.74 MG/DL (0.60-1.30)
[2022-01-10 07:39] LABS: INR 3.2 (0.8-1.4); PROTHROMBIN TIME PATIENT 33.3 SEC (12.2-14.7)
[2022-01-10 08:00] VITALS: BP 143/66
--- NOTE | 2022-01-10 08:19 | Occupational Ther Daily Note ---
OT Current Status-Daily Note Subjective Pt in recliner, agreeable to OT tx. Pt feels like he is ready for discharge tomorrow. Mental Status/Objective Patient Orientation: Normal For Age ADL-Treatment Therapy Code Descriptions/Definitions Functional [place] Measure: 0=Not Assessed/NA 4=Minimal Assistance 1=Total Assistance 5=Supervision or Setup 2=Maximal Assistance 6=Modified [place] 3=Moderate Assistance 7=Complete IndependenceSCALE: Activities may be completed with or without assistive devices. 1-Pecnwwvntg-avvsiqq completes the activity by him/herself with no assistance from a helper. 5-Set-up or Clean-up Assistance-helper sets up or cleans up; patient completes activity. [place] assists only prior to or following the activity. 4-Supervision or Touching Assistance-helper provides verbal cues and/or touching/steadying and/or contact guard assistance as patient completes activity. Assistance may be provided throughout the activity or intermittently. 3-Partial/Moderate Assistance-helper does LESS THAN HALF the effort. [place] lifts, holds or supports trunk or limbs, but provides less than half the effort. 2-Substantial/Maximal Assistance-helper does MORE THAN HALF the effort. [place] lifts or holds trunk or limbs and provides more than half the effort. 3-Ttybmeiag-alqduq does ALL the effort. Patient does none of the effort to complete the activity. Or, the assistance of 2 or more helpers is required for the patient to complete the activity. If activity was not attempted, code reason: 7-Patient Refused. 9-Not Applicable-not attempted and the patient did not perform the activity before the current illness, exacerbation or injury. 10-Not Attempted due to Environmental Limitations-(lack of equipment, weather restraints, etc.). 88-Not Attempted due to Medical Conditions or Safety Concerns. Eating (QC): 6 Oral Hygiene (QC): 6 (standing at sink) Shower/Bathe Self (QC): 6 (IND, able to wash/dry all parts.) Upper Body Dressing (QC): 6 (IND with button up shirt.) Lower Body Dressing (QC): 6 (IND with underwear and jeans.) On/Off Footwear: 6 (IND with slip on shoes.) Toileting Hygiene (QC): 6 (IND standing at toilet.) Other Treatment Pt in recliner, used FWW around his room to gather clothing. Pt transferred into bathroom, standing at toilet to urinate, then stood at sink to complete grooming tasks. Pt transferred to SC. Pt completed showering, then donned clothes. Pt used FWW to perform functional mobility to therapy gym, IND. In order to increase BUE strength and activity tolerance, pt completed arm bike, 20 [place], x10 mins, 2 rest breaks. Pt returned to his room, transferring to recliner. Post tx, pt in recliner, call light in reach and all needs met, chair alarm activated. Education OT Patient Education: Correct positioning, Energy conservation, Modified ADL techniques, Progress toward Goal/Update tx plan, Purpose of tx/functional activities, Reviewed precautions Teaching Recipient: Patient Teaching Methods: Discussion Response to Teaching: Verbalize Understanding OT Short Term Goals Short Term Goals Time Frame: Jan 12, 2022 Shower/bathe self: 5 Lower body dressin Putting on/taking off footwear: 5 OT Electrical Appliance Servicer Goals Electrical Appliance Servicer Goals Time Frame: Jan 28, 2022 Eating (QC): 6 (met) Oral Hygiene (QC): 6 (met) Toileting Hygiene (QC): 6 (met) Shower/Bathe Self (QC): 6 (met) Upper Body Dressing (QC): 6 (met) Lower Body Dressing (QC): 6 (met) On/Off Footwear (QC): 6 (met) Additional Goals: 1-Demonstrate ADL Tasks, 2-Verbalize Understanding, 3- ImproveStrength/Anali 1=Demonstrate adherence to instructed precautions during ADL tasks. 2=Patient will verbalize/demonstrate understanding of assistive devices/modifications for ADL. 3=Patient will improve strength/tolerance for activity to enable patient to perform ADL's. OT Education/Plan Problem List/Assessment Assessment: Decreased Activ Tolerance, Decreased UE Strength, Impaired I ADL's Discharge Recommendations Plan/Recommendations: Continue POC Treatment Plan/Plan of Care Patient would benefit from OT for education, treatment and training to promote independence in ADL's, mobility, safety and/or upper extremity function for ADL's. Plan of Care: ADL Retraining, Functional Mobility, Group Exercise/Act as Ind, UE Funct Exercise/Act Treatment Duration: Jan 28, 2022 Frequency: At least 5 of 7 days/Wk (IRF) Estimated Hrs Per Day: 1.5 hours per day Agreement: Yes Rehab Potential: Good Time/GCodes Start Time: 08:00 Stop Time: 09:00 Total Time Billed (hr/min): 60 Billed Treatment Time 1, ADL 3 (45'), EX (15') GO MURRELL OT Jan 10, 2022 08:19
[2022-01-10] MEDS: meTOprolol TARTRATE 25 MG (LOPRESSOR) TABLET PO SCH ×2 (08:46→21:31)
[2022-01-10] MEDS: ASPIRIN E.C. 81 MG (ECOTRIN) TAB PO SCH (08:46)
[2022-01-10] MEDS: GLIMEPIRIDE 2 MG (AMARYL) TAB PO SCH (08:46)
[2022-01-10] MEDS: metFORMIN XR 500 MG (GLUCOPHAGE XR) TAB PO SCH (08:46)
[2022-01-10] MEDS: ACETAMINOPHEN 325 MG TABLET PO PRN (09:03)
[2022-01-10] MEDS: DOCUSATE SODIUM 100 MG (COLACE) CAP PO SCH (09:06)
[2022-01-10] MEDS: polyethylene glycoL POWDER 17 GM (MIRALAX) PACK PO SCH ×2 (09:06→21:31)
[2022-01-10] MEDS: SENNA W/DOCUSATE (SENOKOT S) TABLET PO SCH ×2 (09:08→21:31)
--- NOTE | 2022-01-10 11:04 | Physical Therapy Daily Note ---
PT Daily Note-Current Subjective Pt sitting in recliner upon arrival. Pt agrees to PT for QC scoring for anticipated d/c tomorrow. Mental Status Patient Orientation: Person, Place, Time, Situation, [place] Transfers SCALE: Activities may be completed with or without assistive devices. 0-Ayulixeywb-iqnewgf completes the activity by him/herself with no assistance from a helper. 5-Set-up or Clean-up Assistance-helper sets up or cleans up; patient completes activity. [place] assists only prior to or following the activity. 4-Supervision or Touching Assistance-helper provides verbal cues and/or touching/steadying and/or contact guard assistance as patient completes activity. Assistance may be provided throughout the activity or intermittently. 3-Partial/Moderate Assistance-helper does LESS THAN HALF the effort. [place] lifts, holds or supports trunk or limbs, but provides less than half the effort. 2-Substantial/Maximal Assistance-helper does MORE THAN HALF the effort. [place] lifts or holds trunk or limbs and provides more than half the effort. 7-Bwygcrxis-sfgcxr does ALL the effort. Patient does none of the effort to complete the activity. Or, the assistance of 2 or more helpers is required for the patient to complete the activity. If activity was not attempted, code reason: 7-Patient Refused. 9-Not Applicable-not attempted and the patient did not perform the activity before the current illness, exacerbation or injury. 10-Not Attempted due to Environmental Limitations-(lack of equipment, weather restraints, etc.). 88-Not Attempted due to Medical Conditions or Safety Concerns. Roll Left & Right (QC): 6 Sit to Lying (QC): 6 Lying to Sitting/Side of Bed(Q: 6 Sit to Stand (QC): 6 Chair/Bue-fy-Sxojc Xfer(QC): 6 Toilet Transfer (QC): 6 Car Transfer (QC): 6 Weight Bearing Right Lower Extremity: Right Full Weight Bearing Left Lower Extremity: Left Full Weight Bearing Gait Training Does the Patient Walk?: Yes Distance: 500' Walk 10 feet (QC): 6 Walk 50 ft with 2 Turns(QC): 6 Walk 150 ft (QC): 6 Walking 10ft/uneven surface-QC: 6 Gait Persons Needed: 0 Gait Assistive Device: FWW Stair Training Stair Training: Handrails/: 1 handrail #of Steps: 8 1 Step (curb) (QC): 6 4 Steps (QC): 6 12 Steps (QC): 7 Stairs: Pattern: Step to Balance Picking up an Object (QC): 7 Special Test Comments Pt declines picking object from floor. When asked what he would do if something is dropped, pt stated he would just leave it there. Exercises NuStep Minutes: 12 NuStep Workload: 4 Treatments TF to standing and amb. in hallway. Pt takes extended walk before completing QC scoring items listed above. Pt declines need for BR and returns to recliner at end of tx to rest. All needs met, call light in hand. Assessment Current Status: Good Progress Pt albino. tx well. Pt is made Ad juan pablo in room. Nurse notified & board in room updated. PT Longterm Goals Mass Communications Professor Goals PT Mass Communications Professor Goals Time Frame: Feb 01, 2022 Roll Left & Right (QC): 6 Sit to Lying (QC): 6 Lying-Sitting on Side/Bed(QC): 6 Sit to Stand (QC): 6 Chair/Vuf-vu-Mtydr Xfer(QC): 6 Toilet Transfer (QC): 6 Car Transfer (QC): 6 Does the Patient Walk: Yes Walk 10 feet (QC): 6 Walk 50ft with 2 Turns (QC): 6 Walk 150 ft (QC): 6 Walking 10ft on Uneven Surface: 6 1 Step (curb) (QC): 6 4 Steps (QC): 6 12 Steps (QC): 6 Picking up an Object (QC): 6 Does the Pt use WC or Scooter?: No Wheel 50 feet with 2 turns (QC: 09 Type: N/A Wheel 150 feet: 09 Type: N/A PT Plan Treatment/Plan Treatment Plan: Continue Plan of Care Treatment Plan: Bed Mobility, Concurrent Therapy, Education, Functional Activity Anali, Functional Strength, Group Therapy, Gait, Safety, Therapeutic Exercise, Transfers Treatment Duration: Feb 01, 2022 Frequency: At least 5 of 7 days/Wk (IRF) Estimated Hrs Per Day: 1.5 hours per day Patient and/or Family Agrees t: Yes Safety Risks/Education Patient Education: Steps, Correct Positioning, Safety Issues Teaching Recipient: Patient Teaching Methods: Discussion Response to Teaching: Verbalize Understanding Time/GCodes Time In: 900 Time Out: 1000 Total Billed Treatment Time: 60 Total Billed Treatment 1, GT (15m), FA x2 (30m) & EX (15m) MOLLY WOOD DIRECTOR GIFT Jan 10, 2022 11:04
--- NOTE | 2022-01-10 11:58 | Occupational Ther Daily Note ---
OT Current Status-Daily Note Subjective Pt up in recliner, agreeable to OT Tx. ADL-Treatment Therapy Code Descriptions/Definitions Functional [place] Measure: 0=Not Assessed/NA 4=Minimal Assistance 1=Total Assistance 5=Supervision or Setup 2=Maximal Assistance 6=Modified [place] 3=Moderate Assistance 7=Complete IndependenceSCALE: Activities may be completed with or without assistive devices. 1-Iekcgdgtbv-cwvlsdj completes the activity by him/herself with no assistance from a helper. 5-Set-up or Clean-up Assistance-helper sets up or cleans up; patient completes activity. [place] assists only prior to or following the activity. 4-Supervision or Touching Assistance-helper provides verbal cues and/or touching/steadying and/or contact guard assistance as patient completes activity. Assistance may be provided throughout the activity or intermittently. 3-Partial/Moderate Assistance-helper does LESS THAN HALF the effort. [place] lifts, holds or supports trunk or limbs, but provides less than half the effort. 2-Substantial/Maximal Assistance-helper does MORE THAN HALF the effort. [place] lifts or holds trunk or limbs and provides more than half the effort. 5-Sfsodwicr-aktslk does ALL the effort. Patient does none of the effort to co mplete the activity. Or, the assistance of 2 or more helpers is required for the patient to complete the activity. If activity was not attempted, code reason: 7-Patient Refused. 9-Not Applicable-not attempted and the patient did not perform the activity before the current illness, exacerbation or injury. 10-Not Attempted due to Environmental Limitations-(lack of equipment, weather restraints, etc.). 88-Not Attempted due to Medical Conditions or Safety Concerns. Other Treatment Pt used FWW to go to therapy gym from room, independently. OT tx focused on increasing BUE fine motor strength and coordination. Pt placed/removed x100 pegs from foam pegboard, alternating hands. He then removed beads from moderate resistance theraputty, able to locate all beads without cues. Pt returned to his room independently. Post tx, pt in recliner, call light in reach and all needs met. Education OT Patient Education: Correct positioning, Energy conservation, Modified ADL techniques, Progress toward Goal/Update tx plan, Purpose of tx/functional activities Teaching Recipient: Patient Teaching Methods: Discussion Response to Teaching: Verbalize Understanding OT Short Term Goals Short Term Goals Time Frame: Jan 12, 2022 Shower/bathe self: 5 Lower body dressin Putting on/taking off footwear: 5 OT Alf Goals Alf Goals Time Frame: Jan 28, 2022 Eating (QC): 6 (met) Oral Hygiene (QC): 6 (met) Toileting Hygiene (QC): 6 (met) Shower/Bathe Self (QC): 6 (met) Upper Body Dressing (QC): 6 (met) Lower Body Dressing (QC): 6 (met) On/Off Footwear (QC): 6 (met) Additional Goals: 1-Demonstrate ADL Tasks, 2-Verbalize Understanding, 3- ImproveStrength/Anali 1=Demonstrate adherence to instructed precautions during ADL tasks. 2=Patient will verbalize/demonstrate understanding of assistive devices/modifications for ADL. 3=Patient will improve strength/tolerance for activity to enable patient to perform ADL's. OT Education/Plan Problem List/Assessment Assessment: No Skilled OT Needs ID'd, Decreased Activ Tolerance, Decreased UE Strength, Impaired I ADL's Discharge Recommendations Plan/Recommendations: Continue POC Treatment Plan/Plan of Care Patient would benefit from OT for education, treatment and training to promote independence in ADL's, mobility, safety and/or upper extremity function for ADL's. Plan of Care: ADL Retraining, Functional Mobility, Group Exercise/Act as Ind, UE Funct Exercise/Act Treatment Duration: Jan 28, 2022 Frequency: At least 5 of 7 days/Wk (IRF) Estimated Hrs Per Day: 1.5 hours per day Agreement: Yes Rehab Potential: Good Time/GCodes Start Time: 11:20 Stop Time: 11:50 Total Time Billed (hr/min): 30 Billed Treatment Time 1, FA 2 GO MURRELL OT Jan 10, 2022 11:58
--- NOTE | 2022-01-10 13:29 | Physical Therapy Daily Note ---
PT Daily Note-Current Subjective Pt sitting in recliner upon arrival. Pt agrees to PT. Mental Status Patient Orientation: Person, Place, Time, Situation Transfers SCALE: Activities may be completed with or without assistive devices. 8-Lbnjjhajcl-epkppos completes the activity by him/herself with no assistance from a helper. 5-Set-up or Clean-up Assistance-helper sets up or cleans up; patient completes activity. [place] assists only prior to or following the activity. 4-Supervision or Touching Assistance-helper provides verbal cues and/or touching/steadying and/or contact guard assistance as patient completes activity. Assistance may be provided throughout the activity or intermittently. 3-Partial/Moderate Assistance-helper does LESS THAN HALF the effort. [place] lifts, holds or supports trunk or limbs, but provides less than half the effort. 2-Substantial/Maximal Assistance-helper does MORE THAN HALF the effort. [place] lifts or holds trunk or limbs and provides more than half the effort. 2-Aqfshmeve-hymsci does ALL the effort. Patient does none of the effort to complete the activity. Or, the assistance of 2 or more helpers is required for the patient to complete the activity. If activity was not attempted, code reason: 7-Patient Refused. 9-Not Applicable-not attempted and the patient did not perform the activity before the current illness, exacerbation or injury. 10-Not Attempted due to Environmental Limitations-(lack of equipment, weather restraints, etc.). 88-Not Attempted due to Medical Conditions or Safety Concerns. Sit to Stand (QC): 6 Weight Bearing Right Lower Extremity: Right Full Weight Bearing Left Lower Extremity: Left Full Weight Bearing Gait Training Does the Patient Walk?: Yes Distance: 500' Walk 10 feet (QC): 6 Walk 50 ft with 2 Turns(QC): 6 Walk 150 ft (QC): 6 Gait Persons Needed: 0 Gait Assistive Device: FWW Stair Training Stair Training: Handrails/: 1 handrail #of Steps: 8 1 Step (curb) (QC): 6 4 Steps (QC): 6 Stairs: Pattern: Step to Balance Picking up an Object (QC): 6 Special Test Comments With encouragement from WOOD MODEL MAKER, pt was able to peanut picker object from floor w/LOB. Pt showed proper technique and stability. Treatments TF to standing and amb. in hallway. Pt takes short RB before amb. 2 sets of 4 steps. Pt also picks up object from floor then amb. in hallway. Pt returns to room and rests in recliner. All needs met, call light in hand. Assessment Current Status: Good Progress Pt albino. tx well and is excited to d/c tomorrow. PT Textbook Associate Goals Textbook Associate Goals PT Fpc Goals Time Frame: Feb 01, 2022 Roll Left & Right (QC): 6 Sit to Lying (QC): 6 Lying-Sitting on Side/Bed(QC): 6 Sit to Stand (QC): 6 Chair/Jel-wl-Qnzsw Xfer(QC): 6 Toilet Transfer (QC): 6 Car Transfer (QC): 6 Does the Patient Walk: Yes Walk 10 feet (QC): 6 Walk 50ft with 2 Turns (QC): 6 Walk 150 ft (QC): 6 Walking 10ft on Uneven Surface: 6 1 Step (curb) (QC): 6 4 Steps (QC): 6 12 Steps (QC): 6 Picking up an Object (QC): 6 Does the Pt use WC or Scooter?: No Wheel 50 feet with 2 turns (QC: 09 Type: N/A Wheel 150 feet: 09 Type: N/A PT Plan Treatment/Plan Treatment Plan: Continue Plan of Care Treatment Plan: Bed Mobility, Concurrent Therapy, Education, Functional Activity Anali, Functional Strength, Group Therapy, Gait, Safety, Therapeutic Exercise, Transfers Treatment Duration: Feb 01, 2022 Frequency: At least 5 of 7 days/Wk (IRF) Estimated Hrs Per Day: 1.5 hours per day Patient and/or Family Agrees t: Yes Safety Risks/Education Patient Education: Gait Training, Steps Teaching Recipient: Patient Teaching Methods: Discussion Response to Teaching: Verbalize Understanding Time/GCodes Time In: 1300 Time Out: 1330 Total Billed Treatment Time: 30 Total Billed Treatment 1, GT (15m) & FA (15m) MOLLY WOOD WOOD MODEL MAKER Jan 10, 2022 13:29
[2022-01-10] MEDS ORDERED: warFARin 4 MG (COUMADIN) TAB PO SCH (18:00)
[2022-01-10] MEDS: warFARin 5 MG (COUMADIN) TAB PO SCH (18:39)
[2022-01-10 20:00] VITALS: BP 134/61
[2022-01-11 05:37] LABS: INR 3.1 (0.8-1.4); PROTHROMBIN TIME PATIENT 32.5 SEC (12.2-14.7)
[2022-01-11] MEDS ORDERED: OXC5T PO (05:58)
--- NOTE | 2022-01-11 05:59 | Discharge Summary ---
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 VEGA to check leg 01/06/2022: Increase Coumadin to 7 mg for goal of INR 3.53.8 01/07/2022: Lovenox bridge Continue therapy 01/08/2022: Rehab protocol Lovenox bridge 01/09/2022: Continue aggressive therapy Increase Coumadin dose 01/10/2022: DC Lovenox Change Coumadin to 8 mg daily (1) Traumatic hematoma of right thigh Status: Acute (2) History of CVA (cerebrovascular accident) (3) Constipation (4) Anticoagulated on Coumadin Status: Chronic (5) Orthostatic hypotension Status: Acute (6) Supratherapeutic INR Status: Resolved Resolution Date/Time: 08/26/20 @ 10:19 (7) Generalized weakness Status: Acute (8) Mechanical heart valve present Status: Chronic Discharge Summary Discharge Physical Examination Allergies: Coded Allergies: NSAIDS (Non-Steroidal Anti-Inflamma (Unverified Allergy, Unknown, 06/11/14) hydrocodone (Unverified Allergy, Unknown, 12/30/21) LISTED ON HIS MED LIST FROM HOME BUT PT DIDNT KNOW WHAT KIND OF REACTION HE HAD Vitals & I&Os Vital Signs Date Time Temp Pulse Resp B/P (MAP) Pulse Ox O2 Delivery O2 Flow Rate FiO2 01/11/22 13:25 36.3 73 16 155/66 92 Room Air General Appearance: Alert, Oriented X3, Cooperative Respiratory: Clear to Auscultation Cardiovascular: Regular Rate Neuro: Normal Gait, Normal Speech, Strength at 5/5 X4 Ext Psych/Mental Status: Mental Status NL Hospital Course Was the Problem List Reviewed?: Yes Pt had an uneventful hospital course after he was admitted due to right thigh hematoma and decreased ADL independence. He was maintained on Coumadin and had Lovenox bridge when we needed INR between 3.2 and 3.6. He tolerated all that well. Labs remain stable. No other decompensation occurred. He was discharged in improved condition. Labs (last 24 hrs) Laboratory Tests 01/05/22 06:34: White Blood Count 7.9, Red Blood Count 3.12L, Hemoglobin 9.5L, Hematocrit 29L, Mean Corpuscular Volume 94, Mean Corpuscular Hemoglobin 30, Mean Corpuscular Hemoglobin Concent 32, Red Cell Distribution Width 13.8, Platelet Count 285, Mean Platelet Volume 9.5, Immature Granulocyte % (Auto) 1, Neutrophils (%) (Auto) 53, Lymphocytes (%) (Auto) 29, Monocytes (%) (Auto) 12, Eosinophils (%) (Auto) 4, Basophils (%) (Auto) 1, Neutrophils # (Auto) 4.2, Lymphocytes # (Auto) 2.3, Monocytes # (Auto) 0.9, Eosinophils # (Auto) 0.3, Basophils # (Auto) 0.0, Immature Granulocyte # (Auto) 0.1, Prothrombin Time 34.5H, INR Comment 3.4H, Sodium Level 135, Potassium Level 4.1, Chloride Level 103, Carbon Dioxide Level 24, Anion Gap 8, Blood Urea Nitrogen 14, Creatinine 0.73, Estimat Glomerular Filtration Rate 89, BUN/Creatinine Ratio 19, Glucose Level 118H, Calcium Level 8.9, Corrected Calcium 9.3, Total Bilirubin 1.5H, Aspartate Amino Transf (AST/SGOT) 22, Alanine Aminotransferase (ALT/SGPT) 15, Alkaline Phosphatase 86, Total Protein 6.8, Albumin 3.5 01/06/22 05:15: Prothrombin Time 28.0H, INR Comment 2.6H 01/07/22 05:00: Prothrombin Time 23.9H, INR Comment 2.1H 01/08/22 05:33: Prothrombin Time 25.3H, INR Comment 2.2H 01/09/22 05:15: Prothrombin Time 30.0H, INR Comment 2.8H 01/10/22 06:34: Prothrombin Time 33.3H, INR Comment 3.2H, White Blood Count 7.3, Red Blood Count 2.87L, Hemoglobin 8.7L, Hematocrit 28L, Mean Corpuscular Volume 96, Mean Corpuscular Hemoglobin 30, Mean Corpuscular Hemoglobin Concent 32, Red Cell Distribution Width 15.1H, Platelet Count 364, Mean Platelet Volume 9.6, Immature Granulocyte % (Auto) 1, Neutrophils (%) (Auto) 52, Lymphocytes (%) (Auto) 32, Monocytes (%) (Auto) 11, Eosinophils (%) (Auto) 4, Basophils (%) (Auto) 1, Neutrophils # (Auto) 3.8, Lymphocytes # (Auto) 2.3, Monocytes # (Auto) 0.8, Eosinophils # (Auto) 0.3, Basophils # (Auto) 0.1, Immature Granulocyte # (Auto) 0.1, Sodium Level 136, Potassium Level 4.1, Chloride Level 105, Carbon Dioxide Level 22, Anion Gap 9, Blood Urea Nitrogen 12, Creatinine 0.74, Estimat Gl omerular Filtration Rate 89, BUN/Creatinine Ratio 16, Glucose Level 93, Calcium Level 8.9, Corrected Calcium 9.3, Total Bilirubin 1.2H, Aspartate Amino Transf (AST/SGOT) 25, Alanine Aminotransferase (ALT/SGPT) 17, Alkaline Phosphatase 87, Total Protein 6.6, Albumin 3.5 01/11/22 03:01: Prothrombin Time 32.5H, INR Comment 3.1H Pending Labs Laboratory Tests 01/05/22 06:34: White Blood Count 7.9, Red Blood Count 3.12, Hemoglobin 9.5, Hematocrit 29, Mean Corpuscular Volume 94, Mean Corpuscular Hemoglobin 30, Mean Corpuscular Hemoglobin Concent 32, Red Cell Distribution Width 13.8, Platelet Count 285, Mean Platelet Volume 9.5, Immature Granulocyte % (Auto) 1, Neutrophils (%) (Auto) 53, Lymphocytes (%) (Auto) 29, Monocytes (%) (Auto) 12, Eosinophils (%) (Auto) 4, Basophils (%) (Auto) 1, Neutrophils # (Auto) 4.2, Lymphocytes # (Auto) 2.3, Monocytes # (Auto) 0.9, Eosinophils # (Auto) 0.3, Basophils # (Auto) 0.0, Immature Granulocyte # (Auto) 0.1, Prothrombin Time 34.5, INR Comment 3.4, Sodium Level 135, Potassium Level 4.1, Chloride Level 103, Carbon Dioxide Level 24, Anion Gap 8, Blood Urea Nitrogen 14, Creatinine 0.73, Estimat Glomerular Filtration Rate 89, BUN/Creatinine Ratio 19, Glucose Level 118, Calcium Level 8.9, Corrected Calcium 9.3, Total Bilirubin 1.5, Aspartate Amino Transf (AST /SGOT) 22, Alanine Aminotransferase (ALT/SGPT) 15, Alkaline Phosphatase 86, Total Protein 6.8, Albumin 3.5 01/06/22 05:15: Prothrombin Time 28.0, INR Comment 2.6 01/07/22 05:00: Prothrombin Time 23.9, INR Comment 2.1 01/08/22 05:33: Prothrombin Time 25.3, INR Comment 2.2 01/09/22 05:15: Prothrombin Time 30.0, INR Comment 2.8 01/10/22 06:34: Prothrombin Time 33.3, INR Comment 3.2, White Blood Count 7.3, Red Blood Count 2.87, Hemoglobin 8.7, Hematocrit 28, Mean Corpuscular Volume 96, Mean Corpuscular Hemoglobin 30, Mean Corpuscular Hemoglobin Concent 32, Red Cell Distribution Width 15.1, Platelet Count 364, Mean Platelet Volume 9.6, Immature Granulocyte % (Auto) 1, Neutrophils (%) (Auto) 52, Lymphocytes (%) (Auto) 32, Monocytes (%) (Auto) 11, Eosinophils (%) (Auto) 4, Basophils (%) (Auto) 1, Neutrophils # (Auto) 3.8, Lymphocytes # (Auto) 2.3, Monocytes # (Auto) 0.8, Eosinophils # (Auto) 0.3, Basophils # (Auto) 0.1, Immature Granulocyte # (Auto) 0.1, Sodium Level 136, Potassium Level 4.1, Chloride Level 105, Carbon Dioxide Level 22, Anion Gap 9, Blood Urea Nitrogen 12, Creatinine 0.74, Estimat Glomerular Filtration Rate 89, BUN/Creatinine Ratio 16, Glucose Level 93, Calcium Level 8.9, Corrected Calcium 9.3, Total Bilirubin 1.2, Aspartate Amino Transf (AST/SGOT) 25, Alanine Aminotransferase (ALT/SGPT) 17, Alkaline Phosphatase 87, Total Protein 6.6, Albumin 3.5 01/11/22 03:01: Prothrombin Time 32.5, INR Comment 3.1 Discharge Home Medications: Active Scripts Active Oxyir Tablet (Oxycodone HCl) 5 Mg Tab 5 Mg PO Q4H PRN Reported Ipratropium [place] 15 Ml Naspr 2 Sprays NSEACH Q8H PRN Docusate Sodium 100 Mg Capsule 200 Mg PO DAILY Aspirin EC (Aspirin) 81 Mg Tablet.dr 81 Mg PO DAILY Glimepiride 2 Mg Tablet 2 Mg PO DAILY Metformin HCl ER (Metformin HCl) 500 Mg Tab.er.24h 500 Mg PO DAILY Pantoprazole Sodium 40 Mg Tablet.dr 40 Mg PO DAILY Jantoven (Warfarin Sodium) 5 Mg Tablet 5 Mg PO HS TAKES 2 (1MG) TABS AND A 5MG TAB TO EQUAL 7MG Warfarin Sodium 1 Mg Tablet 2 Mg PO HS TAKES 2 (1MG) TABS AND A 5MG TAB TO EQUAL 7MG Metoprolol Tartrate 50 Mg Tablet 25 Mg PO BID TAKES 1/2 OF A 50MG TAB Instructions to patient/family Please see electronic discharge instructions given to patient. Diagnosis/Problems Diagnosis/Problems (1) Traumatic hematoma of right thigh Status: Acute (2) History of CVA (cerebrovascular accident) (3) Constipation (4) Anticoagulated on Coumadin Status: Chronic (5) Orthostatic hypotension Status: Acute (6) Supratherapeutic INR Status: Resolved Resolution Date/Time: 08/26/20 @ 10:19 (7) Generalized weakness Status: Acute (8) Mechanical heart valve present Status: Chronic CLAUDETTE MAHAN DO Jan 11, 2022 05:59
[2022-01-11] MEDS: PANTOPRAZOLE 40 MG (PROTONIX) TAB PO SCH (06:39)
[2022-01-11 07:44] VITALS: BP 155/66
[2022-01-11] MEDS: GLIMEPIRIDE 2 MG (AMARYL) TAB PO SCH (07:53)
[2022-01-11] MEDS: metFORMIN XR 500 MG (GLUCOPHAGE XR) TAB PO SCH (07:53)
[2022-01-11] MEDS: DOCUSATE SODIUM 100 MG (COLACE) CAP PO SCH (07:53)
[2022-01-11] MEDS: SENNA W/DOCUSATE (SENOKOT S) TABLET PO SCH (07:53)
[2022-01-11] MEDS: ASPIRIN E.C. 81 MG (ECOTRIN) TAB PO SCH (07:53)
[2022-01-11] MEDS: meTOprolol TARTRATE 25 MG (LOPRESSOR) TABLET PO SCH (07:55)
[2022-01-11] MEDS: polyethylene glycoL POWDER 17 GM (MIRALAX) PACK PO SCH (07:56)
[2022-01-11 13:25] VITALS: BP 155/66
--- NOTE | 2022-01-11 13:52 | Therapy Team Discharge Summary ---
Therapy Discharge Summary Discharge Recommendations Date of Discharge Jan 11, 2022 at 13:15 Physical Therapy Roll Left to Right (QC): 6 Sit to Lying (QC): 6 Lying to Sitting/Side of Bed(Q: 6 Sit to Stand (QC): 6 Chair/Uid-ze-Kbtrh Xfer(QC): 6 Toilet Transfer (QC): 6 Car Transfer (QC): 6 Does the Patient Walk: Yes Mode of Locomotion: Walk Anticipated Mode of Locomotion: Walk Walk 10 feet (QC): 6 Walk 50 ft with 2 Turns(QC): 6 Walk 150 ft (QC): 6 Walking 10ft on uneven surface: 6 Distance: 150' x3 Gait Assistive Device: FWW Does the Pt Use a Wheelchair: No Wheel 50 ft with 2 turns (QC): 09 Wheel 150 ft (QC): 09 #of Steps: 8 1 Step (curb) (QC): 6 4 Steps (QC): 6 12 Steps (QC): 7 Balance Sitting Static: Normal Balance Sitting Dynamic: Normal Balance-Standing Static: Normal Picking up an Object (QC): 6 Occupational Therapy Pt admitted to ARU with debility. At [facility], pt was independent with all ADLs and functional mobility without AD. Upon initial evaluation, pt required set up with eating and upper body dressing, SBA oral care, showering and footwear, min A lower body dressing, and CGA toileting. OT txs focused on increasing BUE strength and activity tolerance, increasing fine motor strength and coordination and increasing safety and independence wtih ADLs. Pt made good functional progress, attaining all LTGs. Pt discharged from facility, d/c from OT. 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 Goals PT Senior Care Goals Time Frame: Feb 01, 2022 Roll Left to Right (QC): 6 Sit to Lying (QC): 6 Lying-Sitting on Side/Bed(QC): 6 Sit to Stand (QC): 6 Chair/Slc-em-Pxeid Xfer(QC): 6 Car Transfer (QC): 6 Does the Patient Walk: Yes Walk 10 feet (QC): 6 Walk 10ft-Uneven Surface(QC): 6 Walk 50ft with 2 Turns (QC): 6 Walk 150 ft (QC): 6 Does the Pt use WC or Scooter?: No Wheel 50 feet with 2 turns (QC: 09 1 Step (curb) (QC): 6 4 Steps (QC): 6 12 Steps (QC): 6 Picking up an Object (QC): 6 OT Senior Care Goals Senior Care Goals Time Frame: Jan 28, 2022 Eating (QC): 6 (met) Oral Hygiene (QC): 6 (met) Shower/Bathe Self (QC): 6 (met) Upper Body Dressing (QC): 6 (met) Lower Body Dressing (QC): 6 (met) On/Off Footwear (QC): 6 (met) Toileting Hygiene (QC): 6 (met) Toilet/Commode Transfer (QC): 6 Additional Goals: 1-Demonstrate ADL Tasks, 2-Verbalize Understanding, 3- ImproveStrength/Anali 1=Demonstrate adherence to instructed precautions during ADL tasks. 2=Patient will verbalize/demonstrate understanding of assistive devices/modifications for ADL. 3=Patient will improve strength/tolerance for activity to enable patient to perform ADL's. GO MURRELL OT Jan 11, 2022 13:52
--- NOTE | 2022-01-11 14:30 | Therapy Team Discharge Summary ---
Therapy Discharge Summary Discharge Recommendations Date of Discharge Jan 11, 2022 at 13:15 Physical Therapy Patient came to rehab with debility. Upon evaluation patient performed rolling and supine <-> sit with independence, sit <-> stand and transfers with CGA, car transfer CGA, ambulated 150' with a rolling walker with CGA (including 50' with at least 2 turns of 90 degrees and 10' over an uneven surface), and went up and down 12 steps using 1 handrail with min assist. Patient has been performing bed mobility and transfer training, balance and endurance training, functional strengthening, stair training, gait training, and education. Patient has made good progress but has not met his chcf goals for stairs and picking up an object from the floor. Now, patient performs bed mobility and transfers with independence, independent with car transfers, ambulates 500' with a rolling walker with independence (including 50' with at least 2 turns of 90 degrees and 10' over an uneven surface), and can go up and down 8 steps using 1 handrail with independence, he declined to burr picker an object from the floor during QC testing. Patient has been discharged from this facility and will be discharged from PT at this time. Roll Left to Right (QC): 6 Sit to Lying (QC): 6 Lying to Sitting/Side of Bed(Q: 6 Sit to Stand (QC): 6 Chair/Syx-ad-Iaznl Xfer(QC): 6 Toilet Transfer (QC): 6 Car Transfer (QC): 6 Does the Patient Walk: Yes Mode of Locomotion: Walk Anticipated Mode of Locomotion: Walk Walk 10 feet (QC): 6 Walk 50 ft with 2 Turns(QC): 6 Walk 150 ft (QC): 6 Walking 10ft on uneven surface: 6 Distance: 150' x3 Gait Assistive Device: FWW Does the Pt Use a Wheelchair: No Wheel 50 ft with 2 turns (QC): 09 Wheel 150 ft (QC): 09 #of Steps: 8 1 Step (curb) (QC): 6 4 Steps (QC): 6 12 Steps (QC): 7 Balance Sitting Static: Normal Balance Sitting Dynamic: Normal Balance-Standing Static: Normal Picking up an Object (QC): 6 Occupational Therapy No Skilled OT Needs ID'd, Decreased Activ Tolerance, Decreased UE Strength, Impaired I ADL's Eating (QC): 6 Oral Hygiene (QC): 6 (standing at sink) Shower/Bathe Self (QC): 6 (IND, able to wash/dry all parts.) Upper Body Dressing (QC): 6 (IND with button up shirt.) Lower Body Dressing (QC): 6 (IND with underwear and jeans.) On/Off Footwear (QC): 6 (IND with slip on shoes.) Toileting Hygiene (QC): 6 (IND standing at toilet.) PT Snf Goals Snf Goals PT Snf Goals Time Frame: Feb 01, 2022 Roll Left to Right (QC): 6 Sit to Lying (QC): 6 Lying-Sitting on Side/Bed(QC): 6 Sit to Stand (QC): 6 Chair/Xmc-cf-Zdaue Xfer(QC): 6 Car Transfer (QC): 6 Does the Patient Walk: Yes Walk 10 feet (QC): 6 Walk 10ft-Uneven Surface(QC): 6 Walk 50ft with 2 Turns (QC): 6 Walk 150 ft (QC): 6 Does the Pt use WC or Scooter?: No Wheel 50 feet with 2 turns (QC: 09 1 Step (curb) (QC): 6 4 Steps (QC): 6 12 Steps (QC): 6 Picking up an Object (QC): 6 OT Snf Goals Supervisor Sewing Room Goals Time Frame: Jan 28, 2022 Eating (QC): 6 (met) Oral Hygiene (QC): 6 (met) Shower/Bathe Self (QC): 6 (met) Upper Body Dressing (QC): 6 (met) Lower Body Dressing (QC): 6 (met) On/Off Footwear (QC): 6 (met) Toileting Hygiene (QC): 6 (met) Toilet/Commode Transfer (QC): 6 Additional Goals: 1-Demonstrate ADL Tasks, 2-Verbalize Understanding, 3- ImproveStrength/Anali 1=Demonstrate adherence to instructed precautions during ADL tasks. 2=Patient will verbalize/demonstrate understanding of assistive devices/modifications for ADL. 3=Patient will improve strength/tolerance for activity to enable patient to perform ADL's. QUE SÁNCHEZ PT Jan 11, 2022 14:30
== END 2022-01-11 13:15 | disposition home or self-care (01) | DRG 949 ==
PROVIDERS: ADMIT Internal Medicine; ATTEND Internal Medicine
DX: S70.11XD Contusion of right thigh, subsequent encounter (principal); D68.32 Hemorrhagic disorder due to extrinsic circulating anticoagulants; R53.1 Weakness; I95.1 Orthostatic hypotension; I69.320 Aphasia following cerebral infarction; I69.322 Dysarthria following cerebral infarction; R26.9 Unspecified abnormalities of gait and mobility; E11.40 Type 2 diabetes mellitus with diabetic neuropathy, unspecified; K59.00 Constipation, unspecified; J44.9 Chronic obstructive pulmonary disease, unspecified; K21.9 Gastro-esophageal reflux disease without esophagitis; I10 Essential (primary) hypertension; E78.5 Hyperlipidemia, unspecified; Z79.84 Long term (current) use of oral hypoglycemic drugs; Z79.01 Long term (current) use of anticoagulants; Z95.2 Presence of prosthetic heart valve; Z87.891 Personal history of nicotine dependence; Z79.82 Long term (current) use of aspirin; Z88.6 Allergy status to analgesic agent; Z88.5 Allergy status to narcotic agent; W01.198D Fall on same level from slipping, tripping and stumbling with subsequent striking against other object, subsequent encounter; T45.515A Adverse effect of anticoagulants, initial encounter
CPT/HCPCS: 36415; 80053; 85025; 85610

== ENCOUNTER 2022-07-21 21:03 | Emergency (ER) | payer MEDICARE ==
[~2022-07-21] VITALS: Ht 173 cm; Wt 67.0 kg
[~2022-07-21 21:03] MED LIST changes: +OXC5T PO
--- NOTE | 2022-07-21 21:40 | ED Neurological Problem ---
General Chief Complaint: Neuro-Stroke Like Symptoms Stated Complaint: POSSIBLE STROKE Nursing Triage Note: brought in by family with c/o intermittant left facial twitching x2hrs. 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 Started a couple hours ago, is intermittent, not painful, feels like an electric type feeling. Denies any true numbness, weakness, or any new concerns. Allergies and Home Medications Allergies Coded Allergies: NSAIDS (Non-Steroidal Anti-Inflamma (Unverified Allergy, Unknown, 06/11/14) hydrocodone (Unverified Allergy, Unknown, 12/30/21) LISTED ON HIS MED LIST FROM HOME BUT PT DIDNT KNOW WHAT KIND OF REACTION HE HAD Patient Home Medication List Home Medication List Reviewed: Yes Aspirin (Aspirin EC) 81 Mg Tablet.dr, 81 MG PO DAILY, (Reported) Entered as Reported by: DEISY DOMINGUEZ on 08/20/20 103 Last Action: Last Taken Edited Docusate Sodium (Docusate Sodium) 100 Mg Capsule, 200 MG PO DAILY, (Reported) Entered as Reported by: DEISY DOMINGUEZ on 08/20/201030 Last Action: Last Taken Edited Glimepiride (Glimepiride) 2 Mg Tablet, 2 MG PO DAILY, (Reported) Entered as Reported by: DEISY DOMINGUEZ on 08/20/20 103 Last Action: Last Taken Edited Ipratropium [place] (Ipratropium Bentonia) 15 Ml Naspr, 2 SPRAYS NSEACH Q8H PRN for RUNNY NOSE, (Reported) Entered as Reported by: DEISY DOMINGUEZ on 12/30/21 0858 Metformin HCl (Metformin HCl ER) 500 Mg Tab.er.24h, 500 MG PO DAILY, (Reported) Entered as Reported by: DEISY DOMINGUEZ on 08/20/20 103 Last Action: Last Taken Edited Metoprolol Tartrate (Metoprolol Tartrate) 50 Mg Tablet, 25 MG PO BID, (Reported) Entered as Reported by: DEISY DOMINGUEZ on 08/20/201030 Last Action: Last Taken Edited Oxycodone Hcl (Oxyir Tablet) 5 Mg Tab, 5 MG PO Q4H PRN for PAIN-SEVERE (8-10) Prescribed by: CLAUDETTE MAHAN on 01/11/22 0559 Pantoprazole Sodium (Pantoprazole Sodium) 40 Mg Tablet.dr, 40 MG PO DAILY, (Repo rted) Entered as Reported by: DEISY DOMINGUEZ on 08/20/201030 Last Action: Last Taken Edited Warfarin Sodium (Warfarin Sodium) 1 Mg Tablet, 2 MG PO HS, (Reported) Entered as Reported by: DEISY DOMINGUEZ on 08/20/201030 Last Action: Last Taken Edited Warfarin Sodium (Jantoven) 5 Mg Tablet, 5 MG PO HS, (Reported) Entered as Reported by: DEISY DOMINGUEZ on 08/20/201030 Last Action: Last Taken Edited Review of Systems Review of Systems Constitutional: No fever Eyes: Denies Blurred Vision Ears, Nose, Mouth, Throat: see HPI Respiratory: no symptoms reported Cardiovascular: no symptoms reported Gastrointestinal: no symptoms reported Genitourinary: no symptoms reported Musculoskeletal: no symptoms reported Skin: no symptoms reported Psychiatric/Neurological: See HPI Endocrine: No Symptoms Reported Hematologic/Lymphatic: No Symptoms Reported All Other Systems Reviewed Negative Unless Noted: Yes Past Ttubvfu-Pncipj-Sltaio Hx Patient Social History Tobacco Use?: No Substance use?: No Alcohol Use?: No Pt feels they are or have been: No Immunizations Up To Date Tetanus Booster (TDap): More than 5yrs First/Initial COVID19 Vaccinat: YES UNKNOW DATE. Second COVID19 Vaccination Kalyan: YES UNKNOW DATE Third COVID19 Vaccination Date: YES UNKNOW DATE. Seasonal Allergies Seasonal Allergies: No Past Medical History Surgery/Hospitalization HX: avr, whipple, colon ca, hernia, appy, bells palsy, cva x3, htn, niddm, gerd, Surgeries: Yes (TONSILECTOMY, GI SURGERY, APPENDECTOMY, HEART SURGERY) Abdominal, Appendectomy, Bowel Surgery, Cardiac, Eye Surgery, Valve Replacement Respiratory: Yes COPD Cardiac: Yes (AORTIC VALVE REPLACEMENT) Aneurysm, Rheumatic Fever, 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, RIGHT FACIAL DROOP, 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) Neuropathy, Stroke, TIA Reproductive Disorders: No Genitourinary: Yes Kidney Stones Gastrointestinal: Yes (Colon CA) Gastrointestinal Bleed Musculoskeletal: Yes Endocrine: Yes Diabetes, Non-Insulin dep Cataract Loss of Vision: Denies Hearing Impairment: Denies Cancer: Yes Small Bowel, Colon Psychosocial: No Integumentary: No Blood Disorders: No Family Medical History No Pertinent Family Hx Physical Exam Vital Signs Vital Signs - First Documented 07/21/22 21:09 Temp 36.1 Pulse 66 Resp 18 B/P (MAP) 185/91 (122) Pulse Ox 94 O2 Delivery Room Air Capillary Refill : Less Than 3 Seconds Height, Weight, BMI Height: 5'8.00" Weight: 148lbs. oz. 67.044384ux; 22.00 BMI Method:Stated General Appearance: WD/WN, no apparent distress HEENT: PERRL/EOMI, normal ENT inspection, pharynx normal Neck: non-tender, full range of motion, supple, normal inspection Respiratory: chest non-tender, lungs clear, normal breath sounds, no respiratory distress, no accessory muscle use Cardiovascular: regular rate, rhythm, no edema, no murmur Gastrointestinal: normal bowel sounds, non tender, soft; No distended, No guarding, No rebound Back: normal inspection, no CVA tenderness Extremities: normal range of motion, non-tender, normal inspection, no pedal edema, no calf tenderness, normal capillary refill Neurologic/Psychiatric: no motor/sensory deficits, alert, normal mood/affect, oriented x 3 Crainal Nerves: normal hearing, PERRL, other (Right-sided facial droop that includes the eyebrow, left face is normal, chronically dysarthric, alert and oriented, normal visual acuity and visual caldera) Coordination/Gait: normal finger to nose, normal gait, negative Romberg's sign; No abnormal gait Motor/Sensory: no motor deficit, no sensory deficit, no pronator drift Skin: normal color, warm/dry Lymphatic: no adenopathy Stroke Onset of Symptoms Date of Onset of Symptoms: Jul 21, 2022 Time of Symptom Onset: 19:00 Onset of Symptoms: Yes NIH Stroke Scale Assessment Level of Consciousness: 0=Alert (0), Level of Consciousness-Questions: 0=Answers both month/age (0), LOC Commands: 0=Performs both tasks (0), Visual Caldera: 0=No visual loss (0), Facial Movement (Facial Paresis): 0=Normal symmetrical mnt (0), Motor Function-Arms Right: 0=No drift (0), Motor Function-Arms Left: 0=No drift (0), Motor Function-Legs Right: 0=No drift (0), Motor Function-Legs Left: 0=No drift (0), Limb Ataxia: 0=Absent (0), Sensory: 0=Normal:no loss (0), Best Language: 0=No aphasia (0), Dysarthria: 0=Normal (0), Extinction & Inattention: 0=No abnormality (0), Total: 0 Stroke Thrombolytic Exclusion Age 18 or Over: Yes History of CVA: Yes Improving Symptoms: Yes IV - TPa Received IV - TPa Procedure Performed?: No Progress/Results/Core Measures Results/Orders Lab Results Laboratory Tests Test 07/21/22 21:16 Range/Units White Blood Count 6.1 4.3-11.0 10^3/uL Red Blood Count 4.50 4.30-5.52 10^6/uL Hemoglobin 13.7 13.3-17.7 g/dL Hematocrit 41 40-54 % Mean Corpuscular Volume 92 80-99 fL Mean Corpuscular Hemoglobin 30 25-34 pg Mean Corpuscular Hemoglobin Concent 33 32-36 g/dL Red Cell Distribution Width 13.5 10.0-14.5 % Platelet Count 204 130-400 10^3/uL Mean Platelet Volume 10.1 9.0-12.2 fL Immature Granulocyte % (Auto) 0 % Neutrophils (%) (Auto) 50 42-75 % Lymphocytes (%) (Auto) 37 12-44 % Monocytes (%) (Auto) 10 0-12 % Eosinophils (%) (Auto) 2 0-10 % Basophils (%) (Auto) 0 0-10 % Neutrophils # (Auto) 3.1 1.8-7.8 10^3/uL Lymphocytes # (Auto) 2.3 1.0-4.0 10^3/uL Monocytes # (Auto) 0.6 0.0-1.0 10^3/uL Eosinophils # (Auto) 0.1 0.0-0.3 10^3/uL Basophils # (Auto) 0.0 0.0-0.1 10^3/uL Immature Granulocyte # (Auto) 0.0 0.0-0.1 10^3/uL Prothrombin Time 36.5 H 12.2-14.7 SEC INR Comment 3.6 H 0.8-1.4 Activated Partial Thromboplast Time 42 H 24-35 SEC Sodium Level 138 135-145 MMOL/L Potassium Level 4.4 3.6-5.0 MMOL/L Chloride Level 105 98-107 MMOL/L Carbon Dioxide Level 23 21-32 MMOL/L Anion Gap 10 5-14 MMOL/L Blood Urea Nitrogen 11 7-18 MG/DL Creatinine 0.81 0.60-1.30 MG/DL Estimat Glomerular Filtration Rate 86 BUN/Creatinine Ratio 14 Glucose Level 126 H 70-105 MG/DL Calcium Level 9.4 8.5-10.1 MG/DL Corrected Calcium 9.3 8.5-10.1 MG/DL Magnesium Level 2.1 1.6-2.4 MG/DL Total Bilirubin 0.5 0.1-1.0 MG/DL Aspartate Amino Transf (AST/SGOT) 19 5-34 U/L Alanine Aminotransferase (ALT/SGPT) 14 0-55 U/L Alkaline Phosphatase 83 40-136 U/L Total Protein 7.6 6.4-8.2 GM/DL Albumin 4.1 3.2-4.5 GM/DL My Orders Orders - ELIESER TILLMAN MD Cbc With Automated Diff (07/21/22 21:34) Comprehensive Metabolic Panel (07/21/22 21:34) Magnesium (07/21/22 21:34) Protime With Inr (07/21/22 21:34) Partial Thromboplastin Time (07/21/22 21:34) Ed Iv/Invasive Line Start (07/21/22 21:34) Ekg Tracing (07/21/22 21:34) Monitor-Rhythm Ecg Trace Only (07/21/22 21:34) Vital Signs/I&O 07/21/22 21:09 Temp 36.1 Pulse 66 Resp 18 B/P (MAP) 185/91 (122) Pulse Ox 94 O2 Delivery Room Air Blood Pressure Mean: 122 Progress Progress Note : Progress Note 86-year-old male with above history coming in due to an electric feeling in the left side of his face. ABCs were intact, vital stable on presentation, NIH is 0. He has chronic right-sided facial droop which does not spare the eyebrow and is consistent with chronic weakness from Felipe's palsy. He is chronically dysarthric as well, although he is understandable. This has not changed. He is at his neuro baseline. Labs essentially unremarkable, glucose slightly elevated around 120 which is reassuring. INR 3.6 and his goal is around 3.5. On reassessment he continues to be at his baseline. I believe he stable for discharge with outpatient follow-up. He was sent home with strict return precautions Initial ECG Impression Date: Jul 21, 2022 Initial ECG Impression Time: 21:46 Initial ECG Rate: 54 Initial ECG Rhythm: S.Mike Comment Narrow QRS, normal axis, no signficant ST changes or T wave abnormalities, 1st degree AV block Departure Impression Primary Impression: Facial tingling sensation Disposition: 01 HOME, SELF-CARE Condition: Stable Departure-Patient Inst. Decision time for Depature: 22:06 Referrals: SHASHI CURRAN MD (PCP/Family) Primary Care Physician Patient Instructions: Paresthesia (DC) Add. Discharge Instructions: Your exam does not show any signs of stroke while in the ER. Your labs were reassuring. If you have any severe headache like the worst headache of your life, weakness we cannot move 1 side of her body, or any other concerns then please come back to the ER. Otherwise please call your doctor tomorrow. ELIESER TILLMAN MD Jul 21, 2022 21:40
[2022-07-21 21:41] LABS: BASOPHILS % (AUTO) 0 % (0-10); EOSINOPHILS # (AUTO) 0.1 10^3/uL (0.0-0.3); EOSINOPHILS % (AUTO) 2 % (0-10); HEMATOCRIT 41 % (40-54); HEMOGLOBIN 13.7 g/dL (13.3-17.7); LYMPHOCYTES # (AUTO) 2.3 10^3/uL (1.0-4.0); LYMPHOCYTES % (AUTO) 37 % (12-44); MEAN CORPUSCULAR HEMOGLOBIN 30 pg (25-34); MEAN CORPUSCULAR HGB CONC 33 g/dL (32-36); MEAN CORPUSCULAR VOLUME 92 fL (80-99); MEAN PLATELET VOLUME 10.1 fL (9.0-12.2); MONOCYTES # (AUTO) 0.6 10^3/uL (0.0-1.0); MONOCYTES % (AUTO) 10 % (0-12); NEUTROPHILS # (AUTO) 3.1 10^3/uL (1.8-7.8); NEUTROPHILS % (AUTO) 50 % (42-75); PLATELET COUNT 204 10^3/uL (130-400); WHITE BLOOD COUNT 6.1 10^3/uL (4.3-11.0)
[2022-07-21 21:47] LABS: INR 3.6 (0.8-1.4); PROTHROMBIN TIME PATIENT 36.5 SEC (12.2-14.7)
[2022-07-21 21:54] LABS: ALBUMIN 4.1 GM/DL (3.2-4.5); BILIRUBIN,TOTAL 0.5 MG/DL (0.1-1.0); CALCIUM 9.4 MG/DL (8.5-10.1); CREATININE SERUM 0.81 MG/DL (0.60-1.30); MAGNESIUM 2.1 MG/DL (1.6-2.4); POTASSIUM 4.4 MMOL/L (3.6-5.0); TOTAL PROTEIN 7.6 GM/DL (6.4-8.2)
[2022-07-21 22:08] VITALS: BP 159/77
== END 2022-07-21 22:12 | disposition home or self-care (01) ==
LOC: EDUNIT# 21:03 → ER 21:05
DX: R20.2 Paresthesia of skin (principal); R29.810 Facial weakness; R47.1 Dysarthria and anarthria; Z95.4 Presence of other heart-valve replacement; Z79.01 Long term (current) use of anticoagulants; Z86.73 Personal history of transient ischemic attack (TIA), and cerebral infarction without residual deficits; Z86.69 Personal history of other diseases of the nervous system and sense organs
CPT/HCPCS: 36415; 80053; 83735; 85025; 85610; 85730; 93005; 93041